=== PATIENT | female | born 1955 | race Caucasian/White ===

== ENCOUNTER 2018-03-24 13:58 | Emergency (ER) | payer MEDICARE, OTHER, SELFPAY ==
[2018-03-24 13:59] VITALS: BP 105/60; PULSE 66; RESP 18; TEMP 36.4; O2SAT 91; BMI 53.8
--- NOTE | 2018-03-24 14:50 | CT_ITS ---
STUDY: CT ABDOMEN AND PELVIS WITHOUT CONTRAST REASON FOR EXAM: Female, 63 years old. RADIATION DOSAGE (If Supplied By Facility): CTDIvol = ( 24.18 ) mGy, DLP = ( 1147.63 ) mGycm TECHNIQUE: Transaxial images were obtained from the dome of the diaphragm to the symphysis pubis without oral contrast, and without intravenous contrast. Sagittal and coronal images were reconstructed. Individualized dose optimization techniques were used for this CT. COMPARISON: None. FINDINGS: The visualized lung bases are unremarkable. The visualized portions of the heart are within normal limits. The liver and spleen are normal in size and attenuation. There are multiple tiny calcified granulomas in both. No focal lesion seen. The pancreas is within normal limits. The adrenal glands and both kidneys are unremarkable. No hydronephrosis or stone formation. No periaortic lymphadenopathy. No free fluid or free air in the peritoneal cavity. The small and large bowel are unremarkable. The appendix is not seen There are calcifications tortuosity of the abdomen and aorta no aneurysmal dilatation. CT/Abdomen/Pelvis without Cont IMPRESSION: Multiple calcified granulomas in the liver and spleen. Electronically Signed: Alondra Bennett, at 15:53 EST Tel , Service support ,
[2018-03-24] MEDS: 0.9% Normal Saline 1,000 ML 1000 ML IV (15:07)
[2018-03-24] MEDS: Morphine 4 MG/ML Syringe IV (15:07)
[2018-03-24] MEDS: Ondansetron 4 MG/2 ML Vial IV (15:08)
[2018-03-24 15:20] LABS: Absolute Lymphocyte Count 4.25 X10^3/ul (0.83-4.51); Absolute Neutrophil Count 7.7 X10^3/uL (2.0-7.7); Basophil# 0.04 X10^3/uL; Basophil% 0.3 % (0-1); Eosinophil# 0.26 X10^3/uL; Hematocrit 52.2 % (37-47); Hemoglobin 17.6 g/dl (12.0-15.0); Lymphocyte # 4.25 X10^3/ul (4.0); Lymphocyte % 32.3 % (19-41); Mean Corp Hgb Conc 33.7 g/gl (32-36); Mean Corpuscular Hgb 33.7 pg (27.0-32.0); Mean Corpuscular Volume 99.8 fL (81-99); Mean Platelet Vol. 10.9 fl (6.2-12.0); Monocyte# 0.81 X10^3/uL; Monocyte% 6.2 % (0-10); Neutrophil # 7.74 X10^3/uL (2.7-7.7); Neutrophil % 58.7 % (47-70); Platelet Count 155 K/mm3 (150-450); RBC Distribution Width CV 12.9 % (11.6-14.6); RBC Distribution Width SD 47.1 fl (35.1-43.9); Red Blood Count 5.23 M/mm3 (4.2-5.4); White Blood Count 13.2 K/mm3 (4.4-11.0)
[2018-03-24 15:25] LABS: POSITIVE COUNT NO; POSITIVE DIFFERENTIAL NO; POSITIVE MORPHOLOGY NO
[2018-03-24 15:28] LABS: ALB/GLOB Ratio 1.2 RATIO (0.9-2.4); AST(SGOT) 11 U/L (15-37); Alanine Aminotransfer ALT/SGPT 22 U/L (13-56); Albumin, Serum 3.6 g/dL (3.2-5.0); Alkaline Phosphatase 61 U/L (45-117); Anion Gap 7 (5-15); BUN 29 mg/dL (7-18); BUN/Creat Ratio 27.9 RATIO (10-20); Calcium,Total 9.8 mg/dL (8.5-10.1); Chloride 98 mmol/L (98-107); Creatinine, Serum 1.04 mg/dL (0.55-1.02); EST Glomerular Filtration Rate 57 mL/min (>60); Est Glom Filt Rate - Afr Amer 68 mL/min (>60); Globulin 3.1 g/dL (2.2-4.2); Glucose 145 mg/dL (74-106); Lipase 75 U/L (73-393); Protein, Total 6.7 g/dL (6.4-8.2); Sodium Level 141 mmol/L (136-145)
--- NOTE | 2018-03-24 16:08 | ED.VISSUMM ---
- ER Visit Summary Date of Service: 03/24/18 Chief Complaint: Right side pain History of Present Illness: The patient is a 63 F with right side pain in her groin for the past 3 days. It radiates to her right flank and right leg. Worse with movement. She has been taking [employer] twice a day and it is not helping. Patient denies any injury or inciting event. She never had this before. She has a history of ovarian cyst and she was worried this is an ovarian cyst. History of diabetes, hypertension, hyperlipidemia, CHF, COPD, and a partial hysterectomy. She does take aspirin. Physical Examination: Afebrile and vital signs unremarkable. No acute distress. Alert and oriented. Skin appears normal without pallor or jaundice. Heart regular. Lungs clear. Abdomen is tender in the right lower quadrant. No guarding or rebound. No CVA tender this. Test Results: White count 13.2 and hemoglobin 17.6, CO2 36, glucose 145, BUN 29, and creatinine 1.04. Hepatic panel and lipase unremarkable. Urinalysis pending. CT showed liver and spleen granulomas, but nothing else acute. Emergency Department Course and Treatment: Patient treated with fluids, morphine, and Zofran while awaiting results. Her urinalysis is pending but otherwise her workup is unremarkable. Nothing to explain her right flank pain. Oncoming physician will check a urinalysis which has not even collected at this time. If there is an infection, she will need treatment. She is not currently on antibiotics. If this is negative, I suspect this is myofascial pain. Patient will increase her [employer] to 2 tablets 4 times a day. She will also be prescribed Motrin. Follow-up with primary care. Return right away for any new or worsening issues. Treatment Plan: As above Disposition: Discharge Impression: 1. Right flank pain This note was generated with [employer] software. It may contain incorrect words, spelling, and punctuation that were not noted in review of the chart prior to signing ED Disposition - Plan for ED Patient: Chief Complaint: Complaint Referrals: Bhavesh Victoria MD [Primary Care Provider] -
--- NOTE | 2018-03-24 16:11 | ED.DCSUM_ITS ---
- ER Visit Summary Date of Service: 03/24/18 Chief Complaint: Right side pain History of Present Illness: The patient is a 63 F with right side pain in her groin for the past 3 days. It radiates to her right flank and right leg. Worse with movement. She has been taking [place] twice a day and it is not helping. Patient denies any injury or inciting event. She never had this before. She has a history of ovarian cyst and she was worried this is an ovarian cyst. History of diabetes, hypertension, hyperlipidemia, CHF, COPD, and a partial hysterectomy. She does take aspirin. Physical Examination: Afebrile and vital signs unremarkable. No acute distress. Alert and oriented. Skin appears normal without pallor or jaundice. Heart regular. Lungs clear. Abdomen is tender in the right lower quadrant. No guarding or rebound. No CVA tender this. Test Results: White count 13.2 and hemoglobin 17.6, CO2 36, glucose 145, BUN 29, and creatinine 1.04. Hepatic panel and lipase unremarkable. Urinalysis pending. CT showed liver and spleen granulomas, but nothing else acute. Emergency Department Course and Treatment: Patient treated with fluids, morphine, and Zofran while awaiting results. Her urinalysis is pending but otherwise her workup is unremarkable. Nothing to explain her right flank pain. Oncoming physician will check a urinalysis which has not even collected at this time. If there is an infection, she will need treatment. She is not currently on antibiotics. If this is negative, I suspect this is myofascial pain. Patient will increase her [place] to 2 tablets 4 times a day. She will also be prescribed Motrin. Follow-up with primary care. Return right away for any new or worsening issues. Treatment Plan: As above Disposition: Discharge Impression: 1. Right flank pain This note was generated with [employer] software. It may contain incorrect words, spelling, and punctuation that were not noted in review of the chart prior to signing ED Disposition - Plan for ED Patient: Chief Complaint: Complaint Referrals: Bhavesh Victoria MD [Primary Care Provider] -
--- NOTE | 2018-03-24 16:11 | ED.DEP ---
ED Disposition - Plan for ED Patient: Chief Complaint: Complaint Instructions: ED Flank Pain Uncertain Cause Prescriptions: Ibuprofen [Motrin] 800 mg PO TID PRN PRN #20 tab PRN Reason: Pain Referrals: Bhavesh Victoria MD [Primary Care Provider] -
[2018-03-24 16:25] VITALS: BP 104/67; PULSE 71; RESP 20; O2SAT 90
[2018-03-24 16:26] LABS: Bacteria 0 SEEN /hpf (None Seen); Mucous, Urine 0 SEEN /hpf (<or=2+); White Blood Cells 0 SEEN /hpf (0-5)
[2018-03-24 16:27] LABS: Color, Urine Straw (Yellow); Glucose, Dipstick Normal (Normal); Ketone-Dipstick Negative (Negative); Leukocyte Esterase-Dipstick Negative /ul (Negative); Nitrite-Dipstick Negative (Negative); Occult Blood-Urine Negative /ul (Negative); Protein-Dipstick Negative (Negative); Urine Bilirubin Dipstick Negative (Negative); Urine Clarity Clear (Clear); Urine Urobilinogen Normal (Normal)
[2018-03-24 16:42] LABS: Hyaline Cast 0-5 SEEN /lpf (0-5); Squamous Epithelial Cells - UA 0-5 SEEN /hpf (5-10)
[2018-03-24 16:44] LABS: Red Blood Cells-Urine 0-5 SEEN /hpf (0-5)
[2018-03-24 16:50] VITALS: BP 110/71; PULSE 79; RESP 16; O2SAT 97
== END 2018-03-24 16:52 | disposition home or self-care (01) ==
LOC: ED 15:13
PROVIDERS: Emergency Provider Emergency Medicine; Family Provider Family Medicine; PCP Family Medicine
DX: R10.9 Unspecified abdominal pain (principal); M54.9 Dorsalgia, unspecified; I11.0 Hypertensive heart disease with heart failure; I50.9 Heart failure, unspecified; J44.9 Chronic obstructive pulmonary disease, unspecified; E11.9 Type 2 diabetes mellitus without complications; E78.5 Hyperlipidemia, unspecified; N83.209 Unspecified ovarian cyst, unspecified side; Z90.711 Acquired absence of uterus with remaining cervical stump; Z79.82 Long term (current) use of aspirin; Z72.0 Tobacco use
CPT/HCPCS: 74176; 80053; 81001; 83690; 85025; 96361; 96374; 96375; 99284; J7030; J2405

== ENCOUNTER → 2018-12-02 07:46 | Outpatient (CLI) | payer MEDICARE, OTHER, SELFPAY ==
--- NOTE | 2018-09-01 18:08 | HP.PCM_ITS ---
History and Physical Date of Admission: 09/05/18 HISTORY AND PHYSICAL ? Thao Valdez 1955 ? REFERRING PHYSICIAN: ??Self ? CHIEF COMPLAINT: ??Consult (Consult Colonoscopy) ? HPI: The patient is a 63 year old female referred for endoscopy. ?Thao notes no colon complaints. Patient denies any change in bowel habits, weight changes, blood in stools, black tarry stools or abdominal pain.??Denies?family history of colon issues. ?The patient is a smoker, approximately 1/2 pack per day, rolls own cigarettes. ?She notes frequent cough and throat irritation in the mornings. ?She has not had an EGD in the past. ? Thao?has?undergone prior colonoscopy, most recently in June 2007 with removal of benign hyperplastic polyps. ? ? Patient's history is significant for COPD, type 2 diabetes mellitus, hypertension, hyperlipidemia, coronary artery disease, migraines, sleep apnea, tobacco use as noted above, obesity. ?Patient follows with Dr. Victoria for her chronic medical conditions. ?Notes her diabetes is not currently well controlled and she is working on this. ?Patient also notes she is on oxygen as needed at home and that she should probably be using this more often than she does. ?She is SpO2 86% on room air during exam today and states this is typical for her. ?She denies any chest pain or recent hospitalizations. ?Denies problems with sedation in the past. ? ? PAST?MEDICAL?HISTORY PAST MEDICAL HISTORY Diagnosis Date ? Benign neoplasm of colon ? ? Carpal tunnel syndrome ? ? Chronic obstructive pulmonary disease (COPD) (HCC) ? ? Coronary artery disease ? ? Depression ? ? Diverticulosis of colon (without mention of hemorrhage) ? ? Internal hemorrhoids without mention of complication ? ? Obesity, unspecified ? ? Obstructive sleep apnea ? ? Other and unspecified hyperlipidemia ? ? PMH - PAST MEDICAL HISTORY OF 05/12/2007 ? Heart Cath ? Tobacco abuse 05/03/2010 ? Type II or unspecified type diabetes mellitus without mention of complication, not stated as uncontrolled Onset 1198 ? Unspecified essential hypertension ? ? ? PAST?SURGICAL?HISTORY PAST SURGICAL HISTORY Procedure Laterality Date ? CATARACT EXTRACTION HX ? 2014 ? COLONOS W/REM POLYP SNARE ? 07/11/07 ? FNA WITH IMAGING ? 05/29/14 ? U/S FNA right retroareolar breast abscess ? SLEEP STUDY - ADULT ? 12/15/11 ? [facility], Scanned to [facility] ? VAGINAL HYSTERECTOMY ? 1986 ? Hysterectomy, vaginal ? ? CURRENT?MEDICATIONS ? Current Outpatient Medications: spironolactone (ALDACTONE) 25 mg tablet Take 1 tablet by mouth twice daily. metFORMIN (GLUCOPHAGE) 1,000 mg tablet Take 1 tablet by mouth twice daily before meals. pramipexole (MIRAPEX) 1 mg tablet Take 2 tablets by mouth twice daily. montelukast (SINGULAIR) 10 mg tablet Take 1 tablet by mouth daily at bedtime. insulin NPH human (NOVOLIN N NPH U-100 INSULIN) injection Take 47 units sq in AM, 27 units sq in PM HYDROcodone-Acetaminophen (NORCO) 10-325 mg per tablet Take 1 tablet by mouth twice daily as needed for up to 30 days.Earliest Fill Date: 05/11/18 sertraline (ZOLOFT) 50 mg tablet Take 1 tablet by mouth once daily. DULoxetine (CYMBALTA) 30 mg capsule Take 1 capsule by mouth once daily. In addition to 60 mg of Cymbalta glimepiride (AMARYL) 4 mg tablet Take 1 tablet by mouth once daily. meloxicam (MOBIC) 15 mg tablet TAKE ONE TABLET BY MOUTH ONCE DAILY NEEDED cloNIDine HCl (CATAPRES) 0.1 mg tablet TAKE 1 TABLET BY MOUTH TWICE A DAY Lovastatin 40 mg tablet TAKE 1 TABLET BY MOUTH AT BEDTIME blood sugar diagnostic (ACCU-CHEK JOJO) test strip Test blood sugar(s) 5 times daily. ?Dx: Type 2 DM - Controlled E11.9 ?Insulin: Yes blood sugar diagnostic (ACCU-CHEK JOJO) test strip Test blood sugar(s) 5 times daily. ?Dx: Type 2 DM - Controlled E11.9 ?Insulin: Yes COMPOUNDED PRESCRIPTION 1 Accu-chek Jojo Blood Glucose Monitor and kit ?ICD-10: E11.9. Check blood sugar five times daily as needed. Insulin: Yes. metoprolol tartrate, short acting, (LOPRESSOR) 100 mg tablet Take 1 tablet by mouth twice daily. DULoxetine (CYMBALTA) 60 mg capsule Take 1 capsule by mouth once daily. insulin needles, DISPOSABLE, (PEN NEEDLE) 31 gauge x 5/16 ndle Use as directed with insulin pen once daily. DM: yes Insulin: yes DX: E11.42 ipratropium-albuterol (DUONEB) 0.5 mg-3 mg(2.5 mg base)/3 mL nebu Inhale 3 mL as instructed three times daily. OVER 5-15 MINUTES Nebulizer NEBULIZER FOR HOME USE. ?DX: J43.8 Use as directed every 4-6 hours. mupirocin (BACTROBAN) 2 % ointment APPLY 1 APPLICATION TO AFFECTED AREA TWICE DAILY. ramipril (ALTACE) 10 mg capsule Take 1 capsule by mouth once daily. nystatin (MYCOSTATIN) powder Apply 1 application to affected area four times daily. Larger container please umeclidinium (INCRUSE ELLIPTA) 62.5 mcg/actuation inhaler Inhale 1 Puff as instructed once daily. beclomethasone (QVAR) 80 mcg/actuation inhaler Inhale 1 Puff as instructed twice daily. nitroglycerin sublingual (NITROQUICK) 0.4 mg SL tablet DISSOLVE ONE TABLET UNDER THE TONGUE EVERY 5 MINUTES NEEDED FOR CHEST PAIN. ?DO NOT EXCEED A TOTAL OF 3 DOSES IN 15 MINUTES furosemide (LASIX) 40 mg tablet Take 2 tablets by mouth twice daily. Cholecalciferol, Vitamin D3, 5,000 unit cap Take 1 capsule by mouth once daily. albuterol HFA (VENTOLIN HFA) 90 mcg/actuation inhaler Inhale 2 Puffs as instructed four times daily. COMPOUNDED PRESCRIPTION Nebulizer supplies only, for home use Dx: COPD J44.9 Insulin Syringe-Needle U-100 (BD ULTRAFINE INSULIN) 1 mL 31 gauge x 5/16 syrg Use as directed twice daily with insulin triamcinolone acetonide (KENALOG) 0.1 % cream Apply 1 application to affected area twice daily. Apply sparingly to area for rash/itching. For Psoriasis Blood Glucose Control, Normal soln Test controls as needed. ?Dx: E11.42 Insulin: yes ASPIRIN 81 MG TAB Take one (1) tablet daily . glycerin-min oil-polycarbophil (REPLENS) gel Use 1 Applicator vaginally 3 times a WEEK. HYDROcodone-Acetaminophen (NORCO) 10-325 mg per tablet Take 1 tablet by mouth twice daily as needed for up to 30 days. Lancets (ACCU-CHEK SOFTCLIX LANCETS) lancets Test blood sugar(s) 5 times daily. ?Dx: Type 2 DM - Controlled E11.9 ?Insulin: Yes nystatin (MYCOSTATIN) 100,000 unit/mL suspension Take 5 mL by mouth four times daily. 1tsp swish in mouth for several minutes, then swallow (or expectorate) 4 times daily until gone. COMPOUNDED PRESCRIPTION Oxygen 3Lpm prn during day and continuous hs, backup and portable tank ?Dx: J44.9 ?R09.02 BIPAP BIPAP 8/4 cmH2O with 5 L/min O2, ?suitable mask, tubing, humidifier, filters. Lifetime sup. Dx: 327.23. ? No current facility-administered medications for this visit.? ? ALLERGIES:?Adhesive Tape (Rosins); Celebrex [Celecoxib]; Lisinopril; Lyrica [Pregabalin]; Mirapex [Pramipexole]; Mysoline [Primidone]; Percocet [Oxycodone- Acetaminophen]; Seroquel [Quetiapine] ? PERSONAL HISTORY:? SOCIAL?HISTORY Social History ??Socioeconomic History ?Marital status: Single ?Spouse name: Not on file ?Number of children: Not on file ?Years of education: Not on file ?Highest education level: Not on file ??Social Needs ?Financial resource strain: Not on file ?Food insecurity - worry: Not on file ?Food insecurity - inability: Not on file ?Transportation needs - medical: Not on file ?Transportation needs - non-medical: Not on file ??Occupational History ?Not on file ??Tobacco Use ?Smoking status: Current Every Day Smoker ?Packs/day: 1.00 ?Types: Cigarettes ?Start date: 04/13/1964 ?Smokeless tobacco: Never Used ??Substance and Sexual Activity ?Alcohol use: No ?Drug use: No ?Sexual activity: Not on file ??Other Topics ?Concerns: ?Not on file ??Social History Narrative ?Not on file ? FAMILY HISTORY:? FAMILY?HISTORY FAMILY HISTORY Problem Relation Age of Onset ? Cancer Father ? ? Diabetes Mother ? ? Heart Mother ? ? Alcohol/Drug Mother ? ? Diabetes Brother ?age 47 ? Coronary Artery Disease Brother ?[place] , [place] ? REVIEW OF SYMPTOMS: ??The review of systems data was entered by the nurse and reviewed by me ? Nursing Notes: Waqar Star EISENBERG ?06/01/2018 ?1:18 PM ?Signed REVIEW OF SYSTEMS: ?General:???The patient notes fatigue, denies weight loss, denies weight gain, denies feeling hot, and denies feelings of cold. ?Eyes: ?The patient denies glaucoma, NOTES eye injury/surgery, wears glasses or contacts. ?Ear/Nose/Throat: ?The patient denies allergies, denies hayfever, denies ear infections, and denies bloody noses. ?Cardiovascular: ?The patient denies chest pain, NOTES heart disease, NOTES high blood pressure,denies cardiac stent, denies prior heart attack, denies irregular heart beat, NOTES high cholesterol, ?denies poor circulation, denies heart failure, other cardiac issues, denies claudication, denies cold feet, denies peripheral arterial stent. ?Respiratory: ?The patient denies tuberculosis, denies pneumonia, denies frequent cough, denies pulmonary embolism, NOTES shortness of breath, and denies coughing up blood. ?Gastrointestinal: ?The patient denies difficulty swallowing, denies acid reflux, denies ulcers, denies vomiting, denies jaundice/hepatitis, denies gallbladder problems, denies black or tarry stools, NOTES hemorrhoids, denies bleeding from rectum, denies diverticulitis, denies constipation, denies diarrhea, denies loss of stool control, and NOTES hernias. ?Kidney/Bladder: ?The patient denies kidney stones, denies urine infections, and denies bloody urine. ?Skin: ?The patient denies a history of skin cancer, denies bleed ing/changing moles, and denies a history of skin rash. ?Neurologic: ?The patient denies a history of epilepsy/convulsions, denies headaches, denies head/spinal injuries, and denies stroke/TIA. ?Psychiatric: ?The patient denies psychiatric medications, NOTES depression, and denies voices, denies substance abuse. ?Endocrine: ?The patient denies thyroid disorders, NOTES diabetes, and arcadio es hormonal problems. ?Hematologic: ?The patient denies a history of bruising, denies bleeding, and denies anemia, denies blood clots. ?Infections: ?The patient NOTES a history of measles and mumps, denies rheumatic fever, and denies sexually transmitted diseases. ?Musculoskeletal: ?The patient denies back pain/injury, denies back problems, denies sciatica, denies knee/foot trouble, denies arthritis, or denies gout. ? ? When was patient's last Mammogram screening? 05/17 ? ?Last Colonoscopy: ?06/2007 ? ? Waqar Graves LPN? I have confirmed and edited as necessary, the PFSH and ROS obtained by others. ? ? PHYSICAL EXAMINATION: ? General: ?The patient is 63 year old female, well nourished, well hydrated in no acute distress. ?The patient is oriented to time, place, and person. ? VITALS:?Blood pressure 94/56, pulse 70, temperature 36.2 ?C (97.2 ?F), height 157.5 cm (5' 2), weight 121.7 kg (268 lb 6.4 oz), SpO2 (!) 86 %.?Body mass index is 49.09 kg/m?.? ? HEENT: ?Normal cephalic, ataumatic, pupils are equally round, sclera are anicteric, mucous membranes are moist, oropharynx is clear. ?Neck has no masses, asymmetry or lymphadenopathy. ? ? Respiratory: ?Clear to auscultation and percussion. ?Normal respiratory excursion and pattern. ? Cardiac: ?Examination is regular rate and rhythm. ?Normal S1/S2 ? Abdominal exam: ?Soft, nontender, ?with no palpable masses. ?No hepatosplenomegaly. ?No palpable hernias. ? Extremities: ?no clubbing, cyanosis or edema. ?No adenopathy. ? LABORATORY VALUES: As Noted ? RADIOLOGIC STUDIES: ?As Noted ? ? Assessment ? IMPRESSION:?encounter for screening colonoscopy, multiple medical comorbidities ? PLAN: ?I have reviewed my findings with the surgeon. ?Will plan for upper and?lower?endoscopy with Monitored Anesthetic Care. ??We discussed the risks and benefits of the planned endoscopy. ?I have informed the patient that complications can occur including failure to complete the endoscopy and perforation. ?The patient had the opportunity to ask questions concerning the planned endoscopy. ?My staff has also explained the procedure to the patient in understandable terms and has given the patient printed material concerning the procedure. ?The patient freely consents to surgery. ? I plan to use?Golytely?bowel preparation ? Patient instructed to contact PCP for instructions regarding diabetic medication, which may require adjustment during bowel preparation and/or day of procedure. ?She is to take all other routine medications as usual ? ? The patient has medical comorbidities for which we will plan for the procedure to be performed under Monitored Anesthetic Care. ? ? Diagnoses:?(Z12.11) Encounter for screening for malignant neoplasm of colon ?(primary encounter diagnosis) (J44.9) COPD with chronic bronchitis (HCC) (E11.42) DM type 2 with diabetic peripheral neuropathy (HCC) (I25.10) ASHD (arteriosclerotic heart disease) (E66.01) Obesity, Class III, BMI 40-49.9 (morbid obesity) (HCC) ? ? Mayi Valentine PA-C
--- NOTE | 2018-11-19 06:25 | PCM.HP.BLA ---
History and Physical Date of Admission: 11/21/18 HISTORY AND PHYSICAL ? Thao Valdez 1955 ? REFERRING PHYSICIAN: ??Self ? CHIEF COMPLAINT: ??Consult (Consult Colonoscopy) ? HPI: The patient is a 63 year old female referred for endoscopy. ?Thao notes no colon complaints. Patient denies any change in bowel habits, weight changes, blood in stools, black tarry stools or abdominal pain.??Denies?family history of colon issues. ?The patient is a smoker, approximately 1/2 pack per day, rolls own cigarettes. ?She notes frequent cough and throat irritation in the mornings. ?She has not had an EGD in the past. ? Thao?has?undergone prior colonoscopy, most recently in June 2007 with removal of benign hyperplastic polyps. ? ? Patient's history is significant for COPD, type 2 diabetes mellitus, hypertension, hyperlipidemia, coronary artery disease, migraines, sleep apnea, tobacco use as noted above, obesity. ?Patient follows with Dr. Victoria for her chronic medical conditions. ?Notes her diabetes is not currently well controlled and she is working on this. ?Patient also notes she is on oxygen as needed at home and that she should probably be using this more often than she does. ?She is SpO2 86% on room air during exam today and states this is typical for her. ?She denies any chest pain or recent hospitalizations. ?Denies problems with sedation in the past. ? ? PAST?MEDICAL?HISTORY PAST MEDICAL HISTORY Diagnosis Date ? Benign neoplasm of colon ? ? Carpal tunnel syndrome ? ? Chronic obstructive pulmonary disease (COPD) (HCC) ? ? Coronary artery disease ? ? Depression ? ? Diverticulosis of colon (without mention of hemorrhage) ? ? Internal hemorrhoids without mention of complication ? ? Obesity, unspecified ? ? Obstructive sleep apnea ? ? Other and unspecified hyperlipidemia ? ? PMH - PAST MEDICAL HISTORY OF 05/12/2007 ? Heart Cath ? Tobacco abuse 05/03/2010 ? Type II or unspecified type diabetes mellitus without mention of complication, not stated as uncontrolled Onset 1198 ? Unspecified essential hypertension ? PAST?SURGICAL?HISTORY PAST SURGICAL HISTORY Procedure Laterality Date ? CATARACT EXTRACTION HX ? 2014 ? COLONOS W/REM POLYP SNARE ? 07/11/07 ? FNA WITH IMAGING ? 05/29/14 ? U/S FNA right retroareolar breast abscess ? SLEEP STUDY - ADULT ? 12/15/11 ? [facility], [facility] ? VAGINAL HYSTERECTOMY ? 1986 ? Hysterectomy, vaginal ? ? ? CURRENT?MEDICATIONS ? Current Outpatient Medications: spironolactone (ALDACTONE) 25 mg tablet Take 1 tablet by mouth twice daily. metFORMIN (GLUCOPHAGE) 1,000 mg tablet Take 1 tablet by mouth twice daily before meals. pramipexole (MIRAPEX) 1 mg tablet Take 2 tablets by mouth twice daily. montelukast (SINGULAIR) 10 mg tablet Take 1 tablet by mouth daily at bedtime. insulin NPH human (NOVOLIN N NPH U-100 INSULIN) injection Take 47 units sq in AM, 27 units sq in PM HYDROcodone-Acetaminophen (NORCO) 10-325 mg per tablet Take 1 tablet by mouth twice daily as needed for up to 30 days.Earliest Fill Date: 05/11/18 sertraline (ZOLOFT) 50 mg tablet Take 1 tablet by mouth once daily. DULoxetine (CYMBALTA) 30 mg capsule Take 1 capsule by mouth once daily. In addition to 60 mg of Cymbalta glimepiride (AMARYL) 4 mg tablet Take 1 tablet by mouth once daily. meloxicam (MOBIC) 15 mg tablet TAKE ONE TABLET BY MOUTH ONCE DAILY NEEDED cloNIDine HCl (CATAPRES) 0.1 mg tablet TAKE 1 TABLET BY MOUTH TWICE A DAY Lovastatin 40 mg tablet TAKE 1 TABLET BY MOUTH AT BEDTIME blood sugar diagnostic (ACCU-CHEK JOJO) test strip Test blood sugar(s) 5 times daily. ?Dx: Type 2 DM - Controlled E11.9 ?Insulin: Yes blood sugar diagnostic (ACCU-CHEK JOJO) test strip Test blood sugar(s) 5 times daily. ?Dx: Type 2 DM - Controlled E11.9 ?Insulin: Yes COMPOUNDED PRESCRIPTION 1 Accu-chek Jojo Blood Glucose Monitor and kit ?ICD-10: E11.9. Check blood sugar five times daily as needed. Insulin: Yes. metoprolol tartrate, short acting, (LOPRESSOR) 100 mg tablet Take 1 tablet by mouth twice daily. DULoxetine (CYMBALTA) 60 mg capsule Take 1 capsule by mouth once daily. insulin needles, DISPOSABLE, (PEN NEEDLE) 31 gauge x 5/16 ndle Use as directed with insulin pen once daily. DM: yes Insulin: yes DX: E11.42 ipratropium-albuterol (DUONEB) 0.5 mg-3 mg(2.5 mg base)/3 mL nebu Inhale 3 mL as instructed three times daily. OVER 5-15 MINUTES Nebulizer NEBULIZER FOR HOME USE. ?DX: J43.8 Use as directed every 4-6 hours. mupirocin (BACTROBAN) 2 % ointment APPLY 1 APPLICATION TO AFFECTED AREA TWICE DAILY. ramipril (ALTACE) 10 mg capsule Take 1 capsule by mouth once daily. nystatin (MYCOSTATIN) powder Apply 1 application to affected area four times daily. Larger container please umeclidinium (INCRUSE ELLIPTA) 62.5 mcg/actuation inhaler Inhale 1 Puff as instructed once daily. beclomethasone (QVAR) 80 mcg/actuation inhaler Inhale 1 Puff as instructed twice daily. nitroglycerin sublingual (NITROQUICK) 0.4 mg SL tablet DISSOLVE ONE TABLET UNDER THE TONGUE EVERY 5 MINUTES NEEDED FOR CHEST PAIN. ?DO NOT EXCEED A TOTAL OF 3 DOSES IN 15 MINUTES furosemide (LASIX) 40 mg tablet Take 2 tablets by mouth twice daily. Cholecalciferol, Vitamin D3, 5,000 unit cap Take 1 capsule by mouth once daily. albuterol HFA (VENTOLIN HFA) 90 mcg/actuation inhaler Inhale 2 Puffs as instructed four times daily. COMPOUNDED PRESCRIPTION Nebulizer supplies only, for home use Dx: COPD J44.9 Insulin Syringe-Needle U-100 (BD ULTRAFINE INSULIN) 1 mL 31 gauge x 5/16 syrg Use as directed twice daily with insulin triamcinolone acetonide (KENALOG) 0.1 % cream Apply 1 application to affected area twice daily. Apply sparingly to area for rash/itching. For Psoriasis Blood Glucose Control, Normal soln Test controls as needed. ?Dx: E11.42 Insulin: yes ASPIRIN 81 MG TAB Take one (1) tablet daily . glycerin-min oil-polycarbophil (REPLENS) gel Use 1 Applicator vaginally 3 times a WEEK. HYDROcodone-Acetaminophen (NORCO) 10-325 mg per tablet Take 1 tablet by mouth twice daily as needed for up to 30 days. Lancets (ACCU-CHEK SOFTCLIX LANCETS) lancets Test blood sugar(s) 5 times daily. ?Dx: Type 2 DM - Controlled E11.9 ?Insulin: Yes nystatin (MYCOSTATIN) 100,000 unit/mL suspension Take 5 mL by mouth four times daily. 1tsp swish in mouth for several minutes, then swallow (or expectorate) 4 times daily until gone. COMPOUNDED PRESCRIPTION Oxygen 3Lpm prn during day and continuous hs, backup and portable tank ?Dx: J44.9 ?R09.02 BIPAP BIPAP 8/4 cmH2O with 5 L/min O2, ?suitable mask, tubing, humidifier, filters. Lifetime sup. Dx: 327.23. ? No current facility-administered medications for this visit.? ? ALLERGIES:?Adhesive Tape (Rosins); Celebrex [Celecoxib]; Lisinopril; Lyrica [Pregabalin]; Mirapex [Pramipexole]; Mysoline [Primidone]; Percocet [Oxycodone-Acetaminophen]; Seroquel [Quetiapine] ? PERSONAL HISTORY:? SOCIAL?HISTORY Social History ??Socioeconomic History ?Marital status: Single ?Spouse name: Not on file ?Number of children: Not on file ?Years of education: Not on file ?Highest education level: Not on file ??Social Needs ?Financial resource strain: Not on file ?Food insecurity - worry: Not on file ?Food insecurity - inability: Not on file ?Transportation needs - medical: Not on file ?Transportation needs - non-medical: Not on file ??Occupational History ?Not on file ??Tobacco Use ?Smoking status: Current Every Day Smoker ?Packs/day: 1.00 ?Types: Cigarettes ?Start date: 04/13/1964 ?Smokeless tobacco: Never Used ??Substance and Sexual Activity ?Alcohol use: No ?Drug use: No ?Sexual activity: Not on file ??Other Topics ?Concerns: ?Not on file ??Social History Narrative ?Not on file ?? ? FAMILY HISTORY:? FAMILY?HISTORY FAMILY HISTORY Problem Relation Age of Onset ? Cancer Father ? ? Diabetes Mother ? ? Heart Mother ? ? Alcohol/Drug Mother ? ? Diabetes Brother ?age 47 ? Coronary Artery Disease Brother ?ID , CABG ? ? REVIEW OF SYMPTOMS: ??The review of systems data was entered by the nurse and reviewed by me ? Nursing Notes: Waqar Graves FAINA ?06/01/2018 ?1:18 PM ?Signed REVIEW OF SYSTEMS: ?General:???The patient notes fatigue, denies weight loss, denies weight gain, denies feeling hot, and denies feelings of cold. ?Eyes: ?The patient denies glaucoma, NOTES eye injury/surgery, wears glasses or contacts. ?Ear/Nose/Throat: ?The patient denies allergies, denies hayfever, denies ear infections, and denies bloody noses. ?Cardiovascular: ?The patient denies chest pain, NOTES heart disease, NOTES high blood pressure,denies cardiac stent, denies prior heart attack, denies irregular heart beat, NOTES high cholesterol, ?denies poor circulation, denies heart failure, other cardiac issues, denies claudication, denies cold feet, denies peripheral arterial stent. ?Respiratory: ?The patient denies tuberculosis, denies pneumonia, denies frequent cough, denies pulmonary embolism, NOTES shortness of breath, and denies coughing up blood. ?Gastrointestinal: ?The patient denies difficulty swallowing, denies acid reflux, denies ulcers, denies vomiting, denies jaundice/hepatitis, denies gallbladder problems, denies black or tarry stools, NOTES hemorrhoids, denies bleeding from rectum, denies diverticulitis, denies constipation, denies diarrhea, denies loss of stool control, and NOTES hernias. ?Kidney/Bladder: ?The patient denies kidney stones, denies urine infections, and denies bloody urine. ?Skin: ?The patient denies a history of skin cancer, denies bleeding/changing moles, and denies a history of skin rash. ?Neurologic: ?The patient denies a history of epilepsy/convulsions, denies headaches, denies head/spinal injuries, and denies stroke/TIA. ?Psychiatric: ?The patient denies psychiatric medications, NOTES depression, and denies voices, denies substance abuse. ?Endocrine: ?The patient denies thyroid disorders, NOTES diabetes, and denies hormonal problems. ?Hematologic: ?The patient denies a history of bruising, denies bleeding, and denies anemia, denies blood clots. ?Infections: ?The patient NOTES a history of measles and mumps, denies rheumatic fever, and denies sexually transmitted diseases. ?Musculoskeletal: ?The patient denies back pain/injury, denies back problems, denies sciatica, denies knee/foot trouble, denies arthritis, or denies gout. ? ? When was patient's last Mammogram screening? 05/17 ? ?Last Colonoscopy: ?06/2007 ? ? Waqar Graves LPN? I have confirmed and edited as necessary, the PFSH and ROS obtained by others. ? ? PHYSICAL EXAMINATION: ? General: ?The patient is 63 year old female, well nourished, well hydrated in no acute distress. ?The patient is oriented to time, place, and person. ? VITALS:?Blood pressure 94/56, pulse 70, temperature 36.2 ?C (97.2 ?F), height 157.5 cm (5' 2), weight 121.7 kg (268 lb 6.4 oz), SpO2 (!) 86 %.?Body mass index is 49.09 kg/m?.? ? HEENT: ?Normal cephalic, ataumatic, pupils are equally round, sclera are anicteric, mucous membranes are moist, oropharynx is clear. ?Neck has no masses, asymmetry or lymphadenopathy. ? ? Respiratory: ?Clear to auscultation and percussion. ?Normal respiratory excursion and pattern. ? Cardiac: ?Examination is regular rate and rhythm. ?Normal S1/S2 ? Abdominal exam: ?Soft, nontender, ?with no palpable masses. ?No hepatosplenomegaly. ?No palpable hernias. ? Extremities: ?no clubbing, cyanosis or edema. ?No adenopathy. ? LABORATORY VALUES: As Noted ? RADIOLOGIC STUDIES: ?As Noted ? ? Assessment ? IMPRESSION:?encounter for screening colonoscopy, multiple medical comorbidities ? PLAN: ?I have reviewed my findings with the surgeon. ?Will plan for upper and?lower?endoscopy with Monitored Anesthetic Care. ??We discussed the risks and benefits of the planned endoscopy. ?I have informed the patient that complications can occur including failure to complete the endoscopy and perforation. ?The patient had the opportunity to ask questions concerning the planned endoscopy. ?My staff has also explained the procedure to the patient in understandable terms and has given the patient printed material concerning the procedure. ?The patient freely consents to surgery. ? I plan to use?Golytely?bowel preparation ? Patient instructed to contact PCP for instructions regarding diabetic medication, which may require adjustment during bowel preparation and/or day of procedure. ?She is to take all other routine medications as usual ? ? The patient has medical comorbidities for which we will plan for the procedure to be performed under Monitored Anesthetic Care. ? ? Diagnoses:?(Z12.11) Encounter for screening for malignant neoplasm of colon ?(primary encounter diagnosis) (J44.9) COPD with chronic bronchitis (HCC) (E11.42) DM type 2 with diabetic peripheral neuropathy (HCC) (I25.10) ASHD (arteriosclerotic heart disease) (E66.01) Obesity, Class III, BMI 40-49.9 (morbid obesity) (HCC) ? ? Mayi Valentine PA-C
== END ==
PROVIDERS: Family Provider Family Medicine; PCP Family Medicine; Referring Provider Family Medicine; Visit Provider Surgery
DX: Z00.00 Encounter for general adult medical examination without abnormal findings (principal)

== ENCOUNTER → 2018-12-19 11:05 | Outpatient (CLI) | payer MEDICARE, OTHER, SELFPAY ==
[2018-12-19 12:02] LABS: Amphetamine Urine VISTA NEGATIVE (<1000 ng/mL); Barbiturate Urine VISTA NEGATIVE (< 200 ng/mL); Benzodiazepine Urine VISTA NEGATIVE (< 200 ng/mL); Cocaine Urine VISTA NEGATIVE (< 300 ng/mL); Ecstacy Urine VISTA NEGATIVE (< 500 ng/mL); Methadone Urine VISTA NEGATIVE (< 300 ng/mL); PCP Urine VISTA NEGATIVE (< 25 ng/mL); THC Urine VISTA NEGATIVE (< 50 ng/mL)
[2018-12-19 14:24] LABS: Vista UDS pH Range 6
== END ==
PROVIDERS: Family Provider Family Medicine; PCP Family Medicine; Referring Provider Anesthesiology Pain Medicine; Visit Provider Anesthesiology Pain Medicine
DX: F11.20 Opioid dependence, uncomplicated (principal)
CPT/HCPCS: 80307

== ENCOUNTER → 2019-01-18 09:59 | Outpatient (CLI) | payer MEDICARE, OTHER, SELFPAY ==
--- NOTE | 2019-01-18 10:07 | RAD_ITS ---
STUDY: X-RAY - CERVICAL SPINE REASON FOR EXAM: Female, 64 years old. Pain. TECHNIQUE: 3 view(s) of the cervical spine were obtained. COMPARISON: None FINDINGS: There are degenerative changes of the anterior atlantoaxial articulation. Normal odontoid process. Normal cervical lordosis. There is multi-level endplate spondylosis. There is diffuse osteopenia. There is multilevel bilateral apophyseal hypertrophy. There is multi-level degenerative disc disease with multilevel disc space narrowing. The soft tissue structures are unremarkable. There is no demonstrated fracture of the cervical spine. RAD/Cerv Spine 2 or 3 Views IMPRESSION: Diffuse osteopenia along with multilevel spondylosis/degenerative disease with no acute fracture or subluxation. Electronically Signed: Layla Michelle MD at 0:49 EDT , Service support ,
== END ==
PROVIDERS: Family Provider Family Medicine; PCP Family Medicine; Referring Provider Anesthesiology Pain Medicine; Visit Provider Anesthesiology Pain Medicine
DX: M54.2 Cervicalgia (principal)
CPT/HCPCS: 72040

== ENCOUNTER 2019-02-02 11:30 | Outpatient (RCR) | payer MEDICARE, OTHER, SELFPAY ==
--- NOTE | 2018-12-28 10:52 | HP.PTEVAL_ITS ---
Patient's Visit Information THERESA VIVEROS is a 63 year old F referred to Physical Therapy by Keith Harrison MD with a diagnosis of Back pain, leg pain. Date of Evaluation: 12/28/18 Physical Therapist: Don Webb DPT, OCS, CSCS - Visit Plan Frequency: 2x /Week Duration: 4-6 Weeks Plan: 2x/week for 4 weeks for AT for. LB ROM and NS core strength. LE and postural strength. general ex. Teach for I as exit strategy or progress HEP. - Subjective Findings: Back and leg pain form OA and been there for years. 9 months ago got suddenly worse for no reason and to hospital. Injections yesterday epidural which helped. Took most of pain away and can walk better. Pain was 9/10 pain in LB and into both legs R >L down to ankles. . was on hydrocodone for long time. Pain seems to be up and down over the years for no apparent reason. Been seeing Christy for a couple months. No orthopedic doctor. Was keeping her up at night but slept well last night. Not employed, retired from [employer]. 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 Enjoys collecting dolls and can do this. Uses cane to get around out and about but not at home. No regular exercise. no back ex. Lives with son in split level. Steps are rough but can do them, they wear her out. Injection helped 90%. Has WC that she uses at home. - Pain LBP Pain Intensity (Out of 10): 4 Pain Intensity Range: 3, 9 Legs Pain Intensity (Out of 10): 0 Pain Intensity Range: 0, 1, 8 - Objective Requires push back to eval room in WC. Walks with cane R UE hunched over slightly adn limited to 50 feet by back pain and fear more than COPD. Trasnfers to adn fro supine adn sit I with UE. Flexibility in LE is good. L/S aROM is limited to neutral extension causing pain in R LB, flexion is limited moderately and painful centrally, R SB mod limted and painful, L SB min limited.. reflexes 2/3 patella and achilles. Sensation LE mindeficits in feet to gross light touch. pt is slightly swollen in both LE. Strength LE 4/5 without myotomal abnormalities. L/S compression is slightly painful but she is really doing rather well today afte yesterday's injections by her own admission. Tender slightly in lower thoracic paraspinals. has very minimal pelvic movement. Pt is very fearful of overdoing any activity or ex to go back into more pain. Pt appears fearful to move too much for fear of reverting back to pain. - Goals Goal 1:: patient feel 50% better with pain and activitiy overall. Goal Time Frame: 4-6 Weeks Goal 2:: Pt score less than 20% disability on oswestry Goal Time Frame: 4-6 Weeks Goal 3:: Pt I in appropriate HEP to minimize future problems in pool or on land Goal Time Frame: 4-6 Weeks Goal 4:: Walk into and out of PT with cane without need for WC Goal Time Frame: 4-6 Weeks - Rehabilitation Potential Physical Therapy Diagnosis: LBP form degenerative changes. Rehabilitation Potential: Fair - Anticipated Interventions Patient/Client Instruction: Educate patient on: Condition, Plan of Care For the Purpose of:: To decrease pain, To improve muscle performance and motor function, To improve ability of physical actions for home/community/work/leisure Therapeutic Exercise to Include: Strength training, Flexibilty training, Gait and locomotor training, In an aquatic setting, Passive ROM, Active ROM, Dynamic Lumbar Stabilization For the Purpose of:: To decrease pain, To improve nutrient delivery to tissue, To improve muscle performance and motor function, To increase tolerance to activity/condition/position, To improve ability of physical actions for home/community/work/leisure Other: to decrease fear of movement Thank you for the opportunity to evaluate your patient. For Medicare and Medicare HMO plans, please review the plan of care and approve it. It will need to be FAXED BACK to us at [phone] for Medicare purposes. For Medicare only, by signing this I certify the plan of care. Please let me know if there are questions or concerns regarding this plan of care. Physician Signature: Date:
--- NOTE | 2019-02-28 09:28 | HP.PT.NRP ---
HP - Discharge Summary (1) - Patient Information THERESA VIVEROS was seen in my office for initial evaluation on 12/28/18. The following Plan of Care was established for this patient: Initial Frequency: 2x /Week Initial Duration: 4-6 Weeks - Anticipated Interventions Patient/Client Instruction: Educate patient on: Condition, Plan of Care For the Purpose of:: To decrease pain, To improve muscle performance and motor function, To improve ability of physical actions for home/community/work/leisure Therapeutic Exercise to Include: Strength training, Flexibilty training, Gait and locomotor training, In an aquatic setting, Passive ROM, Active ROM, Dynamic Lumbar Stabilization For the Purpose of:: To decrease pain, To improve nutrient delivery to tissue, To improve muscle performance and motor function, To increase tolerance to activity/condition/position, To improve ability of physical actions for home/community/work/leisure Other: to decrease fear of movement This patient was last seen in our office 02/02/19. Pertinent comments regarding their Physical therapy will appear below: Pt seen 3 visits aquatic therapy. she cancelled or no showed for the remaining 6 visits without rescheduling. I will discontinue her from my care at this point due to nonattendance. At this point I will be discontinuing this patient from physical therapy. I would be happy to see this patient again in the future if found appropriate by the physician. Thank you! Don Webb, DPT, OCS, CSCS
== END 2019-02-02 19:00 | disposition home or self-care (01) ==
LOC: PT 11:30
PROVIDERS: Family Provider Family Medicine; PCP Family Medicine; Referring Provider Anesthesiology Pain Medicine; Visit Provider Anesthesiology Pain Medicine
DX: M54.9 Dorsalgia, unspecified (principal); M79.606 Pain in leg, unspecified
CPT/HCPCS: 97113; 97162

== ENCOUNTER → 2019-02-20 12:16 | Outpatient (CLI) | payer MEDICARE, OTHER, SELFPAY ==
--- NOTE | 2019-02-20 12:20 | MRI_ITS ---
STUDY: MRI CERVICAL SPINE WITHOUT CONTRAST REASON FOR EXAM: Female, 64 years old. The patient presents with a 1 year history of neck pain extending into the left arm. TECHNIQUE: Standardized fat and water weighted pulse sequences were obtained in the sagittal and axial planes. COMPARISON: X-RAY CERVICAL SPINE-January 18, 2019 FINDINGS: There is significant patient motion artifact which has produced spatial mis-registration and anatomic blurring, however there is significant information provided by this examination. Craniovertebral Junction Foramen Magnum: Normal. Brainstem Cervical Cord Junction: Normal. Atlanto-Occipital Articulation: Normal. Atlantoaxial Articulation (Anterior): Normal. Odontoid Process: Normal. Vertebrae, Alignment and Perivertebral Spaces: Vertebrae: Normal. Curvature: Straightening of the normal cervical lordosis. Alignment: There is minimal anterolisthesis of the C3 and C5 vertebra, further discussed below. Prevertebral Space: Normal. Prevertebral Muscles: Normal. Disc Space Levels N.B., Normal level statement indicates: Normal endplates; disc height, signal and morphology; facet joints; central canal, lateral recesses, and intervertebral neuroformina. C2-3: There is disc desiccation with preservation of the disc height. There is no disc displacement. Normal central canal and intervertebral neural foramina. C3-4: There is disc desiccation, preservation of the disc height with a 2 mm C3 anterolisthesis relationship to the C4 vertebra. The AP diameter of the central canal measures 10 mm which is at the lower limits of normal. CSF remains present surrounding the cervical cord. Motion artifact has produced anatomic blurring of the intervertebral neural foramina however there is probable severe foraminal stenosis. C4-5: There is disc desiccation, preservation of the disc height with a normal central canal. There is severe bilateral apophyseal joint arthrosis with severe bilateral foraminal stenosis with probable neural impingement upon the exiting C5 nerve roots. C5-6: There is disc desiccation, preservation of the disc height, with a 2 mm C5 retrolisthesis relationship to the C6 vertebra. There is a posterior left central disc herniation of protrusion type (sagittal T2 series 2, image 7; sagittal STIR series 4, image 7; axial T2 series 8, image 5). The disc protrusion measures approximately 3 x 12 mm and is producing leftward ventral thecal sac flattening with mild impingement upon the cervical cord but without cervical cord compression. CSF remains present surrounding the posterior aspect the cervical. There is bilateral apophyseal joint arthroses with mild right and severe left osseous foraminal stenosis with potential for neural impingement. C6-7: There is disc desiccation, moderate loss of the disc height with anterior endplate spondylotic spur formation. There is minimal posterior spondylotic ridge formation. There remains a normal central canal. The intervertebral neural foramina remain patent (sagittal T2 series 2, images 4 and 12). C7-T1: Normal. T1-2: (Imaged only in the sagittal plane). There is disc desiccation with preservation of the disc height. There is no disc displacement. Normal central canal and intervertebral neural foramina. T2-3: (Imaged only in the sagittal plane). There is a posterior right central disc herniation of protrusion type (sagittal T2 series 2, image 9). Disc protrusion measures approximately 4 mm in its AP dimension producing thecal sac flattening. There is a left preforaminal T2-3 disc protrusion (sagittal T2 series 2, image 6), measuring approximately 4 mm in size. CSF remains present surrounding the thoracic cord. Cervical / Thoracic (Visualized) Cord Cervical Cord: Normal. MRI/Spine Cervical (Routine) IMPRESSION: 1. Multilevel degenerative disc disease, cervical spondylosis with apophyseal joint arthroses producing foraminal stenoses at the C3-4, C4-5 and C5-6 levels, which would be better visualized with oblique x-rays of the cervical spine. 2. C5-6 posterior left central disc protrusion producing thecal sac flattening with mild impingement upon the cervical cord but without cervical cord flattening. 3. T2-3 posterior right central and left preforaminal disc protrusions. Electronically Signed: Jai Cox DO at 14:28 EST Tel , Service support ,
--- NOTE | 2019-02-20 12:20 | MRI_ITS ---
STUDY: MRI LUMBAR SPINE WITHOUT CONTRAST REASON FOR EXAM: Female, 64 years old. The patient presents with a history of low back and right hip/leg pain. TECHNIQUE: Standardized fat and water weighted pulse sequences were obtained in the sagittal and axial planes. COMPARISON: No relevant priors. FINDINGS: Vertebrae, Alignment and Curvature Vertebrae: There is late subacute compression deformity of the L3 vertebra involving the superior endplate. There is a 40% loss of vertical height of the anterior column and 20 % loss of vertical height of the central vertebral body height with preservation of the middle column. Minimal residual marrow edema of the superior endplate of the L3 vertebra with a macrotrabecular cleft (sagittal STIR series 5, image 6). There is a 4 mm retropulsion of the posterior superior endplate of the L3 vertebra. Alignment: There is an anterolisthesis of the L4 vertebra, further discussed below. Curvature: Normal lordosis. Mild levoscoliosis of the lumbar spine on this non-weight bearing examination. Thoracic Cord (visualized distal) / Conus Medullaris Normal. Terminates at the inferior endplate of the L1 vertebra. Disc Space Levels N.B.: Normal level statement indicates: Normal endplates; disc height, signal and morphology; facet joints; central canal, lateral recesses, and intervertebral neuroformina. T12-L1: (Imaged only in the sagittal plane). There is disc desiccation with juxta-endplate Schmorl's node deformities of T12 and L1 vertebra. There is a vertebral body hemangioma involving the posterior superior portion of the L1 vertebra. There is no disc displacement. Normal central canal and intervertebral neural foramina. L1-L2: Normal. There is epidural lipomatosis involving the posterior epidural space extending from the mid L2 vertebral body to the superior endplate of the L5 vertebra. L2-L3: There is late subacute compression deformity of the L3 vertebra, as detailed above. The AP diameter of the thecal sac measures 8 mm consistent with a mild central canal stenosis. There is a far right lateral extraforaminal disc protrusion (axial T2 series 6, image 18). There is mild posterior left foraminal annular bulging. There is mild bilateral facet arthroses with osseous and ligamentous hypertrophy. The intervertebral neural foramina remain patent. L3-L4: There is disc desiccation with a broad-based posterior left central to left foraminal disc herniation of protrusion type (axial T2 series 6, image 12; sagittal T2 series 3, images 5-8), superimposed upon moderate hypertrophic facet arthrosis. The central canal has been narrowed to 7 mm consistent with moderate central canal stenosis. The intervertebral neural foramina remain patent without morphologic neural impingement. L4-L5: Normal disc hydration and height, with a 3 mm L4 anterolisthesis relationship to the L5 vertebra. There is severe bilateral hypertrophic facet arthrosis with osseous and ligamentous hypertrophy (axial T2 series 6, image 7). The AP diameter of the central canal is narrowed to 5 mm consistent with a severe central canal stenosis. The intervertebral neural foramina remain patent. L5-S1: Normal disc height and hydration without disc displacement. There is severe bilateral hypertrophic facet arthrosis (axial T2 series 6, image 3). Normal central canal with patent intervertebral neural foramina. Sacral Alae: Normal. Retroperitoneum and Paraspinal Structures Kidneys: Non-visualized. Aorta: Normal. Inferior Vena Cava: Normal. Lymph Nodes: None visualized. Muscles (Paraspinal): Normal. MRI/Spine Lumbar (Routine) IMPRESSION: 1. Late subacute superior endplate compression deformity of the L3 vertebra. 2. Epidural lipomatosis involving the posterior epidural space extending from the mid L2 vertebral body to superior endplate of the L5 vertebra. 3. L2-3 mild central canal stenosis with a far right lateral extraforaminal disc protrusion but without foraminal neural impingement. 4. L3-4 broad-based posterior left central to left foraminal disc protrusion with a moderate central canal stenosis, but without foraminal neural impingement. 5. L4 minimal anterolisthesis with severe bilateral L4-5 hypertrophic facet arthrosis producing severe L4-5 central canal stenosis but without foraminal neural impingement. 6. L5-S1 severe bilateral facet arthrosis but without foraminal neural impingement. Electronically Signed: Jai Cox DO at 15:05 EST Tel , Service support ,
== END ==
PROVIDERS: Family Provider Family Medicine; PCP Family Medicine; Referring Provider Anesthesiology Pain Medicine; Visit Provider Anesthesiology Pain Medicine
DX: M54.2 Cervicalgia (principal); M54.9 Dorsalgia, unspecified
CPT/HCPCS: 72141; 72148

== ENCOUNTER 2019-04-13 10:08 | Emergency (ER) | payer MEDICARE, OTHER, SELFPAY ==
[2019-04-13] VITALS (12 sets, daily range): BP systolic 143–190; BP diastolic 69–91; PULSE 85–106; RESP 12–27; TEMP 37.4; O2SAT 84–98; BMI 49.1
--- NOTE | 2019-04-13 10:13 | ED.RN ---
ems concerned with safety of pt in house. states home is very dirty and has a hoarder like appearance. pt has no bed to sleep in and home is covered in rotten food and dog feces.
--- NOTE | 2019-04-13 10:15 | ED.RN ---
PT STATES WEAR O2 AT NIGHT, 3L NC. PT STATES O2 SAT USUALLY BETWEEN 85-90.
--- NOTE | 2019-04-13 10:32 | MRI_ITS ---
ACR Level 3 findings have been noted. An addendum which confirms receipt of the report will follow. STUDY: MRI LUMBAR SPINE WITHOUT CONTRAST REASON FOR EXAM: Female, 64 years old. Back pain, weakness s/p kyphoplasty. TECHNIQUE: Standardized fat and water weighted pulse sequences were obtained in the sagittal and axial planes. COMPARISON: February 20, 2019 FINDINGS: Lumbar lordosis preserved. No significant scoliosis. Conus medullaris terminates normally at the L1 level. Status post kyphoplasty at the L3 vertebral body with minimal persistent edema (sagittal image 8 series 4). No acute fracture line. No acute dislocation. No acute bone destruction. Paraspinal muscle atrophy. Normal aorta. Normal retroperitoneum. Sacrum intact. Epidural fat contributes to regions of central canal narrowing (sagittal images 8 and 9 series 2). T12-L1: Schmorl''s nodes. Mild disc desiccation. Stable suspected cement at the T12-L1 disc space. Normal bilateral facet joints. Normal central canal and bilateral lateral recesses. Normal bilateral intervertebral neural foramina. L1-2: Minimal endplate spondylosis. Minimal disc desiccation. Facet joint arthrosis. Normal central canal and bilateral lateral recesses. Normal bilateral intervertebral neural foramina. L2-3: Mild/moderate endplate spondylosis without superior endplate compression. Disc bulge, new left paracentral caudal protrusion/osteophyte/cement (axial images 12 through 17 series 5 measuring approximately 11 mm x 11 mm in greatest axial dimension) and stable right extra foraminal protrusion component (axial image 17 series 5), with moderate central canal narrowing. Facet joint arthrosis. Left lateral recess narrowing with impingement of the left descending L3 nerve root. Neural foraminal narrowing without impingement. L3-4: Mild endplate spondylosis. Disc bulge with moderate central canal narrowing. Facet joint arthrosis. Bilateral lateral recess narrowing with contact of the descending nerve roots. Left neural foraminal narrowing with contact of the left exiting nerve root. L4-5: Normal endplates. Disc bulge, annular fissure, with severe central canal narrowing. Facet joint arthrosis. Bilateral lateral recess narrowing with impingement. Neural foraminal narrowing without impingement. L5-S1: Minimal endplate spondylosis. Shallow disc bulge, annular fissure, with minimal central canal narrowing. Facet joint arthrosis. Normal bilateral lateral recesses. Normal bilateral intervertebral neural foramina. MRI/Spine Lumbar (Routine) IMPRESSION: New L2-3 left paracentral disc protrusion/osteophyte/cement with moderate central canal narrowing New L2-3 left lateral recess narrowing with impingement of the left descending L3 nerve root New L3-4 left neural foraminal narrowing with early contact of the exiting left L3 nerve root Stable multilevel additional central canal, osteoarthritic features, lateral recess and neural foraminal narrowing Stable epidural lipomatosis contributing to regions of central canal narrowing Interval L3 kyphoplasty with persistent faint L3 bone marrow edema Electronically Signed: Don Michaud DO at 13:14 EST Tel , Service support ,
[2019-04-13] MEDS: morphine 8 MG/ML Syringe 6 MG IV ×2 (10:41→11:11)
[2019-04-13] MEDS: Ondansetron 4 MG/2 ML Vial IV (10:41)
[2019-04-13 10:59] LABS: Erythrocyte Sedimentation Rate 10 mm/hr (0-30)
[2019-04-13 11:05] LABS: Absolute Lymphocyte Count 2.96 X10^3/uL (0.83-4.51); Absolute Neutrophil Count 7.5 X10^3/uL (2.0-7.7); Basophil# 0.09 X10^3/uL; Basophil% 0.8 % (0-1); Eosinophil# 0.22 X10^3/uL; Eosinophils% 1.9 % (0-5); Hematocrit 51.5 % (37-47); Hemoglobin 16.5 g/dL (12.0-15.0); Lymphocyte # 2.96 X10^3/ul (4.0); Lymphocyte % 25.3 % (19-41); Mean Corpuscular Hgb 32.2 pg (27.0-32.0); Mean Corpuscular Volume 100.4 fL (81-99); Monocyte% 6.8 % (0-10); NRBC Flagged by Analyzer 0 % (0-5); Neutrophil # 7.54 X10^3/uL (2.7-7.7); Neutrophil % 64.4 % (47-70); Platelet Count 148 K/mm3 (150-450); RBC Distribution Width CV 13.3 % (11.6-14.6); RBC Distribution Width SD 49.5 fl (35.1-43.9); Red Blood Count 5.13 M/mm3 (4.2-5.4); White Blood Count 11.7 K/mm3 (4.4-11.0)
[2019-04-13 11:14] LABS: Anion Gap 3 (5-15); BUN 25 mg/dL (7-18); BUN/Creat Ratio 26.9 RATIO (10-20); CRP 6.23 mg/L (0.0-3.0); Calcium,Total 9.4 mg/dL (8.5-10.1); Chloride 105 mmol/L (98-107); Creatinine, Serum 0.93 mg/dL (0.55-1.02); EST Glomerular Filtration Rate 64 mL/min (>60); Est Glom Filt Rate - Afr Amer 77 mL/min (>60); Estimated Creatinine Clearance 49.22 ml/min; Glucose 298 mg/dL (74-106); Potassium 4.9 mmol/L (3.5-5.1); Sodium Level 136 mmol/L (136-145)
--- NOTE | 2019-04-13 11:16 | ED.RN ---
MOVED PT TO A POSITION OF COMFORT, HOB 30 DEGREES. O2 SAT DROPPED TO 80, PT INCREASED NC TO 6L. PT STATES COMFORT AND O2 86 AT THIS TIME.
[2019-04-13 11:35] LABS: Allen Test POS; Base Excess 4 mmol/L (-2 to +2); Bicarbonate 31.4 mmol/L (22-26); Blood Gas Specimen Type ART; O2 Delivery Device Nasal Can; PO2 60 mmHG (75-100); SITE L Radial; SO2 84 % (95-99); Time Given 1115; Total Carbon Dioxide 34 mmol/L; pCO2 75.9 mmHg (35-45); pH 7.23 (7.35-7.45)
--- NOTE | 2019-04-13 12:34 | CPS ---
Critical ABG value run times two. Results reported to
--- NOTE | 2019-04-13 12:50 | RAD_ITS ---
STUDY: X-RAY CHEST REASON FOR EXAM: Female, 64 years old. HYPOXIA, RESPIRATORY FAILURE -- BACK PAIN, RECENT FUSION TECHNIQUE: Single AP portable view of the chest. COMPARISON: None. FINDINGS: Cardiomegaly. Vascular congestion. Aorta calcified. Diffuse hazy airspace disease. No pleural effusions. No focal patchy airspace opacities. Upper abdomen unremarkable. Osseous structures intact. No pneumothorax. RAD/Chest 1 View (Portable) IMPRESSION: Pulmonary vascular congestion Cardiomegaly Electronically Signed: Don Michaud DO at 13:23 EST Tel , Service support ,
--- NOTE | 2019-04-13 13:22 | ED.VIS.GEN ---
History of Present Illness Chief Complaint: Back Informant: Patient Onset: Yesterday Context: Sudden Onset Timing: Continuous Quality: Severe pain with spasm Location: Lumbar central Current Severity: Severe Maximum Severity: Severe Worsened by: Movement Relieved by: Nothing Associated Symptoms: Pain down left leg and difficulty ambulating Narrative: Patient is a 64-year-old woman who underwent kyphoplasty on April 11. She presents because of severe pain. She was seen by Dr. Harrison yesterday and medicated for her pain. She presents today because of severe pain and inability to ambulate. She denies loss of bowel control. She does complain of pain radiating anteriorly left lower extremity. She also complains of pain right buttocks. She denies fever, chills night sweats. She does report frequency. She is diabetic. Prior similar symptoms: Yes Recent Illness/Hospitalization: Yes - Past Medical History (1) Type 2 diabetes mellitus Status: Acute (2) Hypertension Status: Chronic (3) COPD (chronic obstructive pulmonary disease) Status: Chronic (4) Obstructive sleep apnea Status: Acute (5) Pulmonary hypertension Status: Acute (6) Right heart failure Status: Acute Past Medical History - Allergies and Home Meds Allergies/Adverse Reactions: Allergies PAPER TAPE Allergy (Uncoded 09/01/18 11:19) Rash Primary Care Physician: Bhavesh Victoria MD [Primary Care Provider] - Prior records reviewed: Yes Lives: With Family Smoking Status: Current every day smoker Alcohol: None Drugs: None Review of Systems General: Reports: Chills, Fever, Subjective. Denies: Malaise, Sweats, Weight loss Eyes: Denies: Visual changes - bilaterally, Blurred Vision - bilaterally ENT: Denies: Rhinorrhea, Sore throat Cardiovascular: Denies: Chest pain, Palpitations Respiratory: Denies: Dyspnea, Cough, Dyspnea on exertion Gastrointestinal: Denies: Abdominal pain, Nausea, Vomiting, Diarrhea, Melena, Hematochezia Genitourinary: Reports: Frequency. Denies: Dysuria, Hematuria Musculoskeletal: Reports: Back pain, Extremity Pain. Denies: Myalgias, Arthralgias, Neck pain, Swelling Skin: Denies: Rash, Wounds Neurological: Reports: Weakness, Parasthesia. Denies: Headache Psych: Reports: Depression Hematologic: Denies: Easy bruising, Easy bleeding Allergy: Denies: Uticaria, Swelling of the mouth Physical Exam Vital Signs/Narrative: Vital Signs Temp Pulse Resp BP Pulse Ox 04/13/19 11:15 20 H 84 04/13/19 10:12 99.4 F H 94 22 H 175/79 H 86 Inital Vital Signs reviewed: Yes General: Well nourished, Well developed, Obese, Unkempt, No Acute Distress Head: Normocephalic, Atraumatic Eyes: Perrl, EOMI. Negative for: Pale conjunctiva, Scleral icterus ENT: Moist mucous membranes, No rhinorrhea Neck: Supple, Nontender, No lymphadenopathy, No JVD Cardiovascular: Regular rate, Regular rhythm, No murmurs. Negative for: Normal S1, Normal S2 Respiratory: No distress, CTA bilaterally, Chest nontender Abdomen: Soft, Nontender, Nondistended, Normal bowel sounds Back: Nontender. Negative for: Normal Inspection - Needle lópez from kyphoplasty noted. There is no erythema, warmth or induration. There is no fluctuance. Extremities: Nontender, Edema Skin: Normal color, No rash, No Trauma. Negative for: Cyanosis, Diaphoresis, Jaundice Neurological: Alert, Oriented x3, Cranial nerves II-XII grossly intact, Normal Sensation, - - Has weakness on left side. Unable to determine if this is secondary to pain or true deficit. Patellar reflex is diminished on left compared to right. Ankle reflexes symmetric.. Negative for: Normal Strength, Normal DTR, Normal Gait Psychological: Normal Mood Diagnostic/Tx/Re-eval Chest X-Ray - ED: 1 View, Read by ED Physician, Normal, Heart, Mediastinum, Bony Structures, No Acute Disease Impressions Lumbar Spine MRI 04/13/19 10:32 IMPRESSION: New L2-3 left paracentral disc protrusion/osteophyte/cement with moderate central canal narrowing New L2-3 left lateral recess narrowing with impingement of the left descending L3 nerve root New L3-4 left neural foraminal narrowing with early contact of the exiting left L3 nerve root Stable multilevel additional central canal, osteoarthritic features, lateral recess and neural foraminal narrowing Stable epidural lipomatosis contributing to regions of central canal narrowing Interval L3 kyphoplasty with persistent faint L3 bone marrow edema Electronically Signed: Don Michaud DO at 13:14 EST Tel , Service support , ADDENDUM: 04/13/19 1323 IMPRESSION: New L2-3 left paracentral disc protrusion/osteophyte/cement with moderate central canal narrowing New L2-3 left lateral recess narrowing with impingement of the left descending L3 nerve root New L3-4 left neural foraminal narrowing with early contact of the exiting left L3 nerve root Stable multilevel additional central canal, osteoarthritic features, lateral recess and neural foraminal narrowing Stable epidural lipomatosis contributing to regions of central canal narrowing Interval L3 kyphoplasty with persistent faint L3 bone marrow edema N.B. : The above information has been verbally conveyed by Don Michaud DO to Quentin Guzman MD, on 04/13/2019 13:16:27 (ET). Electronically Signed: Don Michaud DO at 13:14 EST Tel , Service support , Chest X-Ray 04/13/19 12:50 IMPRESSION: Pulmonary vascular congestion Cardiomegaly Electronically Signed: Don Michaud DO at 13:23 EST Tel , Service support , 04/13/19 10:32 MRI Lumbar [Spine Lumbar (Routine)] [MRI] Stat 04/13/19 12:50 Chest 1 View (Portable) [RAD] Stat Laboratory Results 04/13/19 04/13/19 04/13/19 10:40 10:40 11:32 WBC 11.7 H RBC 5.13 Hgb 16.5 H Hct 51.5 H MCV 100.4 H MCH 32.2 H MCHC 32.0 RDW Std Deviation 49.5 H RDW Coeff of Bautista 13.3 Plt Count 148 L MPV 11.0 Immature Gran % (Auto) 0.800 Neut % (Auto) 64.4 Lymph % (Auto) 25.3 [place] % (Auto) 6.8 Eos % (Auto) 1.9 Baso % (Auto) 0.8 Absolute Neuts (auto) 7.5 Absolute Lymphs (auto) 2.96 Nucleated RBC % 0 ESR 10 Specimen Type ART Sample Site L Radial pH 7.23 L Bicarbonate Actual 31.4 H POC Total CO2 34 Base Excess 4 H O2 Saturation 84 L ABG pCO2 75.9 H* ABG pO2 60 L Michele Test POS O2 Delivery Device Nasal Can Liter Flow 6.0 Blood Gas Notified Whom ED Blood Gas Notified Time 1115 Sodium 136 Potassium 4.9 Chloride 105 Carbon Dioxide 28.0 Anion Gap 3 L BUN 25 H Creatinine 0.93 Estim Creat Clear Calc 49.22 Est GFR (MDRD) Af Amer 77 Est GFR (MDRD) Non-Af 64 BUN/Creatinine Ratio 26.9 H Glucose 298 H Calcium 9.4 C-React Prot Ext Range 6.23 H - EKG Initial EKG Interpretation: Sinus Rhythm - Sinus rhythm with ventricular rate of 87. - Medical Decision Making Frontal diagnosis includes herniated disc, osteomyelitis, epidural abscess, extrusion of cement. CBC, electrolyte panel, ESR and CRP were obtained. MRI of the back was obtained as well. Patient became more somnolent. With history of obstructive sleep apnea and the fact that she is desaturating to the low 80s an ABG was obtained. ABG reveals acute on chronic CO2 retention with hypoxia. Patient was placed on BiPAP. I was contacted by radiologist. Patient has a new L2-3 left paracentral disc protrusion/osteophyte/cement with moderate central canal narrowing. There is also new L2-L3 left lateral recess narrowing with impingement of the left descending L3 nerve root. There is new L3-L4 left neural foramen narrowing with early con tact of the exiting left L3 nerve root. Stable epidural dural lipomatous contributing to regions of central canal narrowing. There is interval L3 kyphoplasty with persistent faint L3 bone marrow edema. Dr. Harrison was made aware of MRI findings. He recommended transfer to tertiary care facility. Patient [facility]. She did receive 10 mg of Decadron for the acute findings with neurologic deficit. She was placed on BiPAP for respiratory failure. - Critical Care Time Critical care time (excluding procedures): 30-74 minutes - Critical care time 39 minutes, Discussing w/Patient &/or Family/Soil Conservation Aide - Patient was informed of need for emergent MRI, she was informed of results. She was informed that she will require transfer and probable surgery. She states she was told she is high risk. I informed her that I did speak with her doctor and he agrees she needs surgery., Discussing w/Consultants - Discussion with her pain management physician, radiologist and accepting physician, Arranging Admission or Transfer, Performing Direct Patient Care at Bedside - Care for respiratory failure with hypoxia and somnolence. ED Disposition - Plan for ED Patient: Disposition: [facility] - Main Diagnosis: Respiratory failure with hypoxia and hypercapnia, Protrusion of intervertebral disc of lumbosacral region, Impingement L3 nerve root Referrals: Bhavesh Victoria MD [Primary Care Provider] -
[2019-04-13] MEDS: dexAMETHasone 10 MG/ML Vial IV (13:29)
--- NOTE | 2019-04-13 14:31 | EKG12_ITS ---
Test Reason : REPEAT Blood Pressure : / mmHG Vent. Rate : 083 BPM Atrial Rate : 083 BPM P-R Int : 168 ms QRS Dur : 098 ms QT Int : 358 ms P-R-T Axes : 057 079 037 degrees QTc Int : 420 ms Normal sinus rhythm Low Voltage QRS (Limb Leads) Poor R- wave progression Confirmed by WAI CRAWFORD, ANASTASIYA ([id number]), news assignment editor MONCHO ZAMBRANO ([id number]) on 04/17/2019 12:16:39 PM Referred By: AGUILAR Confirmed By:ANASTASIYA CARRENO MD
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
[2019-04-13] MEDS: LORazepam 0.5 MG Tablet PO (16:43)
[2019-04-13] MEDS: LORazepam 2 MG/ML Syringe 0.5 MG IV (17:05)
[2019-04-13 17:46] LABS: Bedside Glucose 319 mg/dL (70-110)
[2019-04-13] MEDS: Morphine 4 MG/ML Syringe 6 MG IV (18:55)
[2019-04-13] MEDS: HYDROmorphone 1 MG/ML Syringe IV (20:09)
--- NOTE | 2019-04-13 21:18 | ED.RN ---
REPORT CALLED AND UPDATED TO [facility] FOR UPDATES ON PT TO [facility]. DASHA GIVEN REPORT PRIOR TO LEAVING [facility]. ALL QUESTIONS ANSWERED. ATTEMPTED TO CALL SON BUT PHONE NUMBER NOT WORKING.
== END 2019-04-13 21:19 | disposition short-term general hospital (02) ==
PROVIDERS: Emergency Provider Emergency Medicine; PCP Family Medicine
DX: J96.91 Respiratory failure, unspecified with hypoxia (principal); J96.92 Respiratory failure, unspecified with hypercapnia; M51.27 Other intervertebral disc displacement, lumbosacral region; M54.16 Radiculopathy, lumbar region; E66.9 Obesity, unspecified; E11.9 Type 2 diabetes mellitus without complications; I11.0 Hypertensive heart disease with heart failure; I50.810 Right heart failure, unspecified; J44.9 Chronic obstructive pulmonary disease, unspecified; G47.33 Obstructive sleep apnea (adult) (pediatric); I27.20 Pulmonary hypertension, unspecified; Z79.4 Long term (current) use of insulin; Z79.84 Long term (current) use of oral hypoglycemic drugs; Z79.82 Long term (current) use of aspirin; Z79.899 Other long term (current) drug therapy; F17.200 Nicotine dependence, unspecified, uncomplicated
CPT/HCPCS: 36600; 51702; 71045; 72148; 80048; 82803; 82962; 85025; 85652; 86140; 93005; 94002; 96374; 96375; 96376; 99285; A4216; J2405

== ENCOUNTER 2019-09-28 13:02 | Inpatient (IN) | payer MEDICARE, OTHER, SELFPAY ==
[2019-04-13 10:12] VITALS: BMI 49.1
[2019-09-28] VITALS (22 sets, daily range): BP systolic 83–145; BP diastolic 40–92; PULSE 51–77; RESP 12–26; TEMP 36–37.2; O2SAT 84–99; BMI 41.9; BMI 45.4; BMI 45.5
--- NOTE | 2019-09-28 13:25 | ED.DCSUM_ITS ---
History of Present Illness Chief Complaint: Wound Check Informant: Patient Narrative: 4-year-old female with past medical history of diabetes, hypertension, CHF, COPD, oxygen dependent presents with bilateral leg wounds. Patient was seen by her medical language specialist and sent to the emergency department for IV antibiotics. Patient denies any fever or chills. States that they cultured the wounds which were found to be positive for strep and Enterobacter. States that she has had swelling in both of these legs for many weeks. Is diagnosed with CHF. Has been taking her Lasix. Denies any increased shortness of breath. Past Medical History - Allergies and Home Meds Allergies/Adverse Reactions: Allergies PAPER TAPE Allergy (Uncoded 09/28/19 13:07) Rash Prior records reviewed: Yes Past Medical History: - - DM, HTN, COPD, CHF Lives: With Family Smoking Status: Current every day smoker Alcohol: None Drugs: None Review of Systems General: Denies: Chills, Fever, Sweats Eyes: Denies: Visual changes - bilaterally, Diplopia ENT: Denies: Rhinorrhea, Sore throat Cardiovascular: Denies: Chest pain, Palpitations Respiratory: Denies: Dyspnea, Cough, Dyspnea on exertion Gastrointestinal: Denies: Abdominal pain, Nausea, Vomiting, Diarrhea, Melena, Hematochezia Genitourinary: Denies: Dysuria, Hematuria, Frequency Musculoskeletal: Denies: Back pain, Extremity Pain Skin: Reports: Wounds. Denies: Rash Neurological: Denies: Headache, Weakness, Numbness Physical Exam Vital Signs/Narrative: Vital Signs Temp Pulse Resp BP Pulse Ox 09/28/19 13:04 98.9 F 65 18 139/68 H 91 General: Well nourished, Well developed, No Acute Distress Head: Normocephalic, Atraumatic Eyes: Perrl, EOMI ENT: Moist mucous membranes, No rhinorrhea Neck: Supple, Nontender Cardiovascular: Regular rate, Regular rhythm, No murmurs Respiratory: No distress, CTA bilaterally, Chest nontender Abdomen: Soft, Nontender, Nondistended, Normal bowel sounds Back: Nontender, Normal Inspection Extremities: Nontender, No edema Skin: Normal color, No rash, - - bilateral anterior leg wounds with surrounding erythema. 3+ pitting edema. Neurological: Alert, Oriented x3, Cranial nerves II-XII grossly intact, Normal Strength, Normal Sensation Psychological: Normal affect, Normal Mood Diagnostic/Tx/Re-eval Clinical Impression(s) from Imaging Studies Chest X-Ray 09/28/19 14:10 IMPRESSION: 1. No acute cardiopulmonary pathology. 2. Subsegmental atelectases in right lung base and calcified granuloma in the right upper lobe of the mid lung are unchanged. 3. Cardiomegaly is unchanged. Electronically Signed: Emmett Doss MD at 15:03 EDT , Service support , Laboratory Data 09/28/19 09/28/19 09/28/19 13:45 13:45 13:45 WBC 11.2 H RBC 5.72 H Hgb 17.0 H Hct 56.4 H MCV 98.6 MCH 29.7 MCHC 30.1 L RDW Std Deviation 53.1 H RDW Coeff of Bautista 14.6 Plt Count 205 MPV 11.2 Immature Gran % (Auto) 0.500 Neut % (Auto) 64.3 Lymph % (Auto) 24.4 Ingham % (Auto) 8.9 Eos % (Auto) 1.5 Baso % (Auto) 0.4 Absolute Neuts (auto) 7.2 Absolute Lymphs (auto) 2.73 Nucleated RBC % 0 Specimen Type Sample Site pH Bicarbonate Actual POC Total CO2 Base Excess O2 Saturation ABG pCO2 ABG pO2 Michele Test O2 Delivery Device Liter Flow Sodium 138 Potassium 4.5 Chloride 101 Carbon Dioxide 37.0 H Anion Gap 0 L BUN 20 H Creatinine 0.92 Estim Creat Clear Calc 54.13 Est GFR (MDRD) Af Amer 79 Est GFR (MDRD) Non-Af 65 BUN/Creatinine Ratio 21.8 H Glucose 289 H Calcium 9.1 Total Bilirubin 0.40 AST 21 ALT 24 Alkaline Phosphatase 82 Troponin I < 0.015 Total Protein 6.2 L Albumin 2.9 L Globulin 3.3 Albumin/Globulin Ratio 0.9 09/28/19 15:42 WBC RBC Hgb Hct MCV MCH MCHC RDW Std Deviation RDW Coeff of Bautista Plt Count MPV Immature Gran % (Auto) Neut % (Auto) Lymph % (Auto) Ingham % (Auto) Eos % (Auto) Baso % (Auto) Absolute Neuts (auto) Absolute Lymphs (auto) Nucleated RBC % Specimen Type ART Sample Site RB pH 7.26 L Bicarbonate Actual 38.5 H POC Total CO2 41 Base Excess 11 H O2 Saturation 93 L ABG pCO2 86.0 H* ABG pO2 81 Michele Test POS O2 Delivery Device NASAL Liter Flow 5.0 Sodium Potassium Chloride Carbon Dioxide Anion Gap BUN Creatinine Estim Creat Clear Calc Est GFR (MDRD) Af Amer Est GFR (MDRD) Non-Af BUN/Creatinine Ratio Glucose Calcium Total Bilirubin AST ALT Alkaline Phosphatase Troponin I Total Protein Albumin Globulin Albumin/Globulin Ratio - Rhythm Strip Rhythm Strip: Sinus Bradycardia Rate: 54 Ectopy: None - EKG Initial EKG Interpretation: Sinus Bradycardia, - - Bradycardia at 54 bpm. Sinus arrhythmia. AZ interval 170 ms. QTC of [address] changes. - Medical Decision Making She initially appeared well and was mentating without issue. Bilateral wounds which did not appear to be acutely infected. White blood cell count of 11,000. Patient was treated with Rocephin per she was done by wound nurse. Asked x-ray given the patient had a slight cough over the past 3 to 4 weeks shows a stable cardiomegaly without vascular congestion or acute infiltrate. Reevaluation of the patient patient is very somnolent difficult to arouse. EEG was done at the bedside which shows an acute on chronic hypercapnic respiratory acidosis with CO2 of 86 and a pH of 7.259. Patient was placed on BiPAP. His mentation improved greatly. EKG was done which shows bradycardia. Spoke with professor of geography Dr. Palomares who is agreeable with the patient requiring intensive care. Spoke with hospitalist Dr. Ramirez who will admit the patient. ED Disposition - Plan for ED Patient: Disposition: Acute Care Hospital [facility]
--- NOTE | 2019-09-28 13:50 | ED.RN ---
pt requesting hgb A1C check and also stated her wound doctor wanted a chest xray ordered. notified
[2019-09-28 13:59] LABS: Absolute Lymphocyte Count 2.73 X10^3/uL (0.83-4.51); Absolute Neutrophil Count 7.2 X10^3/uL (2.0-7.7); Basophil# 0.05 X10^3/uL; Basophil% 0.4 % (0-1); Eosinophil# 0.17 X10^3/uL; Eosinophils% 1.5 % (0-5); Lymphocyte # 2.73 X10^3/ul (4.0); Lymphocyte % 24.4 % (19-41); Mean Corp Hgb Conc 30.1 g/dL (32-36); Mean Corpuscular Hgb 29.7 pg (27.0-32.0); Mean Corpuscular Volume 98.6 fL (81-99); Mean Platelet Vol. 11.2 fl (6.2-12.0); Monocyte% 8.9 % (0-10); NRBC Flagged by Analyzer 0 % (0-5); Neutrophil # 7.17 X10^3/uL (2.7-7.7); Neutrophil % 64.3 % (47-70); Platelet Count 205 K/mm3 (150-450); RBC Distribution Width CV 14.6 % (11.6-14.6); RBC Distribution Width SD 53.1 fl (35.1-43.9); Red Blood Count 5.72 M/mm3 (4.2-5.4); White Blood Count 11.2 K/mm3 (4.4-11.0)
[2019-09-28 14:04] LABS: Hematocrit 56.4 % (37-47)
--- NOTE | 2019-09-28 14:10 | RAD_ITS ---
STUDY: X-RAY CHEST REASON FOR EXAM: Female, 64 years old. Cough and SOB TECHNIQUE: AP upright portable view. COMPARISON: 04/13/2019. FINDINGS: Calcified granuloma in the right midlung. Subsegmental atelectasis in the right lung base. Mild pulmonary hypoinflation. No confluent infiltrates. There is no demonstrated pleural abnormality. Cardiomegaly is unchanged. Normal mediastinum. There may be calcified nodes in the right hilum. Normal left hilum. Normal visualized pulmonary arteries. Normal visualized aortic arch and descending thoracic aorta. Normal visualized thoracic spine. Normal visualized ribs, clavicles, and shoulders. There is no demonstrated abnormality of the visualized soft tissue structures of the upper abdomen. RAD/Chest 1 View (Portable) IMPRESSION: 1. No acute cardiopulmonary pathology. 2. Subsegmental atelectases in right lung base and calcified granuloma in the right upper lobe of the mid lung are unchanged. 3. Cardiomegaly is unchanged. Electronically Signed: Emmett Doss MD at 15:03 EDT , Service support ,
[2019-09-28 14:12] LABS: ALB/GLOB Ratio 0.9 RATIO (0.9-2.4); AST(SGOT) 21 U/L (15-37); Alanine Aminotransfer ALT/SGPT 24 U/L (13-56); Albumin, Serum 2.9 g/dL (3.2-5.0); Alkaline Phosphatase 82 U/L (45-117); Anion Gap 0 (5-15); BUN 20 mg/dL (7-18); BUN/Creat Ratio 21.8 RATIO (10-20); Calcium,Total 9.1 mg/dL (8.5-10.1); Chloride 101 mmol/L (98-107); Creatinine, Serum 0.92 mg/dL (0.55-1.02); EST Glomerular Filtration Rate 65 mL/min (>60); Est Glom Filt Rate - Afr Amer 79 mL/min (>60); Estimated Creatinine Clearance 54.13 ml/min; Globulin 3.3 g/dL (2.2-4.2); Glucose 289 mg/dL (74-106); Potassium 4.5 mmol/L (3.5-5.1); Protein, Total 6.2 g/dL (6.4-8.2); Sodium Level 138 mmol/L (136-145)
[2019-09-28] MEDS: Ceftriaxone 1 GM/50 ML BAG IV (14:22)
--- NOTE | 2019-09-28 15:49 | CPS ---
Critical Co2 value verified times two. Results hand delivered to ED Physician.
--- NOTE | 2019-09-28 15:50 | EKG12_ITS ---
Test Reason : SOB Blood Pressure : / mmHG Vent. Rate : 054 BPM Atrial Rate : 054 BPM P-R Int : 170 ms QRS Dur : 084 ms QT Int : 428 ms P-R-T Axes : 047 154 052 degrees QTc Int : 405 ms Sinus bradycardia with sinus arrhythmia Nonspecific ST abnormality Abnormal ECG Confirmed by MONTSERRAT LIRIANO ([id number]), offline editor ASIF DILLON ([id number]) on 10/03/2019 2:19:38 PM Referred By: KEHINDE Confirmed By:MONTSERRAT LIRIANO
--- NOTE | 2019-09-28 16:14 | NURSING ---
ICU ESTER ACUTE ON CHRONIC HYPERCAPNIC RESP FAILURE
--- NOTE | 2019-09-28 16:15 | NURSING ---
ICU 2
[2019-09-28 17:34] LABS: Allen Test POS; Blood Gas Specimen Type ART; SITE RB
[2019-09-28 17:35] LABS: O2 Delivery Device NASAL; PO2 81 mmHG (75-100); pH 7.26 (7.35-7.45)
[2019-09-28 17:36] LABS: Base Excess 11 mmol/L (-2 to +2); Bicarbonate 38.5 mmol/L (22-26); Total Carbon Dioxide 41 mmol/L
[2019-09-28 17:37] LABS: SO2 93 % (95-99)
[2019-09-28 18:06] LABS: Base Excess 13 mmol/L (-2 to +2); Bicarbonate 40.1 mmol/L (22-26); PO2 51 mmHG (75-100); SO2 79 % (95-99); Total Carbon Dioxide 43 mmol/L; pCO2 84.1 mmHg (35-45); pH 7.29 (7.35-7.45)
--- NOTE | 2019-09-28 18:12 | PCM.HP.STD ---
History of Present Illness Date of Admission: 09/28/19 Chief Complaint: Leg Wound-Infected The patient is a 64 year old F who was sent in to the ED today by the wound center for IV abx 2/2 B LE wounds. These are as a result of chronic edema. She denies fever and chills and per the wound center the cx that were done on these were + for enterobacter and strep, although they were not done here and I don't have results. Upon presentation she was found to be somewhat somnolent and an ABG was drawn and her pH was 7.26/pCO2 86.0/pO2 was 81 on 5 L nasal cannula and pt was placed on BIPAP. Per pt, who was A&O x3 for me but sleepy, she states that she smokes about 1 PPD and is supposed to be on CPAP at but is non-compliant. She states that she has seen a utility sales representative but only once. She denies any other sx other than her leg wounds and pain and asks to eat as she is starving COVID-19 swab was done and is pending. she has a mildly elevated white count at 11.2 and a hgb of 17.0. VS other than her oxygenation and RR was WNL. Past Medical History Past Medical History (Chronic Problems): Chronic Problems Hypertension (Chronic) COPD (chronic obstructive pulmonary disease) (Chronic) Allergies PAPER TAPE Allergy (Uncoded 09/28/19 13:07) Rash Home Medications: Ambulatory Orders Medication Instructions Recorded Albuterol Inhaler [Ventolin Hfa 1 - 2 puff INHALATION Q4H PRN PRN 09/01/18 (SP)] Aspirin [Aspir 81] 81 mg PO DAILY 09/01/18 Duloxetine HCl 60 mg PO DAILY 09/01/18 Furosemide [Lasix] 80 mg PO BID 09/01/18 Glimepiride [Amaryl] 4 mg PO DAILY 09/01/18 Hydrocodone/Acetaminophen 1 each PO TID PRN 09/01/18 [Hydrocodon-Acetaminophn 10-325] Insulin Glargine,Hum.rec.anlog 60 unit SQ QHS 09/01/18 [Basaglar Kwikpen U-100] Lovastatin [Mevacor] 40 mg PO QHS 09/01/18 Meloxicam [Mobic] 15 mg PO DAILY 09/01/18 Metformin HCl 1,000 mg PO BID 09/01/18 Metoprolol Tartrate [Lopressor 100 mg PO BID 09/01/18 (Beta Pricila)] Multivitamin with Minerals 1 each PO DAILY 09/01/18 [Multiple Vitamin] Pramipexole Di-HCl [Mirapex] 2 mg PO BID 09/01/18 Ramipril [Altace] 10 mg PO DAILY 09/01/18 Umeclidinium Moccasin Inhaler 1 puff IH DAILY 09/01/18 [Incruse Ellipta Inhaler] Lives: With Family Smoking Status: Current every day smoker Alcohol: None Drugs: None Review of Systems Constitutional: Denies: Anorexia, Chills, Fever, Night Sweats, Malaise, Weakness, Weight Change, Fatigue Eyes: Denies: Blurred vision, Cataracts, Conjunctivae Inflammation, Double vision, Drainage, Eyelid Inflammation, Pain, Redness, Vision Change HEENT: Denies: Difficulty Hearing, Difficulty Swallowing, Ear Pain, Hard of Hearing, Head Aches, Nasal bleeding, Nasal Congestion, Post Nasal Drip, Sinus Congestion, Sinus Drainage, Sore Throat, Visual Changes Cardiovascular: Reports: Edema. Denies: Chest Pain, Claudication, Chest Pressure, Chest Tightness, Heaviness, Light Headedness, Orthopnea, Palpitations, Paroxysmal Noc. Dyspnea, Syncope Respiratory: Reports: Shortness of Breath, Shortness of breath upon exertion, Wheezing. Denies: Cough, Hemoptysis, Pleuritic Pain, Shortness of breath at rest, Sputum production Gastrointestinal: Denies: Abdominal Pain, Constipation, Diarrhea, Dyspepsia, Hematemesis, Hematochezia, Nausea, Melena, Vomiting Genitourinary: Denies: Dysuria, Frequency, Hematuria, Hesitancy, Incontinence, Nocturia, Retention, Urgency Musculoskeletal: Reports: Joint Pain, Joint stiffness, Leg Pain - B LE. Denies: Arm Pain, Back Pain, Joint swelling, Joint Tenderness, Muscle pain, Neck Pain, Shoulder Pain Skin: Reports: Wounds. Denies: Dryness, Jaundice, Lesions, Pruritis, Rash, Skin Changes Neurological: Denies: Balance problems, Double vision, Change in Speech, Slurred speech, Confusion, Difficulty swallowing, Focal weakness, Headaches, Incoordination, Numbness, Tingling, Tremor, Seizures Psychiatric: Denies: Anxiety, Depression, Homicidal Ideations, Suicidal Ideations Endocrine: Denies: Change in Body Habitus, Heat/ Cold Intolerance, Polydipsia, Polyuria Hematologic/ Lymphatic: Denies: Adenopathy, Anemia, Easy Bruising, Easy Bleeding, Petechiae, Purpura VTE Information - Inpt Only VTE Present on Admission: No VTE Mechan Device Prophylaxis: SCD's VTE Pharm Prophylaxis ordered?: Yes - Physical Exam Vitals/I&O's: Vital Signs Temp Pulse Resp BP Pulse Ox 96.8 F L 62 25 H 125/72 H 84 09/28/19 17:25 09/28/19 17:44 09/28/19 17:44 09/28/19 17:25 09/28/19 17:44 Oxygen Flow Rate (L/min) 5 Oxygen Delivery Method Nasal Cannula Weight: 120.2 kg Body Mass Index (BMI) 45.4 Finger Stick Blood Glucose 319 Intake and Output for Last 24 Hours 09/26/19 09/27/19 09/28/19 23:59 23:59 23:59 Intake Total 50 / 50 Balance 50 / 50 General: Alert - but sleepy, Oriented x3, Cooperative, No apparent distress, Well developed, Well nourished, - - WF MO, lying in bed with NIV in place and RT at bedside HEENT: Atraumatic, PERRLA, EOMI, Normocephalic, EAC Clear, - - poor dentition, mallampati 3-4 Oral: Moist Mucosa, No Gingival or Mucosal Lesions/ Ulcerations Neck: Supple, No JVD, Negative Carotid Bruits, Negative Hepatojugular Reflux, No Nodes, No Nuchal Rigidity, Trachea Midline, Thyroid Normal Size and Texture Lungs: No rhonchi, No rales, Wheezes - diffusely scattered Cardiovascular: Regular rate, Regular Rhythm, Normal S1, Normal S2, No murmurs, No Ectopic Activity, No rub noted, No Gallop, - - very distant with body habitus and wheeze Abdomen: Bowel Sounds Present, Soft, Non Tender, Non-Distended, Obese Extremities: No clubbing, No cyanosis, Capillary Refill Less than 3 Seconds, Edema - 2-3 + B LE, Peripheral Pulses Normal Skin: No rashes, Ulcer/ Wound - scattered B LE R>>L Musculoskeletal: No Tenderness to Palpation of Joints or Extremities, No Muscle Wasting Lymphatic: No Cervical, Supraclavicular, or Inguinal Adenopathy Neurological: Cranial nerves II-XII grossly intact, Deep Tendon Reflexes 2+/4 and Symmetrical, Neuro grossly intact, Motor Exam 5/5 strength throughout, Muscle tone normal, Coordination normal, - - decreased sensation B LE Psych/Mental Status: Normal Affect, Appropriate, Alert and oriented to time, place, person, mood and affect Laboratory Results 09/28/19 13:45: WBC 11.2 H, RBC 5.72 H, Hgb 17.0 H, Hct 56.4 H, MCV 98.6, MCH 29.7, MCHC 30.1 L, RDW Std Deviation 53.1 H, RDW Coeff of Bautista 14.6, Plt Count 205, MPV 11.2, Immature Gran % (Auto) 0.500, Neut % (Auto) 64.3, Lymph % (Auto) 24.4, Starke % (Auto) 8.9, Eos % (Auto) 1.5, Baso % (Auto) 0.4, Absolute Neuts (auto) 7.2, Absolute Lymphs (auto) 2.73, Nucleated RBC % 0 09/28/19 13:45: Sodium 138, Potassium 4.5, Chloride 101, Carbon Dioxide 37.0 H, Anion Gap 0 L, BUN 20 H, Creatinine 0.92, Estim Creat Clear Calc 54.13, Est GFR (MDRD) Af Amer 79, Est GFR (MDRD) Non-Af 65, BUN/Creatinine Ratio 21.8 H, Glucose 289 H, Calcium 9.1, Total Bilirubin 0.40, AST 21, ALT 24, Alkaline Phosphatase 82, Total Protein 6.2 L, Albumin 2.9 L, Globulin 3.3, Albumin/Globulin Ratio 0.9 09/28/19 13:45: Troponin I < 0.015 09/28/19 15:42: Specimen Type ART, Sample Site RB, pH 7.26 L, Bicarbonate Actual 38.5 H, POC Total CO2 41, Base Excess 11 H, O2 Saturation 93 L, ABG pCO2 86.0 H*, ABG pO2 81, Michele Test POS, O2 Delivery Device NASAL, Liter Flow 5.0 09/28/19 16:00: COVID-19 (FELIPE) Pending 09/28/19 17:27: pH 7.29 L, Bicarbonate Actual 40.1 H, POC Total CO2 43, Base Excess 13 H, O2 Saturation 79 L, ABG pCO2 84.1 H*, ABG pO2 51 L Current Medications Hydrocodone Bitart/Acetaminophen (Mutual 5mg-325mg) 2 tablet PO TID PRN PRN PRN Reason: Pain Score 6-10/10 Albuterol Sulfate (Ventolin Aerosols) 2.5 mg INHALATION Q2H PRN PRN PRN Reason: SHORTNESS OF BREATH Albuterol/Ipratropium (Duoneb) 3 ml INHALATION Q4H.RT EPIFANIO Aspirin (Ecotrin) 81 mg PO DAILYCM [facility] Atorvastatin Calcium (Lipitor) 10 mg PO QHS [facility] Duloxetine HCl (Cymbalta) 60 mg PO DAILY [facility] Azithromycin 500 mg/ Dextrose 255 mls @ 250 mls/hr IV Q24 EPIFANIO Stop: 09/30/19 11:02 Levofloxacin (Levaquin Iv) 500 mg in 100 mls @ 100 mls/hr IV Q24 EPIFANIO Stop: 10/02/19 10:59 Insulin Glargine (Lantus ([facility])) 30 units SC QHS [facility] Insulin Human Lispro (Humalog Kwikpen ([facility])) 0 unit SC Q6 EPIFANIO; Protocol Methylprednisolone (Solu-Medrol) 40 mg IV Q8 [facility] Metoprolol Tartrate (Lopressor (Beta Pricila)) 100 mg PO BID [facility] Multivitamins/Minerals (Multivitamin With Minerals ([facility])) 1 tablet PO DAILY@0800 [facility] Nicotine (Nicoderm Cq (Pbkc)) 21 mg TRANSDERM. DAILY [facility] Non-Formulary Medication (Hydrocodone/Acetaminophen [Hydrocodone-Acetamin 10-325 Mg]) 1 each PO TID PRN PRN Reason: pain Ondansetron HCl (Zofran) 4 mg IV Q8H PRN PRN PRN Reason: Nausea Pramipexole Dihydrochloride (Mirapex) 2 mg PO BID [facility] Ramipril (Altace) 10 mg PO DAILY [facility] Sodium Chloride () 10 - 40 ml IV UD PRN PRN Reason: SALINE FLUSH Assessment/Plan All Active Problems Type 2 diabetes mellitus (Acute) Obstructive sleep apnea (Acute) Pulmonary hypertension (Acute) Right heart failure (Acute) Acute on Chronic Hypoxemic/Hypercapnic Respiratory Failure 2/2 AECOPD/JACK/OHS/HFpEF -doubt PNA but will cover initially with Azithromycin and Levoquin (for legs too) -NIV continuous for now with repeat am ABG -NPO except for meds and sips/chips -lasix -steroids -check urine antigens -pulm toilet HFA if COVID +, aerosols if not -check ECHO -Pulm consult B LE wounds -Levaquin for now -will have wound care evaluate -per report enterobacter and Strep in cx but not done here -diuresis COPD with current tobacco abuse -recommend cessation -nicotine patch -see above -pt O2 dependent at baseline 3L JACK/OHS -pt non-compliant with CPAP at home DM-2 -suspect uncontrolled -continue home meds -check A1c -hold amaryl and metformin -continue lantus at 35 u since NPO -SSI HTN/HPL/HFpEF -continue home meds RLS -continue mirapex Chronic pain -conttinue home narcotics -hold meloxicam Depression -cont cymbalta DVT prophylaxis -lovenox Code status -Full CCT > 31' Procedures: [id number] Critial Care 1st Hr
[2019-09-28 18:21] LABS: Allen Test POS; Blood Gas Specimen Type ART; O2 Delivery Device Nasal Can; SITE L RADIAL
[2019-09-28] MEDS: HYDROcodone Bitartrate/Apap 5/325 Tablet PO (18:29)
[2019-09-28] MEDS: Insulin Lispro 100 UNIT/ML INSULN.PEN SC ×2 (18:29→22:31)
[2019-09-28] MEDS: levoFLOXacin IV 500 MG/100 ML BAG 100 MG IV (18:30)
--- NOTE | 2019-09-28 18:39 | ECHOD_ITS ---
Reason For Study: CHF Procedure This was a 2D Doppler, Color Flow transthoracic echocardiogram. Exam performed portable in ICU/CCU. Left Ventricle Moderate concentric left ventricular hypertrophy. The estimated ejection fraction is 65 %. Stage 2 diastolic dysfunction. Septal motion consistent with IVCD. No regional wall motion abnormalities noted. Right Ventricle Mildly dilated right ventricle. Normal systolic function. Atria The left atrium is severely enlarged. The right atrium is mildly enlarged. Normal atrial septum. Mitral Valve The mitral valve is structurally normal. No prolapse or stenosis seen. Tricuspid Valve Normal tricuspid valve. Mild (1+) tricuspid valve insufficiency. Right ventricular systolic pressure estimated to be 53 mmHg. Moderate pulmonary hypertension. Aortic Valve Trisinus/trileaflet aortic valve. Normal aortic valve. Pulmonic Valve Normal pulmonic valve. Great Vessels Normal aortic root. Normal arch. The inferior vena cava is dilated. Inferior vena cava collapse with sniff. Pericardium/Pleural No pericardial effusion. MMode/2D Measurements & Calculations LVIDd: 4.4 cm IVSd: 1.6 cm Ao root diam: 3.5 cm LVIDs: 2.6 cm LVPWd: 1.6 cm RVDd: 3.7 cm FS: 41.9 % LAV(MOD-bp): 91.3 ml LA A4 area: 29.8 cm2 LA dimension(2D): 4.9 cm LAV(MOD-bp) Indexed: 41.3 ml/m2 LAV(MOD-sp2): 75.8 ml LAV(MOD-sp4): 113.1 ml RA A4 area: 21.4 cm2 Doppler Measurements & Calculations MV E max tashi: 102.5 cm/sec Lat Peak E' Tashi: 7.6 cm/sec Med Peak E' Tashi: 4.5 cm/sec MV A max tashi: 110.0 cm/sec E/E' lat: 13.5 E/E' med: 23.0 MV E/A: 0.93 Ao V2 max: 170.7 cm/sec LV V1 max: 108.0 cm/sec PA V2 max: 102.5 cm/sec Ao max P.7 mmHg LV V1 max P.7 mmHg TR max tashi: 316.1 cm/sec TR max P.6 mmHg Interpretation Summary Moderate concentric left ventricular hypertrophy. The estimated ejection fraction is 65 %. Stage 2 diastolic dysfunction. Mildly dilated right ventricle. The left atrium is severely enlarged. The right atrium is mildly enlarged. Mild (1+) tricuspid valve insufficiency. Right ventricular systolic pressure estimated to be 53 mmHg. Moderate pulmonary hypertension. There is no comparison study available. Ordering Physician: Micaela Ramirez Referring Physician: MD Esme Bhavesh Performed By: Jaqueline Lorenzo RDCS
[2019-09-28 18:50] LABS: Bedside Glucose 231 mg/dL (70-110)
[2019-09-28] MEDS: Ipratropium/Albuterol Sulfate 3 ML AMPUL.NEB INHALATION ×2 (18:51→22:41)
[2019-09-28 19:20] LABS: Hemoglobin A1c 10.4 % (3.8-5.6)
[2019-09-28] MEDS: Pramipexole Di-HCl 1 MG Tablet 2 MG PO (22:37)
[2019-09-28] MEDS: Atorvastatin Calcium 10 MG Tablet PO (22:37)
[2019-09-28] MEDS: Metoprolol Tartrate 100 MG Tablet PO (22:37)
[2019-09-28 23:10] LABS: Bedside Glucose 206 mg/dL (70-110)
[2019-09-29] VITALS (28 sets, daily range): BP systolic 009–150; BP diastolic 46–95; PULSE 48–85; RESP 16–27; TEMP 36.6–37.1; O2SAT 91–100
--- NOTE | 2019-09-29 01:00 | NURSING ---
Pt woke from sleep, questioned about toileting and home bladder routine; pt denies feeling the need to pee but does agree to try sitting on BSC for a while. Pt needed to be woke from sleep multiple times during the process of getting out of the bed. Pt fell asleep on BSC and when woke, stated I'm done and had a little BM too. Pt stood w/minimal assistance, stance unbalanced; pt had not voided, nor had a BM in BSC. Pt denies again feeling the need to go. Pt assisted back into bed, legs needing lifting in to bed. Pt made aware that BLE needed cleaned and dressed, pt responded I don't need bandages on my legs. Pt informed that BLE were draining mod to lg amt of clear fluid, and should be covered;pt agreed. BLE cleaned, Xeroform cut and placed over draining ulcers, covered w/ABD pads and secured by kerlix wrap. Pt diandra all well.
[2019-09-29] MEDS: Ipratropium/Albuterol Sulfate 3 ML AMPUL.NEB INHALATION ×5 (02:37→23:16)
[2019-09-29 05:04] LABS: Absolute Neutrophil Count 8.1 X10^3/uL (2.0-7.7); Basophil# 0.05 X10^3/uL; Basophil% 0.5 % (0-1); Eosinophil# 0.01 X10^3/uL; Eosinophils% 0.1 % (0-5); Hemoglobin 16.7 g/dL (12.0-15.0); Lymphocyte % 14.3 % (19-41); Mean Corp Hgb Conc 29.6 g/dL (32-36); Mean Corpuscular Volume 101.3 fL (81-99); Mean Platelet Vol. 10.6 fl (6.2-12.0); Monocyte# 0.19 X10^3/uL; Monocyte% 1.9 % (0-10); NRBC Flagged by Analyzer 0 % (0-5); Neutrophil # 8.14 X10^3/uL (2.7-7.7); Neutrophil % 82.9 % (47-70); Platelet Count 171 K/mm3 (150-450); RBC Distribution Width CV 15.9 % (11.6-14.6); Red Blood Count 5.57 M/mm3 (4.2-5.4); White Blood Count 9.8 K/mm3 (4.4-11.0)
[2019-09-29 05:29] LABS: ALB/GLOB Ratio 0.8 RATIO (0.9-2.4); AST(SGOT) 13 U/L (15-37); Alanine Aminotransfer ALT/SGPT 23 U/L (13-56); Albumin, Serum 2.8 g/dL (3.2-5.0); Alkaline Phosphatase 79 U/L (45-117); Anion Gap 2 (5-15); BUN 25 mg/dL (7-18); BUN/Creat Ratio 26.5 RATIO (10-20); Calcium,Total 8.8 mg/dL (8.5-10.1); Chloride 97 mmol/L (98-107); Creatinine, Serum 0.94 mg/dL (0.55-1.02); EST Glomerular Filtration Rate 63 mL/min (>60); Est Glom Filt Rate - Afr Amer 76 mL/min (>60); Estimated Creatinine Clearance 50.84 ml/min; Globulin 3.5 g/dL (2.2-4.2); Glucose 304 mg/dL (74-106); Potassium 5.5 mmol/L (3.5-5.1); Protein, Total 6.3 g/dL (6.4-8.2); Sodium Level 135 mmol/L (136-145)
[2019-09-29] MEDS: HYDROcodone Bitartrate/Apap 5/325 Tablet PO (05:37)
[2019-09-29 05:39] LABS: Hematocrit 56.4 % (37-47)
[2019-09-29] MEDS: 0.9% Saline Lock 10 ML Syringe IV ×2 (05:39→18:08)
[2019-09-29] MEDS: Insulin Lispro 100 UNIT/ML INSULN.PEN SC ×4 (05:39→21:40)
--- NOTE | 2019-09-29 05:55 | RAD_ITS ---
STUDY: X-RAY CHEST REASON FOR EXAM: Female, 64 years old. COPD exacerbation TECHNIQUE: Single frontal view of the chest. COMPARISON: September 28, 2019. FINDINGS: EKG leads artifacts. Granulomas again noted. Cardiomegaly. Aortic calcifications. Degenerative changes of the spine and shoulders. No pneumothorax identified. Increasing left pleural effusion adjacent atelectasis/infiltrate. Right basilar atelectasis. RAD/Chest 1 View (Portable) IMPRESSION: From prior exam there is decreased conspicuity of the left hemidiaphragm and costophrenic angle which may represent developing left pleural effusion and/or atelectasis/infiltrate. There is again noted some right basilar atelectasis which appears slightly improved compared to prior study. Electronically Signed: Joaquin Trevizo, at 5:50 EDT Tel , Service support ,
[2019-09-29 06:00] LABS: Base Excess 11 mmol/L (-2 to +2); Bicarbonate 37.2 mmol/L (22-26); PO2 56 mmHG (75-100); SO2 84 % (95-99); Total Carbon Dioxide 39 mmol/L; pCO2 74.5 mmHg (35-45); pH 7.31 (7.35-7.45)
--- NOTE | 2019-09-29 06:01 | CON.PCM_ITS ---
Reason for Consult Date of Consultation: 09/29/19 Reason for Consultation: Possible COPD exacerbation History of Present Illness: The patient is a 64-year-old female, with a history as outlined below, who presented to the emergency department at the [facility] wound center to be treated with IV antibiotics for lower extremity wounds. The patient's wounds were apparently positive for Enterobacter and Streptococcus. The patient is a very poor historian. She apparently has a history of COPD, chronic respiratory failure, chronic CO2 retention, tobacco dependency, obstructive sleep apnea, and heart failure. She is noncompliant with the use of nocturnal Pap therapy and has been so for several years. She is apparently being managed from a pulmonary perspective by Dr. Pruitt at [facility]. She has a longstanding, extensive smoking history and continues to smoke approximately 1 pack of cigarettes per day. It appears that she is currently prescribed Incruse and albuterol in her home environment. However, her inhaler use is quite inconsistent. In addition, although she does have home oxygen, she reports that she only utilizes it occasionally. On presentation to the emergency department, the patient was noted to be afebrile and hemodynamically stable. Laboratory evaluation revealed a white blood cell count of 11,000 with a hemoglobin of 17 and hematocrit of 56.4. Chemistry profile revealed a serum bicarbonate of 37. Troponin was negative. Coronavirus PCR was negative. Arterial blood gas obtained on 5 L/min revealed a pH of 7.26 with a corresponding PCO2 of 86 and PO2 of 81. Plain film chest x- ray revealed no acute cardiopulmonary process. The patient was initially noted to be mentating well in the emergency department. However, upon reevaluation by the ED provider, the patient was noted to be somnolent. Given that she was retaining CO2, the patient was placed on BiPAP and admitted to the medical intensive care unit for further management. Past Medical History Past Medical History (Chronic Problems): Chronic Problems Hypertension (Chronic) COPD (chronic obstructive pulmonary disease) (Chronic) Allergies PAPER TAPE Allergy (Uncoded 09/28/19 13:07) Rash Home Medications: Ambulatory Orders Medication Instructions Recorded Albuterol Inhaler [Ventolin Hfa 1 - 2 puff INHALATION Q4H PRN PRN 09/01/18 (SP)] Aspirin [Aspir 81] 81 mg PO DAILY 09/01/18 Duloxetine HCl 60 mg PO DAILY 09/01/18 Furosemide [Lasix] 80 mg PO BID 09/01/18 Glimepiride [Amaryl] 4 mg PO DAILY 09/01/18 Hydrocodone/Acetaminophen 1 each PO TID PRN 09/01/18 [Hydrocodon-Acetaminophn 10-325] Insulin Glargine,Hum.rec.anlog 60 unit SQ QHS 09/01/18 [Basaglar Kwikpen U-100] Lovastatin [Mevacor] 40 mg PO QHS 09/01/18 Meloxicam [Mobic] 15 mg PO DAILY 09/01/18 Metformin HCl 1,000 mg PO BID 09/01/18 Metoprolol Tartrate [Lopressor 100 mg PO BID 09/01/18 (Beta Pricila)] Multivitamin with Minerals 1 each PO DAILY 09/01/18 [Multiple Vitamin] Pramipexole Di-HCl [Mirapex] 2 mg PO BID 09/01/18 Ramipril [Altace] 10 mg PO DAILY 09/01/18 Umeclidinium Alva Inhaler 1 puff IH DAILY 09/01/18 [Incruse Ellipta Inhaler] Lives: With Family Smoking Status: Current every day smoker Alcohol: None Drugs: None Review of Systems Constitutional: Denies: Chills, Fever Eyes: Denies: Blurred vision, Double vision HEENT: Denies: Head Aches, Sinus Congestion, Sinus Drainage Cardiovascular: Denies: Chest Pain, Palpitations Respiratory: Reports: Cough, Shortness of breath upon exertion Gastrointestinal: Denies: Abdominal Pain, Nausea, Vomiting Genitourinary: Denies: Dysuria Musculoskeletal: Reports: Leg Pain Skin: Reports: Wounds Neurological: Denies: Numbness, Tingling, Focal weakness Psychiatric: Denies: Anxiety, Depression, Homicidal Ideations, Suicidal Ideations Hematologic/ Lymphatic: Denies: Easy Bruising, Easy Bleeding Objective: The patient's most recent lab work, culture data and imaging studies have all been personally reviewed. Blood cultures are pending. - Physical Exam Vitals/I&O's: Vital Signs Temp Pulse Resp BP Pulse Ox 98.1 F 64 17 136/66 H 91 09/29/19 04:00 09/29/19 05:00 09/29/19 05:00 09/29/19 05:00 09/29/19 05:00 Oxygen Flow Rate (L/min) 6 Oxygen Delivery Method Nasal Cannula Weight: 267 lb 13.786 oz Body Mass Index (BMI) 45.4 Finger Stick Blood Glucose 319 Intake and Output for Last 24 Hours 09/27/19 09/28/19 09/29/19 23:59 23:59 23:59 Intake Total 505 / 505 Output Total 0 / 0 Balance 505 / 505 0 / 0 General: Alert, Oriented x3, No apparent distress, - - Sitting in bedside recliner with BiPAP in place HEENT: Atraumatic, PERRLA, Normocephalic Oral: Dry Mucosa Neck: Supple, No Nodes, Trachea Midline Lungs: No rhonchi, No wheeze, No rales, Diminished Cardiovascular: Regular rate, Regular Rhythm Abdomen: Bowel Sounds Present, Soft, Non Tender, Obese Extremities: No clubbing, No cyanosis, Edema Skin: Ulcer/ Wound - Lower extremity, present on admission Musculoskeletal: No Muscle Wasting Lymphatic: No Cervical, Supraclavicular, or Inguinal Adenopathy Neurological: Cranial nerves II-XII grossly intact, Neuro grossly intact Psych/Mental Status: Normal Affect, Appropriate Labs (Last 48 Hours) 09/28/19 09/28/19 09/28/19 13:45 13:45 13:45 WBC 11.2 H RBC 5.72 H Hgb 17.0 H Hct 56.4 H MCV 98.6 MCH 29.7 MCHC 30.1 L RDW Std Deviation 53.1 H RDW Coeff of Bautista 14.6 Plt Count 205 MPV 11.2 Immature Gran % (Auto) 0.500 Neut % (Auto) 64.3 Lymph % (Auto) 24.4 [place] % (Auto) 8.9 Eos % (Auto) 1.5 Baso % (Auto) 0.4 Absolute Neuts (auto) 7.2 Absolute Lymphs (auto) 2.73 Nucleated RBC % 0 Specimen Type Sample Site pH Bicarbonate Actual POC Total CO2 Base Excess O2 Saturation ABG pCO2 ABG pO2 Michele Test O2 Delivery Device Liter Flow Sodium 138 Potassium 4.5 Chloride 101 Carbon Dioxide 37.0 H Anion Gap 0 L BUN 20 H Creatinine 0.92 Estim Creat Clear Calc 54.13 Est GFR (MDRD) Af Amer 79 Est GFR (MDRD) Non-Af 65 BUN/Creatinine Ratio 21.8 H Glucose 289 H Hemoglobin A1c Calcium 9.1 Total Bilirubin 0.40 AST 21 ALT 24 Alkaline Phosphatase 82 Troponin I < 0.015 Total Protein 6.2 L Albumin 2.9 L Globulin 3.3 Albumin/Globulin Ratio 0.9 COVID-19 (FELIPE) POC Glucose 09/28/19 09/28/19 09/28/19 13:45 15:42 16:00 WBC RBC Hgb Hct MCV MCH MCHC RDW Std Deviation RDW Coeff of Bautista Plt Count MPV Immature Gran % (Auto) Neut % (Auto) Lymph % (Auto) [place] % (Auto) Eos % (Auto) Baso % (Auto) Absolute Neuts (auto) Absolute Lymphs (auto) Nucleated RBC % Specimen Type ART Sample Site RB pH 7.26 L Bicarbonate Actual 38.5 H POC Total CO2 41 Base Excess 11 H O2 Saturation 93 L ABG pCO2 86.0 H* ABG pO2 81 Michele Test POS O2 Delivery Device NASAL Liter Flow 5.0 Sodium Potassium Chloride Carbon Dioxide Anion Gap BUN Creatinine Estim Creat Clear Calc Est GFR (MDRD) Af Amer Est GFR (MDRD) Non-Af BUN/Creatinine Ratio Glucose Hemoglobin A1c 10.4 H Calcium Total Bilirubin AST ALT Alkaline Phosphatase Troponin I Total Protein Albumin Globulin Albumin/Globulin Ratio COVID-19 (FELIPE) Not Detected POC Glucose 09/28/19 09/28/19 09/28/19 17:27 18:27 22:30 WBC RBC Hgb Hct MCV MCH MCHC RDW Std Deviation RDW Coeff of Bautista Plt Count MPV Immature Gran % (Auto) Neut % (Auto) Lymph % (Auto) [place] % (Auto) Eos % (Auto) Baso % (Auto) Absolute Neuts (auto) Absolute Lymphs (auto) Nucleated RBC % Specimen Type ART Sample Site L RADIAL pH 7.29 L Bicarbonate Actual 40.1 H POC Total CO2 43 Base Excess 13 H O2 Saturation 79 L ABG pCO2 84.1 H* ABG pO2 51 L Michele Test POS O2 Delivery Device Nasal Can Liter Flow 5.0 Sodium Potassium Chloride Carbon Dioxide Anion Gap BUN Creatinine Estim Creat Clear Calc Est GFR (MDRD) Af Amer Est GFR (MDRD) Non-Af BUN/Creatinine Ratio Glucose Hemoglobin A1c Calcium Total Bilirubin AST ALT Alkaline Phosphatase Troponin I Total Protein Albumin Globulin Albumin/Globulin Ratio COVID-19 (FELIPE) POC Glucose 231 H 206 H 07/03/20 07/03/20 07/03/20 04:50 04:50 04:50 WBC 9.8 RBC 5.57 H Hgb 16.7 H Hct 56.4 H MCV 101.3 H MCH 30.0 MCHC 29.6 L RDW Std Deviation 56.0 H RDW Coeff of Bautista 15.9 H Plt Count 171 MPV 10.6 Immature Gran % (Auto) 0.300 Neut % (Auto) 82.9 H Lymph % (Auto) 14.3 L [place] % (Auto) 1.9 Eos % (Auto) 0.1 Baso % (Auto) 0.5 Absolute Neuts (auto) 8.1 H Absolute Lymphs (auto) 1.40 Nucleated RBC % 0 Specimen Type Sample Site pH Bicarbonate Actual POC Total CO2 Base Excess O2 Saturation ABG pCO2 ABG pO2 Michele Test O2 Delivery Device Liter Flow Sodium 135 L Potassium 5.5 H Chloride 97 L Carbon Dioxide 36.0 H Anion Gap 2 L BUN 25 H Creatinine 0.94 Estim Creat Clear Calc 50.84 Est GFR (MDRD) Af Amer 76 Est GFR (MDRD) Non-Af 63 BUN/Creatinine Ratio 26.5 H Glucose 304 H Hemoglobin A1c Pending Calcium 8.8 Total Bilirubin 0.50 AST 13 L ALT 23 Alkaline Phosphatase 79 Troponin I Total Protein 6.3 L Albumin 2.8 L Globulin 3.5 Albumin/Globulin Ratio 0.8 L COVID-19 (FELIPE) POC Glucose 09/29/19 05:15 WBC RBC Hgb Hct MCV MCH MCHC RDW Std Deviation RDW Coeff of Bautista Plt Count MPV Immature Gran % (Auto) Neut % (Auto) Lymph % (Auto) [place] % (Auto) Eos % (Auto) Baso % (Auto) Absolute Neuts (auto) Absolute Lymphs (auto) Nucleated RBC % Specimen Type Sample Site pH 7.31 L Bicarbonate Actual 37.2 H POC Total CO2 39 Base Excess 11 H O2 Saturation 84 L ABG pCO2 74.5 H* ABG pO2 56 L Michele Test O2 Delivery Device Liter Flow Sodium Potassium Chloride Carbon Dioxide Anion Gap BUN Creatinine Estim Creat Clear Calc Est GFR (MDRD) Af Amer Est GFR (MDRD) Non-Af BUN/Creatinine Ratio Glucose Hemoglobin A1c Calcium Total Bilirubin AST ALT Alkaline Phosphatase Troponin I Total Protein Albumin Globulin Albumin/Globulin Ratio COVID-19 (FELIPE) POC Glucose Microbiology 09/28/19 17:20 Mucosa - Nasopharyngeal Influenza Types A,B Direct FA (BETTY) - Final Clinical Impression(s) from Imaging Studies Chest X-Ray 09/28/19 14:10 IMPRESSION: 1. No acute cardiopulmonary pathology. 2. Subsegmental atelectases in right lung base and calcified granuloma in the right upper lobe of the mid lung are unchanged. 3. Cardiomegaly is unchanged. Electronically Signed: Emmett Doss MD at 15:03 EDT , Service support , Chest X-Ray 09/29/19 05:55 IMPRESSION: From prior exam there is decreased conspicuity of the left hemidiaphragm and costophrenic angle which may represent developing left pleural effusion and/or atelectasis/infiltrate. There is again noted some right basilar atelectasis which appears slightly improved compared to prior study. Electronically Signed: Joaquin Trevizo, at 5:50 EDT Tel , Service support , Current Medications Hydrocodone Bitart/Acetaminophen ([place] 5mg-325mg) 2 tablet PO TID PRN PRN PRN Reason: Pain Score 6-10/10 Last Admin: 09/29/19 05:37 Dose: 2 tablet Documented by: Albuterol Sulfate (Ventolin Aerosols) 2.5 mg INHALATION Q2H PRN PRN PRN Reason: SHORTNESS OF BREATH Albuterol/Ipratropium (Duoneb) 3 ml INHALATION Q4H.RT EPIFANIO Last Admin: 09/29/19 02:37 Dose: 3 ml Documented by: Aspirin (Ecotrin) 81 mg PO DAILYCM EPIFANIO Atorvastatin Calcium (Lipitor) 10 mg PO QHS EPIFANIO Last Admin: 09/28/19 22:37 Dose: 10 mg Documented by: Duloxetine HCl (Cymbalta) 60 mg PO DAILY EPIFANIO Enoxaparin Sodium (Lovenox) 40 mg SC DAILY EPIFANIO Furosemide (Lasix) 40 mg IV BID@1000,1800 EPIFANIO Azithromycin 500 mg/ Dextrose 255 mls @ 250 mls/hr IV Q24 EPIFANIO Stop: 09/30/19 11:02 Last Infusion: 09/28/19 23:47 Dose: Infused Documented by: Levofloxacin (Levaquin Iv) 500 mg in 100 mls @ 100 mls/hr IV Q24 [facility] Stop: 10/02/19 10:59 Last Infusion: 09/28/19 19:32 Dose: Infused Documented by: Insulin Glargine (Lantus ([facility])) 30 units SC QHS [facility] Last Admin: 09/28/19 22:31 Dose: 30 u Documented by: Insulin Human Lispro (Humalog Kwikpen ([facility])) 0 unit SC Q6 [facility]; Protocol Last Admin: 09/29/19 05:39 Dose: 4 units Documented by: Methylprednisolone (Solu-Medrol) 40 mg IV Q8 [facility] Last Admin: 09/29/19 05:39 Dose: 40 mg Documented by: Metoprolol Tartrate (Lopressor (Beta Pricila)) 100 mg PO BID [facility] Last Admin: 09/28/19 22:37 Dose: 100 mg Documented by: Multivitamins/Minerals (Multivitamin With Minerals ([facility])) 1 tablet PO DAILY@0800 [facility] Nicotine (Nicoderm Cq ([facility])) 21 mg TRANSDERM. DAILY [facility] Ondansetron HCl (Zofran) 4 mg IV Q8H PRN PRN PRN Reason: Nausea Pramipexole Dihydrochloride (Mirapex) 2 mg PO BID [facility] Last Admin: 09/28/19 22:37 Dose: 2 mg Documented by: Ramipril (Altace) 10 mg PO DAILY [facility] Sodium Chloride () 10 - 40 ml IV UD PRN PRN Reason: SALINE FLUSH Last Admin: 09/29/19 05:39 Dose: 10 ml Documented by: Assessment/Plan RECOMMENDATIONS: 1. Continue antimicrobials. 2. Continue scheduled bronchodilators and steroids for now. 3. Continue nicotine replacement therapy. 4. Continue BiPAP and transition to AVAPS, if tidal volumes become suboptimal. 5. Avoid sedating medications. 6. Maintain oxygen saturations 88 to 92%. 7. Encourage incentive spirometer use and mobilize patient as tolerated. IMPRESSIONS: 1. Acute on chronic combined respiratory failure I am not entirely convinced that the patient is truly an acute exacerbated state. She has a number of comorbidities including self-reported heart failure, COPD of unknown severity, chronic hypoxemic respiratory failure, chronic CO2 retention and tobacco dependency along with a history of medical noncompliance. The patient has a baseline, underlying need for noninvasive positive pressure ventilatory support, but does not utilize any form of therapy. She is apparently followed by pulmonary medicine through [facility]. Patient does not appear to have an acute pulmonary infectious process. For now, it is reasonable to continue scheduled bronchodilators and steroids. The patient undoubtedly needs to be on some form of Pap therapy with naps and nightly. For now, she will be continued on BiPAP with plans to transition her to AVAPS if tidal volumes become suboptimal. 2. Chronic lower extremity wounds Continue antimicrobials as ordered. Attempt to obtain cultures and sensitivities from outside hospital to direct therapy. 3. History of obstructive sleep apnea/suspected alveolar hypoventilation/noncompliance with nocturnal Pap therapy The patient does have a sleep study in our system dating back to 2012, which revealed a need for nocturnal BiPAP therapy. However, the patient reports noncompliance for several years now. I do recommend that sedating medications be avoided, including opiate pain medications, given her propensity to retain CO2 and the fact that she has noncompliant with therapy as an outpatient. 4. Continuous tobacco dependency The patient does have an extensive smoking history and continues to smoke 1 pack of cigarettes per day. Smoking cessation counseling was provided. She will require close interval follow-up with her pulmonary provider at [facility] following discharge. 5. Chronic pain syndrome/diabetes mellitus/hypertension/hyperlipidemia/congestive heart failure/depression Complicates care, management, recovery and prognosis. Recommend avoiding sedating medications. The remainder of the patient's home medications can be resumed from my perspective. TIME: 38 minutes of critical care time, independent of procedures, was spent address ing the patient's acute on chronic combined respiratory failure, chronic lower extremity wounds, CO2 narcosis, history of JACK/OHS with Pap noncompliance, continuous tobacco dependency, review of all data and collaboration with the care team. [id number]) [phone] [id number] Critical care first hour
[2019-09-29 06:05] LABS: Allen Test POS; Blood Gas Specimen Type ART; SITE L RADIAL
[2019-09-29 06:06] LABS: O2 Delivery Device NC
--- NOTE | 2019-09-29 06:12 | CPS ---
Critical ABG results read back to [employer].
[2019-09-29 08:03] LABS: Hemoglobin A1c 10.3 % (3.8-5.6)
--- NOTE | 2019-09-29 08:26 | PCM.PN.HOSP ---
Reason for Visit: acute on chronic combined respiratory failure with CO2 retention Objective: The patient was sent to ED from wound center for IV antibiotics secondary to bilateral lower extremity wounds. Wound culture from [facility] shows enterococcus claocae and Streptococcus agalactiae group B. Both are sensitive to ceftriaxone penicillin G. Strep agalactiae sensitive to vancomycin and penicillin G. Enterobacter susceptible to Cipro and Zosyn and Bactrim In ED she was found to be somnolent and ABG done shows CO2 86, pH 7.26 oxygen 81 on 5 L of oxygen and subsequently was placed on BiPAP. Patient has history of COPD smokes a pack for 1 day, saw Dr Pruitt about 2 weeks ago. She also has cough ongoing for 3 months and has had 5 rounds of antibiotics, Z-Clifton x2 and amoxicillin as an outpatient. Vitals/I&O's: Vital Signs Temp Pulse Resp BP Pulse Ox 98.1 F 77 27 H 141/95 H 94 09/29/19 04:00 09/29/19 08:00 09/29/19 08:00 09/29/19 08:00 09/29/19 08:00 Oxygen Flow Rate (L/min) 6 Oxygen Delivery Method Room Air Weight: 267 lb 13.786 oz Body Mass Index (BMI) 45.4 Finger Stick Blood Glucose 319 Intake and Output for Last 24 Hours 09/27/19 09/28/19 09/29/19 23:59 23:59 23:59 Intake Total 505 / 505 200 / 200 Output Total 400 / 400 Balance 505 / 505 -200 / -200 General: Alert, Oriented x3, Cooperative HEENT: Atraumatic, PERRLA, EOMI, Normocephalic Neck: Supple, No JVD, Negative Carotid Bruits Lungs: Diminished - Air entry diminished bilaterally., Rhonchi - Fine expiratory rhonchi present. Cardiovascular: Regular rate, Regular Rhythm, Normal S1, Normal S2, No murmurs Abdomen: Bowel Sounds Present, Soft, Non Tender, Non-Distended Extremities: Capillary Refill Less than 3 Seconds, Edema - Bilateral lower extremity edema Skin: Ulcer/ Wound - Bilateral lower leg wound, right leg worse than left leg. Superficial wound covered with slough with minimal purulent discharge Musculoskeletal: No Tenderness to Palpation of Joints or Extremities Neurological: Cranial nerves II-XII grossly intact Psych/Mental Status: Normal Affect, Appropriate Microbiology Past 72 Hours 09/29/19 06:05 Urine, Clean Catch Streptococcus pneumoniae Antigen (M - Final 09/29/19 06:05 Urine, Clean Catch Legionella Antigen - Final 09/28/19 17:20 Mucosa - Nasopharyngeal Influenza Types A,B Direct FA (BETTY) - Final Laboratory Results 09/28/19 13:45: WBC 11.2 H, RBC 5.72 H, Hgb 17.0 H, Hct 56.4 H, MCV 98.6, MCH 29.7, MCHC 30.1 L, RDW Std Deviation 53.1 H, RDW Coeff of Bautista 14.6, Plt Count 205, MPV 11.2, Immature Gran % (Auto) 0.500, Neut % (Auto) 64.3, Lymph % (Auto) 24.4, Hendricks % (Auto) 8.9, Eos % (Auto) 1.5, Baso % (Auto) 0.4, Absolute Neuts (auto) 7.2, Absolute Lymphs (auto) 2.73, Nucleated RBC % 0 09/28/19 13:45: Sodium 138, Potassium 4.5, Chloride 101, Carbon Dioxide 37.0 H, Anion Gap 0 L, BUN 20 H, Creatinine 0.92, Estim Creat Clear Calc 54.13, Est GFR (MDRD) Af Amer 79, Est GFR (MDRD) Non-Af 65, BUN/Creatinine Ratio 21.8 H, Glucose 289 H, Calcium 9.1, Total Bilirubin 0.40, AST 21, ALT 24, Alkaline Phosphatase 82, Total Protein 6.2 L, Albumin 2.9 L, Globulin 3.3, Albumin/Globulin Ratio 0.9 09/28/19 13:45: Troponin I < 0.015 09/28/19 13:45: Hemoglobin A1c 10.4 H 09/28/19 15:42: Specimen Type ART, Sample Site RB, pH 7.26 L, Bicarbonate Actual 38.5 H, POC Total CO2 41, Base Excess 11 H, O2 Saturation 93 L, ABG pCO2 86.0 H*, ABG pO2 81, Michele Test POS, O2 Delivery Device NASAL, Liter Flow 5.0 09/28/19 16:00: COVID-19 (FELIPE) Not Detected 09/28/19 17:27: Specimen Type ART, Sample Site L RADIAL, pH 7.29 L, Bicarbonate Actual 40.1 H, POC Total CO2 43, Base Excess 13 H, O2 Saturation 79 L, ABG pCO2 84.1 H*, ABG pO2 51 L, Michele Test POS, O2 Delivery Device Nasal Can, Liter Flow 5.0 09/28/19 18:27: POC Glucose 231 H 09/28/19 22:30: POC Glucose 206 H 09/29/19 04:50: WBC 9.8, RBC 5.57 H, Hgb 16.7 H, Hct 56.4 H, MCV 101.3 H, MCH 30.0, MCHC 29.6 L, RDW Std Deviation 56.0 H, RDW Coeff of Bautista 15.9 H, Plt Count 171, MPV 10.6, Immature Gran % (Auto) 0.300, Neut % (Auto) 82.9 H, Lymph % (Auto) 14.3 L, Hendricks % (Auto) 1.9, Eos % (Auto) 0.1, Baso % (Auto) 0.5, Absolute Neuts (auto) 8.1 H, Absolute Lymphs (auto) 1.40, Nucleated RBC % 0 09/29/19 04:50: Sodium 135 L, Potassium 5.5 H, Chloride 97 L, Carbon Dioxide 36.0 H, Anion Gap 2 L, BUN 25 H, Creatinine 0.94, Estim Creat Clear Calc 50.84, Est GFR (MDRD) Af Amer 76, Est GFR (MDRD) Non-Af 63, BUN/Creatinine Ratio 26.5 H, Glucose 304 H, Calcium 8.8, Total Bilirubin 0.50, AST 13 L, ALT 23, Alkaline Phosphatase 79, Total Protein 6.3 L, Albumin 2.8 L, Globulin 3.5, Albumin/Globulin Ratio 0.8 L 09/29/19 04:50: Hemoglobin A1c 10.3 H 09/29/19 05:15: Specimen Type ART, Sample Site L RADIAL, pH 7.31 L, Bicarbonate Actual 37.2 H, POC Total CO2 39, Base Excess 11 H, O2 Saturation 84 L, ABG pCO2 74.5 H*, ABG pO2 56 L, Michele Test POS, O2 Delivery Device NC, Liter Flow 5.0 Current Medications Albuterol Sulfate (Ventolin Aerosols) 2.5 mg INHALATION Q2H PRN PRN PRN Reason: SHORTNESS OF BREATH Albuterol/Ipratropium (Duoneb) 3 ml INHALATION Q4H.RT [facility] Last Admin: 09/29/19 06:49 Dose: 3 ml Documented by: [facility]) [facility] Atorvastatin Calcium (Lipitor) 10 mg PO QHS [facility] Last Admin: 09/28/19 22:37 Dose: 10 mg Documented by: Duloxetine HCl (Cymbalta) 60 mg PO DAILY [facility] Enoxaparin Sodium (Lovenox) 40 mg SC DAILY [facility] Furosemide (Lasix) 40 mg IV BID@1000,1800 [facility] Azithromycin 500 mg/ Dextrose 255 mls @ 250 mls/hr IV Q24 [facility] Stop: 09/30/19 11:02 Last Infusion: 09/28/19 23:47 Dose: Infused Documented by: Levofloxacin (Levaquin Iv) 500 mg in 100 mls @ 100 mls/hr IV Q24 [facility] Stop: 10/02/19 10:59 Last Infusion: 09/28/19 19:32 Dose: Infused Documented by: Insulin Glargine (Lantus ([facility])) 30 units SC QHS [facility] Last Admin: 09/28/19 22:31 Dose: 30 u Documented by: Insulin Human Lispro (Humalog Kwikpen ([facility])) 0 unit SC Q6 [facility]; Protocol Last Admin: 09/29/19 05:39 Dose: 4 units Documented by: Methylprednisolone (Solu-Medrol) 40 mg IV Q8 [facility] Last Admin: 09/29/19 05:39 Dose: 40 mg Documented by: Metoprolol Tartrate (Lopressor (Beta Pricila)) 100 mg PO BID [facility] Last Admin: 09/28/19 22:37 Dose: 100 mg Documented by: Multivitamins/Minerals (Multivitamin With Minerals (Bk)) 1 tablet PO DAILY@0800 [facility] Nicotine (Nicoderm Cq (Pbkc)) 21 mg TRANSDERM. DAILY [facility] Nutritional Formula (Charles - Glades Flavor) [facility] Ondansetron HCl (Zofran) 4 mg IV Q8H PRN PRN PRN Reason: Nausea Pramipexole Dihydrochloride (Mirapex) 2 mg PO BID [facility] Last Admin: 09/28/19 22:37 Dose: 2 mg Documented by: Ramipril (Altace) 10 mg PO DAILY [facility] Sodium Chloride () 10 - 40 ml IV UD PRN PRN Reason: SALINE FLUSH Last Admin: 09/29/19 05:39 Dose: 10 ml Documented by: STROKE Vital Signs/Narrative: Vital Signs Pulse Resp BP Pulse Ox 09/29/19 08:00 77 27 H 141/95 H 94 09/29/19 07:51 69 09/29/19 07:08 71 18 93 09/29/19 07:00 69 24 H 126/76 H 100 09/29/19 06:00 69 22 H 150/64 H 92 09/29/19 05:00 64 17 136/66 H 91 Medical Necessity - Tobacco Use Smoking Status: Current every day smoker Assessment/Plan All Active Problems Type 2 diabetes mellitus (Acute) Obstructive sleep apnea (Acute) Pulmonary hypertension (Acute) Right heart failure (Acute) This is a 64-year-old female with history of COPD, chronic hypoxic and hypercarbic respiratory failure with CO2 retention came to ER with bilateral lower leg wounds with positive wound culture for IV antibiotics but was found somnolent, short of breath with high CO2 and was put on BiPAP and then admitted in ICU. 1. Acute on chronic combined hypoxic and hypercarbic respiratory failure: Patient is being admitted in ICU. Seen by liaison planner. It seems patient does not have a true exacerbation but has severe underlying COPD with chronic CO2 retention with medical noncompliance and need for BiPAP. Continue bronchodilator schedule and steroid. BiPAP with naps and night. Bronchopulmonary hygiene with incentive spirometry, Pap and avoid sedating medications. 2. Chronic bilateral leg infected wounds with Enterobacter claocae and Streptococcus agalactiae group B: Wound culture from [facility] shows enterococcus claocae and Streptococcus agalactiae group B. Both are sensitive to ceftriaxone and penicillin G. Strep agalactiae sensitive to vancomycin and penicillin G. Enterobacter susceptible to Cipro and Zosyn and Bactrim: Change antibiotic to IV ceftriaxone to cover leg infection. Wound care nurse consult and dressing. 3. Chronic heart failure: Exact type, etiology and class unclear but at least seems class III as patient is on high dose of Lasix 80 mg twice daily at home: Patient does not have echo in our system. Will get echo from [facility]. 2D echo ordered. Continue Lasix, metoprolol and statin. Fasting profile tomorrow a.m. 4. Diabetes mellitus type 2: Uncontrolled: A1c 10.4: Hold Amaryl and metformin. On baseline Lantus 35 units. Accu-Chek [facility] cover with Hem-o-oscar sliding scale. 5. Obstructive sleep apnea/or suspected obesity hypoventilation syndrome with continued smoking/nicotine dependence: Patient noncompliant with CPAP at home. Needs further follow-up with instructor warper in office and sleep study. 6. Hypertension, dyslipidemia, restless leg syndrome, chronic pain anxiety and depression: Home medication reconciliation done. Full code Inpatient E&M: 54408 Subs Hosp L3
[2019-09-29 09:41] LABS: Cholesterol 115 mg/dL (200); High Density Lipoprotein 42 mg/dL; Triglycerides 137 mg/dL; Very Low Density Lipoprotein 27 mg/dL (5-40)
[2019-09-29] MEDS: Metoprolol Tartrate 100 MG Tablet PO ×2 (09:46→21:41)
[2019-09-29] MEDS: Pramipexole Di-HCl 1 MG Tablet 2 MG PO ×2 (09:46→21:41)
[2019-09-29] MEDS: DULoxetine Hcl 60 MG Capsule PO (09:46)
[2019-09-29] MEDS: Ramipril 10 MG Capsule PO (09:46)
[2019-09-29] MEDS: Multivitamins,Ther W-Minerals Tablet 1 TABLET PO (09:46)
[2019-09-29] MEDS: Ceftriaxone 1 GM/50 ML BAG IV (09:47)
[2019-09-29] MEDS: Enoxaparin 40 MG/0.4 ML Syringe SC (09:47)
[2019-09-29] MEDS: Furosemide 40 MG/4 ML Vial IV ×2 (09:47→18:01)
[2019-09-29] MEDS: Aspirin E.C. 81 MG Tablet PO (09:47)
[2019-09-29 11:20] LABS: Bedside Glucose 409 mg/dL (70-110)
--- NOTE | 2019-09-29 15:30 | CASEMGMT ---
RN CM TEXTILE DYER CM to room to meet with patient for initial transition planning/care coordination assessment. RN DANGELO introduced self and role at [facility]. Pt voices understanding and consents to assessment at this time. Pt sitting up in chair in room, in no distress at this time. Pt is A/O at this time and answers all questions appropriately. Care providers, pharmacy, and demographics verified at this time. PCP: Dr Victoria Specialists: Dr Pruitt--pulmonology, Wound center Preferred Pharmacy: [facility] Insurance: MCR, [employer] Prescription Benefit: Yes Living Will/HPOA: States does not have LW or HCPOA . Interested in more information but states does not want to talk with SW at this time to complete paperwork. Provided information on advanced directives and given Social Service rac card with number to call if chooses in the future to utilize [facility] social work for advanced directive completion. LNOK: SonNéstor. Daughter Living Arrangements: Lives w/her son in 4-story home. Pt states she is able to navigate the stairs okay. States she mainly only uses 2 floor- her bedroom and bath are on the 2nd floor. Pt is independent w/ADL's, manages her own medications/appts, and prepares meals. Son buys groceries/does shopping and they share laundry/cleaning duties. Transportation: Pt states drives self and states no transportation concerns at this time. Son will take her home @ discharge DME: States has the following DME: shower chair, raised toilet seat, rails/grab bars, hand held shower, walker, rollator, W/C, rollator, medical alert button, O2 @ 3 L/M continuous through [employer]. Pt states has a BIPAP but has not been using it and states she needs to f/u w/Dr Moralez for further sleep studies for new machine. Pt states no need for further DME at this time. HHC/SNF: No history of either. Pt wishes to return home and states has no concerns with going home at time of discharge. Discussed HHC and OP therapy. Pt denies both, stating she does not feel that she needs it. Pt made aware, if she decides in the future that she would like either, to discuss this with her PCP. CM to follow for any discharge planning/needs. Pt voices no further concerns/needs at this time. Advised pt to ask for CM if any further questions/concerns/needs arise. Voices understanding. PLAN: Home w/support of son. CM to follow for possible need of HHC for wound care and possible need of IV atb's @ d/c. Diana CONTRERASN RN CM
[2019-09-29 17:05] LABS: Bedside Glucose 405 mg/dL (70-110)
[2019-09-29] MEDS: levoFLOXacin IV 500 MG/100 ML BAG 100 MG IV (18:16)
[2019-09-29] MEDS: Atorvastatin Calcium 40 MG Tablet PO (21:41)
[2019-09-29 22:25] LABS: Bedside Glucose 441 mg/dL (70-110)
[2019-09-29] MEDS: Acetaminophen 325 MG Tablet 650 MG PO (22:43)
--- NOTE | 2019-09-29 23:35 | CPS ---
Pt requesting to take a break off the mask. Pt states difficulty breathing and relaxing with it on due to no pain medicine. RN notified.
[2019-09-30] VITALS (17 sets, daily range): BP systolic 123–156; BP diastolic 47–75; PULSE 53–85; RESP 16–24; TEMP 36.6–37; O2SAT 90–97
[2019-09-30] MEDS: Ipratropium/Albuterol Sulfate 3 ML AMPUL.NEB INHALATION ×6 (02:29→22:45)
--- NOTE | 2019-09-30 02:45 | CPS ---
Pt could not tolerate Bilevel 20/12. Too much air per pt and making it difficult to breathe. Pressures decreased to Bilevel 12/6 for pt comfort and pt tolerated this the best.
[2019-09-30] MEDS: Acetaminophen 325 MG Tablet 650 MG PO ×2 (05:21→17:49)
[2019-09-30 06:10] LABS: Absolute Lymphocyte Count 3.35 X10^3/uL (0.83-4.51); Absolute Neutrophil Count 6.4 X10^3/uL (2.0-7.7); Basophil# 0.04 X10^3/uL; Basophil% 0.4 % (0-1); Eosinophil# 0.12 X10^3/uL; Eosinophils% 1.1 % (0-5); Hematocrit 53.2 % (37-47); Lymphocyte # 3.35 X10^3/ul (4.0); Lymphocyte % 30.2 % (19-41); Mean Corp Hgb Conc 30.1 g/dL (32-36); Mean Corpuscular Hgb 29.6 pg (27.0-32.0); Mean Corpuscular Volume 98.5 fL (81-99); Mean Platelet Vol. 10.6 fl (6.2-12.0); Monocyte# 1.09 X10^3/uL; Monocyte% 9.8 % (0-10); NRBC Flagged by Analyzer 0 % (0-5); Neutrophil # 6.42 X10^3/uL (2.7-7.7); Platelet Count 189 K/mm3 (150-450); RBC Distribution Width CV 14.9 % (11.6-14.6); RBC Distribution Width SD 53.1 fl (35.1-43.9); White Blood Count 11.1 K/mm3 (4.4-11.0)
[2019-09-30 06:56] LABS: Anion Gap 5 (5-15); BUN 27 mg/dL (7-18); BUN/Creat Ratio 32.4 RATIO (10-20); Calcium,Total 8.9 mg/dL (8.5-10.1); Chloride 93 mmol/L (98-107); Creatinine, Serum 0.83 mg/dL (0.55-1.02); EST Glomerular Filtration Rate 73 mL/min (>60); Est Glom Filt Rate - Afr Amer 88 mL/min (>60); Estimated Creatinine Clearance 57.57 ml/min; Glucose 220 mg/dL (74-106); Potassium 4.2 mmol/L (3.5-5.1); Sodium Level 134 mmol/L (136-145)
[2019-09-30] MEDS: Insulin Lispro 100 UNIT/ML INSULN.PEN SC ×4 (06:59→23:00)
[2019-09-30 07:11] LABS: Bedside Glucose 229 mg/dL (70-110)
[2019-09-30] MEDS: Aspirin E.C. 81 MG Tablet PO (08:10)
[2019-09-30] MEDS: Multivitamins,Ther W-Minerals Tablet 1 TABLET PO (08:11)
[2019-09-30] MEDS: DULoxetine Hcl 60 MG Capsule PO (08:11)
[2019-09-30] MEDS: Pramipexole Di-HCl 1 MG Tablet 2 MG PO ×2 (08:12→22:59)
[2019-09-30] MEDS: Ramipril 10 MG Capsule PO (08:12)
--- NOTE | 2019-09-30 08:12 | PN_ITS ---
Subjective: The patient was seen and examined at the bedside this morning. Events from the last 24 hours have been reviewed. The patient is currently afebrile, hemodynamically stable and maintaining appropriate oxygen saturations on 5 L/min via nasal cannula. The patient tolerated BiPAP overnight. The patient remains on twice daily scheduled IV Lasix. Objective: The patient's most recent lab work, culture data and imaging studies have all been personally reviewed. Surface echocardiogram revealed moderate concentric LVH with an ejection fraction of 65% and stage II diastolic dysfunction. Right ventricular systolic pressure was estimated to be 53 mmHg. Respiratory viral panel was negative. Strep and urine Legionella antigens were negative. Blood and urine cultures are pending. - Physical Exam Vitals/I&O's: Vital Signs Temp Pulse Resp BP Pulse Ox 98.3 F 57 L 18 123/75 H 95 09/30/19 03:02 09/30/19 07:07 09/30/19 03:02 09/30/19 03:02 09/30/19 03:02 Oxygen Flow Rate (L/min) 5 Oxygen Delivery Method Nasal Cannula Weight: 264 lb 8.875 oz Body Mass Index (BMI) 45.4 Finger Stick Blood Glucose 319 Intake and Output for Last 24 Hours 09/28/19 09/29/19 09/30/19 23:59 23:59 23:59 Intake Total 505 / 505 2165 / 2265 400 / 400 Output Total 1150 / 1850 900 / 900 Balance 505 / 505 1015 / 415 -500 / -500 General: Alert, Cooperative, No apparent distress HEENT: Atraumatic, PERRLA, Normocephalic Oral: Moist Mucosa, No Gingival or Mucosal Lesions/ Ulcerations Neck: Supple, No Nodes, Trachea Midline Lungs: No rhonchi, No wheeze, No rales, Diminished Cardiovascular: Regular rate, Regular Rhythm Abdomen: Bowel Sounds Present, Soft, Non Tender, Obese Extremities: No clubbing, No cyanosis, Edema Skin: - - No significant change from previous Musculoskeletal: No Muscle Wasting Lymphatic: No Cervical, Supraclavicular, or Inguinal Adenopathy Neurological: Cranial nerves II-XII grossly intact, Neuro grossly intact Psych/Mental Status: Normal Affect, Appropriate Labs (Last 48 Hours) 09/28/19 09/28/19 09/28/19 13:45 13:45 13:45 WBC 11.2 H RBC 5.72 H Hgb 17.0 H Hct 56.4 H MCV 98.6 MCH 29.7 MCHC 30.1 L RDW Std Deviation 53.1 H RDW Coeff of Bautista 14.6 Plt Count 205 MPV 11.2 Immature Gran % (Auto) 0.500 Neut % (Auto) 64.3 Lymph % (Auto) 24.4 Lee % (Auto) 8.9 Eos % (Auto) 1.5 Baso % (Auto) 0.4 Absolute Neuts (auto) 7.2 Absolute Lymphs (auto) 2.73 Nucleated RBC % 0 Specimen Type Sample Site pH Bicarbonate Actual POC Total CO2 Base Excess O2 Saturation ABG pCO2 ABG pO2 Michele Test O2 Delivery Device Liter Flow Sodium 138 Potassium 4.5 Chloride 101 Carbon Dioxide 37.0 H Anion Gap 0 L BUN 20 H Creatinine 0.92 Estim Creat Clear Calc 54.13 Est GFR (MDRD) Af Amer 79 Est GFR (MDRD) Non-Af 65 BUN/Creatinine Ratio 21.8 H Glucose 289 H Hemoglobin A1c Calcium 9.1 Total Bilirubin 0.40 AST 21 ALT 24 Alkaline Phosphatase 82 Troponin I < 0.015 Total Protein 6.2 L Albumin 2.9 L Globulin 3.3 Albumin/Globulin Ratio 0.9 Triglycerides Cholesterol LDL Cholesterol VLDL Cholesterol HDL Cholesterol COVID-19 (FELIPE) POC Glucose 09/28/19 09/28/19 09/28/19 13:45 15:42 16:00 WBC RBC Hgb Hct MCV MCH MCHC RDW Std Deviation RDW Coeff of Bautista Plt Count MPV Immature Gran % (Auto) Neut % (Auto) Lymph % (Auto) Lee % (Auto) Eos % (Auto) Baso % (Auto) Absolute Neuts (auto) Absolute Lymphs (auto) Nucleated RBC % Specimen Type ART Sample Site RB pH 7.26 L Bicarbonate Actual 38.5 H POC Total CO2 41 Base Excess 11 H O2 Saturation 93 L ABG pCO2 86.0 H* ABG pO2 81 Michele Test POS O2 Delivery Device NASAL Liter Flow 5.0 Sodium Potassium Chloride Carbon Dioxide Anion Gap BUN Creatinine Estim Creat Clear Calc Est GFR (MDRD) Af Amer Est GFR (MDRD) Non-Af BUN/Creatinine Ratio Glucose Hemoglobin A1c 10.4 H Calcium Total Bilirubin AST ALT Alkaline Phosphatase Troponin I Total Protein Albumin Globulin Albumin/Globulin Ratio Triglycerides Cholesterol LDL Cholesterol VLDL Cholesterol HDL Cholesterol COVID-19 (FELIPE) Not Detected POC Glucose 09/28/19 09/28/19 09/28/19 17:27 18:27 22:30 WBC RBC Hgb Hct MCV MCH MCHC RDW Std Deviation RDW Coeff of Bautista Plt Count MPV Immature Gran % (Auto) Neut % (Auto) Lymph % (Auto) Lee % (Auto) Eos % (Auto) Baso % (Auto) Absolute Neuts (auto) Absolute Lymphs (auto) Nucleated RBC % Specimen Type ART Sample Site L RADIAL pH 7.29 L Bicarbonate Actual 40.1 H POC Total CO2 43 Base Excess 13 H O2 Saturation 79 L ABG pCO2 84.1 H* ABG pO2 51 L Michele Test POS O2 Delivery Device Nasal Can Liter Flow 5.0 Sodium Potassium Chloride Carbon Dioxide Anion Gap BUN Creatinine Estim Creat Clear Calc Est GFR (MDRD) Af Amer Est GFR (MDRD) Non-Af BUN/Creatinine Ratio Glucose Hemoglobin A1c Calcium Total Bilirubin AST ALT Alkaline Phosphatase Troponin I Total Protein Albumin Globulin Albumin/Globulin Ratio Triglycerides Cholesterol LDL Cholesterol VLDL Cholesterol HDL Cholesterol COVID-19 (FELIPE) POC Glucose 231 H 206 H 09/29/19 09/29/19 09/29/19 04:50 04:50 04:50 WBC 9.8 RBC 5.57 H Hgb 16.7 H Hct 56.4 H MCV 101.3 H MCH 30.0 MCHC 29.6 L RDW Std Deviation 56.0 H RDW Coeff of Bautista 15.9 H Plt Count 171 MPV 10.6 Immature Gran % (Auto) 0.300 Neut % (Auto) 82.9 H Lymph % (Auto) 14.3 L Lee % (Auto) 1.9 Eos % (Auto) 0.1 Baso % (Auto) 0.5 Absolute Neuts (auto) 8.1 H Absolute Lymphs (auto) 1.40 Nucleated RBC % 0 Specimen Type Sample Site pH Bicarbonate Actual POC Total CO2 Base Excess O2 Saturation ABG pCO2 ABG pO2 Michele Test O2 Delivery Device Liter Flow Sodium 135 L Potassium 5.5 H Chloride 97 L Carbon Dioxide 36.0 H Anion Gap 2 L BUN 25 H Creatinine 0.94 Estim Creat Clear Calc 50.84 Est GFR (MDRD) Af Amer 76 Est GFR (MDRD) Non-Af 63 BUN/Creatinine Ratio 26.5 H Glucose 304 H Hemoglobin A1c 10.3 H Calcium 8.8 Total Bilirubin 0.50 AST 13 L ALT 23 Alkaline Phosphatase 79 Troponin I Total Protein 6.3 L Albumin 2.8 L Globulin 3.5 Albumin/Globulin Ratio 0.8 L Triglycerides Cholesterol LDL Cholesterol VLDL Cholesterol HDL Cholesterol COVID-19 (FELIPE) POC Glucose 09/29/19 09/29/19 09/29/19 04:50 05:15 11:14 WBC RBC Hgb Hct MCV MCH MCHC RDW Std Deviation RDW Coeff of Bautista Plt Count MPV Immature Gran % (Auto) Neut % (Auto) Lymph % (Auto) Lee % (Auto) Eos % (Auto) Baso % (Auto) Absolute Neuts (auto) Absolute Lymphs (auto) Nucleated RBC % Specimen Type ART Sample Site L RADIAL pH 7.31 L Bicarbonate Actual 37.2 H POC Total CO2 39 Base Excess 11 H O2 Saturation 84 L ABG pCO2 74.5 H* ABG pO2 56 L Michele Test POS O2 Delivery Device NC Liter Flow 5.0 Sodium Potassium Chloride Carbon Dioxide Anion Gap BUN Creatinine Estim Creat Clear Calc Est GFR (MDRD) Af Amer Est GFR (MDRD) Non-Af BUN/Creatinine Ratio Glucose Hemoglobin A1c Calcium Total Bilirubin AST ALT Alkaline Phosphatase Troponin I Total Protein Albumin Globulin Albumin/Globulin Ratio Triglycerides 137 Cholesterol 115 LDL Cholesterol 46 VLDL Cholesterol 27 HDL Cholesterol 42 COVID-19 (FELIPE) POC Glucose 409 H 09/29/19 09/29/19 09/30/19 16:59 21:39 05:12 WBC 11.1 H RBC 5.40 Hgb 16.0 H Hct 53.2 H MCV 98.5 MCH 29.6 MCHC 30.1 L RDW Std Deviation 53.1 H RDW Coeff of Bautista 14.9 H Plt Count 189 MPV 10.6 Immature Gran % (Auto) 0.500 Neut % (Auto) 58.0 Lymph % (Auto) 30.2 Lee % (Auto) 9.8 Eos % (Auto) 1.1 Baso % (Auto) 0.4 Absolute Neuts (auto) 6.4 Absolute Lymphs (auto) 3.35 Nucleated RBC % 0 Specimen Type Sample Site pH Bicarbonate Actual POC Total CO2 Base Excess O2 Saturation ABG pCO2 ABG pO2 Michele Test O2 Delivery Device Liter Flow Sodium Potassium Chloride Carbon Dioxide Anion Gap BUN Creatinine Estim Creat Clear Calc Est GFR (MDRD) Af Amer Est GFR (MDRD) Non-Af BUN/Creatinine Ratio Glucose Hemoglobin A1c Calcium Total Bilirubin AST ALT Alkaline Phosphatase Troponin I Total Protein Albumin Globulin Albumin/Globulin Ratio Triglycerides Cholesterol LDL Cholesterol VLDL Cholesterol HDL Cholesterol COVID-19 (FELIPE) POC Glucose 405 H 441 H 09/30/19 09/30/19 05:12 06:58 WBC RBC Hgb Hct MCV MCH MCHC RDW Std Deviation RDW Coeff of Bautista Plt Count MPV Immature Gran % (Auto) Neut % (Auto) Lymph % (Auto) Lee % (Auto) Eos % (Auto) Baso % (Auto) Absolute Neuts (auto) Absolute Lymphs (auto) Nucleated RBC % Specimen Type Sample Site pH Bicarbonate Actual POC Total CO2 Base Excess O2 Saturation ABG pCO2 ABG pO2 Michele Test O2 Delivery Device Liter Flow Sodium 134 L Potassium 4.2 Chloride 93 L Carbon Dioxide 36.0 H Anion Gap 5 BUN 27 H Creatinine 0.83 Estim Creat Clear Calc 57.57 Est GFR (MDRD) Af Amer 88 Est GFR (MDRD) Non-Af 73 BUN/Creatinine Ratio 32.4 H Glucose 220 H Hemoglobin A1c Calcium 8.9 Total Bilirubin AST ALT Alkaline Phosphatase Troponin I Total Protein Albumin Globulin Albumin/Globulin Ratio Triglycerides Cholesterol LDL Cholesterol VLDL Cholesterol HDL Cholesterol COVID-19 (FELIPE) POC Glucose 229 H Microbiology 09/29/19 06:40 Mucosa - Nasopharyngeal Respiratory Panel (PCR) - Final 09/29/19 06:05 Urine, Clean Catch Streptococcus pneumoniae Antigen (M - Final 09/29/19 06:05 Urine, Clean Catch Legionella Antigen - Final 09/28/19 17:20 Mucosa - Nasopharyngeal Influenza Types A,B Direct FA (BETTY) - Final Clinical Impression(s) from Imaging Studies Chest X-Ray 09/28/19 14:10 IMPRESSION: 1. No acute cardiopulmonary pathology. 2. Subsegmental atelectases in right lung base and calcified granuloma in the right upper lobe of the mid lung are unchanged. 3. Cardiomegaly is unchanged. Electronically Signed: Emmett Doss MD at 15:03 EDT , Service support , Chest X-Ray 09/29/19 05:55 IMPRESSION: From prior exam there is decreased conspicuity of the left hemidiaphragm and costophrenic angle which may represent developing left pleural effusion and/or atelectasis/infiltrate. There is again noted some right basilar atelectasis which appears slightly improved compared to prior study. Electronically Signed: Joaquin Trevizo, at 5:50 EDT Tel , Service support , Current Medications Acetaminophen (Tylenol) 650 mg PO Q6H PRN PRN PRN Reason: pain -01/05 Last Admin: 09/30/19 05:21 Dose: 650 mg Documented by: Albuterol Sulfate (Ventolin Aerosols) 2.5 mg INHALATION Q2H PRN PRN PRN Reason: SHORTNESS OF BREATH Albuterol/Ipratropium (Duoneb) 3 ml INHALATION Q4H.RT [facility] Last Admin: 09/30/19 07:14 Dose: 3 ml Documented by: Aspirin (Ecotrin) 81 mg PO DAILYCM [facility] Last Admin: 09/29/19 09:47 Dose: 81 mg Documented by: Atorvastatin Calcium (Lipitor) 40 mg PO QHS [facility] Last Admin: 09/29/19 21:41 Dose: 40 mg Documented by: Duloxetine HCl (Cymbalta) 60 mg PO DAILY [facility] Last Admin: 09/29/19 09:46 Dose: 60 mg Documented by: Enoxaparin Sodium (Lovenox) 40 mg SC DAILY [facility] Last Admin: 09/29/19 09:47 Dose: 40 mg Documented by: Furosemide (Lasix) 40 mg IV BID@1000,1800 [facility] Last Admin: 09/29/19 18:01 Dose: 40 mg Documented by: Levofloxacin (Levaquin Iv) 500 mg in 100 mls @ 100 mls/hr IV Q24 [facility] Last Infusion: 09/29/19 19:20 Dose: Infused Documented by: Insulin Glargine (Lantus ([place])) 30 units SC DAILY [facility] Insulin Human Lispro (Humalog Kwikpen ([place])) 0 unit SC ACHS [facility]; Protocol Last Admin: 09/30/19 06:59 Dose: 2 units Documented by: Metoprolol Tartrate (Lopressor (Beta Pricila)) 100 mg PO BID [facility] Last Admin: 09/29/19 21:41 Dose: 100 mg Documented by: Multivitamins/Minerals (Multivitamin With Minerals ([place])) 1 tablet PO DAILY@0800 [facility] Last Admin: 09/29/19 09:46 Dose: 1 tablet Documented by: Nicotine (Nicoderm Cq (Pbkc)) 21 mg TRANSDERM. DAILY [facility] Last Admin: 09/29/19 09:46 Dose: 21 mg Documented by: Nutritional Formula (Charles - [place] Flavor) 1 packet PO BIDCM [facility] Last Admin: 09/29/19 18:09 Dose: 1 packet Documented by: Pramipexole Dihydrochloride (Mirapex) 2 mg PO BID [facility] Last Admin: 09/29/19 21:41 Dose: 2 mg Documented by: Prednisone () 40 mg PO DAILY@0800 [facility] Ramipril (Altace) 10 mg PO DAILY [facility] Last Admin: 09/29/19 09:46 Dose: 10 mg Documented by: Sodium Chloride () 10 - 40 ml IV UD PRN PRN Reason: SALINE FLUSH Last Admin: 09/29/19 18:08 Dose: 10 ml Documented by: Medical Necessity - Tobacco Use Smoking Status: Current every day smoker Assessment/Plan All Active Problems Type 2 diabetes mellitus (Acute) Obstructive sleep apnea (Acute) Pulmonary hypertension (Acute) Right heart failure (Acute) RECOMMENDATIONS: 1. Continue antimicrobials. 2. Continue scheduled bronchodilators and steroids. 3. Continue nicotine replacement therapy. 4. Continue BiPAP with naps and nightly. 5. Avoid sedating medications. 6. Maintain oxygen saturations 88 to 92%. 7. Encourage incentive spirometer use and mobilize patient as tolerated. IMPRESSIONS: 1. Acute on chronic combined respiratory failure I am not entirely convinced that the patient is truly in an acute exacerbated state. She has a number of comorbidities including self-reported heart failure, COPD of unknown severity, chronic hypoxemic respiratory failure, chronic CO2 retention and tobacco dependency along with a history of medical noncompliance. The patient has a baseline, underlying need for noninvasive positive pressure ventilatory support, but does not utilize any form of therapy. She is apparently followed by pulmonary medicine through [facility]. Patient does not appear to have an acute pulmonary infectious process. For now, it is reasonable to continue scheduled bronchodilators and steroids. The patient undoubtedly needs to be on some form of Pap therapy with naps and nightly. For now, she will be continued on BiPAP with plans to transition her to AVAPS if tidal volumes become suboptimal. 2. Chronic lower extremity wounds Continue antimicrobials as ordered. Attempt to obtain cultures and sensitivit ies from outside hospital to direct therapy. 3. History of obstructive sleep apnea/suspected alveolar hypoventilation/noncompliance with nocturnal Pap therapy The patient does have a sleep study in our system dating back to 2012, which revealed a need for nocturnal BiPAP therapy. However, the patient reports noncompliance for several years now. I do recommend that sedating medications be avoided, including opiate pain medications, given her propensity to retain CO2 and the fact that she has noncompliant with therapy as an outpatient. 4. Continuous tobacco dependency The patient does have an extensive smoking history and continues to smoke 1 pack of cigarettes per day. Smoking cessation counseling was provided. She will require close interval follow-up with her pulmonary provider at [facility] following discharge. 5. Chronic pain syndrome/diabetes mellitus/hypertension/hyperlipidemia/congestive heart failure/depression Complicates care, management, recovery and prognosis. Recommend avoiding sedating medications. The remainder of the patient's home medications can be resumed from my perspective. This note was generated with [employer] dictation software. It may contain incorrect words, spelling, and punctuation that were not noted in checking the note before signing. Inpatient E&M: 06429 Subs Hosp L2
[2019-09-30] MEDS: predniSONE 20 MG Tablet 40 MG PO (08:19)
[2019-09-30] MEDS: 0.9% Saline Lock 10 ML Syringe IV ×2 (11:15→17:46)
[2019-09-30] MEDS: Furosemide 40 MG/4 ML Vial IV ×2 (11:18→17:46)
[2019-09-30] MEDS: Enoxaparin 40 MG/0.4 ML Syringe SC (11:19)
[2019-09-30] MEDS: Metoprolol Tartrate 100 MG Tablet PO ×2 (11:19→23:00)
[2019-09-30] MEDS: levoFLOXacin IV 500 MG/100 ML BAG 100 MG IV (11:21)
--- NOTE | 2019-09-30 11:53 | PN_ITS ---
Reason for Visit: Follow-up for acute on chronic combined respiratory failure with CO2 retention. Bilateral lower leg infected wound. Objective: No fever or chills. Patient is still on 5 L of oxygen. Patient tolerated BiPAP at night. Blood pressure in acceptable limit. On physical exam General: Alert, Oriented x3, Cooperative HEENT: Atraumatic, PERRLA, EOMI, Normocephalic Neck: Supple, No JVD, Negative Carotid Bruits Lungs: Air entry diminished bilaterally. Fine expiratory rhonchi present. No tachypnea. Cardiovascular: Regular rate, Regular Rhythm, Normal S1, Normal S2, No murmurs Abdomen: Bowel Sounds Present, Soft, Non Tender, Non-Distended Extremities: Capillary Refill Less than 3 Seconds, Edema - Bilateral lower extremity edema Skin: Ulcer/ Wound - Bilateral lower leg wound, right leg worse than left leg. Superficial wound covered with slough with minimal purulent discharge Musculoskeletal: No Tenderness to Palpation of Joints or Extremities Neurological: Cranial nerves II-XII grossly intact Psych/Mental Status: Normal Affect, Appropriate Vitals/I&O's: Vital Signs Temp Pulse Resp BP Pulse Ox 97.8 F 76 16 148/64 H 93 09/30/19 11:11 09/30/19 11:19 09/30/19 11:11 09/30/19 11:19 09/30/19 11:11 Oxygen Flow Rate (L/min) 5 Oxygen Delivery Method Nasal Cannula Weight: 264 lb 8.875 oz Body Mass Index (BMI) 45.4 Finger Stick Blood Glucose 319 Intake and Output for Last 24 Hours 09/28/19 09/29/19 09/30/19 23:59 23:59 23:59 Intake Total 505 / 505 2165 / 2265 400 / 400 Output Total 1150 / 1850 900 / 900 Balance 505 / 505 1015 / 415 -500 / -500 Microbiology Past 72 Hours 09/29/19 06:40 Mucosa - Nasopharyngeal Respiratory Panel (PCR) - Final 09/29/19 06:05 Urine, Clean Catch Streptococcus pneumoniae Antigen (M - Final 09/29/19 06:05 Urine, Clean Catch Legionella Antigen - Final 09/28/19 17:20 Mucosa - Nasopharyngeal Influenza Types A,B Direct FA (BETTY) - Final Laboratory Results 09/29/19 16:59: POC Glucose 405 H 09/29/19 21:39: POC Glucose 441 H 09/30/19 05:12: WBC 11.1 H, RBC 5.40, Hgb 16.0 H, Hct 53.2 H, MCV 98.5, MCH 29.6, MCHC 30.1 L, RDW Std Deviation 53.1 H, RDW Coeff of Bautista 14.9 H, Plt Count 189, MPV 10.6, Immature Gran % (Auto) 0.500, Neut % (Auto) 58.0, Lymph % (Auto) 30.2, [place] % (Auto) 9.8, Eos % (Auto) 1.1, Baso % (Auto) 0.4, Absolute Neuts (auto) 6.4, Absolute Lymphs (auto) 3.35, Nucleated RBC % 0 09/30/19 05:12: Sodium 134 L, Potassium 4.2, Chloride 93 L, Carbon Dioxide 36.0 H, Anion Gap 5, BUN 27 H, Creatinine 0.83, Estim Creat Clear Calc 57.57, Est GFR (MDRD) Af Amer 88, Est GFR (MDRD) Non-Af 73, BUN/Creatinine Ratio 32.4 H, Glucose 220 H, Calcium 8.9 09/30/19 06:58: POC Glucose 229 H Current Medications Acetaminophen (Tylenol) 650 mg PO Q6H PRN PRN PRN Reason: pain -01/05 Last Admin: 09/30/19 05:21 Dose: 650 mg Documented by: Albuterol Sulfate (Ventolin Aerosols) 2.5 mg INHALATION Q2H PRN PRN PRN Reason: SHORTNESS OF BREATH Albuterol/Ipratropium (Duoneb) 3 ml INHALATION Q4H.RT [facility] Last Admin: 09/30/19 10:47 Dose: 3 ml Documented by: [facility] Last Admin: 09/30/19 08:10 Dose: 81 mg Documented by: Atorvastatin Calcium (Lipitor) 40 mg PO QHS [facility] Last Admin: 09/29/19 21:41 Dose: 40 mg Documented by: Duloxetine HCl (Cymbalta) 60 mg PO DAILY [facility] Last Admin: 09/30/19 08:11 Dose: 60 mg Documented by: Enoxaparin Sodium (Lovenox) 40 mg SC DAILY [facility] Last Admin: 09/30/19 11:19 Dose: 40 mg Documented by: Furosemide (Lasix) 40 mg IV BID@1000,1800 [facility] Last Admin: 09/30/19 11:18 Dose: 40 mg Documented by: Levofloxacin (Levaquin Iv) 500 mg in 100 mls @ 100 mls/hr IV Q24 [facility] Last Admin: 09/30/19 11:21 Dose: 100 mls/hr Documented by: Insulin Glargine (Lantus ([facility])) 30 units SC DAILY [facility] Last Admin: 09/30/19 11:39 Dose: 30 unit Documented by: Insulin Human Lispro (Humalog Kwikpen ([facility])) 0 unit SC ACHS [facility]; Protocol Last Admin: 09/30/19 11:39 Dose: 5 units Documented by: Metoprolol Tartrate (Lopressor (Beta Pricila)) 100 mg PO BID [facility] Last Admin: 09/30/19 11:19 Dose: 100 mg Documented by: Multivitamins/Minerals (Multivitamin With Minerals ([facility])) 1 tablet PO DAILY@0800 [facility] Last Admin: 09/30/19 08:11 Dose: 1 tablet Documented by: Nicotine (Nicoderm Cq ([facility])) 21 mg TRANSDERM. DAILY [facility] Last Admin: 09/30/19 11:18 Dose: 21 mg Documented by: Nutritional Formula ([place] - [place] Flavor) 1 packet PO BIDCM [facility] Last Admin: 09/30/19 11:46 Dose: 1 packet Documented by: Pramipexole Dihydrochloride (Mirapex) 2 mg PO BID [facility] Last Admin: 09/30/19 08:12 Dose: 2 mg Documented by: Prednisone () 40 mg PO DAILY@0800 [facility] Last Admin: 09/30/19 08:19 Dose: 40 mg Documented by: Ramipril (Altace) 10 mg PO DAILY [facility] Last Admin: 09/30/19 08:12 Dose: 10 mg Documented by: Sodium Chloride () 10 - 40 ml IV UD PRN PRN Reason: SALINE FLUSH Last Admin: 09/30/19 11:15 Dose: 20 ml Documented by: STROKE Vital Signs/Narrative: Vital Signs Temp Pulse Resp BP Pulse Ox 09/30/19 11:19 76 148/64 H 09/30/19 11:11 97.8 F 76 16 148/64 H 93 09/30/19 10:47 82 24 H 90 Medical Necessity - Tobacco Use Smoking Status: Current every day smoker Assessment/Plan All Active Problems Type 2 diabetes mellitus (Acute) Obstructive sleep apnea (Acute) Pulmonary hypertension (Acute) Right heart failure (Acute) This is a 64-year-old female with history of COPD, chronic hypoxic and hypercarbic respiratory failure with CO2 retention came to ER with bilateral lower leg wounds with positive wound culture for IV antibiotics but was found somnolent, short of breath with high CO2 and was put on BiPAP and then admitted in ICU. 1. Acute on chronic combined hypoxic and hypercarbic respiratory failure: Patient is being admitted in ICU. Seen by medical supervisor. It seems patient does not have a true exacerbation but has severe underlying COPD with chronic CO2 retention with medical noncompliance and need for BiPAP. Continue bronchodilator schedule and steroid. BiPAP with naps and night. Bron chopulmonary hygiene with incentive spirometry, Pap and avoid sedating medications. 09/29: Continue bronchodilator, prednisone and BiPAP for naps and night. Respiratory panel, Legionella and strep plus antigen are negative. Culture and urine culture are pending. 2. Chronic bilateral leg infected wounds with Enterobacter claocae and Streptococcus agalactiae group B: Wound culture from [facility] shows enterococcus claocae and Streptococcus agalactiae group B. Both are sensitive to ceftriaxone and penicillin G. Strep agalactiae sensitive to vancomycin and penicillin G. Enterobacter susceptible to Cipro and Zosyn and Bactrim: Antibiotic changed to Levaquin. Wound care nurse consult and dressing. 09/29: Discussed with ID. Antibiotic changed to Levaquin. 3. Chronic heart failure: Exact type, etiology and class unclear but at least seems class III as patient is on high dose of Lasix 80 mg twice daily at home: Patient does not have echo in our system. Will get echo from [facility]. 2D echo ordered. Continue Lasix, metoprolol and statin. 09/29: Fasting lipid file LDL 46, triglyceride 115, HDL 42 in normal limit. 4. Diabetes mellitus type 2: Uncontrolled: A1c 10.4: Hold Amaryl and metformin. On baseline Lantus 35 units. Accu-Chek [facility] cover with Humalog sliding scale. 5. Obstructive sleep apnea/or suspected obesity hypoventilation syndrome with continued smoking/nicotine dependence: Patient noncompliant with CPAP at home. Needs further follow-up with herpetology teacher in office and sleep study. 6. Hypertension, dyslipidemia, restless leg syndrome, chronic pain anxiety and depression: Home medication reconciliation done. Full code Inpatient E&M: 11233 Subs Hosp L2
[2019-09-30 15:01] LABS: Bedside Glucose 314 mg/dL (70-110)
[2019-09-30] MEDS: Magnesium Hydroxide 30 ML UDC PO (16:59)
[2019-09-30 17:11] LABS: Bedside Glucose 347 mg/dL (70-110)
[2019-09-30] MEDS: Atorvastatin Calcium 40 MG Tablet PO (23:03)
[2019-10-01] VITALS (12 sets, daily range): BP systolic 130–147; BP diastolic 62–67; PULSE 55–77; RESP 12–27; TEMP 36.6–37; O2SAT 73–98
[2019-10-01 00:06] LABS: Bedside Glucose 320 mg/dL (70-110)
[2019-10-01] MEDS: Ipratropium/Albuterol Sulfate 3 ML AMPUL.NEB INHALATION ×3 (03:08→11:09)
[2019-10-01 05:55] LABS: Absolute Lymphocyte Count 3.75 X10^3/uL (0.83-4.51); Absolute Neutrophil Count 5.9 X10^3/uL (2.0-7.7); Basophil# 0.04 X10^3/uL; Basophil% 0.4 % (0-1); Eosinophil# 0.11 X10^3/uL; Hemoglobin 16.9 g/dL (12.0-15.0); Lymphocyte # 3.75 X10^3/ul (4.0); Lymphocyte % 34.2 % (19-41); Mean Corp Hgb Conc 30.1 g/dL (32-36); Mean Corpuscular Hgb 29.3 pg (27.0-32.0); Mean Corpuscular Volume 97.4 fL (81-99); Mean Platelet Vol. 11.7 fl (6.2-12.0); Monocyte# 1.13 X10^3/uL; Monocyte% 10.3 % (0-10); NRBC Flagged by Analyzer 0 % (0-5); Neutrophil # 5.91 X10^3/uL (2.7-7.7); Neutrophil % 53.7 % (47-70); Platelet Count 192 K/mm3 (150-450); RBC Distribution Width CV 15.1 % (11.6-14.6); RBC Distribution Width SD 52.7 fl (35.1-43.9); Red Blood Count 5.76 M/mm3 (4.2-5.4)
[2019-10-01 05:59] LABS: Hematocrit 56.1 % (37-47)
[2019-10-01] MEDS: Ketorolac 15 MG/ML Vial IV (06:16)
[2019-10-01] MEDS: Insulin Lispro 100 UNIT/ML INSULN.PEN SC ×2 (06:17→11:40)
[2019-10-01 06:19] LABS: Anion Gap 5 (5-15); BUN 33 mg/dL (7-18); BUN/Creat Ratio 39.4 RATIO (10-20); Calcium,Total 9.3 mg/dL (8.5-10.1); Chloride 93 mmol/L (98-107); Creatinine, Serum 0.84 mg/dL (0.55-1.02); EST Glomerular Filtration Rate 72 mL/min (>60); Est Glom Filt Rate - Afr Amer 87 mL/min (>60); Estimated Creatinine Clearance 56.89 ml/min; Glucose 194 mg/dL (74-106); Potassium 3.7 mmol/L (3.5-5.1); Sodium Level 138 mmol/L (136-145)
[2019-10-01 06:25] LABS: Bedside Glucose 198 mg/dL (70-110)
--- NOTE | 2019-10-01 07:34 | PN_ITS ---
Subjective: The patient was seen and examined at the bedside this morning. Events from the last 24 hours have been reviewed. The patient is currently afebrile, hemodynamically stable and maintaining appropriate oxygen saturations on 4 L/min via nasal cannula. The patient reports overall improvement in her breathing quality. She has been tolerant of nocturnal BiPAP therapy, but readily admits that she does not like to use it. She is anxious to be discharged home. Objective: The patient's most recent lab work, culture data and imaging studies have all been personally reviewed. Surface echocardiogram revealed moderate concentric LVH with an ejection fraction of 65% and stage II diastolic dysfunction. Right ventricular systolic pressure was estimated to be 53 mmHg. Respiratory viral panel was negative. Strep and urine Legionella antigens were negative. Blood and urine cultures are pending. - Physical Exam Vitals/I&O's: Vital Signs Temp Pulse Resp BP Pulse Ox 98.6 F 64 20 H 130/62 H 98 10/01/19 03:45 10/01/19 07:00 10/01/19 03:45 10/01/19 03:45 10/01/19 03:45 Oxygen Flow Rate (L/min) 4 Oxygen Delivery Method Bi-pap Weight: 258 lb 2.581 oz Body Mass Index (BMI) 45.4 Finger Stick Blood Glucose 319 Intake and Output for Last 24 Hours 09/29/19 09/30/19 10/01/19 23:59 23:59 23:59 Intake Total 2165 / 2265 2019 / 2019 240 / 240 Output Total 1150 / 1850 4100 / 4100 Balance 1015 / 415 -2080 / -2080 240 / 240 General: Alert, Oriented x3, Cooperative, No apparent distress HEENT: Atraumatic, Normocephalic Oral: Moist Mucosa, No Gingival or Mucosal Lesions/ Ulcerations Neck: Supple, No Nodes, Trachea Midline Lungs: No rhonchi, No wheeze, No rales, Diminished Cardiovascular: Regular rate, Regular Rhythm, Normal S1, Normal S2, No murmurs Abdomen: Bowel Sounds Present, Soft, Non Tender, Obese Extremities: No clubbing, No cyanosis, Edema Skin: - - No significant change from previous Musculoskeletal: No Tenderness to Palpation of Joints or Extremities, No Muscle Wasting Lymphatic: No Cervical, Supraclavicular, or Inguinal Adenopathy Neurological: Cranial nerves II-XII grossly intact, Neuro grossly intact Psych/Mental Status: Alert and oriented to time, place, person, mood and affect Labs (Last 48 Hours) 09/29/19 09/29/19 09/29/19 04:50 04:50 11:14 WBC RBC Hgb Hct MCV MCH MCHC RDW Std Deviation RDW Coeff of Bautista Plt Count MPV Immature Gran % (Auto) Neut % (Auto) Lymph % (Auto) Bucks % (Auto) Eos % (Auto) Baso % (Auto) Absolute Neuts (auto) Absolute Lymphs (auto) Nucleated RBC % Sodium Potassium Chloride Carbon Dioxide Anion Gap BUN Creatinine Estim Creat Clear Calc Est GFR (MDRD) Af Amer Est GFR (MDRD) Non-Af BUN/Creatinine Ratio Glucose Hemoglobin A1c 10.3 H Calcium Triglycerides 137 Cholesterol 115 LDL Cholesterol 46 VLDL Cholesterol 27 HDL Cholesterol 42 POC Glucose 409 H 09/29/19 09/29/19 09/30/19 16:59 21:39 05:12 WBC 11.1 H RBC 5.40 Hgb 16.0 H Hct 53.2 H MCV 98.5 MCH 29.6 MCHC 30.1 L RDW Std Deviation 53.1 H RDW Coeff of Bautista 14.9 H Plt Count 189 MPV 10.6 Immature Gran % (Auto) 0.500 Neut % (Auto) 58.0 Lymph % (Auto) 30.2 Bucks % (Auto) 9.8 Eos % (Auto) 1.1 Baso % (Auto) 0.4 Absolute Neuts (auto) 6.4 Absolute Lymphs (auto) 3.35 Nucleated RBC % 0 Sodium Potassium Chloride Carbon Dioxide Anion Gap BUN Creatinine Estim Creat Clear Calc Est GFR (MDRD) Af Amer Est GFR (MDRD) Non-Af BUN/Creatinine Ratio Glucose Hemoglobin A1c Calcium Triglycerides Cholesterol LDL Cholesterol VLDL Cholesterol HDL Cholesterol POC Glucose 405 H 441 H 09/30/19 09/30/19 09/30/19 05:12 06:58 11:18 WBC RBC Hgb Hct MCV MCH MCHC RDW Std Deviation RDW Coeff of Bautista Plt Count MPV Immature Gran % (Auto) Neut % (Auto) Lymph % (Auto) Bucks % (Auto) Eos % (Auto) Baso % (Auto) Absolute Neuts (auto) Absolute Lymphs (auto) Nucleated RBC % Sodium 134 L Potassium 4.2 Chloride 93 L Carbon Dioxide 36.0 H Anion Gap 5 BUN 27 H Creatinine 0.83 Estim Creat Clear Calc 57.57 Est GFR (MDRD) Af Amer 88 Est GFR (MDRD) Non-Af 73 BUN/Creatinine Ratio 32.4 H Glucose 220 H Hemoglobin A1c Calcium 8.9 Triglycerides Cholesterol LDL Cholesterol VLDL Cholesterol HDL Cholesterol POC Glucose 229 H 314 H 09/30/19 09/30/19 10/01/19 16:57 22:54 05:05 WBC 11.0 RBC 5.76 H Hgb 16.9 H Hct 56.1 H MCV 97.4 MCH 29.3 MCHC 30.1 L RDW Std Deviation 52.7 H RDW Coeff of Bautista 15.1 H Plt Count 192 MPV 11.7 Immature Gran % (Auto) 0.400 Neut % (Auto) 53.7 Lymph % (Auto) 34.2 Bucks % (Auto) 10.3 H Eos % (Auto) 1.0 Baso % (Auto) 0.4 Absolute Neuts (auto) 5.9 Absolute Lymphs (auto) 3.75 Nucleated RBC % 0 Sodium Potassium Chloride Carbon Dioxide Anion Gap BUN Creatinine Estim Creat Clear Calc Est GFR (MDRD) Af Amer Est GFR (MDRD) Non-Af BUN/Creatinine Ratio Glucose Hemoglobin A1c Calcium Triglycerides Cholesterol LDL Cholesterol VLDL Cholesterol HDL Cholesterol POC Glucose 347 H 320 H 10/01/19 10/01/19 05:05 06:12 WBC RBC Hgb Hct MCV MCH MCHC RDW Std Deviation RDW Coeff of Bautista Plt Count MPV Immature Gran % (Auto) Neut % (Auto) Lymph % (Auto) Bucks % (Auto) Eos % (Auto) Baso % (Auto) Absolute Neuts (auto) Absolute Lymphs (auto) Nucleated RBC % Sodium 138 Potassium 3.7 Chloride 93 L Carbon Dioxide 40.0 H Anion Gap 5 BUN 33 H Creatinine 0.84 Estim Creat Clear Calc 56.89 Est GFR (MDRD) Af Amer 87 Est GFR (MDRD) Non-Af 72 BUN/Creatinine Ratio 39.4 H Glucose 194 H Hemoglobin A1c Calcium 9.3 Triglycerides Cholesterol LDL Cholesterol VLDL Cholesterol HDL Cholesterol POC Glucose 198 H Microbiology 09/29/19 06:40 Mucosa - Nasopharyngeal Respiratory Panel (PCR) - Final 09/29/19 06:05 Urine, Clean Catch Streptococcus pneumoniae Antigen (M - Final 09/29/19 06:05 Urine, Clean Catch Legionella Antigen - Final Clinical Impression(s) from Imaging Studies Chest X-Ray 09/28/19 14:10 IMPRESSION: 1. No acute cardiopulmonary pathology. 2. Subsegmental atelectases in right lung base and calcified granuloma in the right upper lobe of the mid lung are unchanged. 3. Cardiomegaly is unchanged. Electronically Signed: Emmett Doss MD at 15:03 EDT , Service support , Chest X-Ray 09/29/19 05:55 IMPRESSION: From prior exam there is decreased conspicuity of the left hemidiaphragm and costophrenic angle which may represent developing left pleural effusion and/or atelectasis/infiltrate. There is again noted some right basilar atelectasis which appears slightly improved compared to prior study. Electronically Signed: Joaquin Trevizo at 5:50 EDT Tel , Service support , Current Medications Acetaminophen (Tylenol) 650 mg PO Q6H PRN PRN PRN Reason: pain 1-01/05 Last Admin: 09/30/19 17:49 Dose: 650 mg Documented by: Albuterol Sulfate (Ventolin Aerosols) 2.5 mg INHALATION Q2H PRN PRN PRN Reason: SHORTNESS OF BREATH Albuterol/Ipratropium (Duoneb) 3 ml INHALATION Q4H.RT [facility] Last Admin: 10/01/19 06:51 Dose: 3 ml Documented by: [facility] Last Admin: 09/30/19 08:10 Dose: 81 mg Documented by: Atorvastatin Calcium (Lipitor) 40 mg PO QHS [facility] Last Admin: 09/30/19 23:03 Dose: 40 mg Documented by: Duloxetine HCl (Cymbalta) 60 mg PO DAILY [facility] Last Admin: 09/30/19 08:11 Dose: 60 mg Documented by: Enoxaparin Sodium (Lovenox) 40 mg SC DAILY [facility] Last Admin: 09/30/19 11:19 Dose: 40 mg Documented by: Furosemide (Lasix) 40 mg IV BID@1000,1800 [facility] Last Admin: 09/30/19 17:46 Dose: 40 mg Documented by: Levofloxacin (Levaquin Iv) 500 mg in 100 mls @ 100 mls/hr IV Q24 [facility] Last Infusion: 09/30/19 12:30 Dose: Infused Documented by: Insulin Glargine (Lantus ([facility])) 30 units SC DAILY [facility] Last Admin: 09/30/19 11:39 Dose: 30 unit Documented by: Insulin Human Lispro (Humalog Kwikpen ([facility])) 0 unit SC ACHS [facility]; Protocol Last Admin: 10/01/19 06:17 Dose: 2 units Documented by: Ketorolac Tromethamine (Toradol ([facility])) 15 mg IV Q8H PRN PRN PRN Reason: pain -01/05 Stop: 10/06/19 05:45 Last Admin: 10/01/19 06:16 Dose: 15 mg Documented by: Magnesium Hydroxide (Milk Of Magnesia) 30 ml PO DAILY PRN PRN Reason: Constipation Last Admin: 09/30/19 16:59 Dose: 30 ml Documented by: Metoprolol Tartrate (Lopressor (Beta Pricila)) 100 mg PO BID [facility] Last Admin: 09/30/19 23:00 Dose: 100 mg Documented by: Multivitamins/Minerals (Multivitamin With Minerals ([facility])) 1 tablet PO DAILY@0800 [facility] Last Admin: 09/30/19 08:11 Dose: 1 tablet Documented by: Nicotine (Nicoderm Cq (Pbkc)) 21 mg TRANSDERM. DAILY [facility] Last Admin: 09/30/19 11:18 Dose: 21 mg Documented by: Nutritional Formula ([place] Flavor) [facility] Last Admin: 09/30/19 17:01 Dose: 1 packet Documented by: Pramipexole Dihydrochloride (Mirapex) 2 mg PO BID [facility] Last Admin: 09/30/19 22:59 Dose: 2 mg Documented by: Prednisone () 40 mg PO DAILY@0800 [facility] Last Admin: 09/30/19 08:19 Dose: 40 mg Documented by: Ramipril (Altace) 10 mg PO DAILY [facility] Last Admin: 09/30/19 08:12 Dose: 10 mg Documented by: Sodium Chloride () 10 - 40 ml IV UD PRN PRN Reason: SALINE FLUSH Last Admin: 09/30/19 17:46 Dose: 20 ml Documented by: Medical Necessity - Tobacco Use Smoking Status: Current every day smoker Assessment/Plan All Active Problems Type 2 diabetes mellitus (Acute) Obstructive sleep apnea (Acute) Pulmonary hypertension (Acute) Right heart failure (Acute) RECOMMENDATIONS: 1. Continue antimicrobials. 2. Continue scheduled bronchodilators and steroids. 3. Continue nicotine replacement therapy. 4. Continue BiPAP with naps and nightly. 5. Maintain oxygen saturations 88 to 92%. 6. Encourage incentive spirometer use and mobilize patient as tolerated. 7. Perform ambulatory oximetry study. The patient be discharged home if she is able to maintain saturations with exertion on 6 L/min or less of oxygen. 8. Ideally, the patient should follow-up with her primary fire prevention officer within 2 weeks of discharge from the hospital. IMPRESSIONS: 1. Acute on chronic combined respiratory failure I am not entirely convinced that the patient is truly in an acute exacerbated state. She has a number of comorbidities including self-reported heart failure, COPD of unknown severity, chronic hypoxemic respiratory failure, chronic CO2 retention and tobacco dependency along with a history of medical noncompliance. The patient has a baseline, underlying need for noninvasive positive pressure ventilatory support, but does not utilize any form of therapy. She is apparently followed by pulmonary medicine through [facility]. Patient does not appear to have an acute pulmonary infectious process. For now, it is reasonable to continue scheduled bronchodilators and steroids. The patient undoubtedly needs to be on some form of Pap therapy with naps and nightly. For now, she will be continued on BiPAP with plans to transition her to AVAPS if tidal volumes become suboptimal. The patient was encouraged to utilize her home supplemental oxygen as prescribed. She will require close interval follow-up with her primary fire prevention officer to get set up once again on nocturnal BiPAP therapy. 2. Chronic lower extremity wounds Continue antimicrobials as ordered. Attempt to obtain cultures and sensitivities from outside hospital to direct therapy. 3. History of obstructive sleep apnea/suspected alveolar hypoventilation/noncompliance with nocturnal Pap therapy The patient does have a sleep study in our system dating back to 2012, which revealed a need for nocturnal BiPAP therapy. However, the patient reports noncompliance for several years now. I do recommend that sedating medications be avoided, including opiate pain medications, given her propensity to retain CO2 and the fact that she has noncompliant with therapy as an outpatient. 4. Continuous tobacco dependency The patient does have an extensive smoking history and continues to smoke 1 pack of cigarettes per day. Smoking cessation counseling was provided. She will require close interval follow-up with her pulmonary provider at [facility] following discharge. 5. Chronic pain syndrome/diabetes mellitus/hypertension/hyperlipidemia/congestive heart failure/depression Complicates care, management, recovery and prognosis. Recommend avoiding sedating medications. The remainder of the patient's home medications can be continued from my perspective. This note was generated with [employer] dictation software. It may contain incorrect words, spelling, and punctuation that were not noted in checking the note before signing. Inpatient E&M: 28346 Subs Hosp L2
[2019-10-01] MEDS: Ramipril 10 MG Capsule PO (08:12)
[2019-10-01] MEDS: Pramipexole Di-HCl 1 MG Tablet 2 MG PO (08:12)
[2019-10-01] MEDS: Multivitamins,Ther W-Minerals Tablet 1 TABLET PO (08:12)
[2019-10-01] MEDS: Aspirin E.C. 81 MG Tablet PO (08:12)
[2019-10-01] MEDS: DULoxetine Hcl 60 MG Capsule PO (08:12)
[2019-10-01] MEDS: predniSONE 20 MG Tablet 40 MG PO (08:19)
--- NOTE | 2019-10-01 10:56 | PCM.DC ---
You will use the following diet at home:: Calorie/Carbohydrate Controlled (specify 1200, 1400, etc), Cardiac Your food should be the consistency of: Regular Discharge Activity: May Not Drive Call your doctor if you observe: Fever of 101 or Higher, Numbness or Tingling, Change in Color, Inability to urinate, Using more than one pad per hour, Shortness of breath, Dizziness, Fainting spells, Swelling in the ankles, Chest pain, Prolonged hiccoughing, Increased palpitations (irregular heartbeat), Calf discomfort, Uncontrolled pain Additional Instructions: Follow-up with primary city controller, Dr. Beverly in 2 weeks. Follow-up in wound center in 2 days. Allergies/Adverse Reactions: Allergies PAPER TAPE Allergy (Uncoded 09/28/19 13:07) Rash Medications to take at Discharge Albuterol Inhaler [Ventolin Hfa] 1 - 2 puff INHALATION Q4H PRN PRN 09/01/18 Aspirin [Aspir 81] 81 mg PO DAILY 09/01/18 Duloxetine HCl 60 mg PO DAILY 09/01/18 Furosemide [Lasix] 80 mg PO BID 09/01/18 Glimepiride [Amaryl] 4 mg PO DAILY 09/01/18 Hydrocodone/Acetaminophen [Hydrocodone-Acetamin 10-325 mg] 1 each PO TID PRN 09/01/18 Lovastatin [Mevacor] 40 mg PO QHS 09/01/18 Metformin HCl 1,000 mg PO BID 09/01/18 Metoprolol Tartrate [Lopressor (beta elisa)] 100 mg PO BID 09/01/18 Multivitamin with Minerals [Multiple Vitamin] 1 each PO DAILY 09/01/18 Pramipexole Di-HCl [Mirapex] 2 mg PO BID 09/01/18 Ramipril [Altace] 10 mg PO DAILY 09/01/18 Umeclidinium [place] Inhaler [Incruse Ellipta Inhaler] 1 puff IH DAILY 09/01/18 Insulin Glargine,Hum.rec.anlog [Basaglar Kwikpen U-100] 40 unit SQ QHS #0 10/01/19 Levofloxacin [Levaquin] 500 mg PO DAILY #3 tab 10/01/19 Meloxicam [Mobic] 15 mg PO DAILY PRN PRN #0 07/05/20 Nicotine [Nicoderm Cq] 21 mg TRANSDERM. DAILY #30 patch 10/01/19 The following prescriptions were given: Levofloxacin [Levaquin] 500 mg PO DAILY #3 tab Transmission Status: Pending to [id number] Nicotine [Nicoderm Cq] 21 mg TRANSDERM. DAILY #30 patch Transmission Status: Pending to [facility]/pharmacy #[id number] Primary Care Physician: Bhavesh Victoria MD [Primary Care Provider] - Please follow up with your Primary Care Physician in: in 2 weeks Test Results: Test results from this visit will be discussed in further detail at your follow-up appointment, if applicable.
--- NOTE | 2019-10-01 10:59 | PCM.DC.SUM ---
Discharge Date and Diagnosis Date of Admission: 09/28/19 Date of Discharge: 10/01/19 - Secondary Discharge Diagnosis Chronic Problems: Chronic Problems Hypertension (Chronic) COPD (chronic obstructive pulmonary disease) (Chronic) Hospital Course and Treatment Consultations 09/28/19 17:16 Consult: Onc/Wound/feather washer Routine Comment: Summary of Care Provided: [] This is a 64-year-old female with history of COPD, chronic hypoxic and hypercarbic respiratory failure with CO2 retention came to ER with bilateral lower leg wounds with positive wound culture for IV antibiotics but was found somnolent, short of breath with high CO2 and was put on BiPAP and then admitted in ICU. 1. Acute on chronic combined hypoxic and hypercarbic respiratory failure: Patient is being admitted in ICU. Seen by coal miner. It seems patient does not have a true exacerbation but has severe underlying COPD with chronic CO2 retention with medical noncompliance and need for BiPAP. Continue bronchodilator schedule and steroid. BiPAP with naps and night. Bronchopulmonary hygiene with incentive spirometry, Pap and avoid sedating medications. Patient improved. Respiratory panel, Legionella and strep plus antigen are negative. Urine culture shows yeast, not Cornelia albicans, 1000-10,000 colonies probably colonization. Denies burning micturition. Blood culture negative for more than 48 hours. Advised to follow-up with Dr Pruitt for PFT, sleep study and BiPAP. 2. Chronic bilateral leg infected wounds with Enterobacter claocae and Streptococcus agalactiae group B: Wound culture from [facility] shows enterococcus claocae and Streptococcus agalactiae group B. Both are sensitive to ceftriaxone and penicillin G. Strep agalactiae sensitive to vancomycin and penicillin G. Enterobacter susceptible to Cipro and Zosyn and Bactrim: Antibiotic changed to Levaquin. Patient wound improved with dressing. Advised to follow-up in wound clinic in next 2 days. Patient was given a prescription for Levaquin to complete a total of 7 days. 3. Chronic heart failure, biventricular heart failure, right sided heart and left chronic diastolic heart failure and moderate pulmonary hypertension: Heart failure class III as patient is on high dose of Lasix 80 mg twice daily at home: Patient does not have echo in our system. Continue Lasix, metoprolol and statin. 2D echo shows EF 65% with stage II diastolic dysfunction. Mildly dilated RV suggestive of right-sided heart failure. Left atrium severely enlarged. RVSP 53 mmHg history of moderate pulmonary hypertension Fasting lipid file LDL 46, triglyceride 115, HDL 42 in normal limit. On lovastatin. 4. Diabetes mellitus type 2: Uncontrolled: A1c 10.4: Hold Amaryl and metformin. On baseline Lantus 35 units. Blood sugar was controlled. Home medications resumed. 5. Obstructive sleep apnea/or suspected obesity hypoventilation syndrome with continued smoking/nicotine dependence: Patient noncompliant with CPAP at home. Needs further follow-up with rubber mill tender in office and sleep study. 6. Hypertension, dyslipidemia, restless leg syndrome, chronic pain anxiety and depression: Home medication reconciliation done. Full code Discharge medication reconciliation done. Discharge follow-up instructions completed. Discharge process discussed with the patient and all questions were answered to patient's satisfaction. Total time spent, exact 35 minutes on discharge meds reconciliation, examination, coordination of care with nurses and ancillary staff, review of imaging and blood test and discussion with the patient on follow-up instructions Objective: Blood pressure is controlled. On 4 L of oxygen. Patient home requirement is 3 L of oxygen. Pulse ox shows 73% on room air. Patient had BiPAP for few hours yesterday. On physical exam General: Alert, Oriented x3, Cooperative HEENT: Atraumatic, PERRLA, EOMI, Normocephalic Neck: Supple, No JVD, Negative Carotid Bruits Lungs: Air entry diminished bilaterally. Fine expiratory rhonchi present. No tachypnea. Cardiovascular: Regular rate, Regular Rhythm, Normal S1, Normal S2, No murmurs Abdomen: Bowel Sounds Present, Soft, Non Tender, Non-Distended Extremities: Capillary Refill Less than 3 Seconds, Edema - Bilateral lower extremity edema Skin: Ulcer/ Wound - Bilateral lower leg wound, right leg worse than left leg; superficial slough was removed. Healing with no purulent discharge. Musculoskeletal: No Tenderness to Palpation of Joints or Extremities Neurological: Cranial nerves II-XII grossly intact Psych/Mental Status: Normal Affect, Appropriate - Physical Exam Vitals/I&O's: Vital Signs Temp Pulse Resp BP Pulse Ox 98.6 F 64 18 130/62 H 96 10/01/19 03:45 10/01/19 07:00 10/01/19 06:51 10/01/19 03:45 10/01/19 06:51 Oxygen Flow Rate (L/min) 5 Oxygen Delivery Method Nasal Cannula Weight: 258 lb 2.581 oz Body Mass Index (BMI) 45.4 Finger Stick Blood Glucose 319 Intake and Output for Last 24 Hours 09/29/19 09/30/19 10/01/19 23:59 23:59 23:59 Intake Total 2165 / 2265 2019 240 / 240 Output Total 1150 / 1850 4100 / 4100 Balance 1015 / 415 -2080 / -2080 240 / 240 Microbiology Past 72 Hours 09/29/19 06:05 Urine, Clean Catch Urine Culture - Final Yeast, not Cornelia albicans 09/28/19 22:10 Blood Culture (Wb) - Right Hand Blood Culture - Preliminary No growth in 48 hours. 09/28/19 22:00 Blood Culture (Wb) - Line Draw Blood Culture - Preliminary No growth in 48 hours. 09/29/19 06:40 Mucosa - Nasopharyngeal Respiratory Panel (PCR) - Final 09/29/19 06:05 Urine, Clean Catch Streptococcus pneumoniae Antigen (M - Final 09/29/19 06:05 Urine, Clean Catch Legionella Antigen - Final 09/28/19 17:20 Mucosa - Nasopharyngeal Influenza Types A,B Direct FA (BETTY) - Final Laboratory Results 09/30/19 11:18: POC Glucose 314 H 09/30/19 16:57: POC Glucose 347 H 09/30/19 22:54: POC Glucose 320 H 10/01/19 05:05: WBC 11.0, RBC 5.76 H, Hgb 16.9 H, Hct 56.1 H, MCV 97.4, MCH 29.3, MCHC 30.1 L, RDW Std Deviation 52.7 H, RDW Coeff of Bautista 15.1 H, Plt Count 192, MPV 11.7, Immature Gran % (Auto) 0.400, Neut % (Auto) 53.7, Lymph % (Auto) 34.2, [place] % (Auto) 10.3 H, Eos % (Auto) 1.0, Baso % (Auto) 0.4, Absolute Neuts (auto) 5.9, Absolute Lymphs (auto) 3.75, Nucleated RBC % 0 10/01/19 05:05: Sodium 138, Potassium 3.7, Chloride 93 L, Carbon Dioxide 40.0 H, Anion Gap 5, BUN 33 H, Creatinine 0.84, Estim Creat Clear Calc 56.89, Est GFR (MDRD) Af Amer 87, Est GFR (MDRD) Non-Af 72, BUN/Creatinine Ratio 39.4 H, Glucose 194 H, Calcium 9.3 10/01/19 06:12: POC Glucose 198 H Current Medications Acetaminophen (Tylenol) 650 mg PO Q6H PRN PRN PRN Reason: pain -01/05 Last Admin: 09/30/19 17:49 Dose: 650 mg Documented by: Albuterol Sulfate (Ventolin Aerosols) 2.5 mg INHALATION Q2H PRN PRN PRN Reason: SHORTNESS OF BREATH Albuterol/Ipratropium (Duoneb) 3 ml INHALATION Q4H.RT [facility] Last Admin: 10/01/19 06:51 Dose: 3 ml Documented by: [facility]cot[facility]) [facility] Last Admin: 10/01/19 08:12 Dose: 81 mg Documented by: Atorvastatin Calcium (Lipitor) 40 mg PO QHS [facility] Last Admin: 09/30/19 23:03 Dose: 40 mg Documented by: Duloxetine HCl (Cymbalta) 60 mg PO DAILY [facility] Last Admin: 10/01/19 08:12 Dose: 60 mg Documented by: Enoxaparin Sodium (Lovenox) 40 mg SC DAILY [facility] Last Admin: 09/30/19 11:19 Dose: 40 mg Documented by: Furosemide (Lasix) 40 mg IV BID@1000,1800 [facility] Last Admin: 09/30/19 17:46 Dose: 40 mg Documented by: Levofloxacin (Levaquin Iv) 500 mg in 100 mls @ 100 mls/hr IV Q24 [facility] Last Infusion: 09/30/19 12:30 Dose: Infused Documented by: Insulin Glargine (Lantus (Bk)) 30 units SC DAILY [facility] Last Admin: 09/30/19 11:39 Dose: 30 unit Documented by: Insulin Human Lispro (Humalog Kwikpen ([facility])) 0 unit SC ACHS [facility]; Protocol Last Admin: 10/01/19 06:17 Dose: 2 units Documented by: Ketorolac Tromethamine (Toradol ([facility])) 15 mg IV Q8H PRN PRN PRN Reason: pain -01/05 Stop: 10/06/19 05:45 Last Admin: 10/01/19 06:16 Dose: 15 mg Documented by: Magnesium Hydroxide (Milk Of Magnesia) 30 ml PO DAILY PRN PRN Reason: Constipation Last Admin: 09/30/19 16:59 Dose: 30 ml Documented by: Metoprolol Tartrate (Lopressor (Beta Pricila)) 100 mg PO BID [facility] Last Admin: 09/30/19 23:00 Dose: 100 mg Documented by: Multivitamins/Minerals (Multivitamin With Minerals (Bkc)) 1 tablet PO DAILY@0800 [facility] Last Admin: 10/01/19 08:12 Dose: 1 tablet Documented by: Nicotine (Nicoderm Cq (Pbkc)) 21 mg TRANSDERM. DAILY [facility] Last Admin: 09/30/19 11:18 Dose: 21 mg Documented by: Nutritional Formula ([place] Flavor) 1 packet PO BIDCM [facility] Last Admin: 10/01/19 08:13 Dose: 1 packet Documented by: Pramipexole Dihydrochloride (Mirapex) 2 mg PO BID [facility] Last Admin: 10/01/19 08:12 Dose: 2 mg Documented by: Prednisone () 40 mg PO DAILY@0800 [facility] Last Admin: 10/01/19 08:19 Dose: 40 mg Documented by: Ramipril (Altace) 10 mg PO DAILY [facility] Last Admin: 10/01/19 08:12 Dose: 10 mg Documented by: Sodium Chloride () 10 - 40 ml IV UD PRN PRN Reason: SALINE FLUSH Last Admin: 09/30/19 17:46 Dose: 20 ml Documented by: Discharge Activity: May Not Drive Call your doctor if you observe: Fever of 101 or Higher, Numbness or Tingling, Change in Color, Inability to urinate, Using more than one pad per hour, Shortness of breath, Dizziness, Fainting spells, Swelling in the ankles, Chest pain, Prolonged hiccoughing, Increased palpitations (irregular heartbeat), Calf discomfort, Uncontrolled pain Home Medications: Medications to take at Discharge Albuterol Inhaler [Ventolin Hfa] 1 - 2 puff INHALATION Q4H PRN PRN 09/01/18 Aspirin [Aspir 81] 81 mg PO DAILY 09/01/18 Duloxetine HCl 60 mg PO DAILY 09/01/18 Furosemide [Lasix] 80 mg PO BID 09/01/18 Glimepiride [Amaryl] 4 mg PO DAILY 09/01/18 Hydrocodone/Acetaminophen [Hydrocodone-Acetamin 10-325 mg] 1 each PO TID PRN 09/01/18 Lovastatin [Mevacor] 40 mg PO QHS 09/01/18 Metformin HCl 1,000 mg PO BID 09/01/18 Metoprolol Tartrate [Lopressor (beta pricila)] 100 mg PO BID 09/01/18 Multivitamin with Minerals [Multiple Vitamin] 1 each PO DAILY 09/01/18 Pramipexole Di-HCl [Mirapex] 2 mg PO BID 09/01/18 Ramipril [Altace] 10 mg PO DAILY 09/01/18 Umeclidinium [place] Inhaler [Incruse Ellipta Inhaler] 1 puff IH DAILY 09/01/18 Insulin Glargine,Hum.rec.anlog [Basaglar Kwikpen U-100] 40 unit SQ QHS #0 10/01/19 Levofloxacin [Levaquin] 500 mg PO DAILY #3 tab 10/01/19 Meloxicam [Mobic] 15 mg PO DAILY PRN PRN #0 10/01/19 Nicotine [Nicoderm Cq] 21 mg TRANSDERM. DAILY #30 patch 10/01/19 Following Prescrptions Were Given to Patient: Levofloxacin [Levaquin] 500 mg PO DAILY #3 tab Transmission Status: Received by [id number] Nicotine [Nicoderm Cq] 21 mg TRANSDERM. DAILY #30 patch Transmission Status: Received by [id number] Primary Care Physician: Bhavesh Victoria MD [Primary Care Provider] - Please follow up with your Primary Care Physician in: in 2 weeks Medical Necessity - Tobacco Use Smoking Status: Current every day smoker Meaningful Use Info Meaningful Use Diagnoses (Choose all that apply): None applicable Inpatient E&M: 13377 [facility]
[2019-10-01] MEDS: Metoprolol Tartrate 100 MG Tablet PO (11:30)
[2019-10-01] MEDS: Furosemide 40 MG/4 ML Vial IV (11:30)
[2019-10-01] MEDS: levoFLOXacin IV 500 MG/100 ML BAG 100 MG IV (11:30)
[2019-10-01 11:40] LABS: Bedside Glucose 318 mg/dL (70-110)
--- NOTE | 2019-10-02 13:52 | CASEMGMT ---
JOHNNY PIERSON DC PHONE CALL DC DATE: 10.01.2019 DC DISPOSITION: Home DC DIAGNOSIS: HTN, COPD LACE/STRATA: 02/28 F/U APPTS MADE PRIOR TO DC: no PRESCRIPTIONS ACQUIRED BY PT: yes Intro role of CM to patient via phone. Pt states she has phone appointment with patient tomorrow and appt with Dr. Harrison on Wednesday. No questions re: prescriptions or instructions. Pt states he had excellent care @ [facility] and no care improvements given. Marta PAL RN ACM
== END 2019-10-01 13:39 | disposition home or self-care (01) | DRG 189 ==
LOC: ED 13:40 → ICU 16:29 → PCU 09-29 14:31
PROVIDERS: Admitting Provider Internal Medicine; Emergency Provider Emergency Medicine; PCP Family Medicine; Visit Provider Internal Medicine
DX: J96.22 Acute and chronic respiratory failure with hypercapnia (principal); I50.32 Chronic diastolic (congestive) heart failure; L97.929 Non-pressure chronic ulcer of unspecified part of left lower leg with unspecified severity; L97.919 Non-pressure chronic ulcer of unspecified part of right lower leg with unspecified severity; L08.9 Local infection of the skin and subcutaneous tissue, unspecified; B96.89 Other specified bacterial agents as the cause of diseases classified elsewhere; B95.1 Streptococcus, group B, as the cause of diseases classified elsewhere; J96.21 Acute and chronic respiratory failure with hypoxia; J44.9 Chronic obstructive pulmonary disease, unspecified; G47.33 Obstructive sleep apnea (adult) (pediatric); I11.0 Hypertensive heart disease with heart failure; F17.210 Nicotine dependence, cigarettes, uncomplicated; I27.20 Pulmonary hypertension, unspecified; Z91.19 Patient's noncompliance with other medical treatment and regimen; G89.4 Chronic pain syndrome; E11.65 Type 2 diabetes mellitus with hyperglycemia; F32.9 Major depressive disorder, single episode, unspecified; Z99.81 Dependence on supplemental oxygen; G25.81 Restless legs syndrome; F41.9 Anxiety disorder, unspecified; Z79.899 Other long term (current) drug therapy; E78.5 Hyperlipidemia, unspecified; Z79.82 Long term (current) use of aspirin; Z79.4 Long term (current) use of insulin; Z79.84 Long term (current) use of oral hypoglycemic drugs; I50.82 Biventricular heart failure
CPT/HCPCS: 36415; 36600; 71045; 80048; 80053; 80061; 82803; 82962; 83036; 84484; 85025; 87040; 87086; 87088; 87449; 87633; 87635; 87804; 93005; 93306; 94002; 94003; 94640; 99285; 99406; G2023; J7050; Q9957; A4216; J1940; U0003

== ENCOUNTER 2019-10-18 10:09 | Outpatient (RCR) | payer MEDICARE, OTHER, SELFPAY ==
[2019-09-28 17:19] VITALS: BMI 45.4
[2019-10-18 14:47] VITALS: BP 168/78; PULSE 90; RESP 20; TEMP 35.8; BMI 44.2
--- NOTE | 2019-10-18 16:29 | PN.PCM_ITS ---
(1) Ulcer of right lower extremity with fat layer exposed Status: Acute Current Visit: Yes Code(s): L97.912 - Non-pressure chronic ulcer of unspecified part of right lower leg with fat layer exposed (2) Ulcer of left lower extremity with fat layer exposed Status: Acute Current Visit: Yes Code(s): L97.922 - Non-pressure chronic ulcer of unspecified part of left lower leg with fat layer exposed (3) Venous insufficiency Status: Suspected Current Visit: Yes Code(s): I87.2 - Venous insufficiency (chronic) (peripheral) (4) Peripheral vascular disease Status: Suspected Current Visit: Yes Code(s): I73.9 - Peripheral vascular disease, unspecified (5) Cellulitis of right leg Status: Resolved Current Visit: Yes Code(s): L03.115 - Cellulitis of right lower limb (6) Cellulitis of left leg Status: Resolved Current Visit: Yes Code(s): L03.116 - Cellulitis of left lower limb (7) Type 2 diabetes mellitus Status: Chronic Current Visit: Yes Qualifiers: Diabetes mellitus complication status: with hyperglycemia Code(s): E11.9 - Type 2 diabetes mellitus without complications (8) Right heart failure Status: Acute Current Visit: Yes Qualifiers: Heart failure chronicity: chronic Qualified Code(s): I50.812 - Chronic right heart failure Code(s): I50.810 - Right heart failure, unspecified (9) Blister of left leg Status: Acute Current Visit: Yes Qualifiers: Encounter type: initial encounter Qualified Code(s): S80.822A - Blister (nonthermal), left lower leg, initial encounter Code(s): S80.822A - Blister (nonthermal), left lower leg, initial encounter Type of Wound Date of Service: 10/18/19 - Physical Exam Vital Signs Temp Pulse Resp BP 96.5 F L 90 20 H 168/78 H 10/18/19 14:47 10/18/19 14:47 10/18/19 14:47 10/18/19 14:47 Wound Measurements and Assessment WC - Nurse 1 - General Ulcer Measurement Start: 10/18/19 14:47 Freq: Status: Active Protocol: Activity Type Activity Date Activity User E-Sign Co-Sign Detail Recorded Client Recorded Date Recorded By Document 10/18/19 14:47 [email or web address] [id number] 10/18/19 15:21 [facility] 10/18/19 14:47 Wound Center Nurse 1 [Ulcer Assessment] #4- R [facility] [employer] -Combined with other wound No -Current Size (cm) - Length 8.7 -Current Size (cm) - Width 8.9 -Current Size (cm) - Depth 0.2 -Total Square Cm 77.43 -Date of Last Picture (Recall this 10/18/19 field) -Photo Taken Yes -Epithelialization None Present -Tunneling No -Undermining/Tunneling No -Circular Undermining No -Exudate Amt Medium -Exudate Type Serous -Wound Margin Distinct, Outline Attached -Granulation Amt Small (1-33%) -Granulation Quality Red -Slough/Fibrin Yes -Necrosis Amt Large (67-100%) -Necrotic Tissue Type Adherent Slough -Texture (Meg-wound Skin Appearance) Assessed, Scarring -Moisture (Meg-wound Skin Appearance Assessed, ) Maceration -Color (Meg-wound Skin Appearance) Assessed, Erythema -Temperature (Meg-wound Skin No Abnormality Appearance) (Pt Warm) -Tenderness on Palpation (Meg-wound Yes Skin Appearance) -Ulcer Cleansing SOAPY WATER -Foul Odor after Cleansing No -Anesthetic Used 4% Lidocaine Solution #3- R [employer]ER -Combined with other wound No -Current Size (cm) - Length 9 -Current Size (cm) - Width 9.4 -Current Size (cm) - Depth 0.3 -Total Square Cm 84.6 -Date of Last Picture (Recall this 10/18/19 field) -Photo Taken Yes -Epithelialization None Present -Tunneling No -Undermining/Tunneling No -Circular Undermining No -Exudate Amt Medium -Exudate Type Serous -Wound Margin Distinct, Outline Attached -Granulation Amt Small (1-33%) -Granulation Quality Red -Slough/Fibrin Yes -Necrosis Amt Large (67-100%) -Necrotic Tissue Type Adherent Slough -Texture (Meg-wound Skin Appearance) Assessed, Scarring -Moisture (Meg-wound Skin Appearance Assessed, ) Maceration -Color (Meg-wound Skin Appearance) Assessed, Erythema,Palor -Temperature (Meg-wound Skin No Abnormality Appearance) (Pt Warm) -Tenderness on Palpation (Meg-wound Yes Skin Appearance) -Ulcer Cleansing SOAPY WATER -Foul Odor after Cleansing No -Anesthetic Used 4% Lidocaine Solution #2- L [employer]PERIOR [employer] -Combined with other wound No -Current Size (cm) - Length 0.6 -Current Size (cm) - Width 0.6 -Current Size (cm) - Depth 0.3 -Total Square Cm 0.36 -Date of Last Picture (Recall this 10/18/19 field) -Photo Taken Yes -Epithelialization None Present -Tunneling No -Undermining/Tunneling No -Circular Undermining No -Exudate Amt Small -Exudate Type Serous -Wound Margin Distinct, Outline Attached -Granulation Amt Small (1-33%) -Granulation Quality Red -Slough/Fibrin Yes -Necrosis Amt Large (67-100%) -Necrotic Tissue Type Adherent Slough -Texture (Meg-wound Skin Appearance) Assessed, Scarring -Moisture (Meg-wound Skin Appearance Assessed ) -Color (Meg-wound Skin Appearance) Assessed, Erythema -Temperature (Meg-wound Skin No Abnormality Appearance) (Pt Warm) -Tenderness on Palpation (Meg-wound No Skin Appearance) -Ulcer Cleansing SOAPY WATER -Foul Odor after Cleansing No -Anesthetic Used 4% Lidocaine Solution 1- L [employer] -Combined with other wound No -Current Size (cm) - Length 6.7 -Current Size (cm) - Width 6 -Current Size (cm) - Depth 0.3 -Total Square Cm 40.2 -Date of Last Picture (Recall this 10/18/19 field) -Photo Taken Yes -Epithelialization None Present -Tunneling No -Undermining/Tunneling No -Circular Undermining No -Exudate Amt Large -Exudate Type Serous -Wound Margin Distinct, Outline Attached -Granulation Amt Small (1-33%) -Granulation Quality Red -Slough/Fibrin Yes -Necrosis Amt Large (67-100%) -Necrotic Tissue Type Adherent Slough -Texture (Meg-wound Skin Appearance) Assessed, Scarring -Moisture (Meg-wound Skin Appearance Assessed, ) Maceration -Color (Meg-wound Skin Appearance) Assessed, Erythema -Temperature (Meg-wound Skin No Abnormality Appearance) (Pt Warm) -Tenderness on Palpation (Meg-wound Yes Skin Appearance) -Ulcer Cleansing SOAPY WATER -Foul Odor after Cleansing No -Anesthetic Used 4% Lidocaine Solution [Edema Assessment] -Lower Limb Edema Present Yes -Right Calf (cm) 48.7 -Right Ankle (cm) 30.5 -Left Calf (cm) 51.2 -Left Ankle (cm) 31.5 WC - Nurse 2 - General Ulcer CM Notes Start: 10/18/19 14:47 Freq: Status: Active Protocol: Activity Type Activity Date Activity User E-Sign Co-Sign Detail Recorded Client Recorded Date Recorded By Document 10/18/19 16:02 ANGELES [id number] 10/18/19 16:11 ANGELES 10/18/19 16:02 Wound Center Nurse 2 [Procedure/Treatment] #4- R [employer] [employer] -Time 16:07 -Correct Patient Yes -Correct Side, Site, Position Yes -Correct Procedure Yes -Procedure Performed Yes -Type of Procedure Debridement -Clinical Debridement Subcutaneous -Post Debridement Size (cm) - Length 8.8 -Post Debridement Size (cm) - Width 8.9 -Post Debridement Size (cm) - Depth 0.2 -Total Square (cm) 78.32 -Wound/Ulcer Outcome Not Healed -Ulcer Cleansing Rinsed/ Irrigated with Saline -Foul Odor after Cleansing No -Bioengineered Tissue No -Bleeding Controlled with Pressure -Offloading No -Treatment Response Procedure Tolerated Well #3- R POST LE CLUSTER -Time 16:07 -Correct Patient Yes -Correct Side, Site, Position Yes -Correct Procedure Yes -Procedure Performed Yes -Type of Procedure Debridement -Clinical Debridement Subcutaneous -Post Debridement Size (cm) - Length 9 -Post Debridement Size (cm) - Width 9.5 -Post Debridement Size (cm) - Depth 0.3 -Total Square (cm) 85.5 -Wound/Ulcer Outcome Not Healed -Ulcer Cleansing Rinsed/ Irrigated with Saline -Foul Odor after Cleansing No -Bioengineered Tissue No -Bleeding Controlled with Pressure -Offloading No -Treatment Response Procedure Tolerated Well #2- L SUPERIOR [facility] -Time 16:08 -Correct Patient Yes -Correct Side, Site, Position Yes -Correct Procedure Yes -Procedure Performed Yes -Type of Procedure Debridement -Clinical Debridement Subcutaneous -Post Debridement Size (cm) - Length 0.6 -Post Debridement Size (cm) - Width 0.8 -Post Debridement Size (cm) - Depth 0.3 -Total Square (cm) 0.48 -Wound/Ulcer Outcome Not Healed -Ulcer Cleansing Rinsed/ Irrigated with Saline -Foul Odor after Cleansing No -Bioengineered Tissue No -Bleeding Controlled with Pressure -Offloading No -Treatment Response Procedure Tolerated Well 1- L [employer] [employer]ER -Time 16:08 -Correct Patient Yes -Correct Side, Site, Position Yes -Correct Procedure Yes -Procedure Performed Yes -Type of Procedure Debridement -Clinical Debridement Subcutaneous -Post Debridement Size (cm) - Length 6.8 -Post Debridement Size (cm) - Width 6 -Post Debridement Size (cm) - Depth 0.3 -Total Square (cm) 40.8 -Wound/Ulcer Outcome Not Healed -Ulcer Cleansing Rinsed/ Irrigated with Saline -Foul Odor after Cleansing No -Bioengineered Tissue No -Bleeding Controlled with Pressure -Offloading No -Treatment Response Procedure Tolerated Well [See Physician Procedure note for Specifics] Pain Scale: 0-10 Numeric [Pain] -Is Patient Pain Free? Yes Debridement Note Post-Debridement Measurements/Treatment WC - Nurse 2 - General Ulcer CM Notes Start: 10/18/19 14:47 Freq: Status: Active Protocol: Activity Type Activity Date Activity User E-Sign Co-Sign Detail Recorded Client Recorded Date Recorded By Document 10/18/19 16:02 ANGELES [id number] 10/18/19 16:11 ANGELES 10/18/19 16:02 Wound Center Nurse 2 #4- R [employer] -Time 16:07 -Correct Patient Yes -Correct Side, Site, Position Yes -Correct Procedure Yes -Procedure Performed Yes -Type of Procedure Debridement -Clinical Debridement Subcutaneous -Post Debridement Size (cm) - Length 8.8 -Post Debridement Size (cm) - Width 8.9 -Post Debridement Size (cm) - Depth 0.2 -Total Square (cm) 78.32 -Wound/Ulcer Outcome Not Healed -Ulcer Cleansing Rinsed/ Irrigated with Saline -Foul Odor after Cleansing No -Bioengineered Tissue No -Bleeding Controlled with Pressure -Offloading No -Treatment Response Procedure Tolerated Well #3- R [employer] LE [employer]ER -Time 16:07 -Correct Patient Yes -Correct Side, Site, Position Yes -Correct Procedure Yes -Procedure Performed Yes -Type of Procedure Debridement -Clinical Debridement Subcutaneous -Post Debridement Size (cm) - Length 9 -Post Debridement Size (cm) - Width 9.5 -Post Debridement Size (cm) - Depth 0.3 -Total Square (cm) 85.5 -Wound/Ulcer Outcome Not Healed -Ulcer Cleansing Rinsed/ Irrigated with Saline -Foul Odor after Cleansing No -Bioengineered Tissue No -Bleeding Controlled with Pressure -Offloading No -Treatment Response Procedure Tolerated Well #2- L SUPERIOR [employer] -Time 16:08 -Correct Patient Yes -Correct Side, Site, Position Yes -Correct Procedure Yes -Procedure Performed Yes -Type of Procedure Debridement -Clinical Debridement Subcutaneous -Post Debridement Size (cm) - Length 0.6 -Post Debridement Size (cm) - Width 0.8 -Post Debridement Size (cm) - Depth 0.3 -Total Square (cm) 0.48 -Wound/Ulcer Outcome Not Healed -Ulcer Cleansing Rinsed/ Irrigated with Saline -Foul Odor after Cleansing No -Bioengineered Tissue No -Bleeding Controlled with Pressure -Offloading No -Treatment Response Procedure Tolerated Well 1- L [employer] -Time 16:08 -Correct Patient Yes -Correct Side, Site, Position Yes -Correct Procedure Yes -Procedure Performed Yes -Type of Procedure Debridement -Clinical Debridement Subcutaneous -Post Debridement Size (cm) - Length 6.8 -Post Debridement Size (cm) - Width 6 -Post Debridement Size (cm) - Depth 0.3 -Total Square (cm) 40.8 -Wound/Ulcer Outcome Not Healed -Ulcer Cleansing Rinsed/ Irrigated with Saline -Foul Odor after Cleansing No -Bioengineered Tissue No -Bleeding Controlled with Pressure -Offloading No -Treatment Response Procedure Tolerated Well Pain Scale: 0-10 Numeric Is Patient Pain Free? Yes Wound debrided: leg cluster Laterality: Left Wound Grade/Stage: grade 1 Anesthesia Used: 4% Lidocaine Solution, 5% Lidocaine Gel Depth: in the subcutaneous layer Percentage of wound debrided: - - 15% Tissue Removed: fibrous, devitalized subcutaneous , biofilm, slough Severity: Fat Layer Exposed Amount of bleeding with debridement: Mild Bleeding Controlled with: Pressure Patient tolerated procedure well Assessment/Plan Active Problems Type 2 diabetes mellitus (Chronic) Right heart failure (Acute) Ulcer of right lower extremity with fat layer exposed (Acute) Ulcer of left lower extremity with fat layer exposed (Acute) Blister of left leg (Acute)
--- NOTE | 2019-10-18 16:39 | PCM.WC.HP ---
(1) Ulcer of right lower extremity with fat layer exposed Status: Acute Code(s): L97.912 - Non-pressure chronic ulcer of unspecified part of right lower leg with fat layer exposed (2) Ulcer of left lower extremity with fat layer exposed Status: Acute Code(s): L97.922 - Non-pressure chronic ulcer of unspecified part of left lower leg with fat layer exposed (3) Venous insufficiency Status: Suspected Code(s): I87.2 - Venous insufficiency (chronic) (peripheral) (4) Peripheral vascular disease Status: Suspected Code(s): I73.9 - Peripheral vascular disease, unspecified (5) Cellulitis of right leg Status: Resolved Code(s): L03.115 - Cellulitis of right lower limb (6) Cellulitis of left leg Status: Resolved Code(s): L03.116 - Cellulitis of left lower limb (7) Type 2 diabetes mellitus Status: Chronic Qualifiers: Diabetes mellitus complication status: with hyperglycemia Code(s): E11.9 - Type 2 diabetes mellitus without complications (8) Right heart failure Status: Acute Qualifiers: Heart failure chronicity: chronic Qualified Code(s): I50.812 - Chronic right heart failure Code(s): I50.810 - Right heart failure, unspecified (9) Blister of left leg Status: Acute Qualifiers: Encounter type: initial encounter Qualified Code(s): S80.822A - Blister (nonthermal), left lower leg, initial encounter Code(s): S80.822A - Blister (nonthermal), left lower leg, initial encounter (10) Lymphedema Status: Suspected Code(s): I89.0 - Lymphedema, not elsewhere classified History of Present Illness Date of Service: 10/21/19 Chief Complaint: bilateral leg ulcer. leg blister, left. leg swelling with cellulitis History of Wound: This 64 year old female with mulitple comorbidities including hypertension, COPD, diabetes, right heart failure, obstructive sleep apnea presents with bilateral leg ulcers with blistering and leg swelling exacerbation. She was seen as an urgent add-on today. She was previously treated for cellulitis on September 30 and was started on antibiotics. After she completed and in-house round of IV antibiotics she was discharged home on levofloxacin. She was recently concerned with a blister formation on the left leg. She has some rest paresthesias. She denies claudication however does not walk significant distance. She relates she is needing to leave clinic seen because she has a meeting at 5:00 to eat dinner at her sister's house. Past Medical History Past Medical History: Chronic Problems Type 2 diabetes mellitus (Chronic) Hypertension (Chronic) COPD (chronic obstructive pulmonary disease) (Chronic) Past Medical History: Hypertension, COPD, diabetes, right heart failure, obstructive sleep apnea, obesity Allergies/Adverse Reactions: Allergies PAPER TAPE Allergy (Uncoded 10/18/19 15:22) Rash Home Medications: Ambulatory Orders Medication Instructions Recorded Albuterol Inhaler [Ventolin Hfa] 1 - 2 puff INHALATION Q4H PRN PRN 09/01/18 Aspirin [Aspir 81] 81 mg PO DAILY 09/01/18 Duloxetine HCl 60 mg PO DAILY 09/01/18 Furosemide [Lasix] 80 mg PO BID 09/01/18 Glimepiride [Amaryl] 4 mg PO DAILY 09/01/18 Hydrocodone/Acetaminophen 1 each PO TID PRN 09/01/18 [Hydrocodone-Acetamin 10-325 mg] Lovastatin [Mevacor] 40 mg PO QHS 09/01/18 Metformin HCl 1,000 mg PO BID 09/01/18 Metoprolol Tartrate [Lopressor 100 mg PO BID 09/01/18 (beta elisa)] Multivitamin with Minerals 1 each PO DAILY 09/01/18 [Multiple Vitamin] Pramipexole Di-HCl [Mirapex] 2 mg PO BID 09/01/18 Ramipril [Altace] 10 mg PO DAILY 09/01/18 Umeclidinium [facility]a Inhaler 1 puff IH DAILY 09/01/18 [Incruse Ellipta Inhaler] Insulin Glargine,Hum.rec.anlog 40 unit SQ QHS #0 10/01/19 [Basaglar Kwikpen U-100] Meloxicam [Mobic] 15 mg PO DAILY PRN PRN #0 10/01/19 Lives: Spouse/ Significant Other Smoking Status: Current every day smoker Review of Systems Constitutional: Denies: Chills, Fever Cardiovascular: Reports: Orthopnea. Denies: Chest Pain, Claudication Gastrointestinal: Denies: Nausea, Vomiting Musculoskeletal: Reports: Leg Pain. Denies: Foot Pain Skin: Reports: Skin Changes, Wounds - Physical Exam Vital Signs Temp Pulse Resp BP 96.5 F L 90 20 H 168/78 H 10/18/19 14:47 10/18/19 14:47 10/18/19 14:47 10/18/19 14:47 General: Alert, Oriented x3, Cooperative, No apparent distress HEENT: Atraumatic Extremities: No cyanosis, Capillary Refill Less than 3 Seconds, No Calf Tenderness - Negative Lu and Rowan signs bilateral, Diminished Peripheral Pulses, Edema - Moderate bilateral lower extremity edema with induration, chronic skin changes, hyperpigmentation and skin peeling. There is also blister with serosanguineous and hematogenous drainage on the left leg. No other areas of skin discontinuity with granular fibrous base. No deep probing, eschar, odor. There is also not any distinct erythema streaking or acute infection noted today., - - Compartments are soft to palpate bilateral lower extremities. Skin: Ulcer/ Wound - Skin discontinuity to left anterior morgan and left anterior proximal morgan, right posterior leg cluster and right anterior morgan. The adjacent skin is hairless and atrophic Wound Measurements and Assessment WC - Nurse 1 - General Ulcer Measurement Start: 10/18/19 14:47 Freq: Status: Active Protocol: Activity Type Activity Date Activity User E-Sign Co-Sign Detail Recorded Client Recorded Date Recorded By Document 10/18/19 14:47 [facility] [id number] 10/18/19 15:21 [facility] 10/18/19 14:47 Wound Center Nurse 1 [Ulcer Assessment] #4- R MORGAN CLUSTER -Combined with other wound No -Current Size (cm) - Length 8.7 -Current Size (cm) - Width 8.9 -Current Size (cm) - Depth 0.2 -Total Square Cm 77.43 -Date of Last Picture (Recall this 10/18/19 field) -Photo Taken Yes -Epithelialization None Present -Tunneling No -Undermining/Tunneling No -Circular Undermining No -Exudate Amt Medium -Exudate Type Serous -Wound Margin Distinct, Outline Attached -Granulation Amt Small (1-33%) -Granulation Quality Red -Slough/Fibrin Yes -Necrosis Amt Large (67-100%) -Necrotic Tissue Type Adherent Slough -Texture (Meg-wound Skin Appearance) Assessed, Scarring -Moisture (Meg-wound Skin Appearance Assessed, ) Maceration -Color (Meg-wound Skin Appearance) Assessed, Erythema -Temperature (Meg-wound Skin No Abnormality Appearance) (Pt Warm) -Tenderness on Palpation (Meg-wound Yes Skin Appearance) -Ulcer Cleansing SOAPY WATER -Foul Odor after Cleansing No -Anesthetic Used 4% Lidocaine Solution #3- R POST LE CLUSTER -Combined with other wound No -Current Size (cm) - Length 9 -Current Size (cm) - Width 9.4 -Current Size (cm) - Depth 0.3 -Total Square Cm 84.6 -Date of Last Picture (Recall this 10/18/19 field) -Photo Taken Yes -Epithelialization None Present -Tunneling No -Undermining/Tunneling No -Circular Undermining No -Exudate Amt Medium -Exudate Type Serous -Wound Margin Distinct, Outline Attached -Granulation Amt Small (1-33%) -Granulation Quality Red -Slough/Fibrin Yes -Necrosis Amt Large (67-100%) -Necrotic Tissue Type Adherent Slough -Texture (Meg-wound Skin Appearance) Assessed, Scarring -Moisture (Meg-wound Skin Appearance Assessed, ) Maceration -Color (Meg-wound Skin Appearance) Assessed, Erythema,Palor -Temperature (Meg-wound Skin No Abnormality Appearance) (Pt Warm) -Tenderness on Palpation (Meg-wound Yes Skin Appearance) -Ulcer Cleansing SOAPY WATER -Foul Odor after Cleansing No -Anesthetic Used 4% Lidocaine Solution #2- L SUPERIOR MORGAN -Combined with other wound No -Current Size (cm) - Length 0.6 -Current Size (cm) - Width 0.6 -Current Size (cm) - Depth 0.3 -Total Square Cm 0.36 -Date of Last Picture (Recall this 10/18/19 field) -Photo Taken Yes -Epithelialization None Present -Tunneling No -Undermining/Tunneling No -Circular Undermining No -Exudate Amt Small -Exudate Type Serous -Wound Margin Distinct, Outline Attached -Granulation Amt Small (1-33%) -Granulation Quality Red -Slough/Fibrin Yes -Necrosis Amt Large (67-100%) -Necrotic Tissue Type Adherent Slough -Texture (Meg-wound Skin Appearance) Assessed, Scarring -Moisture (Meg-wound Skin Appearance Assessed ) -Color (Meg-wound Skin Appearance) Assessed, Erythema -Temperature (Meg-wound Skin No Abnormality Appearance) (Pt Warm) -Tenderness on Palpation (Meg-wound No Skin Appearance) -Ulcer Cleansing SOAPY WATER -Foul Odor after Cleansing No -Anesthetic Used 4% Lidocaine Solution 1- L MORGAN CLUSTER -Combined with other wound No -Current Size (cm) - Length 6.7 -Current Size (cm) - Width 6 -Current Size (cm) - Depth 0.3 -Total Square Cm 40.2 -Date of Last Picture (Recall this 10/18/19 field) -Photo Taken Yes -Epithelialization None Present -Tunneling No -Undermining/Tunneling No -Circular Undermining No -Exudate Amt Large -Exudate Type Serous -Wound Margin Distinct, Outline Attached -Granulation Amt Small (1-33%) -Granulation Quality Red -Slough/Fibrin Yes -Necrosis Amt Large (67-100%) -Necrotic Tissue Type Adherent Slough -Texture (Meg-wound Skin Appearance) Assessed, Scarring -Moisture (Meg-wound Skin Appearance Assessed, ) Maceration -Color (Meg-wound Skin Appearance) Assessed, Erythema -Temperature (Meg-wound Skin No Abnormality Appearance) (Pt Warm) -Tenderness on Palpation (Meg-wound Yes Skin Appearance) -Ulcer Cleansing SOAPY WATER -Foul Odor after Cleansing No -Anesthetic Used 4% Lidocaine Solution [Edema Assessment] -Lower Limb Edema Present Yes -Right Calf (cm) 48.7 -Right Ankle (cm) 30.5 -Left Calf (cm) 51.2 -Left Ankle (cm) 31.5 WC - Nurse 2 - General Ulcer CM Notes Start: 10/18/19 14:47 Freq: Status: Active Protocol: Activity Type Activity Date Activity User E-Sign Co-Sign Detail Recorded Client Recorded Date Recorded By Document 10/18/19 16:02 ANGELES [id number] 10/18/19 16:11 ANGELES 10/18/19 16:02 Wound Center Nurse 2 [Procedure/Treatment] #4- R MORGAN CLUSTER -Time 16:07 -Correct Patient Yes -Correct Side, Site, Position Yes -Correct Procedure Yes -Procedure Performed Yes -Type of Procedure Debridement -Clinical Debridement Subcutaneous -Post Debridement Size (cm) - Length 8.8 -Post Debridement Size (cm) - Width 8.9 -Post Debridement Size (cm) - Depth 0.2 -Total Square (cm) 78.32 -Wound/Ulcer Outcome Not Healed -Ulcer Cleansing Rinsed/ Irrigated with Saline -Foul Odor after Cleansing No -Bioengineered Tissue No -Bleeding Controlled with Pressure -Offloading No -Treatment Response Procedure Tolerated Well #3- R POST LE CLUSTER -Time 16:07 -Correct Patient Yes -Correct Side, Site, Position Yes -Correct Procedure Yes -Procedure Performed Yes -Type of Procedure Debridement -Clinical Debridement Subcutaneous -Post Debridement Size (cm) - Length 9 -Post Debridement Size (cm) - Width 9.5 -Post Debridement Size (cm) - Depth 0.3 -Total Square (cm) 85.5 -Wound/Ulcer Outcome Not Healed -Ulcer Cleansing Rinsed/ Irrigated with Saline -Foul Odor after Cleansing No -Bioengineered Tissue No -Bleeding Controlled with Pressure -Offloading No -Treatment Response Procedure Tolerated Well #2- L SUPERIOR MORGAN -Time 16:08 -Correct Patient Yes -Correct Side, Site, Position Yes -Correct Procedure Yes -Procedure Performed Yes -Type of Procedure Debridement -Clinical Debridement Subcutaneous -Post Debridement Size (cm) - Length 0.6 -Post Debridement Size (cm) - Width 0.8 -Post Debridement Size (cm) - Depth 0.3 -Total Square (cm) 0.48 -Wound/Ulcer Outcome Not Healed -Ulcer Cleansing Rinsed/ Irrigated with Saline -Foul Odor after Cleansing No -Bioengineered Tissue No -Bleeding Controlled with Pressure -Offloading No -Treatment Response Procedure Tolerated Well 1- L MORGAN CLUSTER -Time 16:08 -Correct Patient Yes -Correct Side, Site, Position Yes -Correct Procedure Yes -Procedure Performed Yes -Type of Procedure Debridement -Clinical Debridement Subcutaneous -Post Debridement Size (cm) - Length 6.8 -Post Debridement Size (cm) - Width 6 -Post Debridement Size (cm) - Depth 0.3 -Total Square (cm) 40.8 -Wound/Ulcer Outcome Not Healed -Ulcer Cleansing Rinsed/ Irrigated with Saline -Foul Odor after Cleansing No -Bioengineered Tissue No -Bleeding Controlled with Pressure -Offloading No -Treatment Response Procedure Tolerated Well [See Physician Procedure note for Specifics] Pain Scale: 0-10 Numeric [Pain] -Is Patient Pain Free? Yes Musculoskeletal: Muscle Wasting, Tenderness Neurological: - - Altered sensation Psych/Mental Status: Normal Affect, Appropriate Debridement Note Post-Debridement Measurements/Treatment WC - Nurse 2 - General Ulcer CM Notes Start: 10/18/19 14:47 Freq: Status: Active Protocol: Activity Type Activity Date Activity User E-Sign Co-Sign Detail Recorded Client Recorded Date Recorded By Document 10/18/19 16:02 ANGELES [id number] 10/18/19 16:11 ANGELES 10/18/19 16:02 Wound Center Nurse 2 #4- R MORGAN CLUSTER -Time 16:07 -Correct Patient Yes -Correct Side, Site, Position Yes -Correct Procedure Yes -Procedure Performed Yes -Type of Procedure Debridement -Clinical Debridement Subcutaneous -Post Debridement Size (cm) - Length 8.8 -Post Debridement Size (cm) - Width 8.9 -Post Debridement Size (cm) - Depth 0.2 -Total Square (cm) 78.32 -Wound/Ulcer Outcome Not Healed -Ulcer Cleansing Rinsed/ Irrigated with Saline -Foul Odor after Cleansing No -Bioengineered Tissue No -Bleeding Controlled with Pressure -Offloading No -Treatment Response Procedure Tolerated Well #3- R POST LE CLUSTER -Time 16:07 -Correct Patient Yes -Correct Side, Site, Position Yes -Correct Procedure Yes -Procedure Performed Yes -Type of Procedure Debridement -Clinical Debridement Subcutaneous -Post Debridement Size (cm) - Length 9 -Post Debridement Size (cm) - Width 9.5 -Post Debridement Size (cm) - Depth 0.3 -Total Square (cm) 85.5 -Wound/Ulcer Outcome Not Healed -Ulcer Cleansing Rinsed/ Irrigated with Saline -Foul Odor after Cleansing No -Bioengineered Tissue No -Bleeding Controlled with Pressure -Offloading No -Treatment Response Procedure Tolerated Well #2- L SUPERIOR MORGAN -Time 16:08 -Correct Patient Yes -Correct Side, Site, Position Yes -Correct Procedure Yes -Procedure Performed Yes -Type of Procedure Debridement -Clinical Debridement Subcutaneous -Post Debridement Size (cm) - Length 0.6 -Post Debridement Size (cm) - Width 0.8 -Post Debridement Size (cm) - Depth 0.3 -Total Square (cm) 0.48 -Wound/Ulcer Outcome Not Healed -Ulcer Cleansing Rinsed/ Irrigated with Saline -Foul Odor after Cleansing No -Bioengineered Tissue No -Bleeding Controlled with Pressure -Offloading No -Treatment Response Procedure Tolerated Well 1- L MORGAN CLUSTER -Time 16:08 -Correct Patient Yes -Correct Side, Site, Position Yes -Correct Procedure Yes -Procedure Performed Yes -Type of Procedure Debridement -Clinical Debridement Subcutaneous -Post Debridement Size (cm) - Length 6.8 -Post Debridement Size (cm) - Width 6 -Post Debridement Size (cm) - Depth 0.3 -Total Square (cm) 40.8 -Wound/Ulcer Outcome Not Healed -Ulcer Cleansing Rinsed/ Irrigated with Saline -Foul Odor after Cleansing No -Bioengineered Tissue No -Bleeding Controlled with Pressure -Offloading No -Treatment Response Procedure Tolerated Well Pain Scale: 0-10 Numeric Is Patient Pain Free? Yes Wound debrided: anterior morgan and posterior cluster Laterality: Right Wound Grade/Stage: grade 1 Type of Debridement: Excisional debridement Anesthesia Used: 5% Lidocaine Gel Depth: in the subcutaneous layer Percentage of wound debrided: 100 Instrument Used: #15 blade Tissue Removed: fibrous, devitalized subcutaneoius, biofilm, slough Severity: Fat Layer Exposed Amount of bleeding with debridement: Mild Bleeding Controlled with: Pressure Patient tolerated procedure well - Additional Wound Wound debrided: anterior morgan and anterior proximal morgan Laterality: Left Wound Grade/Stage: grade 1 Type of Debridement: Excisional debridement Anesthesia Used: 5% Lidocaine Gel Depth: in the subcutaneous layer Percentage of wound debrided: 100 Instrument Used: #15 blade Tissue Removed: fibrous, devitalized subcutaneoius, biofilm, slough Severity: Fat Layer Exposed Amount of bleeding with debridement: Mild Bleeding Controlled with: Pressure Patient tolerated procedure: Patient tolerated procedure well Assessment/Plan Assessment: Bilateral lower extremity edema etiology secondary to venous insufficiency versus cardiac overload versus lymphedema. Venous insufficiency work-up in process. Peripheral vascular disease work-up in process. Obesity. Tobacco user. Bilateral lower extremity cellulitis is resolving. Blister leg, left Plan: Reviewed and discussed her case. Her most recent lab work was reviewed from 10-01-2019 lower GI was also count of 11, ESR 6.23, and C-reactive protein of 10. Since that time she is completed a course of oral levofloxacin. It is also noted her last hemoglobin A1c was 10.3%. Her legs do appear to be inflamed and moist secondary to increase in recent leg edema. My clinical evaluation does not not include active infection at this time to lower extremities. She is advised to wash them daily with soap and water, and to change dressings with Aquasol AG. She also needs to better manage her edema to prevent recurrence. Subcutaneous excisional debridement was performed to the ulcer sites as noted in the clinical panel. The left anterior leg blister was also drained after alcohol preparation, verbal consent, and this was done with a 15 blade scalpel. Serosanguineous drainage was noted. I do not recommend additional antibiotics at this time. She is advised to wear Tubigrip's and to elevate the limbs for a portion of each hour. To avoid idle standing or sitting. Reduce salt intake in diet. I offered her nutrition referral and she will consider this. I also recommended that she update her vascular studies including a venous Doppler with reflux evaluation and noninvasive vascular study. It is noted that she does have right-sided heart failure and to be careful to much compression to avoid cardiac overload. I also advised her on smoking cessation and improvement in hemoglobin A1c levels will aid her ulcer healing. I recommend she follows up to clinic in 1 week with a wound care center provider. She is seen today as an urgent request. I answered her questions. [facility] 2019: Reviewed today: Medication and allergies were reconciled. Reviewed 10-21-2019: She is a current tobacco user and smoking cessation was recommended, her BMI is 44.3 and her blood pressure was elevated at 160/78. She is advised to follow-up with her primary care physician. Diet and activity recommendations were also reviewed.
== END 2019-10-27 23:59 ==
LOC: WC 10:09
PROVIDERS: PCP Family Medicine; Referring Provider Podiatrist; Visit Provider Podiatrist
DX: E11.621 Type 2 diabetes mellitus with foot ulcer (principal); L97.822 Non-pressure chronic ulcer of other part of left lower leg with fat layer exposed; L97.812 Non-pressure chronic ulcer of other part of right lower leg with fat layer exposed; I50.810 Right heart failure, unspecified; I11.0 Hypertensive heart disease with heart failure; I89.0 Lymphedema, not elsewhere classified; J44.9 Chronic obstructive pulmonary disease, unspecified; G47.33 Obstructive sleep apnea (adult) (pediatric); Z79.899 Other long term (current) drug therapy; Z79.82 Long term (current) use of aspirin; Z79.4 Long term (current) use of insulin; F17.200 Nicotine dependence, unspecified, uncomplicated
CPT/HCPCS: 11042; 11045; 99213; G0463

== ENCOUNTER 2019-11-13 09:00 | Outpatient (RCR) | payer MEDICARE, OTHER, SELFPAY ==
[2019-10-28 00:42] VITALS: BP 168/78; PULSE 90; RESP 20; TEMP 35.8
[2019-11-01 10:41] VITALS: BP 168/51; PULSE 104; RESP 20; TEMP 37.3; BMI 44.2
--- NOTE | 2019-11-01 11:37 | PCM.WC.HP ---
(1) Blister of left leg Status: Acute Current Visit: Yes Qualifiers: Code(s): S80.822A - Blister (nonthermal), left lower leg, initial encounter (2) Pulmonary hypertension Status: Acute Current Visit: Yes Code(s): I27.20 - Pulmonary hypertension, unspecified (3) Right heart failure Status: Acute Current Visit: Yes Qualifiers: Code(s): I50.810 - Right heart failure, unspecified (4) Ulcer of left lower extremity with fat layer exposed Status: Acute Current Visit: Yes Code(s): L97.922 - Non-pressure chronic ulcer of unspecified part of left lower leg with fat layer exposed (5) Ulcer of right lower extremity with fat layer exposed Status: Acute Current Visit: Yes Code(s): L97.912 - Non-pressure chronic ulcer of unspecified part of right lower leg with fat layer exposed (6) COPD (chronic obstructive pulmonary disease) Status: Chronic Current Visit: Yes Code(s): J44.9 - Chronic obstructive pulmonary disease, unspecified (7) Type 2 diabetes mellitus Status: Chronic Current Visit: Yes Code(s): E11.9 - Type 2 diabetes mellitus without complications (8) Peripheral vascular disease Status: Suspected Current Visit: Yes Code(s): I73.9 - Peripheral vascular disease, unspecified (9) Venous insufficiency Status: Suspected Current Visit: Yes Code(s): I87.2 - Venous insufficiency (chronic) (peripheral) History of Present Illness Date of Service: 11/01/19 Chief Complaint: bilateral leg ulcer. leg blister, left. leg swelling with cellulitis History of Wound: This 64 year old female with mulitple comorbidities including hypertension, COPD, diabetes, right heart failure, obstructive sleep apnea presents with bilateral leg ulcers with blistering and leg swelling exacerbation. She was previously treated for cellulitis on September 30 and was started on antibiotics. After she completed and in-house round of IV antibiotics she was discharged home on levofloxacin. She was recently concerned with a blister formation on the left leg. She has some rest paresthesias. She denies claudication however does not walk significant distance. To patient's history she appears to be very noncompliant she does smoke 1 pack a day of cigarettes. Bilateral lower legs are very edematous erythematous open sores and very painful patient is not well controlled on pain on her gabapentin she states 600 mg 3 times a day. She is currently on insulin glargine and oral diabetes type 2 medications but is not well controlled and her last hemoglobin A1c was 10.9. Past Medical History Past Medical History: Chronic Problems Type 2 diabetes mellitus (Chronic) Hypertension (Chronic) COPD (chronic obstructive pulmonary disease) (Chronic) Past Medical History: Open ulcers bilateral lower legs. Peripheral vascular disease with open ulcers. Bilateral lower leg edema. Diabetes type 2 uncontrolled treated as a type I. Infected ulcers Allergies/Adverse Reactions: Allergies PAPER TAPE Allergy (Uncoded 10/18/19 15:22) Rash Home Medications: Ambulatory Orders Medication Instructions Recorded Albuterol Inhaler [Ventolin Hfa] 1 - 2 puff INHALATION Q4H PRN PRN 09/01/18 Aspirin [Aspir 81] 81 mg PO DAILY 09/01/18 Duloxetine HCl 60 mg PO DAILY 09/01/18 Furosemide [Lasix] 80 mg PO BID 09/01/18 Glimepiride [Amaryl] 4 mg PO DAILY 09/01/18 Hydrocodone/Acetaminophen 1 each PO TID PRN 09/01/18 [Hydrocodone-Acetamin 10-325 mg] Lovastatin [Mevacor] 40 mg PO QHS 09/01/18 Metformin HCl 1,000 mg PO BID 09/01/18 Metoprolol Tartrate [Lopressor 100 mg PO BID 09/01/18 (beta elisa)] Multivitamin with Minerals 1 each PO DAILY 09/01/18 [Multiple Vitamin] Pramipexole Di-HCl [Mirapex] 2 mg PO BID 09/01/18 Ramipril [Altace] 10 mg PO DAILY 09/01/18 Umeclidinium [place] Inhaler 1 puff IH DAILY 09/01/18 [Incruse Ellipta Inhaler] Insulin Glargine,Hum.rec.anlog 40 unit SQ QHS #0 10/01/19 [Basaglar Kwikpen U-100] Meloxicam [Mobic] 15 mg PO DAILY PRN PRN #0 10/01/19 Smoking Status: Current every day smoker Review of Systems Constitutional: Denies: Chills, Fever Eyes: Denies: Blurred vision, Drainage, Pain HEENT: Denies: Difficulty Hearing, Difficulty Swallowing, Sore Throat, Visual Changes Cardiovascular: Reports: Light Headedness. Denies: Chest Pain, Palpitations, Syncope Respiratory: Reports: Cough. Denies: Shortness of Breath Gastrointestinal: Denies: Abdominal Pain, Nausea, Vomiting Genitourinary: Denies: Dysuria, Frequency Musculoskeletal: Denies: Joint Pain, Muscle pain Skin: Reports: - - Ulcers bilateral lower legs from her peripheral vascular disease. Denies: Jaundice, Rash Neurological: Reports: Balance problems. Denies: Change in Speech, Difficulty swallowing, Focal weakness Psychiatric: Denies: Anxiety, Depression Endocrine: Denies: Change in Body Habitus Hematologic/ Lymphatic: Denies: Adenopathy - Physical Exam Vital Signs Temp Pulse Resp BP 99.2 F H 104 H 20 H 168/51 H 11/01/19 10:41 11/01/19 10:41 11/01/19 10:41 11/01/19 10:41 General: Oriented x3, Cooperative, Well developed HEENT: Atraumatic, PERRLA Oral: Moist Mucosa Neck: Supple, No JVD Lungs: Clear to auscultation, Normal air movement Cardiovascular: Regular rate, Regular Rhythm Abdomen: Bowel Sounds Present, Soft, Non Tender, No Hepato-splenomegaly Extremities: No clubbing, Edema Skin: Ulcer/ Wound - Open ulcers bilateral lower legs from peripheral vascular disease Wound Measurements and Assessment WC - Nurse 1 - General Ulcer Measurement Start: 11/01/19 10:41 Freq: Status: Active Protocol: Activity Type Activity Date Activity User E-Sign Co-Sign Detail Recorded Client Recorded Date Recorded By Document 11/01/19 10:41 [facility] [id number] 11/01/19 10:53 [facility] 11/01/19 10:41 Wound Center Nurse 1 [Ulcer Assessment] #4- R MORGAN CLUSTER -Combined with other wound No -Current Size (cm) - Length 15.2 -Current Size (cm) - Width 13.8 -Current Size (cm) - Depth 0.2 -Total Square Cm 209.76 -Epithelialization None Present -Tunneling No -Undermining/Tunneling No -Circular Undermining No -Exudate Amt Medium -Exudate Type Serosanguineous -Wound Margin Thickened -Granulation Amt Small (1-33%) -Granulation Quality Red -Slough/Fibrin Yes -Necrosis Amt Large (67-100%) -Necrotic Tissue Type Adherent Slough -Texture (Meg-wound Skin Appearance) Assessed, Scarring -Moisture (Meg-wound Skin Appearance Assessed, ) Maceration -Color (Meg-wound Skin Appearance) Assessed, Erythema,Palor -Temperature (Meg-wound Skin No Abnormality Appearance) (Pt Warm) -Tenderness on Palpation (Meg-wound No Skin Appearance) -Ulcer Cleansing SOAPY WATER -Foul Odor after Cleansing No -Anesthetic Used 4% Lidocaine Solution #3- R POST LE CLUSTER -Combined with other wound No -Current Size (cm) - Length 10.5 -Current Size (cm) - Width 9.8 -Current Size (cm) - Depth 0.3 -Total Square Cm 102.90 -Photo Taken No -Epithelialization None Present -Tunneling No -Undermining/Tunneling No -Circular Undermining No -Exudate Amt Medium -Exudate Type Serosanguineous -Wound Margin Distinct, Outline Attached -Granulation Amt Small (1-33%) -Granulation Quality Red -Slough/Fibrin Yes -Necrosis Amt Large (67-100%) -Necrotic Tissue Type Adherent Slough -Texture (Meg-wound Skin Appearance) Assessed, Scarring -Moisture (Meg-wound Skin Appearance Assessed, ) Maceration -Color (Meg-wound Skin Appearance) Assessed, Erythema,Palor -Temperature (Meg-wound Skin No Abnormality Appearance) (Pt Warm) -Tenderness on Palpation (Meg-wound No Skin Appearance) -Ulcer Cleansing SOAPY WTAER -Foul Odor after Cleansing No -Anesthetic Used 4% Lidocaine Solution #2- L SUPERIOR MORGAN -Combined with other wound No -Current Size (cm) - Length 0.3 -Current Size (cm) - Width 0.4 -Current Size (cm) - Depth 0.3 -Total Square Cm 0.12 -Photo Taken No -Epithelialization None Present -Tunneling No -Undermining/Tunneling No -Circular Undermining No -Exudate Amt Small -Exudate Type Serosanguineous -Wound Margin Distinct, Outline Attached -Granulation Amt None Present (0 %) -Slough/Fibrin Yes -Necrosis Amt Large (67-100%) -Necrotic Tissue Type Adherent Slough -Texture (Meg-wound Skin Appearance) Assessed, Scarring -Moisture (Meg-wound Skin Appearance Assessed, ) Maceration -Color (Meg-wound Skin Appearance) Assessed, Erythema,Palor -Temperature (Meg-wound Skin No Abnormality Appearance) (Pt Warm) -Tenderness on Palpation (Meg-wound No Skin Appearance) -Ulcer Cleansing SOAPY WATER -Foul Odor after Cleansing No -Anesthetic Used 4% Lidocaine Solution 1- L MORGAN CLUSTER -Combined with other wound No -Current Size (cm) - Length 15.4 -Current Size (cm) - Width 14.3 -Current Size (cm) - Depth 0.3 -Total Square Cm 220.22 -Photo Taken No -Epithelialization None Present -Tunneling No -Undermining/Tunneling No -Circular Undermining No -Exudate Amt Medium -Exudate Type Serosanguineous -Wound Margin Distinct, Outline Attached -Granulation Amt Small (1-33%) -Granulation Quality Red -Slough/Fibrin Yes -Necrosis Amt Large (67-100%) -Necrotic Tissue Type Adherent Slough -Texture (Meg-wound Skin Appearance) Assessed, Scarring -Moisture (Meg-wound Skin Appearance Assessed, ) Maceration -Color (Meg-wound Skin Appearance) Assessed, Erythema,Palor -Temperature (Meg-wound Skin No Abnormality Appearance) (Pt Warm) -Tenderness on Palpation (Meg-wound No Skin Appearance) -Ulcer Cleansing SOAPY WATER -Foul Odor after Cleansing No -Anesthetic Used 4% Lidocaine Solution [Edema Assessment] -Lower Limb Edema Present Yes -Right Calf (cm) 48.6 -Right Ankle (cm) 30.9 -Left Calf (cm) 53 -Left Ankle (cm) 32.6 WC - Nurse 2 - General Ulcer CM Notes Start: 11/01/19 10:41 Freq: Status: Active Protocol: Activity Type Activity Date Activity User E-Sign Co-Sign Detail Recorded Client Recorded Date Recorded By Document 11/01/19 11:04 MW [id number] 11/01/19 11:20 MW 11/01/19 11:04 Wound Center Nurse 2 [Procedure/Treatment] #4- R MORGAN CLUSTER -Time 11:05 -Correct Patient Yes -Correct Side, Site, Position Yes -Correct Procedure Yes -Procedure Performed Yes -Type of Procedure Debridement -Clinical Debridement Subcutaneous -Post Debridement Size (cm) - Length 8.5 -Post Debridement Size (cm) - Width 7.5 -Post Debridement Size (cm) - Depth 0.2 -Total Square (cm) 63.75 -Wound/Ulcer Outcome Not Healed -Ulcer Cleansing Rinsed/ Irrigated with Saline -Foul Odor after Cleansing No -Bioengineered Tissue No -Bleeding Controlled with Pressure -Offloading No -Treatment Response Procedure Tolerated Well #3- R POST LE CLUSTER -Time 11:06 -Correct Patient Yes -Correct Side, Site, Position Yes -Correct Procedure Yes -Procedure Performed Yes -Type of Procedure Debridement -Clinical Debridement Subcutaneous -Post Debridement Size (cm) - Length 9.0 -Post Debridement Size (cm) - Width 10.0 -Post Debridement Size (cm) - Depth 10.0 -Total Square (cm) 90.00 -Wound/Ulcer Outcome Not Healed -Ulcer Cleansing Rinsed/ Irrigated with Saline -Foul Odor after Cleansing No -Bioengineered Tissue No -Bleeding Controlled with Pressure -Offloading No -Treatment Response Procedure Tolerated Well #2- L SUPERIOR MORGAN -Time 11:06 -Correct Patient Yes -Correct Side, Site, Position Yes -Correct Procedure Yes -Procedure Performed No -Wound/Ulcer Outcome Not Healed -Ulcer Cleansing Rinsed/ Irrigated with Saline -Foul Odor after Cleansing No -Bioengineered Tissue No -Bleeding Controlled with Pressure -Offloading No -Treatment Response Procedure Tolerated Well 1- L MORGAN CLUSTER -Time 11:06 -Correct Patient Yes -Correct Side, Site, Position Yes -Correct Procedure Yes -Procedure Performed No -Wound/Ulcer Outcome Not Healed -Ulcer Cleansing Rinsed/ Irrigated with Saline -Foul Odor after Cleansing No -Bioengineered Tissue No -Bleeding Controlled with Pressure -Offloading No -Treatment Response Procedure Tolerated Well [See Physician Procedure note for Specifics] Pain Scale: 0-10 Numeric [Pain] -Is Patient Pain Free? Yes Musculoskeletal: No Tenderness to Palpation of Joints or Extremities Lymphatic: No Cervical, Supraclavicular, or Inguinal Adenopathy Neurological: Cranial nerves II-XII grossly intact, Neuro grossly intact Psych/Mental Status: Normal Affect, Appropriate, Agitated, Anxious, Alert and oriented to time, place, person, mood and affect Debridement Note Post-Debridement Measurements/Treatment WC - Nurse 2 - General Ulcer CM Notes Start: 11/01/19 10:41 Freq: Status: Active Protocol: Activity Type Activity Date Activity User E-Sign Co-Sign Detail Recorded Client Recorded Date Recorded By Document 11/01/19 11:04 MW [id number] 11/01/19 11:20 MW 11/01/19 11:04 Wound Center Nurse 2 #4- R MORGAN CLUSTER -Time 11:05 -Correct Patient Yes -Correct Side, Site, Position Yes -Correct Procedure Yes -Procedure Performed Yes -Type of Procedure Debridement -Clinical Debridement Subcutaneous -Post Debridement Size (cm) - Length 8.5 -Post Debridement Size (cm) - Width 7.5 -Post Debridement Size (cm) - Depth 0.2 -Total Square (cm) 63.75 -Wound/Ulcer Outcome Not Healed -Ulcer Cleansing Rinsed/ Irrigated with Saline -Foul Odor after Cleansing No -Bioengineered Tissue No -Bleeding Controlled with Pressure -Offloading No -Treatment Response Procedure Tolerated Well #3- R POST LE CLUSTER -Time 11:06 -Correct Patient Yes -Correct Side, Site, Position Yes -Correct Procedure Yes -Procedure Performed Yes -Type of Procedure Debridement -Clinical Debridement Subcutaneous -Post Debridement Size (cm) - Length 9.0 -Post Debridement Size (cm) - Width 10.0 -Post Debridement Size (cm) - Depth 10.0 -Total Square (cm) 90.00 -Wound/Ulcer Outcome Not Healed -Ulcer Cleansing Rinsed/ Irrigated with Saline -Foul Odor after Cleansing No -Bioengineered Tissue No -Bleeding Controlled with Pressure -Offloading No -Treatment Response Procedure Tolerated Well #2- L SUPERIOR MORGAN -Time 11:06 -Correct Patient Yes -Correct Side, Site, Position Yes -Correct Procedure Yes -Procedure Performed No -Wound/Ulcer Outcome Not Healed -Ulcer Cleansing Rinsed/ Irrigated with Saline -Foul Odor after Cleansing No -Bioengineered Tissue No -Bleeding Controlled with Pressure -Offloading No -Treatment Response Procedure Tolerated Well 1- L MORGAN CLUSTER -Time 11:06 -Correct Patient Yes -Correct Side, Site, Position Yes -Correct Procedure Yes -Procedure Performed No -Wound/Ulcer Outcome Not Healed -Ulcer Cleansing Rinsed/ Irrigated with Saline -Foul Odor after Cleansing No -Bioengineered Tissue No -Bleeding Controlled with Pressure -Offloading No -Treatment Response Procedure Tolerated Well Pain Scale: 0-10 Numeric Is Patient Pain Free? Yes Wound debrided: Left superior morgan No debridement was completed today - Additional Wound Wound debrided: Left morgan cluster Patient tolerated procedure: - - No debridement - Additional Wound Wound debrided: Right morgan Type of Debridement: Excisional debridement Anesthesia Used: 5% Lidocaine Gel Depth: in the subcutaneous layer Percentage of wound debrided: 100 Instrument Used: 5mm curette Tissue Removed: Slough Severity: Fat Layer Exposed Amount of bleeding with debridement: None Patient tolerated procedure: Patient did not tolerate procedure well - Additional Wound Wound debrided: Right posterior lower extremity ulcer Type of Debridement: Excisional debridement Anesthesia Used: 5% Lidocaine Gel Depth: Down to and including healthy tissue, in the subcutaneous layer Percentage of wound debrided: 100 Instrument Used: 5mm curette Tissue Removed: Slough Severity: Fat Layer Exposed Amount of bleeding with debridement: None Bleeding Controlled with: Compression and gauze Patient tolerated procedure: Patient did not tolerate procedure well Assessment/Plan Aerobic anaerobic cultures obtained Active Problems Type 2 diabetes mellitus (Chronic) COPD (chronic obstructive pulmonary disease) (Chronic) Pulmonary hypertension (Acute) Right heart failure (Acute) Ulcer of right lower extremity with fat layer exposed (Acute) Ulcer of left lower extremity with fat layer exposed (Acute) Blister of left leg (Acute) Assessment: Bilateral lower extremity edema etiology secondary to venous insufficiency versus cardiac overload versus lymphedema. Venous insufficiency work-up in process still pending patient has not rescheduled. Obesity. Tobacco user. Bilateral lower extremity cellulitis is resolving. Blister leg, left Plan: Reviewed and discussed her case. Her most recent lab work was reviewed from 10-01-2019 lower GI was also count of 11, ESR 6.23, and C-reactive protein of 10. Since that time she is completed a course of oral levofloxacin. It is also noted her last hemoglobin A1c was 10.3%. Her legs do appear to be inflamed and moist secondary to increase in recent leg edema. My clinical evaluation does not not include active infection at this time to lower extremities. She is advised to wash them daily with soap and water, and to change dressings with hydrogel then Aquacell Xtra then Adaptic with ABD pads and compression. She also needs to better manage her edema to prevent recurrence. We will add Joseph wraps over top of her single layer Tubigrip's. Follow-up in 1 week
[2019-11-08 11:06] VITALS: BP 168/78; PULSE 68; RESP 20; TEMP 37.1; BMI 44.2
--- NOTE | 2019-11-08 11:43 | PCM.WC.PN ---
(1) Blister of left leg Status: Acute Current Visit: Yes Qualifiers: Code(s): S80.822A - Blister (nonthermal), left lower leg, initial encounter (2) Pulmonary hypertension Status: Acute Current Visit: Yes Code(s): I27.20 - Pulmonary hypertension, unspecified (3) Right heart failure Status: Acute Current Visit: Yes Qualifiers: Code(s): I50.810 - Right heart failure, unspecified (4) Ulcer of left lower extremity with fat layer exposed Status: Acute Current Visit: Yes Code(s): L97.922 - Non-pressure chronic ulcer of unspecified part of left lower leg with fat layer exposed (5) Ulcer of right lower extremity with fat layer exposed Status: Acute Current Visit: Yes Code(s): L97.912 - Non-pressure chronic ulcer of unspecified part of right lower leg with fat layer exposed (6) COPD (chronic obstructive pulmonary disease) Status: Chronic Current Visit: Yes Code(s): J44.9 - Chronic obstructive pulmonary disease, unspecified (7) Type 2 diabetes mellitus Status: Chronic Current Visit: Yes Code(s): E11.9 - Type 2 diabetes mellitus without complications (8) Peripheral vascular disease Status: Suspected Current Visit: Yes Code(s): I73.9 - Peripheral vascular disease, unspecified (9) Venous insufficiency Status: Suspected Current Visit: Yes Code(s): I87.2 - Venous insufficiency (chronic) (peripheral) Type of Wound Date of Service: 11/08/19 Chief Complaint: bilateral leg ulcer. leg blister, left. leg swelling with cellulitis History of Wound: This 64 year old female with mulitple comorbidities including hypertension, COPD, diabetes, right heart failure, obstructive sleep apnea presents with bilateral leg ulcers with blistering and leg swelling exacerbation. She was previously treated for cellulitis on September 30 and was started on antibiotics. After she completed and in-house round of IV antibiotics she was discharged home on levofloxacin. She was recently concerned with a blister formation on the left leg. She has some rest paresthesias. She denies claudication however does not walk significant distance. To patient's history she appears to be very noncompliant she does smoke 1 pack a day of cigarettes. Bilateral lower legs are very edematous erythematous open sores and very painful patient is not well controlled on pain on her gabapentin she states 600 mg 3 times a day. She is currently on insulin glargine and oral diabetes type 2 medications but is not well controlled and her last hemoglobin A1c was 10.9. Progress of Wound: Ulcer areas are smaller but patient is intolerant to any treatments we have tried she complains of burning. Patient is already on Baxter 4 times a day and gabapentin 604 times a day. We will try a surgical consult to knock her out and surgically debride the areas to get a head start. Patient is using compression and tolerating that okay. Cultures came back strep very rare will not treat . - Physical Exam Vital Signs Temp Pulse Resp BP 98.7 F 68 20 H 168/78 H 11/08/19 11:06 11/08/19 11:06 11/08/19 11:06 11/08/19 11:06 General: Oriented x3, Cooperative, Well developed HEENT: Atraumatic, PERRLA Oral: Moist Mucosa Neck: Supple, No JVD Lungs: Clear to auscultation, Normal air movement Cardiovascular: Regular rate, Regular Rhythm Abdomen: Bowel Sounds Present, Soft, Non Tender, No Hepato-splenomegaly Extremities: No clubbing, Edema Skin: Ulcer/ Wound Wound Measurements and Assessment WC - Nurse 1 - General Ulcer Measurement Start: 11/01/19 10:41 Freq: Status: Active Protocol: Activity Type Activity Date Activity User E-Sign Co-Sign Detail Recorded Client Recorded Date Recorded By Document 11/08/19 11:06 [facility] [id number] 11/08/19 11:16 [facility] 11/08/19 11:06 Wound Center Nurse 1 [Ulcer Assessment] #4- R MORGAN CLUSTER -Combined with other wound No -Current Size (cm) - Length 8.6 -Current Size (cm) - Width 6.6 -Current Size (cm) - Depth 0.2 -Total Square Cm 56.76 -Tunneling No -Undermining/Tunneling No -Circular Undermining No -Exudate Amt Medium -Exudate Type Serosanguineous -Wound Margin Flat & Intact -Granulation Amt Medium (34-66%) -Granulation Quality Biola -Slough/Fibrin Yes -Necrosis Amt Medium (34-66%) -Necrotic Tissue Type Adherent Slough -Structure Exposed N/A -Texture (Meg-wound Skin Appearance) Scarring -Moisture (Meg-wound Skin Appearance Assessed, ) Maceration -Color (Meg-wound Skin Appearance) Assessed -Temperature (Meg-wound Skin No Abnormality Appearance) (Pt Warm) -Ulcer Cleansing Wound Cleanser -Foul Odor after Cleansing No -Anesthetic Used 4% Lidocaine Solution #3- R POST LE CLUSTER -Combined with other wound No -Current Size (cm) - Length 7.9 -Current Size (cm) - Width 8 -Current Size (cm) - Depth 0.2 -Total Square Cm 63.2 -Tunneling No -Undermining/Tunneling No -Circular Undermining No -Exudate Amt Medium -Exudate Type Serosanguineous -Wound Margin Flat & Intact -Granulation Amt Medium (34-66%) -Granulation Quality Red -Slough/Fibrin Yes -Necrosis Amt Small (1-33%) -Necrotic Tissue Type Adherent Slough -Structure Exposed N/A -Texture (Meg-wound Skin Appearance) Assessed -Moisture (Meg-wound Skin Appearance Assessed, ) Maceration -Color (Meg-wound Skin Appearance) Assessed -Temperature (Meg-wound Skin No Abnormality Appearance) (Pt Warm) -Tenderness on Palpation (Meg-wound No Skin Appearance) -Ulcer Cleansing Wound Cleanser -Foul Odor after Cleansing No -Anesthetic Used 4% Lidocaine Solution #2- L SUPERIOR MORGAN -Combined with other wound No -Current Size (cm) - Length 0.6 -Current Size (cm) - Width 0.6 -Current Size (cm) - Depth 0.2 -Total Square Cm 0.36 -Tunneling No -Undermining/Tunneling No -Circular Undermining No -Exudate Amt Medium -Exudate Type Serosanguineous -Wound Margin Flat & Intact -Granulation Amt Medium (34-66%) -Granulation Quality Biola -Slough/Fibrin Yes -Necrosis Amt Medium (34-66%) -Necrotic Tissue Type Adherent Slough -Structure Exposed N/A -Texture (Meg-wound Skin Appearance) Excoriation -Moisture (Meg-wound Skin Appearance Maceration ) -Color (Meg-wound Skin Appearance) Erythema -Temperature (Meg-wound Skin No Abnormality Appearance) (Pt Warm) -Tenderness on Palpation (Meg-wound No Skin Appearance) -Ulcer Cleansing Wound Cleanser -Foul Odor after Cleansing No -Anesthetic Used 4% Lidocaine Solution 5- L MORGAN CLUSTER -Combined with other wound No -Current Size (cm) - Length 5.8 -Current Size (cm) - Width 5.4 -Current Size (cm) - Depth 0.2 -Total Square Cm 31.32 -Tunneling No -Undermining/Tunneling No -Circular Undermining No -Exudate Amt Medium -Exudate Type Serosanguineous -Wound Margin Flat & Intact -Granulation Amt Medium (34-66%) -Granulation Quality Biola -Slough/Fibrin Yes -Necrosis Amt Small (1-33%) -Necrotic Tissue Type Adherent Slough -Structure Exposed N/A -Texture (Meg-wound Skin Appearance) Assessed, Excoriation -Moisture (Meg-wound Skin Appearance Maceration ) -Color (Meg-wound Skin Appearance) Assessed, Erythema -Temperature (Meg-wound Skin No Abnormality Appearance) (Pt Warm) -Tenderness on Palpation (Meg-wound No Skin Appearance) -Ulcer Cleansing Wound Cleanser -Foul Odor after Cleansing No -Anesthetic Used 4% Lidocaine Solution [Edema Assessment] -Lower Limb Edema Present Yes -Right Calf (cm) 48 -Right Ankle (cm) 29 -Left Calf (cm) 51.3 -Left Ankle (cm) 31 WC - Nurse 2 - General Ulcer CM Notes Start: 11/01/19 10:41 Freq: Status: Active Protocol: Activity Type Activity Date Activity User E-Sign Co-Sign Detail Recorded Client Recorded Date Recorded By Document 11/08/19 11:25 MW [id number] 11/08/19 11:33 MW 11/08/19 11:25 Wound Center Nurse 2 [Procedure/Treatment] #4- R MORGAN CLUSTER -Time 11:27 -Correct Patient Yes -Correct Side, Site, Position Yes -Correct Procedure Yes -Procedure Performed Yes -Type of Procedure Debridement -Clinical Debridement Subcutaneous -Post Debridement Size (cm) - Length 8.6 -Post Debridement Size (cm) - Width 6.6 -Post Debridement Size (cm) - Depth 0.2 -Total Square (cm) 56.76 -Wound/Ulcer Outcome Not Healed -Ulcer Cleansing Rinsed/ Irrigated with Saline -Foul Odor after Cleansing No -Bioengineered Tissue No -Bleeding Controlled with Pressure -Offloading No -Treatment Response Procedure Tolerated Well #3- R POST LE CLUSTER -Time 11:28 -Correct Patient Yes -Correct Side, Site, Position Yes -Correct Procedure Yes -Procedure Performed Yes -Type of Procedure Debridement -Clinical Debridement Subcutaneous -Post Debridement Size (cm) - Length 7.9 -Post Debridement Size (cm) - Width 8.0 -Post Debridement Size (cm) - Depth 0.2 -Total Square (cm) 63.20 -Wound/Ulcer Outcome Not Healed -Ulcer Cleansing Rinsed/ Irrigated with Saline -Foul Odor after Cleansing No -Bioengineered Tissue No -Bleeding Controlled with Pressure -Offloading No -Treatment Response Procedure Tolerated Well #2- L SUPERIOR MORGAN -Time 11:28 -Correct Patient Yes -Correct Side, Site, Position Yes -Correct Procedure Yes -Procedure Performed Yes -Type of Procedure Debridement -Clinical Debridement Subcutaneous -Post Debridement Size (cm) - Length 0.6 -Post Debridement Size (cm) - Width 0.6 -Post Debridement Size (cm) - Depth 0.2 -Total Square (cm) 0.36 -Wound/Ulcer Outcome Not Healed -Ulcer Cleansing Rinsed/ Irrigated with Saline -Foul Odor after Cleansing No -Bioengineered Tissue No -Bleeding Controlled with Pressure -Offloading No -Treatment Response Procedure Tolerated Well 5- L MORGAN CLUSTER -Time 11:28 -Correct Patient Yes -Correct Side, Site, Position Yes -Correct Procedure Yes -Procedure Performed Yes -Type of Procedure Debridement -Clinical Debridement Subcutaneous -Post Debridement Size (cm) - Length 5.8 -Post Debridement Size (cm) - Width 5.4 -Post Debridement Size (cm) - Depth 0.2 -Total Square (cm) 31.32 -Wound/Ulcer Outcome Not Healed -Ulcer Cleansing Rinsed/ Irrigated with Saline -Foul Odor after Cleansing No -Bioengineered Tissue No -Bleeding Controlled with Pressure -Offloading No -Treatment Response Procedure Tolerated Well [See Physician Procedure note for Specifics] Pain Scale: 0-10 Numeric [Pain] -Is Patient Pain Free? Yes Musculoskeletal: No Tenderness to Palpation of Joints or Extremities Lymphatic: No Cervical, Supraclavicular, or Inguinal Adenopathy Neurological: Cranial nerves II-XII grossly intact, Neuro grossly intact Psych/Mental Status: Normal Affect, Appropriate Debridement Note Post-Debridement Measurements/Treatment WC - Nurse 2 - General Ulcer CM Notes Start: 11/01/19 10:41 Freq: Status: Active Protocol: Activity Type Activity Date Activity User E-Sign Co-Sign Detail Recorded Client Recorded Date Recorded By Document 11/01/19 11:04 MW [id number] 11/01/19 11:20 MW Document 11/08/19 11:25 MW [id number] 11/08/19 11:33 MW 11/01/19 11/08/19 11:04 11:25 Wound Center Nurse 2 #4- R MORGAN CLUSTER -Time 11: 11:27 -Correct Patient Yes Yes -Correct Side, Site, Position Yes Yes -Correct Procedure Yes Yes -Procedure Performed Yes Yes -Type of Procedure Debridement Debridement -Clinical Debridement Subcutaneous Subcutaneous -Post Debridement Size (cm) - Length 8.5 8.6 -Post Debridement Size (cm) - Width 7.5 6.6 -Post Debridement Size (cm) - Depth 0.2 0.2 -Total Square (cm) 63.75 56.76 -Wound/Ulcer Outcome Not Healed Not Healed -Ulcer Cleansing Rinsed/ Rinsed/ Irrigated with Irrigated with Saline Saline -Foul Odor after Cleansing No No -Bioengineered Tissue No No -Bleeding Controlled with Pressure Pressure -Offloading No No -Treatment Response Procedure Procedure Tolerated Well Tolerated Well #3- R POST LE CLUSTER -Time 11: 11:28 -Correct Patient Yes Yes -Correct Side, Site, Position Yes Yes -Correct Procedure Yes Yes -Procedure Performed Yes Yes -Type of Procedure Debridement Debridement -Clinical Debridement Subcutaneous Subcutaneous -Post Debridement Size (cm) - Length 9.0 7.9 -Post Debridement Size (cm) - Width 10.0 8.0 -Post Debridement Size (cm) - Depth 10.0 0.2 -Total Square (cm) 90.00 63.20 -Wound/Ulcer Outcome Not Healed Not Healed -Ulcer Cleansing Rinsed/ Rinsed/ Irrigated with Irrigated with Saline Saline -Foul Odor after Cleansing No No -Bioengineered Tissue No No -Bleeding Controlled with Pressure Pressure -Offloading No No -Treatment Response Procedure Procedure Tolerated Well Tolerated Well #2- L SUPERIOR MORGAN -Time 11: 11:28 -Correct Patient Yes Yes -Correct Side, Site, Position Yes Yes -Correct Procedure Yes Yes -Procedure Performed No Yes -Type of Procedure Debridement -Clinical Debridement Subcutaneous -Post Debridement Size (cm) - Length 0.6 -Post Debridement Size (cm) - Width 0.6 -Post Debridement Size (cm) - Depth 0.2 -Total Square (cm) 0.36 -Wound/Ulcer Outcome Not Healed Not Healed -Ulcer Cleansing Rinsed/ Rinsed/ Irrigated with Irrigated with Saline Saline -Foul Odor after Cleansing No No -Bioengineered Tissue No No -Bleeding Controlled with Pressure Pressure -Offloading No No -Treatment Response Procedure Procedure Tolerated Well Tolerated Well 5- L MORGAN CLUSTER -Time 11:06 11:28 -Correct Patient Yes Yes -Correct Side, Site, Position Yes Yes -Correct Procedure Yes Yes -Procedure Performed No Yes -Type of Procedure Debridement -Clinical Debridement Subcutaneous -Post Debridement Size (cm) - Length 5.8 -Post Debridement Size (cm) - Width 5.4 -Post Debridement Size (cm) - Depth 0.2 -Total Square (cm) 31.32 -Wound/Ulcer Outcome Not Healed Not Healed -Ulcer Cleansing Rinsed/ Rinsed/ Irrigated with Irrigated with Saline Saline -Foul Odor after Cleansing No No -Bioengineered Tissue No No -Bleeding Controlled with Pressure Pressure -Offloading No No -Treatment Response Procedure Procedure Tolerated Well Tolerated Well Pain Scale: 0-10 Numeric Is Patient Pain Free? Yes Yes Wound debrided: Left morgan cluster Type of Debridement: Excisional debridement Anesthesia Used: 5% Lidocaine Gel Depth: Down to and including healthy tissue Percentage of wound debrided: 80, 50 Instrument Used: 5mm curette Tissue Removed: Slough Severity: Limited To Skin Breakdown Patient tolerated procedure well, Patient did not tolerate procedure well - Additional Wound Wound debrided: Posterior cluster ulcers Type of Debridement: Excisional debridement Anesthesia Used: 5% Lidocaine Gel Depth: Down to and including healthy tissue Percentage of wound debrided: 50 Instrument Used: 5mm curette Tissue Removed: Slough Severity: Fat Layer Exposed Amount of bleeding with debridement: Mild Bleeding Controlled with: Compression and gauze Patient tolerated procedure: Patient tolerated procedure well Assessment/Plan Active Problems Type 2 diabetes mellitus (Chronic) COPD (chronic obstructive pulmonary disease) (Chronic) Pulmonary hypertension (Acute) Right heart failure (Acute) Ulcer of right lower extremity with fat layer exposed (Acute) Ulcer of left lower extremity with fat layer exposed (Acute) Blister of left leg (Acute) Assessment: Bilateral lower extremity edema etiology secondary to venous insufficiency versus cardiac overload versus lymphedema. Venous insufficiency work-up in process still pending patient has not rescheduled. Obesity. Tobacco user. Bilateral lower extremity cellulitis is resolving. Blister leg, left Plan: Reviewed and discussed her case. Her most recent lab work was reviewed from 10-01-2019 lower GI was also count of 11, ESR 6.23, and C-reactive protein of 10. Since that time she is completed a course of oral levofloxacin. It is also noted her last hemoglobin A1c was 10.3%. Her legs do appear to be inflamed and moist secondary to increase in recent leg edema. My clinical evaluation does not not include active infection at this time to lower extremities. She is advised to wash them daily with soap and water, and to change dressings with hydrogel then Fibrocol then Adaptic with ABD pads and compression. She also needs to better manage her edema to prevent recurrence. We will add Joseph wraps over top of her single layer Tubigrip's. Follow-up in 1 week
[2019-11-13 09:01] VITALS: BP 164/82; PULSE 78; RESP 18; TEMP 36.4; BMI 44.2
--- NOTE | 2019-11-13 16:41 | HP.PCM_ITS ---
History of Present Illness Date of Service: 11/13/19 - WOUND CARE CONSULT REFERRING: JUNIOR Andino. AUTOMOBILE MECH[employer]IC APPRENTICE: Dr. Yoon. Chief Complaint: Nonhealing painful ulcerations bilateral legs. History of Wound: 64 year old female with history of diabetes mellitus presented to the Wound Center with painful ulcerations bilateral lower extremities. She was recently hospitalized in September for cellulitis and was treated with IV antibiotics and discharged on Levaquin. Her present wound care involves Aquacel Extra and Adaptic followed by Tubigrip and compression GUADALUPE wrap. With the increased pain, debridement at the Wound Center has been limited. She has diabetes mellitus and her recent HgbA1c from 09/29/19 was 10.3. A recent wound culture on 11/01/19 showed Streptococcus agalactiae and Serratia marcescens. She also suffers from lymphedema and has rest pain and takes Neurontin. I was asked to evaluate this patient for surgical options for treatment. Past Medical History Past Medical History: Chronic Problems Smoker (Chronic) Type 2 diabetes mellitus (Chronic) Hypertension (Chronic) COPD (chronic obstructive pulmonary disease) (Chronic) Past Medical History: Diabetes mellitus. Hypertension. COPD. Lymphedema. Venous insufficiency with ulceration. Smoker. Depression. CAD. Obesity. Carpal tunnel syndrome. Diverticulosis. Hyperlipidemia. Sleep apnea. Surgical History: cataract, hysterectomy - vaginal, - - colonoscopy with polypectomy. Allergies/Adverse Reactions: Allergies PAPER TAPE Allergy (Uncoded 10/18/19 15:22) Rash Home Medications: Ambulatory Orders Medication Instructions Recorded Albuterol Inhaler [Ventolin Hfa] 1 - 2 puff INHALATION Q4H PRN PRN 09/01/18 Aspirin [Aspir 81] 81 mg PO DAILY 09/01/18 Duloxetine HCl 60 mg PO DAILY 09/01/18 Furosemide [Lasix] 80 mg PO BID 09/01/18 Glimepiride [Amaryl] 4 mg PO DAILY 09/01/18 Hydrocodone/Acetaminophen 1 each PO TID PRN 09/01/18 [Hydrocodone-Acetamin 10-325 mg] Lovastatin [Mevacor] 40 mg PO QHS 09/01/18 Metformin HCl 1,000 mg PO BID 09/01/18 Metoprolol Tartrate [Lopressor 100 mg PO BID 09/01/18 (beta elisa)] Multivitamin with Minerals 1 each PO DAILY 09/01/18 [Multiple Vitamin] Pramipexole Di-HCl [Mirapex] 2 mg PO BID 09/01/18 Ramipril [Altace] 10 mg PO DAILY 09/01/18 Umeclidinium [place] Inhaler 1 puff IH DAILY 09/01/18 [Incruse Ellipta Inhaler] Insulin Glargine,Hum.rec.anlog 40 unit SQ QHS #0 10/01/19 [Basaglar Kwikpen U-100] Meloxicam [Mobic] 15 mg PO DAILY PRN PRN #0 10/01/19 Smoking Status: Current every day smoker Review of Systems Constitutional: Denies: Anorexia, Chills, Fever, Night Sweats, Malaise, Weakness, Weight Change, Fatigue. Eyes: Denies: Blurred vision, Conjunctivae Inflammation, Double vision, Drainage, Eyelid Inflammation, Pain, Redness, Vision Change. HEENT: Denies: Difficulty Hearing, Difficulty Swallowing, Ear Pain, Hard of Hearing, Head Aches, Nasal bleeding, Nasal Congestion, Post Nasal Drip, Sinus Congestion, Sinus Drainage, Sore Throat, Visual Changes. Cardiovascular: Reports: Edema. Denies: Chest Pain, Claudication, Chest Pressure, Chest Tightness, Heaviness, Light Headedness, Orthopnea, Palpitations, Paroxysmal Noc. Dyspnea, Syncope. Respiratory: Reports: Shortness of Breath, Shortness of breath upon exertion, Wheezing. Denies: Cough, Hemoptysis, Pleuritic Pain, Shortness of breath at rest, Sputum production. Gastrointestinal: Denies: Abdominal Pain, Constipation, Diarrhea, Dyspepsia, Hematemesis, Hematochezia, Nausea, Melena, Vomiting. Genitourinary: Denies: Dysuria, Frequency, Hematuria, Hesitancy, Incontinence, Nocturia, Retention, Urgency. Musculoskeletal: Reports: Joint Pain, Joint stiffness, Leg Pain - B LE. Denies: Arm Pain, Back Pain, Joint swelling, Joint Tenderness, Muscle pain, Neck Pain, Shoulder Pain. Skin: Reports: Wounds. Denies: Dryness, Jaundice, Lesions, Pruritis, Rash, Skin Changes. Neurological: Denies: Balance problems, Double vision, Change in Speech, Slurred speech, Confusion, Difficulty swallowing, Focal weakness, Headaches, Incoordination, Numbness, Tingling, Tremor, Seizures. Psychiatric: Denies: Anxiety, Homicidal Ideations, Suicidal Ideations. Endocrine: Denies: Change in Body Habitus, Heat/ Cold Intolerance, Polydipsia, Polyuria. Hematologic/ Lymphatic: Denies: Adenopathy, Anemia, Easy Bruising, Easy Bleeding, Petechiae, Purpura - Physical Exam GENERAL: Alert, Oriented x3, Cooperative. HEENT: PERRL. EOMI. Throat is clear. NECK: Supple, nontender. No cervical adenopathy. LUNGS: Clear to auscultation. HEART: Regular rate and rhythm. ABDOMEN: Soft, nondistended. EXTREMITIES: No cyanosis, Capillary Refill Less than 3 Seconds, Diminished Peripheral Pulses. Has moderate lymphedema bilateral lower extremities with induration, chronic skin changes, hyperpigmentation and skin peeling. There is also blistering with serosanguineous and hematogenous drainage on the left leg. Multiple nonhealing ulcers cluster bilateral legs. They are on the left anterior leg and right anterior leg and right posterior leg. The adjacent skin is hairless and atrophic. The ulcers have a granular fibrotic base. There is no acute infection noted today. The ulcerations cluster are quite tender to palpation. NEURO: CN II-XII grossly intact. PSYCH: Mood and affect are normal. Vital Signs Temp Pulse Resp BP 97.6 F L 78 18 164/82 H 11/13/19 09:01 11/13/19 09:01 11/13/19 09:01 11/13/19 09:01 Wound Measurements and Assessment WC - Nurse 1 - General Ulcer Measurement Start: 11/01/19 10:41 Freq: Status: Active Protocol: Activity Type Activity Date Activity User E-Sign Co-Sign Detail Recorded Client Recorded Date Recorded By Document 11/13/19 09:01 [id number] 11/13/19 09:15 ASH 11/13/19 09:01 Wound Center Nurse 1 [Ulcer Assessment] #4- R LANCASTER CLUSTER -Combined with other wound No -Current Size (cm) - Length 8.6 -Current Size (cm) - Width 6.6 -Current Size (cm) - Depth 0.2 -Total Square Cm 56.76 -Photo Taken No -Epithelialization None Present -Tunneling No -Undermining/Tunneling No -Exudate Amt Medium -Exudate Type Serosanguineous -Granulation Amt None Present (0 %) -Slough/Fibrin Yes -Necrosis Amt Large (67-100%) -Necrotic Tissue Type Adherent Slough -Ulcer Cleansing Rinsed/ Irrigated with Saline -Foul Odor after Cleansing No -Anesthetic Used 4% Lidocaine Solution #3- R POST LE CLUSTER -Combined with other wound No -Current Size (cm) - Length 7.9 -Current Size (cm) - Width 8 -Current Size (cm) - Depth 0.2 -Total Square Cm 63.2 -Photo Taken No -Epithelialization None Present -Exudate Amt Medium -Exudate Type Serosanguineous -Granulation Amt None Present (0 %) -Slough/Fibrin Yes -Necrosis Amt Large (67-100%) -Necrotic Tissue Type Adherent Slough -Ulcer Cleansing Rinsed/ Irrigated with Saline -Foul Odor after Cleansing No -Anesthetic Used 4% Lidocaine Solution #2- L SUPERIOR [place]STER -Combined with other wound No -Current Size (cm) - Length 0.6 -Current Size (cm) - Width 0.6 -Current Size (cm) - Depth 0.2 -Total Square Cm 0.36 -Photo Taken No -Epithelialization None Present -Exudate Amt Medium -Exudate Type Serosanguineous -Granulation Amt None Present (0 %) -Necrosis Amt Large (67-100%) -Necrotic Tissue Type Adherent Slough 5- L LANCA[place] CLUSTER -Combined with other wound No -Current Size (cm) - Length 5.8 -Current Size (cm) - Width 5.4 -Current Size (cm) - Depth 0.2 -Total Square Cm 31.32 -Photo Taken No -Epithelialization None Present -Exudate Amt Medium -Exudate Type Serosanguineous -Granulation Amt None Present (0 %) -Slough/Fibrin Yes -Necrosis Amt Large (67-100%) -Necrotic Tissue Type Adherent Slough -Texture (Meg-wound Skin Appearance) Excoriation -Moisture (Meg-wound Skin Appearance No Abnormality ) -Color (Meg-wound Skin Appearance) Erythema -Temperature (Meg-wound Skin No Abnormality Appearance) (Pt Warm) -Ulcer Cleansing Rinsed/ Irrigated with Saline -Foul Odor after Cleansing No -Anesthetic Used 4% Lidocaine Solution WC - Nurse 2 - General Ulcer CM Notes Start: 11/13/19 09:49 Freq: Status: Active Protocol: Activity Type Activity Date Activity User E-Sign Co-Sign Detail Recorded Client Recorded Date Recorded By Document 11/13/19 10:25 [id number] 11/13/19 10:26 11/13/19 10:25 Wound Center Nurse 2 [Procedure/Treatment] #4- R [employer]CA[place] CLUSTER -Correct Patient No -Correct Side, Site, Position No -Correct Procedure No -Procedure Performed No -Tunneling No -Undermining/Tunneling No #3- R POST LE CLUSTER -Correct Patient No -Correct Side, Site, Position No -Correct Procedure No -Procedure Performed No #2- L SUPERIOR LANCASTER -Correct Patient No -Correct Side, Site, Position No -Correct Procedure No -Procedure Performed No 5- L [place]CASTER CLUSTER -Correct Patient No -Correct Side, Site, Position No -Correct Procedure No -Procedure Performed No [See Physician Procedure note for Specifics] Pain Scale: 0-10 Numeric [Pain] -Is Patient Pain Free? Yes WC - Nurse 3 - General Ulcer D/C NN Start: 11/13/19 23:20 Freq: Status: Active Protocol: Activity Type Activity Date Activity User E-Sign Co-Sign Detail Recorded Client Recorded Date Recorded By Document 11/14/19 14:49 PL [id number] 11/14/19 14:50 PL 11/14/19 14:49 Wound Care Nurse 3 [Wound Dressing] #4- R [employer]CASTER CLUSTER -Primary Dressing Applied Aquacel AG -Aquacel AG 2 [Compression Applied] Right -Tubular Bandage Single Layer -Size of Tubigrip Used Size F -Size F ($) 1 Left -Tubular Bandage Single Layer -Size of Tubigrip Used Size F -Size F ($) 1 Debridement Note Post-Debridement Measurements/Treatment WC - Nurse 2 - General Ulcer CM Notes Start: 11/13/19 09:49 Freq: Status: Active Protocol: Activity Type Activity Date Activity User E-Sign Co-Sign Detail Recorded Client Recorded Date Recorded By Document 11/13/19 10:25 [id number] 11/13/19 10:26 11/13/19 10:25 Wound Center Nurse 2 #4- R [employer] CLUSTER -Correct Patient No -Correct Side, Site, Position No -Correct Procedure No -Procedure Performed No -Tunneling No -Undermining/Tunneling No #3- R POST LE CLUSTER -Correct Patient No -Correct Side, Site, Position No -Correct Procedure No -Procedure Performed No #2- L SUPERIOR [place] -Correct Patient No -Correct Side, Site, Position No -Correct Procedure No -Procedure Performed No 5- L [employer]CASTER CLUSTER -Correct Patient No -Correct Side, Site, Position No -Correct Procedure No -Procedure Performed No Pain Scale: 0-10 Numeric Is Patient Pain Free? Yes WC - Nurse 3 - General Ulcer D/C NN Start: 11/13/19 23:20 Freq: Status: Active Protocol: Activity Type Activity Date Activity User E-Sign Co-Sign Detail Recorded Client Recorded Date Recorded By Document 11/14/19 14:49 PL [id number] 11/14/19 14:50 PL 11/14/19 14:49 Wound Care Nurse 3 #4- R [employer]CA[employer] CLUSTER -Primary Dressing Applied Aquacel AG -Aquacel AG 2 Right -Tubular Bandage Single Layer -Size of Tubigrip Used Size F -Size F ($) 1 Left -Tubular Bandage Single Layer -Size of Tubigrip Used Size F -Size F ($) 1 Wound debrided: #2 Left superoanterior leg. Laterality: Left Wound Grade/Stage: 2. No debridement was completed today - patient refused debridement today. - Additional Wound Wound debrided: #3 Right posterior leg. Laterality: Right Wound Grade/Stage: 2. Patient tolerated procedure: - - patient refused debridement today. - Additional Wound Wound debrided: #4 Right anterior leg. Laterality: Right Wound Grade/Stage: 2. Patient tolerated procedure: - - patient refused debridement today. - Additional Wound Wound debrided: #5 Left anterior leg. Laterality: Left Wound Grade/Stage: 2. Patient tolerated procedure: - - patient refused debridement today. Assessment/Plan Assessment: 1. Nonhealing painful ulcers bilateral legs. 2. Venous insufficiency with ulcerations bilateral legs. 3. Lymphedema bilateral legs. 4. Diabetes mellitus. 5. Smoker. 6. Obesity. Plan: Debridement was not done today as the patient has refused because it is so painful. Continue wound care with Aquacel Extra and Adaptic followed by Tubigrip and compression GUADALUPE wrap. Wound culture from 11/01/19 showed Streptococcus agalactiae and Serratia marcescens. She was started on Levaquin and Augmentin. Vascular studies had been ordered for the patient but they weren't done. Will reorder them both venous and arterial studies. Discussed with the patient that these painful ulcerations will not heal with operative debridement since wound center debridement is not being done secondary to pain. Will excise these ulcerations probably down to the muscular fascia. Would send tissue to Pathology for analysis to rule out carcinoma and to Microbiology for culture. A positive culture would necessitate antibiotic therapy. Postop wound care would be with the VAC. Also controlling the edema is paramount for any chance at healing. Once the vascular studies are done and do not show significant arterial occlusive disease, then may try a 3M 2 layer flap to try and control the edema. Once the edema is under control, can proceed with delayed closure with skin grafting. Since the skin graft is elective, her HgbA1c has to be less than 8. Her last one on 09/29/19 was 10.3. So she needs much better diabetic control before any skin grafting is done. When skin grafting is done, she is at risk for graft compromise because of the location of the ulcerations on her lower extremities and because of her history of smoking. If present, can proceed with HBO treatments to help salvage the compromised grafts. Patient is not interested in surgery at this time but will think about it. I told her I wanted to wait until the vascular studies are done before proceeding with surgery so there is time to think about it. Encourage nutritional supplementation with protein to help the healing process. Followup one week to see Glory Ladd. I will see her back in 4 weeks to further discuss surgery and to discuss her vascular studies. Encouraged patient to stop smoking as it may have deleterious effects on wound healing. Office Visits / Consults: [id number] New - ICD-10 - L97.912, L97.922, I87.2, I89.0, E11.9, F17.200
== END 2019-11-27 23:59 ==
LOC: WC 09:00
PROVIDERS: PCP Family Medicine; Referring Provider Podiatrist; Visit Provider Podiatrist
DX: E11.621 Type 2 diabetes mellitus with foot ulcer (principal); L97.822 Non-pressure chronic ulcer of other part of left lower leg with fat layer exposed; L97.812 Non-pressure chronic ulcer of other part of right lower leg with fat layer exposed; E11.51 Type 2 diabetes mellitus with diabetic peripheral angiopathy without gangrene; L03.115 Cellulitis of right lower limb; L03.116 Cellulitis of left lower limb; S80.822A Blister (nonthermal), left lower leg, initial encounter; X58.XXXA Exposure to other specified factors, initial encounter; Y93.9 Activity, unspecified; Y92.9 Unspecified place or not applicable; Y99.9 Unspecified external cause status; I87.2 Venous insufficiency (chronic) (peripheral); I89.0 Lymphedema, not elsewhere classified; M79.89 Other specified soft tissue disorders; I27.20 Pulmonary hypertension, unspecified; I11.0 Hypertensive heart disease with heart failure; I50.811 Acute right heart failure; I25.10 Atherosclerotic heart disease of native coronary artery without angina pectoris; J44.9 Chronic obstructive pulmonary disease, unspecified; E78.5 Hyperlipidemia, unspecified; G47.33 Obstructive sleep apnea (adult) (pediatric); F32.9 Major depressive disorder, single episode, unspecified; E66.9 Obesity, unspecified; F17.200 Nicotine dependence, unspecified, uncomplicated; Z79.82 Long term (current) use of aspirin; Z79.4 Long term (current) use of insulin; Z79.1 Long term (current) use of non-steroidal anti-inflammatories (NSAID); Z79.899 Other long term (current) drug therapy
CPT/HCPCS: 11042; 11045; 87070; 87075; 87077; 87186; 87205; 99214; G0463

== ENCOUNTER 2019-12-25 10:21 | Outpatient (RCR) | payer MEDICARE, OTHER, SELFPAY ==
[2019-11-28 00:42] VITALS: BP 164/82; PULSE 78; RESP 18; TEMP 36.4
--- NOTE | 2019-12-25 10:24 | ART_ITS ---
Reason For Study: Ulcer Procedure A bilateral lower extremity continuous wave Doppler with analog waveform analysis,segmental pressures,and ankle brachial indexes without exercise. Left Segmental Pressures Left brachial= 189mmHg. Left posterior tibial artery = 236mmHg. Left dorsalis pedis artery = 228mmHg. Left digit = 175 mmHg. The left dorsalis pedis waveforms are triphasic. The left posterior tibial artery waveforms are triphasic. Right Segmental Pressures Right brachial= 178mmHg. Right posterior tibial artery = 241mmHg. Right dorsalis pedis artery = 245mmHg. Right digit = >254 mmHg. The right dorsalis pedis waveforms are triphasic. The right posterior tibial artery waveforms are triphasic. Indices The right ankle brachial index by the dorsalis pedis is 1.30. The right ankle brachial index by the posterior tibial artery is 1.28. The right digital-brachial index is NC. The left ankle brachial index by the dorsalis pedis is 1.21. The left ankle brachial index by the posterior tibial artery is 1.25. The left digital-brachial index is 0.93. Interpretation Summary Triphasic Doppler waveforms are noted at ankle level bilaterally. Pulse-volume recordings appear satisfactory at calf, ankle, and digital levels bilaterally. Resting ankle-brachial indices are normal bilaterally. The right digital-brachial index could not be determined due to the non- compressibility of the vasculature. The left digital-brachial index is normal. There is evidence of arterial calcification at digital level on the right. There is no evidence of significant arterial occlusive disease in the lower extremities bilaterally. Ordering Physician: Sheyla Aleman Referring Physician: MD Esme Bhavesh Performed By: Carey Finley RVT and Student
--- NOTE | 2019-12-25 10:24 | VDLE_ITS ---
Reason For Study: Edema RIGHT LEFT CFV is compressible, spontaneous, phasic, CFV is compressible, spontaneous, phasic, competent and demonstrates normal competent, and demonstrates normal augmentation. augmentation. FV is compressible, spontaneous, phasic, FV is compressible, spontaneous, phasic, competent and demonstrates normal competent and demonstrates normal augmentation. augmentation. POP V is compressible, spontaneous, phasic, POP V is compressible, spontaneous, phasic, competent and demonstrates normal competent and demonstrates normal augmentation. augmentation. T/P Trunk is compressible. T/P Trunk is compressible. PTV is compressible. PTV is compressible. RT PerV is compressible. LT PerV is compressible. SFJ is competent and measures 1.05 x 1.05 cm. SFJ not visualized due to pt body habitus. GSV proximal thigh measures 0.61 x 0.64 cm. GSV proximal thigh measures 0.69 x 0.76 cm. GSV at knee measures 0.55 x 0.57 cm. GSV at knee measures 0.56 x 0.58 cm. GSV is competent throughout. GSV is competent throughout. SSV at junction is competent and measures SSV at junction is competent and measures 0.36 x 0.36 cm. 0.33 x 0.41 cm. Procedure Exam performed in department. A preliminary report was called and/or faxed to . Interpretation Summary Deep veins of the lower extremities are bilaterally patent and compressible segmentally. There is no evidence of deep vein thrombosis on either side. Valvular competence appears intact within the proximal deep venous systems bilaterally. The great saphenous veins appear bilaterally patent and compressible segmentally. The right sapheno-femoral junction is competent . The left sapheno-femoral junction was not visualized due to the patient's body habitus. Valvular competence appears to be intact segmentally within the great saphenous veins bilaterally. Small saphenous veins are patent and competent bilaterally. Ordering Physician: Sheyla Aleman Referring Physician: MD Esme Bhavesh Performed By: Carey Finley, RVT
== END 2019-12-27 23:59 ==
LOC: CVS 10:21
PROVIDERS: PCP Family Medicine; Referring Provider Podiatrist; Visit Provider Podiatrist
DX: R60.0 Localized edema (principal); L97.912 Non-pressure chronic ulcer of unspecified part of right lower leg with fat layer exposed
CPT/HCPCS: 93923; 93970

== ENCOUNTER 2020-01-03 10:15 | Outpatient (RCR) | payer MEDICARE, OTHER, SELFPAY ==
[2019-12-28 00:35] VITALS: BP 164/82; PULSE 78; RESP 18; TEMP 36.4
[2020-01-03 10:42] VITALS: BP 169/91; PULSE 94; RESP 18; TEMP 36.3; BMI 44.2
[2020-01-03 11:12] VITALS: BP 160/88; PULSE 88
--- NOTE | 2020-01-03 12:37 | PN.PCM_ITS ---
(1) Hypertension Status: Chronic Current Visit: Yes Code(s): I10 - Essential (primary) hypertension (2) Smoker Status: Chronic Current Visit: Yes Code(s): F17.200 - Nicotine dependence, unspecified, uncomplicated (3) Type 2 diabetes mellitus Status: Chronic Current Visit: Yes Code(s): E11.9 - Type 2 diabetes mellitus without complications (4) Lymphedema Status: Suspected Current Visit: Yes Code(s): I89.0 - Lymphedema, not elsewhere classified (5) Cellulitis of left leg Status: Resolved Current Visit: No Code(s): L03.116 - Cellulitis of left lower limb (6) Cellulitis of right leg Status: Resolved Current Visit: No Code(s): L03.115 - Cellulitis of right lower limb Type of Wound Date of Service: 01/03/20 Chief Complaint: Nonhealing painful ulcerations bilateral legs. History of Wound: 64 year old female with history of diabetes mellitus presented to the Wound Center with painful ulcerations bilateral lower extremities. She was recently hospitalized in September for cellulitis and was treated with IV antibiotics and discharged on Levaquin. Her present wound care involves Aquacel Extra and Adaptic followed by Tubigrip and compression JOSEPH wrap. With the increased pain, debridement at the Wound Center has been limited. She has diabetes mellitus and her recent HgbA1c from 09/29/19 was 10.3. A recent wound culture on 11/01/19 showed Streptococcus agalactiae and Serratia marcescens. She also suffers from lymphedema and has rest pain and takes Neurontin. I was asked to evaluate this patient for surgical options for treatment. Progress of Wound: Ulcer areas are smaller but patient is intolerant to any treatments we have tried she complains of burning. Patient is already on [place] 4 times a day and gabapentin 604 times a day. We will try a surgical consult to knock her out and surgically debride the areas to get a head start. Patient is using compression and tolerating that okay. Cultures came back strep very rare will not treat . - Physical Exam Vital Signs Temp Pulse Resp BP 97.3 F L 88 18 160/88 H 01/03/20 10:42 01/03/20 11:12 01/03/20 10:42 01/03/20 11:12 Wound Measurements and Assessment WC - Nurse 1 - General Ulcer Measurement Start: 01/03/20 10:42 Freq: Status: Active Protocol: Activity Type Activity Date Activity User E-Sign Co-Sign Detail Recorded Client Recorded Date Recorded By Document 01/03/20 10:42 DC [id number] 01/03/20 10:47 DC 01/03/20 10:42 Wound Center Nurse 1 [Ulcer Assessment] #4- R [employer]CASTER CLUSTER -Current Size (cm) - Length 4.2 -Current Size (cm) - Width 7.1 -Current Size (cm) - Depth 0.1 -Total Square Cm 29.82 -Exudate Amt Small -Exudate Type Serosanguineous -Wound Margin Flat & Intact -Granulation Amt Medium (34-66%) -Granulation Quality Pale,[place] -Necrosis Amt Medium (34-66%) -Necrotic Tissue Type Adherent Slough -Texture (Meg-wound Skin Appearance) Assessed, Localized Edema -Moisture (Meg-wound Skin Appearance Assessed, ) Maceration -Color (Meg-wound Skin Appearance) Assessed, Erythema -Temperature (Meg-wound Skin No Abnormality Appearance) (Pt Warm) -Tenderness on Palpation (Meg-wound No Skin Appearance) -Ulcer Cleansing Rinsed/ Irrigated with Saline -Foul Odor after Cleansing No -Anesthetic Used 4% Lidocaine Solution #3- R POST LE CLUSTER -Current Size (cm) - Length 10.6 -Current Size (cm) - Width 6.7 -Current Size (cm) - Depth 0.1 -Total Square Cm 71.02 -Exudate Amt Small -Exudate Type Serosanguineous -Wound Margin Flat & Intact -Granulation Amt Medium (34-66%) -Granulation Quality Pale,[place] -Necrosis Amt Medium (34-66%) -Necrotic Tissue Type Adherent Slough -Texture (Meg-wound Skin Appearance) Assessed, Localized Edema -Moisture (Meg-wound Skin Appearance Assessed ) -Color (Meg-wound Skin Appearance) Assessed, Erythema -Temperature (Meg-wound Skin No Abnormality Appearance) (Pt Warm) -Tenderness on Palpation (Meg-wound No Skin Appearance) -Ulcer Cleansing Rinsed/ Irrigated with Saline -Foul Odor after Cleansing No -Anesthetic Used 4% Lidocaine Solution #2- L SUPERIOR [place] -Current Size (cm) - Length 1.7 -Current Size (cm) - Width 0.8 -Current Size (cm) - Depth 0.1 -Total Square Cm 1.36 -Exudate Amt Small -Exudate Type Serosanguineous -Wound Margin Flat & Intact -Granulation Amt Large (67-100%) -Granulation Quality Pale,[place] -Necrosis Amt Small (1-33%) -Necrotic Tissue Type Adherent Slough -Texture (Meg-wound Skin Appearance) Assessed, Localized Edema -Moisture (Meg-wound Skin Appearance Assessed, ) Maceration -Color (Meg-wound Skin Appearance) Assessed, Erythema -Temperature (Meg-wound Skin No Abnormality Appearance) (Pt Warm) -Tenderness on Palpation (Meg-wound No Skin Appearance) -Ulcer Cleansing Rinsed/ Irrigated with Saline -Foul Odor after Cleansing No -Anesthetic Used 5% Lidocaine Gel 5- L [employer] CLUSTER -Current Size (cm) - Length 9.5 -Current Size (cm) - Width 8.5 -Current Size (cm) - Depth 0.1 -Total Square Cm 80.75 -Exudate Amt Small -Exudate Type Serosanguineous -Wound Margin Flat & Intact -Granulation Amt Medium (34-66%) -Granulation Quality Pale,[place] -Necrosis Amt Medium (34-66%) -Necrotic Tissue Type Adherent Slough -Texture (Meg-wound Skin Appearance) Assessed, Localized Edema -Moisture (Meg-wound Skin Appearance Assessed, ) Weeping -Color (Meg-wound Skin Appearance) Assessed, Erythema -Temperature (Meg-wound Skin No Abnormality Appearance) (Pt Warm) -Tenderness on Palpation (Meg-wound No Skin Appearance) -Ulcer Cleansing Rinsed/ Irrigated with Saline -Foul Odor after Cleansing No -Anesthetic Used 4% Lidocaine Solution [Edema Assessment] -Right Calf (cm) 50 -Right Ankle (cm) 30 -Left Calf (cm) 51 -Left Ankle (cm) 32 WC - Nurse 2 - General Ulcer CM Notes Start: 01/03/20 10:42 Freq: Status: Active Protocol: Activity Type Activity Date Activity User E-Sign Co-Sign Detail Recorded Client Recorded Date Recorded By Document 01/03/20 10:43 MW [id number] 01/03/20 10:53 MW 01/03/20 10:43 Wound Center Nurse 2 [Procedure/Treatment] #4- R [employer] CLUSTER -Time 10:50 -Correct Patient Yes -Correct Side, Site, Position Yes -Correct Procedure Yes -Procedure Performed No -Tunneling No -Undermining/Tunneling No -Circular Undermining No -Wound/Ulcer Outcome Not Healed -Ulcer Cleansing Not Cleansed -Foul Odor after Cleansing No -Bioengineered Tissue No -Bleeding Controlled with NA #3- R POST LE CLUSTER -Time 10:50 -Correct Patient Yes -Correct Side, Site, Position Yes -Correct Procedure Yes -Procedure Performed No -Tunneling No -Undermining/Tunneling No -Circular Undermining No -Wound/Ulcer Outcome Not Healed -Ulcer Cleansing Not Cleansed -Bleeding Controlled with NA -Offloading No #2- L SUPERIOR [place] -Time 10:51 -Correct Patient Yes -Correct Side, Site, Position Yes -Correct Procedure Yes -Procedure Performed No -Tunneling No -Undermining/Tunneling No -Circular Undermining No -Wound/Ulcer Outcome Not Healed -Ulcer Cleansing Not Cleansed -Foul Odor after Cleansing No -Bioengineered Tissue No -Bleeding Controlled with NA -Offloading No 5- L [employer] CLUSTER -Time 10:51 -Correct Patient Yes -Correct Side, Site, Position Yes -Correct Procedure Yes -Procedure Performed No -Tunneling No -Undermining/Tunneling No -Circular Undermining No -Wound/Ulcer Outcome Not Healed -Ulcer Cleansing Rinsed/ Irrigated with Saline -Foul Odor after Cleansing No -Bioengineered Tissue No -Bleeding Controlled with NA -Offloading No [See Physician Procedure note for Specifics] Pain Scale: 0-10 Numeric [Pain] -Is Patient Pain Free? Yes WC - Nurse 3 - General Ulcer D/C NN Start: 01/03/20 10:42 Freq: Status: Active Protocol: Activity Type Activity Date Activity User E-Sign Co-Sign Detail Recorded Client Recorded Date Recorded By Document 01/03/20 11:12 RB [id number] 01/03/20 11:16 RB 01/03/20 11:12 Wound Care Nurse 3 [Wound Dressing] #4- R [employer]CA[employer] CLUSTER -Ulcer Cleansing Wound Cleanser -Primary Dressing Applied Fibracol Plus 4x4,NonAdherent Contact Layer -Primary Dressing Covered/Secured Dry Gauze & with Roll Gauze, Secured with Tape -Fibracol Plus 4x4 1 #3- R POST LE CLUSTER -Ulcer Cleansing Wound Cleanser -Primary Dressing Applied NonAdherent Contact Layer -Other Dressing FIBRACOL PLUS -Primary Dressing Covered/Secured Dry Gauze & with Roll Gauze, Secured with Tape #2- L SUPERIOR [place] -Ulcer Cleansing Rinsed/ Irrigated with Saline -Primary Dressing Applied NonAdherent Contact Layer -Other Dressing FIBRACOL PLUS 5- L [employer] CLUSTER -Primary Dressing Applied NonAdherent Contact Layer -Other Dressing FIBRACOL PLUS -Primary Dressing Covered/Secured Dry Gauze & with Roll Gauze, Secured with Tape [Compression Applied] Right -Size of Tubigrip Used Size E -Size E ($) 1 -Other JOSEPH Left -Size of Tubigrip Used Size E -Other JOSEPH Vital Signs [Pulse] -Pulse Rate (60-100 beats/min) 88 -Pulse Location Monitor [Blood Pressure] -Blood Pressure (90/60-120/80 mm Hg) 160/88 H -Blood Pressure Mean (mm Hg) 112 -Source Monitor -Position Sitting -Blood Pressure Location Left Arm Pain Scale: 0-10 Numeric [Pain] -Is Patient Pain Free? Yes WC - Visit Discharge [Visit Discharge Information] -Discharge Condition Stable -Ambulatory Status Ambulatory -Transportation Private Auto -Medication Reconcilliation completed No & provided to patient/care provider -Clinical Summary of Care Provided Yes Debridement Note Post-Debridement Measurements/Treatment WC - Nurse 2 - General Ulcer CM Notes Start: 01/03/20 10:42 Freq: Status: Active Protocol: Activity Type Activity Date Activity User E-Sign Co-Sign Detail Recorded Client Recorded Date Recorded By Document 01/03/20 10:43 MW [id number] 01/03/20 10:53 MW 01/03/20 10:43 Wound Center Nurse 2 #4- R [employer]CASTER CLUSTER -Time 10:50 -Correct Patient Yes -Correct Side, Site, Position Yes -Correct Procedure Yes -Procedure Performed No -Tunneling No -Undermining/Tunneling No -Circular Undermining No -Wound/Ulcer Outcome Not Healed -Ulcer Cleansing Not Cleansed -Foul Odor after Cleansing No -Bioengineered Tissue No -Bleeding Controlled with NA #3- R POST LE CLUSTER -Time 10:50 -Correct Patient Yes -Correct Side, Site, Position Yes -Correct Procedure Yes -Procedure Performed No -Tunneling No -Undermining/Tunneling No -Circular Undermining No -Wound/Ulcer Outcome Not Healed -Ulcer Cleansing Not Cleansed -Bleeding Controlled with NA -Offloading No #2- L SUPERIOR [place]STER -Time 10:51 -Correct Patient Yes -Correct Side, Site, Position Yes -Correct Procedure Yes -Procedure Performed No -Tunneling No -Undermining/Tunneling No -Circular Undermining No -Wound/Ulcer Outcome Not Healed -Ulcer Cleansing Not Cleansed -Foul Odor after Cleansing No -Bioengineered Tissue No -Bleeding Controlled with NA -Offloading No 5- L [employer]CASTER CLUSTER -Time 10:51 -Correct Patient Yes -Correct Side, Site, Position Yes -Correct Procedure Yes -Procedure Performed No -Tunneling No -Undermining/Tunneling No -Circular Undermining No -Wound/Ulcer Outcome Not Healed -Ulcer Cleansing Rinsed/ Irrigated with Saline -Foul Odor after Cleansing No -Bioengineered Tissue No -Bleeding Controlled with NA -Offloading No Pain Scale: 0-10 Numeric Is Patient Pain Free? Yes WC - Nurse 3 - General Ulcer D/C NN Start: 01/03/20 10:42 Freq: Status: Active Protocol: Activity Type Activity Date Activity User E-Sign Co-Sign Detail Recorded Client Recorded Date Recorded By Document 01/03/20 11:12 [id number] 01/03/20 11:16 RB 01/03/20 11:12 Wound Care Nurse 3 #4- R [employer]CASTER CLUSTER -Ulcer Cleansing Wound Cleanser -Primary Dressing Applied Fibracol Plus 4x4,NonAdherent Contact Layer -Primary Dressing Covered/Secured with Dry Gauze & Roll Gauze, Secured with Tape -Fibracol Plus 4x4 1 #3- R POST LE CLUSTER -Ulcer Cleansing Wound Cleanser -Primary Dressing Applied NonAdherent Contact Layer -Other Dressing FIBRACOL PLUS -Primary Dressing Covered/Secured with Dry Gauze & Roll Gauze, Secured with Tape #2- L SUPERIOR LANCASTER -Ulcer Cleansing Rinsed/ Irrigated with Saline -Primary Dressing Applied NonAdherent Contact Layer -Other Dressing FIBRACOL PLUS 5- L [employer]CASTER CLUSTER -Primary Dressing Applied NonAdherent Contact Layer -Other Dressing FIBRACOL PLUS -Primary Dressing Covered/Secured with Dry Gauze & Roll Gauze, Secured with Tape Right -Size of Tubigrip Used Size E -Size E ($) 1 -Other JOSEPH Left -Size of Tubigrip Used Size E -Other JOSEPH Vital Signs Pulse Rate (60-100 beats/min) 88 Pulse Location Monitor Blood Pressure (90/60-120/80 mm Hg) 160/88 H Blood Pressure Mean (mm Hg) 112 Source Monitor Position Sitting Blood Pressure Location Left Arm Pain Scale: 0-10 Numeric Is Patient Pain Free? Yes WC - Visit Discharge Discharge Condition Stable Ambulatory Status Ambulatory Transportation Private Auto Medication Reconcilliation completed & No provided to patient/care provider Clinical Summary of Care Provided Yes No debridement was completed today Assessment/Plan Active Problems Smoker (Chronic) Type 2 diabetes mellitus (Chronic) Hypertension (Chronic) Assessment: 1. Nonhealing painful ulcers bilateral legs. 3. Lymphedema bilateral legs. 4. Diabetes mellitus. 5. Smoker. 6. Obesity. Plan: Debridement was not done today as the patient has refused because it is so painful. Continue wound care with Aquacel Extra and Adaptic followed by Tubigrip and compression JOSEPH wrap. Wound culture from 11/01/19 showed Streptococcus agalactiae and Serratia marcescens. She was started on Levaquin and Augmentin. Vascular studies had been ordered for the patient but they weren't done. Will reorder them both venous and arterial studies. Discussed with the patient that these painful ulcerations will not heal with operative debridement since wound center debridement is not being done secondary to pain. Will excise these ulcerations probably down to the muscular fascia. Would send tissue to Pathology for analysis to rule out carcinoma and to Microbiology for culture. A positive culture would necessitate antibiotic therapy. Postop wound care would be with the VAC. Also controlling the edema is paramount for any chance at healing. Once the edema is under control, can proceed with delayed closure with skin grafting. Since the skin graft is elective, her HgbA1c has to be less than 8. Her last one on 09/29/19 was 10.3. So she needs much better diabetic control before any skin grafting is done. When skin grafting is done, she is at risk for graft compromise because of the location of the ulcerations on her lower extremities and because of her history of smoking. If present, can proceed with HBO treatments to help salvage the compromised grafts. Patient is not interested in surgery at this time but will think about it. I told her I wanted to wait until the vascular studies are done before proceeding with surgery so there is time to think about it. Encourage nutritional supplementation with protein to help the healing process. Vascular studies returned and there is no problem with her arterial or venous in her legs patient was encouraged to continue compression with Joseph wraps to get them down in size before she can go into regular compression stockings she is to start losing weight and she needs to move her legs and exercise and get up and walk . If patient is ever can considering going back to wound care she may return. Patient was discharged from the wound center
== END 2020-01-27 23:59 ==
LOC: WC 10:15
PROVIDERS: PCP Family Medicine; Referring Provider Podiatrist; Visit Provider Podiatrist
DX: E11.622 Type 2 diabetes mellitus with other skin ulcer (principal); I89.0 Lymphedema, not elsewhere classified; I10 Essential (primary) hypertension; E66.9 Obesity, unspecified; F17.200 Nicotine dependence, unspecified, uncomplicated; L97.819 Non-pressure chronic ulcer of other part of right lower leg with unspecified severity; L97.829 Non-pressure chronic ulcer of other part of left lower leg with unspecified severity; M79.604 Pain in right leg; M79.605 Pain in left leg
CPT/HCPCS: 99213; G0463

== ENCOUNTER → 2020-01-24 14:03 | Outpatient (CLI) | payer MEDICARE, OTHER, SELFPAY ==
[2020-01-03 10:42] VITALS: BMI 44.2
[2020-01-24 16:15] LABS: Amphetamine Urine VISTA NEGATIVE (<1000 ng/mL); Barbiturate Urine VISTA NEGATIVE (< 200 ng/mL); Benzodiazepine Urine VISTA NEGATIVE (< 200 ng/mL); Cocaine Urine VISTA NEGATIVE (< 300 ng/mL); Ecstacy Urine VISTA NEGATIVE (< 500 ng/mL); Methadone Urine VISTA NEGATIVE (< 300 ng/mL); PCP Urine VISTA NEGATIVE (< 25 ng/mL); THC Urine VISTA NEGATIVE (< 50 ng/mL); Vista UDS pH Range 7
== END ==
PROVIDERS: PCP Family Medicine; Referring Provider Anesthesiology Pain Medicine; Visit Provider Anesthesiology Pain Medicine
DX: F11.20 Opioid dependence, uncomplicated (principal)
CPT/HCPCS: 80307

== ENCOUNTER 2020-02-20 11:45 | Outpatient (RCR) | payer MEDICARE, OTHER, SELFPAY ==
[2020-01-28 00:22] VITALS: BP 160/88; PULSE 88; RESP 18; TEMP 36.3
[2020-02-15 08:18] VITALS: BP 189/94; PULSE 88; RESP 18; TEMP 36.2; BMI 44.2
[2020-02-15 09:12] VITALS: BP 185/96
--- NOTE | 2020-02-15 16:38 | HP.PCM_ITS ---
(1) Ulcer of left lower extremity with fat layer exposed Status: Chronic Code(s): L97.922 - Non-pressure chronic ulcer of unspecified part of left lower leg with fat layer exposed (2) Ulcer of right lower extremity with fat layer exposed Status: Chronic Code(s): L97.912 - Non-pressure chronic ulcer of unspecified part of right lower leg with fat layer exposed (3) Type 2 diabetes mellitus Status: Chronic Code(s): E11.9 - Type 2 diabetes mellitus without complications (4) Lymphedema Status: Suspected Code(s): I89.0 - Lymphedema, not elsewhere classified (5) Peripheral vascular disease Status: Suspected Code(s): I73.9 - Peripheral vascular disease, unspecified History of Present Illness Date of Service: 02/15/20 Chief Complaint: Recurrent Lower Extremity Ulcers History of Wound: Ms. Valdez is 65-year-old well-known to the wound center who returns today due to recurrent bilateral lower extremity ulcerations. She states that her legs get really swollen, blister with subsequent ulceration. Unclear about exact timing of current ulcers. Has been utilizing Joseph wraps at home without any significant improvement. Denies chills, fever or otherwise feeling of unwell. Past Medical History Past Medical History: Chronic Problems Smoker (Chronic) Type 2 diabetes mellitus (Chronic) Hypertension (Chronic) COPD (chronic obstructive pulmonary disease) (Chronic) Ulcer of right lower extremity with fat layer exposed (Chronic) Ulcer of left lower extremity with fat layer exposed (Chronic) Surgical History: cataract, hysterectomy - vaginal, - - colonoscopy with polypectomy. Allergies/Adverse Reactions: Allergies PAPER TAPE Allergy (Uncoded 10/18/19 15:22) Rash Home Medications: Ambulatory Orders Medication Instructions Recorded Albuterol Inhaler [Ventolin Hfa] 1 - 2 puff INHALATION Q4H PRN PRN 09/01/18 Aspirin [Aspir 81] 81 mg PO DAILY 09/01/18 Duloxetine HCl 60 mg PO DAILY 09/01/18 Furosemide [Lasix] 80 mg PO BID 09/01/18 Glimepiride [Amaryl] 4 mg PO DAILY 09/01/18 Hydrocodone/Acetaminophen 1 each PO TID PRN 09/01/18 [Hydrocodone-Acetamin 10-325 mg] Lovastatin [Mevacor] 40 mg PO QHS 09/01/18 Metformin HCl 1,000 mg PO BID 09/01/18 Metoprolol Tartrate [Lopressor 100 mg PO BID 09/01/18 (beta elisa)] Multivitamin with Minerals 1 each PO DAILY 09/01/18 [Multiple Vitamin] Pramipexole Di-HCl [Mirapex] 2 mg PO BID 09/01/18 Ramipril [Altace] 10 mg PO DAILY 09/01/18 Umeclidinium [place] Inhaler 1 puff IH DAILY 09/01/18 [Incruse Ellipta Inhaler] Insulin Glargine,Hum.rec.anlog 40 unit SQ QHS #0 10/01/19 [Basaglar Kwikpen U-100] Meloxicam [Mobic] 15 mg PO DAILY PRN PRN #0 10/01/19 Smoking Status: Current every day smoker Review of Systems Constitutional: Denies: Anorexia, Chills, Fever, Night Sweats Eyes: Denies: Blurred vision, Pain, Redness HEENT: Denies: Difficulty Hearing, Difficulty Swallowing, Head Aches Cardiovascular: Denies: Chest Pain, Claudication, Chest Pressure, Chest Tightness Respiratory: Denies: Hemoptysis Gastrointestinal: Denies: Abdominal Pain, Hematemesis, Vomiting Genitourinary: Denies: Hematuria Skin: Denies: Jaundice - Physical Exam Vital Signs Temp Pulse Resp BP 97.1 F L 88 18 185/96 H 02/15/20 08:18 02/15/20 08:18 02/15/20 08:18 02/15/20 09:12 General: Alert, Oriented x3, Cooperative, No apparent distress HEENT: Atraumatic, Normocephalic Oral: Moist Mucosa Neck: Supple Abdomen: Non Tender, Obese Extremities: No cyanosis, Edema Skin: Ulcer/ Wound Wound Measurements and Assessment WC - Nurse 1 - General Ulcer Measurement Start: 02/15/20 08:15 Freq: Status: Active Protocol: Activity Type Activity Date Activity User E-Sign Co-Sign Detail Recorded Client Recorded Date Recorded By Document 02/15/20 08:18 RB [id number] 02/15/20 08:36 RB 02/15/20 08:18 Wound Center Nurse 1 [Ulcer Assessment] 8. LLE superior -Combined with other wound No -Current Size (cm) - Length 1.3 -Current Size (cm) - Width 0.6 -Current Size (cm) - Depth 0.2 -Total Square Cm 0.78 -Tunneling No -Undermining/Tunneling No -Circular Undermining No -Exudate Amt Medium -Exudate Type Serosanguineous -Wound Margin Flat & Intact -Granulation Amt Small (1-33%) -Granulation Quality Loda -Slough/Fibrin Yes -Necrosis Amt Large (67-100%) -Necrotic Tissue Type Adherent Slough -Structure Exposed N/A -Texture (Meg-wound Skin Appearance) Assessed -Moisture (Meg-wound Skin Appearance Assessed, ) Maceration -Color (Meg-wound Skin Appearance) Assessed -Temperature (Meg-wound Skin No Abnormality Appearance) (Pt Warm) -Tenderness on Palpation (Meg-wound No Skin Appearance) -Ulcer Cleansing Wound Cleanser -Foul Odor after Cleansing No -Anesthetic Used 4% Lidocaine Solution 7. RLE anterior morgan -Combined with other wound No -Current Size (cm) - Length 2.3 -Current Size (cm) - Width 1.5 -Current Size (cm) - Depth 0.1 -Total Square Cm 3.45 -Tunneling No -Undermining/Tunneling No -Circular Undermining No -Exudate Amt Medium -Exudate Type Serosanguineous -Wound Margin Flat & Intact -Granulation Amt Medium (34-66%) -Granulation Quality Loda -Necrosis Amt Medium (34-66%) -Necrotic Tissue Type Adherent Slough -Structure Exposed N/A -Texture (Meg-wound Skin Appearance) Assessed -Moisture (Meg-wound Skin Appearance Maceration ) -Color (Meg-wound Skin Appearance) Assessed -Temperature (Meg-wound Skin No Abnormality Appearance) (Pt Warm) -Tenderness on Palpation (Meg-wound No Skin Appearance) -Ulcer Cleansing Wound Cleanser -Foul Odor after Cleansing No -Anesthetic Used 4% Lidocaine Solution #6 LLE Inf Cluster -Combined with other wound No -Current Size (cm) - Length 6 -Current Size (cm) - Width 10.5 -Current Size (cm) - Depth 0.1 -Total Square Cm 63.0 -Photo Taken Yes -Tunneling No -Undermining/Tunneling No -Circular Undermining No -Exudate Amt Medium -Exudate Type Serosanguineous -Wound Margin Flat & Intact -Granulation Amt Medium (34-66%) -Granulation Quality Loda -Slough/Fibrin Yes -Necrosis Amt Medium (34-66%) -Necrotic Tissue Type Adherent Slough -Structure Exposed N/A -Texture (Meg-wound Skin Appearance) Assessed -Moisture (Meg-wound Skin Appearance Assessed, ) Maceration -Color (Meg-wound Skin Appearance) Assessed -Temperature (Meg-wound Skin No Abnormality Appearance) (Pt Warm) -Tenderness on Palpation (Meg-wound No Skin Appearance) -Ulcer Cleansing Wound Cleanser -Foul Odor after Cleansing No -Anesthetic Used 4% Lidocaine Solution [Edema Assessment] -Lower Limb Edema Present Yes -Right Calf (cm) 51.2 -Right Ankle (cm) 31.2 -Left Calf (cm) 51 -Left Ankle (cm) 31 WC - Nurse 2 - General Ulcer CM Notes Start: 02/15/20 08:15 Freq: Status: Active Protocol: Activity Type Activity Date Activity User E-Sign Co-Sign Detail Recorded Client Recorded Date Recorded By Document 02/15/20 08:53 MW [id number] 02/15/20 09:04 MW 02/15/20 08:53 Wound Center Nurse 2 [Procedure/Treatment] 8. LLE superior -Time 08:55 -Correct Patient Yes -Correct Side, Site, Position Yes -Correct Procedure Yes -Procedure Performed Yes -Type of Procedure Debridement -Clinical Debridement Subcutaneous -Tissue Removed Subcutaneous -Post Debridement (cm) - Length 1.5 -Post Debridement (cm) - Width 0.6 -Post Debridement (cm) - Depth 0.1 -Total Square (Post) (cm) 0.90 -Area of Debridement (cm) - Length 1.5 -Area of Debridement (cm) - Width 0.6 -Total Square (Area) (cm) 0.90 -Tunneling No -Undermining/Tunneling No -Circular Undermining No -Wound/Ulcer Outcome Not Healed -Ulcer Cleansing Rinsed/ Irrigated with Saline -Foul Odor after Cleansing No -Bioengineered Tissue No -Bleeding Controlled with Pressure -Offloading No -Treatment Response Procedure Tolerated Well -Debridement - Subq, 1st 20sq cm Yes -Debridement, SubQ, ea addt'l 20sq cm 4 or part thereof 7. RLE anterior morgan -Time 08:57 -Correct Patient Yes -Correct Side, Site, Position Yes -Correct Procedure Yes -Procedure Performed Yes -Type of Procedure Debridement -Clinical Debridement Subcutaneous -Tissue Removed Subcutaneous -Post Debridement (cm) - Length 2.5 -Post Debridement (cm) - Width 0.8 -Post Debridement (cm) - Depth 0.1 -Total Square (Post) (cm) 2.00 -Area of Debridement (cm) - Length 2.5 -Area of Debridement (cm) - Width 0.8 -Total Square (Area) (cm) 2.00 -Tunneling No -Undermining/Tunneling No -Circular Undermining No -Wound/Ulcer Outcome Not Healed -Ulcer Cleansing Rinsed/ Irrigated with Saline -Foul Odor after Cleansing No -Bioengineered Tissue No -Bleeding Controlled with Pressure -Offloading No -Treatment Response Procedure Tolerated Well -Debridement - Subq, 1st 20sq cm No #6 LLE Inf Cluster -Time 08:57 -Correct Patient Yes -Correct Side, Site, Position Yes -Correct Procedure Yes -Procedure Performed Yes -Type of Procedure Debridement -Clinical Debridement Subcutaneous -Tissue Removed Subcutaneous -Post Debridement (cm) - Length 8.0 -Post Debridement (cm) - Width 10.0 -Post Debridement (cm) - Depth 0.1 -Total Square (Post) (cm) 80.00 -Area of Debridement (cm) - Length 8.0 -Area of Debridement (cm) - Width 10.0 -Total Square (Area) (cm) 80.00 -Tunneling No -Undermining/Tunneling No -Circular Undermining No -Wound/Ulcer Outcome Not Healed -Ulcer Cleansing Rinsed/ Irrigated with Saline -Foul Odor after Cleansing No -Bioengineered Tissue No -Bleeding Controlled with Pressure -Offloading No -Treatment Response Procedure Tolerated Well -Debridement - Subq, 1st 20sq cm No [See Physician Procedure note for Specifics] Pain Scale: 0-10 Numeric [Pain] -Is Patient Pain Free? Yes WC - Nurse 3 - General Ulcer D/C NN Start: 02/15/20 08:15 Freq: Status: Active Protocol: Activity Type Activity Date Activity User E-Sign Co-Sign Detail Recorded Client Recorded Date Recorded By Document 02/15/20 09:12 RB [id number] 02/15/20 09:15 RB 02/15/20 09:12 Wound Care Nurse 3 [Wound Dressing] 8. LLE superior -Ulcer Cleansing Rinsed/ Irrigated with Saline -Primary Dressing Applied Aquacel Extra -Primary Dressing Covered/Secured Dry Gauze with -Aquacel Extra 1 7. RLE anterior morgan -Ulcer Cleansing Rinsed/ Irrigated with Saline -Other Dressing AQUACEL EXTRA -Primary Dressing Covered/Secured Dry Gauze with #6 LLE Inf Cluster -Ulcer Cleansing Rinsed/ Irrigated with Saline -Other Dressing AQUACEL EXTRA, ABD -Primary Dressing Covered/Secured Dry Gauze with [Compression Applied] Right -Other 3M BILAT Left -Multi-Layered Wrap Application Multi-Layer Comp - Bilat ($ ) [Post Procedure Tolerated] -Treatment Response Procedure Tolerated Well Vital Signs [Blood Pressure] -Blood Pressure (90/60-120/80 mm Hg) 185/96 H -Blood Pressure Mean (mm Hg) 125 -Source Monitor -Position Semi-Fowlers -Blood Pressure Location Left Arm Pain Scale: 0-10 Numeric [Pain] -Is Patient Pain Free? Yes Teaching: Wound Center [Wound Center Education] (Items with an * have Printed Materials Available- Please identify what is given to patient under the Teaching materials given to patient and caregiver Section. Compression Wraps & Stockings -Person Taught Patient -Teaching Method Discussion, Demonstration -Response to teaching Verbalize understanding Control Swelling with Leg Elevation -Person Taught Patient -Teaching Method Discussion -Response to teaching Reinforcement needed WC - Visit Discharge [Visit Discharge Information] -Discharge Condition Stable -Ambulatory Status Wheelchair -Transportation Private Auto -Medication Reconcilliation completed No & provided to patient/care provider -Clinical Summary of Care Provided Yes Musculoskeletal: No Muscle Wasting Neurological: Cranial nerves II-XII grossly intact Psych/Mental Status: Normal Affect Debridement Note Post-Debridement Measurements/Treatment WC - Nurse 2 - General Ulcer CM Notes Start: 02/15/20 08:15 Freq: Status: Active Protocol: Activity Type Activity Date Activity User E-Sign Co-Sign Detail Recorded Client Recorded Date Recorded By Document 02/15/20 08:53 MW [id number] 02/15/20 09:04 MW 02/15/20 08:53 Wound Center Nurse 2 8. LLE superior -Time 08:55 -Correct Patient Yes -Correct Side, Site, Position Yes -Correct Procedure Yes -Procedure Performed Yes -Type of Procedure Debridement -Clinical Debridement Subcutaneous -Tissue Removed Subcutaneous -Post Debridement (cm) - Length 1.5 -Post Debridement (cm) - Width 0.6 -Post Debridement (cm) - Depth 0.1 -Total Square (Post) (cm) 0.90 -Area of Debridement (cm) - Length 1.5 -Area of Debridement (cm) - Width 0.6 -Total Square (Area) (cm) 0.90 -Tunneling No -Undermining/Tunneling No -Circular Undermining No -Wound/Ulcer Outcome Not Healed -Ulcer Cleansing Rinsed/ Irrigated with Saline -Foul Odor after Cleansing No -Bioengineered Tissue No -Bleeding Controlled with Pressure -Offloading No -Treatment Response Procedure Tolerated Well -Debridement - Subq, 1st 20sq cm Yes -Debridement, SubQ, ea addt'l 20sq cm 4 or part thereof 7. RLE anterior morgan -Time 08:57 -Correct Patient Yes -Correct Side, Site, Position Yes -Correct Procedure Yes -Procedure Performed Yes -Type of Procedure Debridement -Clinical Debridement Subcutaneous -Tissue Removed Subcutaneous -Post Debridement (cm) - Length 2.5 -Post Debridement (cm) - Width 0.8 -Post Debridement (cm) - Depth 0.1 -Total Square (Post) (cm) 2.00 -Area of Debridement (cm) - Length 2.5 -Area of Debridement (cm) - Width 0.8 -Total Square (Area) (cm) 2.00 -Tunneling No -Undermining/Tunneling No -Circular Undermining No -Wound/Ulcer Outcome Not Healed -Ulcer Cleansing Rinsed/ Irrigated with Saline -Foul Odor after Cleansing No -Bioengineered Tissue No -Bleeding Controlled with Pressure -Offloading No -Treatment Response Procedure Tolerated Well -Debridement - Subq, 1st 20sq cm No #6 LLE Inf Cluster -Time 08:57 -Correct Patient Yes -Correct Side, Site, Position Yes -Correct Procedure Yes -Procedure Performed Yes -Type of Procedure Debridement -Clinical Debridement Subcutaneous -Tissue Removed Subcutaneous -Post Debridement (cm) - Length 8.0 -Post Debridement (cm) - Width 10.0 -Post Debridement (cm) - Depth 0.1 -Total Square (Post) (cm) 80.00 -Area of Debridement (cm) - Length 8.0 -Area of Debridement (cm) - Width 10.0 -Total Square (Area) (cm) 80.00 -Tunneling No -Undermining/Tunneling No -Circular Undermining No -Wound/Ulcer Outcome Not Healed -Ulcer Cleansing Rinsed/ Irrigated with Saline -Foul Odor after Cleansing No -Bioengineered Tissue No -Bleeding Controlled with Pressure -Offloading No -Treatment Response Procedure Tolerated Well -Debridement - Subq, 1st 20sq cm No Pain Scale: 0-10 Numeric Is Patient Pain Free? Yes - Nurse 3 - General Ulcer D/C NN Start: 02/15/20 08:15 Freq: Status: Active Protocol: Activity Type Activity Date Activity User E-Sign Co-Sign Detail Recorded Client Recorded Date Recorded By Document 02/15/20 09:12 RB [id number] 02/15/20 09:15 RB 02/15/20 09:12 Wound Care Nurse 3 8. LLE superior -Ulcer Cleansing Rinsed/ Irrigated with Saline -Primary Dressing Applied Aquacel Extra -Primary Dressing Covered/Secured with Dry Gauze -Aquacel Extra 1 7. RLE anterior morgan -Ulcer Cleansing Rinsed/ Irrigated with Saline -Other Dressing AQUACEL EXTRA -Primary Dressing Covered/Secured with Dry Gauze #6 LLE Inf Cluster -Ulcer Cleansing Rinsed/ Irrigated with Saline -Other Dressing AQUACEL EXTRA, ABD -Primary Dressing Covered/Secured with Dry Gauze Right -Other 3M BILAT Left -Multi-Layered Wrap Application Multi-Layer Comp - Bilat ($ ) Treatment Response Procedure Tolerated Well Vital Signs Blood Pressure (90/60-120/80 mm Hg) 185/96 H Blood Pressure Mean (mm Hg) 125 Source Monitor Position Semi-Fowlers Blood Pressure Location Left Arm Pain Scale: 0-10 Numeric Is Patient Pain Free? Yes Teaching: Wound Center Compression Wraps & Stockings -Person Taught Patient -Teaching Method Discussion, Demonstration -Response to teaching Verbalize understanding Control Swelling with Leg Elevation -Person Taught Patient -Teaching Method Discussion -Response to teaching Reinforcement needed WC - Visit Discharge Discharge Condition Stable Ambulatory Status Wheelchair Transportation Private Auto Medication Reconcilliation completed & No provided to patient/care provider Clinical Summary of Care Provided Yes Wound debrided: Left lower extremity cluster Type of Debridement: Excisional debridement Anesthesia Used: 4% Lidocaine Solution Depth: Down to and including healthy tissue, in the subcutaneous layer Percentage of wound debrided: 100 Instrument Used: 5mm curette Tissue Removed: Slough and devitalized tissue Severity: Fat Layer Exposed Amount of bleeding with debridement: Mild Bleeding Controlled with: Pressure Patient tolerated procedure well - Additional Wound Wound debrided: Left lower extremity ( Superior Morgan ) Type of Debridement: Excisional debridement Anesthesia Used: 4% Lidocaine Solution Depth: Down to and including healthy tissue, in the subcutaneous layer Percentage of wound debrided: 100 Instrument Used: 5mm curette Tissue Removed: Slough and devitalized tissue Severity: Fat Layer Exposed Amount of bleeding with debridement: Mild Bleeding Controlled with: Pressure Patient tolerated procedure: Patient tolerated procedure well - Additional Wound Wound debrided: Right lower extremity Type of Debridement: Excisional debridement Anesthesia Used: 4% Lidocaine Solution Depth: Down to and including healthy tissue, in the subcutaneous layer, to muscle Instrument Used: 5mm curette Tissue Removed: Slough and devitalized tissue Severity: Fat Layer Exposed Amount of bleeding with debridement: Mild Bleeding Controlled with: Pressure Patient tolerated procedure: Patient tolerated procedure well Assessment/Plan Active Problems Type 2 diabetes mellitus (Chronic) Ulcer of right lower extremity with fat layer exposed (Chronic) Ulcer of left lower extremity with fat layer exposed (Chronic) Assessment: Recurrent bilateral lower extremity ulcers. Chronic lymphedema. Type 2 diabetes mellitus. Plan: Debridement done as documented above, procedure was well-tolerated. Aquacel extra with Adaptic over top to all ulcers. 3M wrap for edema management. Follow-up next wednesday for nurse visit in 2 weeks with me due to the holiday. Leg elevation, optimal diabetes control and increased protein intake are recommended. Her questions were answered and she was advised to call with any further questions or concerns. Follow-up in 2 weeks with me. This note was generated with [employer] dictation software. It may contain incorrect words, spelling, and punctuation that were not noted in checking the note before signing. Multi Select Codes - Visit Charges Office Visit/Consults: 04340 OV L3 New - Integumentary Integumentary CPT Codes: 85291 [place] subq tissue 20 sq cm/< - Addendum Additional square centimeter debrided, please refer to clinical note.
[2020-02-20 12:15] VITALS: BP 181/75; PULSE 85; RESP 20; TEMP 36; BMI 44.2
== END 2020-02-26 23:59 ==
LOC: WC 11:45
PROVIDERS: PCP Family Medicine; Referring Provider Podiatrist; Visit Provider Podiatrist
DX: E11.622 Type 2 diabetes mellitus with other skin ulcer (principal); L97.812 Non-pressure chronic ulcer of other part of right lower leg with fat layer exposed; L97.822 Non-pressure chronic ulcer of other part of left lower leg with fat layer exposed; I89.0 Lymphedema, not elsewhere classified; E11.36 Type 2 diabetes mellitus with diabetic cataract; I10 Essential (primary) hypertension; J44.9 Chronic obstructive pulmonary disease, unspecified; F17.200 Nicotine dependence, unspecified, uncomplicated; Z79.82 Long term (current) use of aspirin; Z79.4 Long term (current) use of insulin; Z79.1 Long term (current) use of non-steroidal anti-inflammatories (NSAID)
CPT/HCPCS: 11042; 11045; 29581; 99213; G0463

== ENCOUNTER 2020-03-04 15:25 | Inpatient (IN) | payer MEDICARE, OTHER, SELFPAY ==
[2020-03-04] VITALS (11 sets, daily range): BP systolic 137–205; BP diastolic 86–112; PULSE 100–112; RESP 17–24; TEMP 36.6–37.1; O2SAT 85–96; BMI 42.9; BMI 49.0
--- NOTE | 2020-03-04 16:23 | EKG12_ITS ---
Test Reason : SOB Blood Pressure : / mmHG Vent. Rate : 104 BPM Atrial Rate : 104 BPM P-R Int : 152 ms QRS Dur : 086 ms QT Int : 320 ms P-R-T Axes : 059 154 049 degrees QTc Int : 420 ms Sinus tachycardia Right axis deviation Possible LPFB Poor R wave progression Anteroseptal DE, age undetermined, cannot be excluded Abnormal ECG Confirmed by WAI CRAWFORD, ANASTASIYA ([id number]), newspaper or periodical editor MOON DUMONT ([id number]) on 03/06/2020 12:59:48 PM Referred By: Confirmed By:ANASTASIYA CARRENO MD
--- NOTE | 2020-03-04 16:25 | ED.DCSUM_ITS ---
- ER Visit Summary Date of Service: 03/04/20 Chief Complaint: Shortness of breath History of Present Illness: The patient is a 65 F presenting with shortness of breath. Patient states this has been ongoing for the past week. She states it is worsened with exertion. She denies chest pain. Denies fever or chills. Denies known exposure to Covid. She has a dry cough. She is currently on her last day of a 5 day course of prednisone. She was tested for Covid in September was negative. Physical Examination: Vitals are stable. Patient is afebrile. Alert no acute distress. Pulse ox 90% on 6 L HEENT exam is unremarkable. Neck is supple. Lungs are wheezing, diminished bilaterally. Heart is regular rate and rhythm. Abdomen is soft obese nontender nondistended. Extremities are unremarkable. Skin is warm and dry. No focal neurologic deficit. Remainder of exam is unremarkable. Emergency Department Course and Treatment: Patient was given albuterol, Atrovent aerosols. EKG is sinus tachycardia rate of 104 with no acute ischemic changes. CBC shows white count 14.7. Chemistry shows glucose 314, BUN 20. Troponin is negative. Chest x-ray shows Worsening atelectasis or infiltrate in the right lung base. Probable atelectasis or infiltrate with effusion in the left lung base. D-dimer 0.62. CTA chest was obtained and shows Technically inadequate exam for confirming or excluding pulmonary emboli as indicated above. Improper bolus and timing. Cardiomegaly. Bilateral small pleural effusions. Probable subsegmental atelectasis in both lung bases. Covid negative Discussed with hospitalist and patient will be admitted. Disposition: Admission Impression: COPD exacerbation, hypoxia This note was generated with [employer] dictation software. It may contain incorrect words, spelling, and punctuation that were not noted in review of the chart prior to signing ED Disposition - Plan for ED Patient: Referrals: Bhavesh Victoria MD [Primary Care Provider] -
[2020-03-04] MEDS: Albuterol 2.5 MG/3 ML VIAL.NEB. INHALATION (16:37)
--- NOTE | 2020-03-04 16:38 | ED.RN ---
UPON PLACEMENT OF PATIENT IN ROOM. O2 SAT AT 78 ON 4 LITERS. PT MOVED INTO BED. O2 INCREASED TO 6. OS SAT UP TO 88. DR DELGADO AWARE
[2020-03-04] MEDS: Ipratropium/Albuterol Sulfate 3 ML AMPUL.NEB INHALATION ×2 (16:54→22:32)
--- NOTE | 2020-03-04 17:30 | RAD_ITS ---
STUDY: X-RAY CHEST REASON FOR EXAM: Female, 65 years old. increased shortness of breath x 3 days TECHNIQUE: Single AP portable view of the chest. COMPARISON: None. FINDINGS: Normal lung volumes. Atelectasis or infiltrate in the right lung base. Atelectasis or infiltrate in the left lung base is stable. Possible small left pleural effusion. There is moderate cardiac enlargement. Normal mediastinum and gerri. Normal visualized pulmonary arteries. Normal visualized aortic arch and descending thoracic aorta. Normal visualized thoracic spine. Normal visualized ribs, clavicles, and shoulders. There is no demonstrated abnormality of the visualized soft tissue structures of the upper abdomen. RAD/Chest 1 View (Portable) IMPRESSION: Worsening atelectasis or infiltrate in the right lung base. Probable atelectasis or infiltrate with effusion in the left lung base. Electronically Signed: Huan Mcdaniels MD at 17:50 EST , Service support ,
[2020-03-04 17:31] LABS: Absolute Lymphocyte Count 2.41 X10^3/uL (0.83-4.51); Absolute Neutrophil Count 10.4 X10^3/uL (2.0-7.7); Basophil# 0.09 X10^3/uL; Basophil% 0.6 % (0-1); Eosinophil# 0.18 X10^3/uL; Eosinophils% 1.2 % (0-5); Hematocrit 53.9 % (37-47); Hemoglobin 16.1 g/dL (12.0-15.0); Lymphocyte # 2.41 X10^3/ul (4.0); Lymphocyte % 16.4 % (19-41); Mean Corp Hgb Conc 29.9 g/dL (32-36); Mean Corpuscular Hgb 29.7 pg (27.0-32.0); Mean Corpuscular Volume 99.3 fL (81-99); Mean Platelet Vol. 10.5 fl (6.2-12.0); Monocyte% 10.2 % (0-10); NRBC Flagged by Analyzer 0 % (0-5); Neutrophil # 10.44 X10^3/uL (2.7-7.7); Neutrophil % 71.2 % (47-70); Platelet Count 193 K/mm3 (150-450); RBC Distribution Width CV 15.1 % (11.6-14.6); RBC Distribution Width SD 55.8 fl (35.1-43.9); Red Blood Count 5.43 M/mm3 (4.2-5.4); White Blood Count 14.7 K/mm3 (4.4-11.0)
--- NOTE | 2020-03-04 17:36 | CPS ---
x1 Duoneb and x1 albuterol was given and improved breath sounds getting rid of wheezing. 2 Albuterol not given due to improved breath sounds and patients overall state.
[2020-03-04 17:50] LABS: ALB/GLOB Ratio 0.9 RATIO (0.9-2.4); AST(SGOT) 13 U/L (15-37); Alanine Aminotransfer ALT/SGPT 17 U/L (13-56); Albumin, Serum 3.2 g/dL (3.2-5.0); Alkaline Phosphatase 91 U/L (45-117); Anion Gap 1 (5-15); BUN 20 mg/dL (7-18); BUN/Creat Ratio 24.4 RATIO (10-20); Calcium,Total 9.1 mg/dL (8.5-10.1); Chloride 97 mmol/L (98-107); Creatinine, Serum 0.82 mg/dL (0.55-1.02); EST Glomerular Filtration Rate 74 mL/min (>60); Est Glom Filt Rate - Afr Amer 89 mL/min (>60); Estimated Creatinine Clearance 57.49 ml/min; Globulin 3.5 g/dL (2.2-4.2); Glucose 314 mg/dL (74-106); Potassium 4.5 mmol/L (3.5-5.1); Protein, Total 6.7 g/dL (6.4-8.2); Sodium Level 139 mmol/L (136-145)
--- NOTE | 2020-03-04 18:18 | NURSING ---
DR CROUCH FOR DR DELGADO
[2020-03-04 18:43] LABS: D-Dimer Quantitative (DVT/PE) 0.62 FEU/ug/m (0.27-0.49)
--- NOTE | 2020-03-04 20:03 | HP.PCM_ITS ---
Problem List (1) Smoker Status: Chronic (2) Type 2 diabetes mellitus Status: Chronic Qualifiers: Diabetes mellitus long term acute care registered nurse insulin use: with long term acute care registered nurse use Diabetes mellitus complication status: with other specified complication Qualified Code(s): E11.69 - Type 2 diabetes mellitus with other specified complication; Z79.4 - extermination supervisor (current) use of insulin (3) Hypertension Status: Chronic Qualifiers: Hypertension type: essential hypertension Qualified Code(s): I10 - Essential (primary) hypertension (4) COPD (chronic obstructive pulmonary disease) Status: Chronic (5) Obstructive sleep apnea Status: Acute (6) Pulmonary hypertension Status: Chronic (7) Lymphedema Status: Suspected (8) COPD with acute exacerbation Status: Chronic (9) Acute on chronic diastolic CHF (congestive heart failure) Status: Acute History of Present Illness Date of Admission: 03/04/20 Chief Complaint: SOB- 1 week The patient is a 65 year old F with past medical history of COPD on 5 L of o xygen, chronic nicotine dependence, chronic diastolic CHF who comes in with progressive shortness of breath and weight gain. Patient denied any fever chills or known exposure to COVID-19. She continues to smoke, smokes more than 1 pack/day. She admits to cough, productive of whitish sputum. She admits to having gained weight with progressively worse lower extremity swelling. Vitals in the ED showed temperature 98.5 F, heart rate 108, blood pressure 205/91, respiratory 70, SPO2 96% on room air. BBC count was 14.7, hemoglobin 16.1, platelet count 193, D-dimer 0.62, sodium 139, potassium 4.5, chloride 97, bicarbonate 41, BUN 20, creatinine 0.82. Chest x-ray shows worsening atelectasis/infiltrate in both lung bases. CTA of the chest for PE was inconclusive for an acute PE, showed bilateral small pleural effusion with atelectasis in both lung bases. Past Medical History Past Medical History (Chronic Problems): Chronic Problems COPD with acute exacerbation (Chronic) Smoker (Chronic) Type 2 diabetes mellitus (Chronic) Hypertension (Chronic) COPD (chronic obstructive pulmonary disease) (Chronic) Pulmonary hypertension (Chronic) Ulcer of right lower extremity with fat layer exposed (Chronic) Ulcer of left lower extremity with fat layer exposed (Chronic) Allergies PAPER TAPE Allergy (Uncoded 03/04/20 15:26) Rash Home Medications: Ambulatory Orders Medication Instructions Recorded Lovastatin [Mevacor] 40 mg PO QHS 09/01/18 Metoprolol Tartrate [Lopressor 100 mg PO BID 09/01/18 (beta elisa)] Multivitamin with Minerals 1 each PO DAILY 09/01/18 [Multiple Vitamin] Pramipexole Di-HCl [Mirapex] 2 mg PO BID 09/01/18 Ramipril [Altace] 10 mg PO DAILY 09/01/18 Azithromycin [Zithromax Z-Clifton] 250 mg PO UD 03/04/20 Buprenorphine [Butrans 5 Mcg/Hr] 1 patch TP QWEEK 03/04/20 Dulaglutide [Trulicity] 0.75 mg SQ QWEEK 03/04/20 Gabapentin [Neurontin] 300 mg PO 4X/DAY 03/04/20 Metformin HCl 1,000 mg PO BID 03/04/20 Nicotine [Nicotine Patch] 1 patch TP DAILY 03/04/20 Oxycodone Myristate [Xtampza ER] 9 mg PO BID PRN PRN 03/04/20 Prednisone 40 mg PO DAILY 03/04/20 Surgical History: cataract, hysterectomy - vaginal, - - colonoscopy with polypectomy. Psychiatric History: No pertinent psych hx MANAGER COUNCIL History: No pertinent MANAGER COUNCIL history Lives: Alone Smoking Status: Current every day smoker Tobacco Use: Cigarettes Alcohol: None Drugs: None - *Family History Maternal History Items: Heart Disease Paternal History Items: Heart Disease Review of Systems Constitutional: Reports: Weakness, Fatigue. Denies: Anorexia, Chills, Fever, Weight Change Eyes: Denies: Blurred vision, Cataracts, Conjunctivae Inflammation, Pain, Redness HEENT: Denies: Head Aches, Hearing Changes, Sinus Congestion, Sinus Drainage Cardiovascular: Denies: Chest Pain, Claudication, Orthopnea, Palpitations, Paroxysmal Noc. Dyspnea Respiratory: Reports: Shortness of Breath, Shortness of breath upon exertion, Sputum production. Denies: Cough, Shortness of breath at rest Gastrointestinal: Denies: Abdominal Pain, Hematemesis, Hematochezia, Nausea, Vomiting Genitourinary: Denies: Dysuria, Incontinence Musculoskeletal: Denies: Joint Pain, Joint stiffness, Joint swelling, Joint Tenderness Skin: Denies: Rash, Wounds Neurological: Denies: Difficulty swallowing, Focal weakness, Numbness, Tingling Psychiatric: Denies: Anxiety, Depression, Homicidal Ideations, Suicidal Ideations Hematologic/ Lymphatic: Denies: Easy Bruising, Easy Bleeding VTE Information - Inpt Only VTE Present on Admission: No VTE Pharm Prophylaxis ordered?: Yes Patient Problems: Active and Suspected Problems Acute on chronic diastolic CHF (congestive heart failure) (Acute) Obstructive sleep apnea (Acute) Lymphedema (Suspected) - Physical Exam Vitals/I&O's: Vital Signs Temp Pulse Resp BP Pulse Ox 98 F 104 H 24 H 185/90 H 92 03/04/20 17:20 03/04/20 18:30 03/04/20 18:30 03/04/20 18:30 03/04/20 18:30 Oxygen Flow Rate (L/min) 4 Oxygen Delivery Method Nasal Cannula Weight: 113.398 kg Body Mass Index (BMI) 42.9 Finger Stick Blood Glucose 319 General: Alert, Oriented x3, Cooperative, No apparent distress - Diabetes, on 5 L of oxygen, - HEENT: Atraumatic, PERRLA, EOMI, Normocephalic Oral: Moist Mucosa Neck: Supple Lungs: Diminished, Wheezes Cardiovascular: Regular rate, Regular Rhythm, Normal S1, Normal S2 Abdomen: Bowel Sounds Present, Soft, Non Tender, Non-Distended, No Hepato- splenomegaly, Obese Extremities: Edema - bilateral pedal edema +3-4, on chronci lymphedema Skin: No rashes Musculoskeletal: No Tenderness to Palpation of Joints or Extremities Lymphatic: No Cervical, Supraclavicular, or Inguinal Adenopathy Neurological: Cranial nerves II-XII grossly intact, Neuro grossly intact Psych/Mental Status: Normal Affect, Appropriate Microbiology Past 72 Hours 03/04/20 17:00 Mucosa - Nose SARS-CoV-2 Antigen (Rapid) - Final Laboratory Results 03/04/20 17:10: WBC 14.7 H, RBC 5.43 H, Hgb 16.1 H, Hct 53.9 H, MCV 99.3 H, MCH 29.7, MCHC 29.9 L, RDW Std Deviation 55.8 H, RDW Coeff of Bautista 15.1 H, Plt Count 193, MPV 10.5, Immature Gran % (Auto) 0.400, Neut % (Auto) 71.2 H, Lymph % (Auto) 16.4 L, [place] % (Auto) 10.2 H, Eos % (Auto) 1.2, Baso % (Auto) 0.6, Absolute Neuts (auto) 10.4 H, Absolute Lymphs (auto) 2.41, Nucleated RBC % 0 03/04/20 17:10: Sodium 139, Potassium 4.5, Chloride 97 L, Carbon Dioxide 41.0 H, Anion Gap 1 L, BUN 20 H, Creatinine 0.82, Estim Creat Clear Calc 57.49, Est GFR (MDRD) Af Amer 89, Est GFR (MDRD) Non-Af 74, BUN/Creatinine Ratio 24.4 H, Glucose 314 H, Calcium 9.1, Total Bilirubin 0.50, AST 13 L, ALT 17, Alkaline Phosphatase 91, Troponin I < 0.015, Total Protein 6.7, Albumin 3.2, Globulin 3.5, Albumin/Globulin Ratio 0.9 03/04/20 17:10: D-Dimer Quant (PE/DVT) 0.62 H* Assessment/Plan All Active Problems Acute on chronic diastolic CHF (congestive heart failure) (Acute) Obstructive sleep apnea (Acute) Right heart failure (Acute) Cellulitis of right leg (Resolved) Cellulitis of left leg (Resolved) Blister of left leg (Acute) 1. Acute COPD exacerbation in a known COPD patient with chronic hypoxic respiratory failure, Patient is on 5 L of oxygen at home COVID-19 rapid antigen test negative, respiratory panel is pending Chest x-ray and CTA of the chest shows atelectasis We will continue with breathing treatment, IV steroids, encourage use of incentive spirometer IV azithromycin 100 mg daily Wean off oxygen for SPO2 more than 94% 2. Probable acute on chronic diastolic CHF, EF 55%, stage II diastolic dysfunction/pulmonary hypertension Patient appears fluid overloaded We will continue on Lasix 40 mg IV twice daily Trend labs, CHF protocol 3. Type II DM, on insulin, Metformin, Trulicity Would hold Metformin and Trulicity Continue home insulin with insulin sliding scale 4. Nicotine dependence, on replacement 5. Hypertension, uncontrolled, patient admits to not taking her medications today Continue on home ramipril, metoprolol Would add hydralazine as needed 6. Leukocytosis, likely reactive, admitting WBC count was 14.7 Chest x-ray showed possible atelectasis versus infiltrate CTA of the chest showed no infiltrates, atelectasis seen 7. Morbid obesity, BMI 42.9, lifestyle modification recommended 8. DVT prophylaxis with Lovenox subcu twice daily 9. CODE STATUS: DNR CCA, no intubation I discussed and explained in details the various types of CODE STATUS-full code, DNR CCA, DNR CC. She stated that she did not want to be intubated as she thinks she would not do well. She chose DNR-CCA, no intubation. Time spent discussing CODE STATUS 18 minutes Inpatient E&M: 10799 Subs Hosp L3 Procedures: 91272 Advncd Care Plan 30 Min
--- NOTE | 2020-03-04 20:09 | CT_ITS ---
STUDY: CTA CHEST REASON FOR EXAM: Female, 65 years old. INCREASE SOB X 2 DAYS. PT IS ON 5L OF O2 AT HOME. SMOKER, DB, HTN, COPD RADIATION DOSAGE (If Supplied By Facility): CTDIvol = ( 14.22 ) mGy, DLP = ( 557.39 ) mGycm TECHNIQUE: The examination was performed with the intravenous administration of IV 100mL Isovue-370. Post-processing of the angiographic images was performed, with multiplanar reformation and 3D reconstruction. Individualized dose optimization techniques were used for this CT. COMPARISON: None. FINDINGS: There is limited enhancement of the main pulmonary artery and right and left pulmonary arteries. There is limited enhancement of the bilateral peripheral pulmonary arteries. Specifically, most of the contrast is seen in the left brachiocephalic vein and SVC, and the aorta is enhanced as much as the pulmonary arteries. This indicates a much too broad contrast bolus with improper timing. Pulmonary emboli cannot be excluded beyond the main pulmonary arteries. Normal thoracic aorta and visualized great vessels. There is no demonstrated aortic dissection. Moderate to marked cardiomegaly. Coronary artery calcification. Small pericardial effusion. Mild to moderate mediastinal and hilar adenopathy. Normal visualized trachea and bronchi. The lungs are under expanded. Mild diffuse interstitial prominence suggestive of interstitial edema. Streaky pulmonary opacities seen in both lower lung blum especially left, most consistent with subsegmental atelectasis. Bilateral small pleural effusions. There are degenerative changes of thoracic spine. Normal visualized upper abdomen. CT/CTA Chest W/WO Contrast IMPRESSION: Technically inadequate exam for confirming or excluding pulmonary emboli as indicated above. Improper bolus and timing. Cardiomegaly. Bilateral small pleural effusions. Probable subsegmental atelectasis in both lung bases. Electronically Signed: Huan Mcdaniels MD at 20:33 EST , Service support ,
[2020-03-04 22:11] LABS: Bedside Glucose 314 mg/dL (70-110)
[2020-03-04] MEDS: oxyCODONE 5 MG Tablet PO (23:05)
[2020-03-04] MEDS: Enoxaparin 40 MG/0.4 ML Syringe SC (23:06)
[2020-03-04] MEDS: Insulin Lispro 100 UNIT/ML INSULN.PEN SC (23:06)
[2020-03-05] VITALS (22 sets, daily range): BP systolic 126–222; BP diastolic 66–100; PULSE 72–120; RESP 12–24; TEMP 36.7–38.1; O2SAT 87–95
[2020-03-05] MEDS: hydrALAZINE 20 MG/ML Vial IV (03:39)
[2020-03-05] MEDS: Acetaminophen 325 MG Tablet 650 MG PO (03:40)
[2020-03-05] MEDS: 0.9% Saline Lock 10 ML Syringe IV ×6 (03:41→21:54)
[2020-03-05] MEDS: Ipratropium/Albuterol Sulfate 3 ML AMPUL.NEB INHALATION ×4 (04:00→19:02)
[2020-03-05] MEDS: Insulin Lispro 100 UNIT/ML INSULN.PEN SC ×4 (06:32→21:55)
[2020-03-05] MEDS: oxyCODONE 5 MG Tablet PO (06:33)
[2020-03-05 06:46] LABS: Bedside Glucose 329 mg/dL (70-110)
[2020-03-05] MEDS: hydrALAZINE 20 MG/ML Vial 10 MG IV (07:00)
[2020-03-05 07:22] LABS: Absolute Neutrophil Count 15.8 X10^3/uL (2.0-7.7); Basophil# 0.07 X10^3/uL; Basophil% 0.4 % (0-1); Hematocrit 51.3 % (37-47); Hemoglobin 16.3 g/dL (12.0-15.0); Lymphocyte % 6.6 % (19-41); Mean Corp Hgb Conc 31.8 g/dL (32-36); Mean Corpuscular Hgb 31.1 pg (27.0-32.0); Mean Corpuscular Volume 97.9 fL (81-99); Mean Platelet Vol. 11.3 fl (6.2-12.0); Monocyte# 1.08 X10^3/uL; Monocyte% 5.9 % (0-10); NRBC Flagged by Analyzer 0 % (0-5); Neutrophil # 15.82 X10^3/uL (2.7-7.7); Neutrophil % 86.3 % (47-70); Platelet Count 185 K/mm3 (150-450); RBC Distribution Width CV 15.2 % (11.6-14.6); RBC Distribution Width SD 55.2 fl (35.1-43.9); Red Blood Count 5.24 M/mm3 (4.2-5.4); White Blood Count 18.3 K/mm3 (4.4-11.0)
[2020-03-05 07:56] LABS: ALB/GLOB Ratio 0.9 RATIO (0.9-2.4); AST(SGOT) 11 U/L (15-37); Alanine Aminotransfer ALT/SGPT 15 U/L (13-56); Albumin, Serum 3.1 g/dL (3.2-5.0); Alkaline Phosphatase 94 U/L (45-117); Anion Gap 2 (5-15); BUN 17 mg/dL (7-18); BUN/Creat Ratio 23.3 RATIO (10-20); Calcium,Total 9.2 mg/dL (8.5-10.1); Chloride 95 mmol/L (98-107); Creatinine, Serum 0.73 mg/dL (0.55-1.02); EST Glomerular Filtration Rate 84 mL/min (>60); Est Glom Filt Rate - Afr Amer 102 mL/min (>60); Estimated Creatinine Clearance 47.14 ml/min; Globulin 3.5 g/dL (2.2-4.2); Glucose 333 mg/dL (74-106); Potassium 4.3 mmol/L (3.5-5.1); Protein, Total 6.6 g/dL (6.4-8.2); Sodium Level 136 mmol/L (136-145)
[2020-03-05] MEDS: Enoxaparin 40 MG/0.4 ML Syringe SC ×2 (08:33→21:55)
[2020-03-05] MEDS: Gabapentin 300 MG Capsule PO (08:33)
[2020-03-05] MEDS: Furosemide 40 MG/4 ML Vial IV ×2 (08:33→16:57)
[2020-03-05] MEDS: Metoprolol Tartrate 100 MG Tablet PO ×2 (08:33→21:54)
[2020-03-05] MEDS: Ramipril 10 MG Capsule PO (08:51)
[2020-03-05] MEDS: Pramipexole Di-HCl 1 MG Tablet 2 MG PO ×2 (08:51→21:54)
[2020-03-05 11:20] LABS: Bedside Glucose 406 mg/dL (70-110)
--- NOTE | 2020-03-05 14:44 | PN_ITS ---
Patient Problems: Active and Suspected Problems Acute on chronic diastolic CHF (congestive heart failure) (Acute) Obstructive sleep apnea (Acute) Lymphedema (Suspected) Reason for Visit: CHF Subjective: Breathing well. Vitals/I&O's: Vital Signs Temp Pulse Resp BP Pulse Ox 36.8 C 72 18 128/66 H 90 03/05/20 12:30 03/05/20 12:30 03/05/20 12:30 03/05/20 12:30 03/05/20 12:30 Oxygen Flow Rate (L/min) 6 Oxygen Delivery Method Nasal Cannula Weight: 128 kg Body Mass Index (BMI) 49.0 Finger Stick Blood Glucose 319 Intake and Output for Last 24 Hours 03/03/20 03/04/20 03/05/20 23:59 23:59 23:59 Intake Total 625 / 625 Output Total 700 / 700 Balance -75 / -75 General: Alert, No apparent distress HEENT: Atraumatic, Normocephalic Oral: Moist Mucosa, No Gingival or Mucosal Lesions/ Ulcerations Neck: No Nodes, Thyroid Normal Size and Texture Lungs: Clear to auscultation, Normal air movement, No rhonchi, No wheeze Cardiovascular: Regular rate, Regular Rhythm, Normal S1, Normal S2, No murmurs Abdomen: Bowel Sounds Present, Soft, Non Tender, Non-Distended, No Hepato- splenomegaly Extremities: No Calf Tenderness, Edema Skin: No rashes, No breakdown Psych/Mental Status: Normal Affect, Appropriate Microbiology Past 72 Hours 03/04/20 19:00 Mucosa - Nose Respiratory Panel (PCR) - Final 03/04/20 17:00 Mucosa - Nose SARS-CoV-2 Antigen (Rapid) - Final Laboratory Results 03/04/20 17:10: WBC 14.7 H, RBC 5.43 H, Hgb 16.1 H, Hct 53.9 H, MCV 99.3 H, MCH 29.7, MCHC 29.9 L, RDW Std Deviation 55.8 H, RDW Coeff of Bautista 15.1 H, Plt Count 193, MPV 10.5, Immature Gran % (Auto) 0.400, Neut % (Auto) 71.2 H, Lymph % (Auto) 16.4 L, [place] % (Auto) 10.2 H, Eos % (Auto) 1.2, Baso % (Auto) 0.6, Absolute Neuts (auto) 10.4 H, Absolute Lymphs (auto) 2.41, Nucleated RBC % 0 03/04/20 17:10: Sodium 139, Potassium 4.5, Chloride 97 L, Carbon Dioxide 41.0 H, Anion Gap 1 L, BUN 20 H, Creatinine 0.82, Estim Creat Clear Calc 57.49, Est GFR (MDRD) Af Amer 89, Est GFR (MDRD) Non-Af 74, BUN/Creatinine Ratio 24.4 H, Glucose 314 H, Calcium 9.1, Total Bilirubin 0.50, AST 13 L, ALT 17, Alkaline Phosphatase 91, Troponin I < 0.015, Total Protein 6.7, Albumin 3.2, Globulin 3.5, Albumin/Globulin Ratio 0.9 03/04/20 17:10: D-Dimer Quant (PE/DVT) 0.62 H* 03/04/20 17:10: B-Natriuretic Peptide 164.0 H 03/04/20 21:45: POC Glucose 314 H 03/05/20 05:40: WBC 18.3 H, RBC 5.24, Hgb 16.3 H, Hct 51.3 H, MCV 97.9, MCH 31.1, MCHC 31.8 L D, RDW Std Deviation 55.2 H, RDW Coeff of Bautista 15.2 H, Plt Count 185, MPV 11.3, Immature Gran % (Auto) 0.800, Neut % (Auto) 86.3 H, Lymph % (Auto) 6.6 L, [place] % (Auto) 5.9, Eos % (Auto) 0.0, Baso % (Auto) 0.4, Absolute Neuts (auto) 15.8 H, Absolute Lymphs (auto) 1.20, Nucleated RBC % 0 03/05/20 05:40: Sodium 136, Potassium 4.3, Chloride 95 L, Carbon Dioxide 39.0 H, Anion Gap 2 L, BUN 17, Creatinine 0.73, Estim Creat Clear Calc 47.14, Est GFR (MDRD) Af Amer 102, Est GFR (MDRD) Non-Af 84, BUN/Creatinine Ratio 23.3 H, Glucose 333 H, Calcium 9.2, Total Bilirubin 0.70, AST 11 L, ALT 15, Alkaline Phosphatase 94, Total Protein 6.6, Albumin 3.1 L, Globulin 3.5, Albumin/Globulin Ratio 0.9 03/05/20 06:30: POC Glucose 329 H 03/05/20 11:15: POC Glucose 406 H Current Medications Acetaminophen (Acetaminophen 325 Mg Tablet) 650 mg PO Q6H PRN PRN PRN Reason: Pain Score 1-10/Temp > 100.7 F Last Admin: 03/05/20 03:40 Dose: 650 mg Documented by: Albuterol/Ipratropium (Ipratropium/Albuterol Sulfate 3 Ml Ampul.Neb) 3 ml INHALATION Q4HWA.RT [facility] Last Admin: 03/05/20 06:44 Dose: 3 ml Documented by: Dextrose (Dextrose 50%-Water 25 Gm/50 Ml Disp.Syrin) 0 gm IV X1 PRN; Protocol PRN Reason: Hypoglycemia Enoxaparin Sodium (Enoxaparin 40 Mg/0.4 Ml Syringe) 40 mg SC BID [facility] Last Admin: 03/05/20 08:33 Dose: 40 mg Documented by: Furosemide (Furosemide 40 Mg/4 Ml Vial) 40 mg IV BID@1000,1800 [facility] Last Admin: 03/05/20 08:33 Dose: 40 mg Documented by: Gabapentin (Gabapentin 300 Mg Capsule) 300 mg PO 4X/DAYCM [facility] Last Admin: 03/05/20 13:10 Dose: Not Given Documented by: Glucagon (Glucagon 1 Mg/Ml Syringe) 1 mg IM .X1 PRN PRN Reason: Hypoglycemia Hydralazine HCl (Hydralazine 20 Mg/Ml Vial) 10 mg IV Q4H PRN PRN PRN Reason: BLOOD PRESSURE Last Admin: 03/05/20 07:00 Dose: 10 mg Documented by: Azithromycin 500 mg/ Dextrose 255 mls @ 250 mls/hr IV Q24 [facility] Last Infusion: 03/05/20 10:15 Dose: Infused Documented by: Insulin Human Lispro (Insulin Lispro 100 Unit/Ml Insuln.Pen) 0 unit SC ACHS [facility]; Protocol Last Admin: 03/05/20 11:17 Dose: 4 units Documented by: Methylprednisolone (Methylprednisolone 40 Mg/Ml Vial) 40 mg IV Q8 [facility] Last Admin: 03/05/20 14:10 Dose: 40 mg Documented by: Metoprolol Tartrate (Metoprolol Tartrate 100 Mg Tablet) 100 mg PO BID [facility] Last Admin: 03/05/20 08:33 Dose: 100 mg Documented by: Nicotine Polacrilex (Nicotine Polacrilex 4 Mg Gum) 4 mg PO Q2H PRN PRN PRN Reason: Nicotine Craving Oxycodone HCl (Oxycodone 5 Mg Tablet) 5 mg PO TID PRN PRN PRN Reason: Pain >5/10 Last Admin: 03/05/20 06:33 Dose: 5 mg Documented by: Pramipexole Dihydrochloride (Pramipexole Di-Hcl 1 Mg Tablet) 2 mg PO BID [facility] Last Admin: 03/05/20 08:51 Dose: 2 mg Documented by: Psyllium Hydrophilic Mucilloid (Psyllium 1 Packet) 1 packet PO DAILY PRN PRN PRN Reason: Constipation Ramipril (Ramipril 10 Mg Capsule) 10 mg PO DAILY [facility] Last Admin: 03/05/20 08:51 Dose: 10 mg Documented by: Sodium Chloride (0.9% Saline Lock 10 Ml Syringe) 10 - 40 ml IV UD PRN PRN Reason: SALINE FLUSH Last Admin: 03/05/20 14:10 Dose: 10 ml Documented by: STROKE Vital Signs/Narrative: Vital Signs Temp Pulse Resp BP Pulse Ox 03/05/20 12:30 36.8 C 72 18 128/66 H 90 Medical Necessity - Tobacco Use Smoking Status: Current every day smoker Tobacco Use: Cigarettes Assessment/Plan All Active Problems Acute on chronic diastolic CHF (congestive heart failure) (Acute) Obstructive sleep apnea (Acute) Right heart failure (Acute) Cellulitis of right leg (Resolved) Cellulitis of left leg (Resolved) Blister of left leg (Acute) 1. Acute HFpEF * EF 65% from 09/29/2019 * complicated by moderate pulm HTN * continue furosemide 2. Pleural effusion * suspect transudative * no thoracentesis at this time * follow CXR in 4-6 weeks as outtp. 3. COPD * I don't feel she is in exacerbation * DC steroids and monitor 4. DM2 * uncontrolled * exacerbated by steroids * on SSI * metformin held given contrast 5. pulm HTn * likely group 2 or 3 * has known JACK, but, according to patient, has need a new CPAP for past year * complicates overall tmt of CHF 6. VTE prophylaxis: LMWH Inpatient E&M: 55643 Subs Hosp L2
--- NOTE | 2020-03-05 16:09 | CASEMGMT ---
RN CM NOTE: Attempted to meet with pt for initial RN CM assessment. Pt sitting up in recliner chair, groggy/drowsy. Pt arousable and able to answer a few questions appropriately but then made some confused statements when responding to other questions. Falls back to sleep quickly. RN, Evie, and charge account authorizer, Emmett, made aware of above. Unable to complete assessment at this time. Diana CONTRERASN RN CM
[2020-03-05 16:21] LABS: Bedside Glucose 369 mg/dL (70-110)
--- NOTE | 2020-03-05 17:39 | CPS ---
Dr. Connors and RN was notified of critical gas.
--- NOTE | 2020-03-05 18:29 | NURSING ---
Patient refusing to wear bipap. Educated patient on importance of bipap therapy to reduce her Co2 levels. Patient verbalized understanding and still refuses to wear it.
[2020-03-05 22:31] LABS: Bedside Glucose 371 mg/dL (70-110)
--- NOTE | 2020-03-05 23:17 | CPS ---
Pt refusing PAP therapy at this time. Pt made aware of danger of refusing therapy by RN and ELECTRIC BATH ATTENDANT. Pt states to understand fully. Physician notified of situation.
[2020-03-06] VITALS (16 sets, daily range): BP systolic 138–155; BP diastolic 59–76; PULSE 69–88; RESP 16–22; TEMP 36.8–37.2; O2SAT 86–96
[2020-03-06] MEDS: Acetaminophen 325 MG Tablet 650 MG PO (03:40)
[2020-03-06] MEDS: 0.9% Saline Lock 10 ML Syringe IV ×4 (06:22→15:10)
[2020-03-06] MEDS: Insulin Lispro 100 UNIT/ML INSULN.PEN SC ×4 (06:31→21:04)
[2020-03-06 06:45] LABS: Bedside Glucose 444 mg/dL (70-110)
[2020-03-06] MEDS: Ipratropium/Albuterol Sulfate 3 ML AMPUL.NEB INHALATION ×3 (07:15→18:58)
--- NOTE | 2020-03-06 07:32 | CPS ---
PT DECREASED TO 4 LPM....92%. PT'S NURSE AWARE OF CHANGE
[2020-03-06 09:01] LABS: Absolute Lymphocyte Count 1.15 X10^3/uL (0.83-4.51); Basophil# 0.11 X10^3/uL; Basophil% 0.6 % (0-1); Eosinophil# 0.01 X10^3/uL; Eosinophils% 0.1 % (0-5); Hematocrit 52.4 % (37-47); Hemoglobin 16.2 g/dL (12.0-15.0); Lymphocyte # 1.15 X10^3/ul (4.0); Lymphocyte % 6.2 % (19-41); Mean Corp Hgb Conc 30.9 g/dL (32-36); Mean Corpuscular Hgb 30.6 pg (27.0-32.0); Mean Corpuscular Volume 99.1 fL (81-99); Monocyte# 1.18 X10^3/uL; Monocyte% 6.4 % (0-10); NRBC Flagged by Analyzer 0 % (0-5); Neutrophil # 15.96 X10^3/uL (2.7-7.7); Neutrophil % 85.9 % (47-70); Platelet Count 184 K/mm3 (150-450); RBC Distribution Width CV 15.1 % (11.6-14.6); Red Blood Count 5.29 M/mm3 (4.2-5.4); White Blood Count 18.6 K/mm3 (4.4-11.0)
[2020-03-06 09:18] LABS: Anion Gap 6 (5-15); BUN 17 mg/dL (7-18); BUN/Creat Ratio 21.8 RATIO (10-20); Calcium,Total 9.5 mg/dL (8.5-10.1); Chloride 94 mmol/L (98-107); Creatinine, Serum 0.78 mg/dL (0.55-1.02); EST Glomerular Filtration Rate 78 mL/min (>60); Est Glom Filt Rate - Afr Amer 95 mL/min (>60); Estimated Creatinine Clearance 47.14 ml/min; Glucose 332 mg/dL (74-106); Potassium 4.8 mmol/L (3.5-5.1); Sodium Level 135 mmol/L (136-145)
[2020-03-06] MEDS: Ramipril 10 MG Capsule PO (10:18)
[2020-03-06] MEDS: Pramipexole Di-HCl 1 MG Tablet 2 MG PO ×2 (10:18→21:05)
[2020-03-06] MEDS: Metoprolol Tartrate 100 MG Tablet PO ×2 (10:18→21:05)
[2020-03-06] MEDS: Enoxaparin 40 MG/0.4 ML Syringe SC ×2 (10:19→21:05)
[2020-03-06] MEDS: Furosemide 40 MG/4 ML Vial IV ×3 (10:21→21:05)
[2020-03-06 11:41] LABS: Bedside Glucose 402 mg/dL (70-110)
[2020-03-06 11:55] LABS: Allen Test POS; Blood Gas Specimen Type ART; O2 Delivery Device Nasal Can; SITE L RADIAL; Time Given 1645; pH 7.25 (7.35-7.45)
[2020-03-06 11:56] LABS: pCO2 110.1 mmHg (35-45)
[2020-03-06 12:28] LABS: Base Excess 21 mmol/L (-2 to +2); PO2 60 mmHG (75-100); SO2 83 % (95-99); Total Carbon Dioxide > 50 mmol/L
--- NOTE | 2020-03-06 14:41 | PCM.PN.HOSP ---
Patient Problems: Active and Suspected Problems Acute on chronic diastolic CHF (congestive heart failure) (Acute) Obstructive sleep apnea (Acute) Lymphedema (Suspected) Reason for Visit: CHF Subjective: Somnolent yesterday, though patient refutes this. pCO2 110. BiPAP attempted, but pt declined. Today, patient is anxious to go home. Vitals/I&O's: Vital Signs Temp Pulse Resp BP Pulse Ox 37.2 C 78 20 H 155/67 H 87 03/06/20 10:05 03/06/20 11:26 03/06/20 11:26 03/06/20 10:18 03/06/20 10:05 Oxygen Flow Rate (L/min) 4 Oxygen Delivery Method Nasal Cannula Weight: 128 kg Body Mass Index (BMI) 49.0 Finger Stick Blood Glucose 319 Intake and Output for Last 24 Hours 03/04/20 03/05/20 03/06/20 23:59 23:59 23:59 Intake Total 985 / 985 240 / 240 Output Total 2400 / 2400 1000 / 1000 Balance -1415 / -1415 -760 / -760 General: Alert, No apparent distress HEENT: Atraumatic, Normocephalic Oral: Moist Mucosa, No Gingival or Mucosal Lesions/ Ulcerations Neck: No Nodes, Thyroid Normal Size and Texture Lungs: - - bilateral crackles. Psych/Mental Status: Normal Affect, Appropriate Microbiology Past 72 Hours 03/04/20 19:00 Mucosa - Nose Respiratory Panel (PCR) - Final 03/04/20 17:00 Mucosa - Nose SARS-CoV-2 Antigen (Rapid) - Final Laboratory Results 03/05/20 16:09: POC Glucose 369 H 03/05/20 16:45: Specimen Type ART, Sample Site L RADIAL, pH 7.25 L, Bicarbonate Actual 48.0 H, Total CO2 > 50, Base Excess 21 H, O2 Saturation 83 L, ABG pCO2 110.1 H*, ABG pO2 60 L, Michele Test POS, O2 Delivery Device Nasal Can, Liter Flow 6.0, Blood Gas Notified Whom HOSP , Blood Gas Notified Time 5848 03/05/20 21:53: POC Glucose 371 H 03/06/20 06:30: POC Glucose 444 H 03/06/20 08:40: WBC 18.6 H, RBC 5.29, Hgb 16.2 H, Hct 52.4 H, MCV 99.1 H, MCH 30.6, MCHC 30.9 L, RDW Std Deviation 55.0 H, RDW Coeff of Bautista 15.1 H, Plt Count 184, MPV 12.0, Immature Gran % (Auto) 0.800, Neut % (Auto) 85.9 H, Lymph % (Auto) 6.2 L, Adams % (Auto) 6.4, Eos % (Auto) 0.1, Baso % (Auto) 0.6, Absolute Neuts (auto) 16.0 H, Absolute Lymphs (auto) 1.15, Nucleated RBC % 0 03/06/20 08:40: Sodium 135 L, Potassium 4.8, Chloride 94 L, Carbon Dioxide 35.0 H, Anion Gap 6, BUN 17, Creatinine 0.78, Estim Creat Clear Calc 47.14, Est GFR (MDRD) Af Amer 95, Est GFR (MDRD) Non-Af 78, BUN/Creatinine Ratio 21.8 H, Glucose 332 H, Calcium 9.5 03/06/20 11:32: POC Glucose 402 H Current Medications Acetaminophen (Acetaminophen 325 Mg Tablet) 650 mg PO Q6H PRN PRN PRN Reason: Pain Score 1-10/Temp > 100.7 F Last Admin: 03/06/20 03:40 Dose: 650 mg Documented by: Albuterol/Ipratropium (Ipratropium/Albuterol Sulfate 3 Ml Ampul.Neb) 3 ml INHALATION Q4HWA.RT [facility] Last Admin: 03/06/20 11:07 Dose: 3 ml Documented by: Dextrose (Dextrose 50%-Water 25 Gm/50 Ml Disp.Syrin) 0 gm IV X1 PRN; Protocol PRN Reason: Hypoglycemia Enoxaparin Sodium (Enoxaparin 40 Mg/0.4 Ml Syringe) 40 mg SC BID [facility] Last Admin: 03/06/20 10:19 Dose: 40 mg Documented by: Furosemide (Furosemide 40 Mg/4 Ml Vial) 40 mg IV BID@1000,1800 [facility] Last Admin: 03/06/20 10:21 Dose: 40 mg Documented by: Glucagon (Glucagon 1 Mg/Ml Syringe) 1 mg IM .X1 PRN PRN Reason: Hypoglycemia Hydralazine HCl (Hydralazine 20 Mg/Ml Vial) 10 mg IV Q4H PRN PRN PRN Reason: BLOOD PRESSURE Last Admin: 03/05/20 07:00 Dose: 10 mg Documented by: Insulin Human Lispro (Insulin Lispro 100 Unit/Ml Insuln.Pen) 0 unit SC [facility]; Protocol Last Admin: 03/06/20 11:33 Dose: 4 units Documented by: Methylprednisolone (Methylprednisolone 40 Mg/Ml Vial) 40 mg IV Q8 [facility] Last Admin: 03/06/20 06:22 Dose: 40 mg Documented by: Metoprolol Tartrate (Metoprolol Tartrate 100 Mg Tablet) 100 mg PO BID [facility] Last Admin: 03/06/20 10:18 Dose: 100 mg Documented by: Nicotine Polacrilex (Nicotine Polacrilex 4 Mg Gum) 4 mg PO Q2H PRN PRN PRN Reason: Nicotine Craving Nystatin (Nystatin Ointment) 1 applic TOPICAL BID [facility]; Protocol Last Admin: 03/06/20 11:35 Dose: Not Given Documented by: Pramipexole Dihydrochloride (Pramipexole Di-Hcl 1 Mg Tablet) 2 mg PO BID [facility] Last Admin: 03/06/20 10:18 Dose: 2 mg Documented by: Psyllium Hydrophilic Mucilloid (Psyllium 1 Packet) 1 packet PO DAILY PRN PRN PRN Reason: Constipation Ramipril (Ramipril 10 Mg Capsule) 10 mg PO DAILY [facility] Last Admin: 03/06/20 10:18 Dose: 10 mg Documented by: Sodium Chloride (0.9% Saline Lock 10 Ml Syringe) 10 - 40 ml IV UD PRN PRN Reason: SALINE FLUSH Last Admin: 03/06/20 10:21 Dose: 10 ml Documented by: STROKE Vital Signs/Narrative: Vital Signs Pulse Resp 03/06/20 11:26 78 20 H 03/06/20 11:00 72 Medical Necessity - Tobacco Use Smoking Status: Current every day smoker Tobacco Use: Cigarettes Assessment/Plan All Active Problems Acute on chronic diastolic CHF (congestive heart failure) (Acute) Obstructive sleep apnea (Acute) Right heart failure (Acute) Cellulitis of right leg (Resolved) Cellulitis of left leg (Resolved) Blister of left leg (Acute) 1. Acute HFpEF EF 65% from 09/29/2019 complicated by moderate pulm HTN continue furosemide 2. Pleural effusion suspect transudative no thoracentesis at this time follow CXR in 4-6 weeks as outtp. 3. COPD likely not in exacerbation change methylpred to prednisone 4. DM2 uncontrolled exacerbated by steroids on SSI metformin held given contrast start basal insulin a1c 10.3 on 09/29/2019 5. pulm HTn likely group 2 or 3 has known JACK, but, according to patient, has need a new CPAP for past year complicates overall tmt of CHF 6. acute hypoxic and hypercapnic respiratory failure 2/2 CHF, pleural effuion, pulm HTN, untreated JACK chronically elevated pCO2 does not tolerate BiPAP rapid COVID negative. 7. VTE prophylaxis: LMWH Inpatient E&M: 95597 Subs Hosp L2
--- NOTE | 2020-03-06 15:47 | CASEMGMT ---
Face to Face with patient for initial transition planning/care coordination assessment. RN DANGELO introduced self and role at [facility], voices understanding. Care providers, pharmacy, and demographics verified. Pt alert and oriented x3 but answers were noted to be inconsistent. When asked the patient who would be the best alternate contact, pt states Sr Néstor. her . Noted the patient's is . Phone call placed to pt's son Jr Néstor for further clarifications. PCP: Esme Specialists: Sonal (pulmonology), Christy (pain) Preferred Pharmacy: [facility] Insurance: MCR A/B, [employer] Prescription Benefit: Yes Living Will/HPOA: No. Pt was not interested in completing these at this time. LNOK: Son Jr Néstor. Living Arrangements: Lives with son. Son states he works casino shift manager but is in the home during the day and available to assist his mother as needed. States she has been independent with ADLs including bathing, dressing, and meal prep. Pt's son states their home is a multilevel home with 7 steps to the floor where the living room, pt's bedroom and pt's bathroom are located. Both report pt has difficulty with these steps due to back pain and increased SOB. Transportation: Pt's son Néstor drives pt as needed but states pt does not routinely leave the home although they visit her sister once a week. He occasionally lets her drive but not routinely. DME: shower chair, raised toilet seat, grab bars, hand held shower, walker, rollator, w/c, medical alert. O2 from [facility]. Pt reports 3L/min. Pt's son states they had increased this to 4l/min recently. Pt's CPAP was noted previously to not be working. Pt has not followed up to obtain a new one. Pt also has a nebulizer machine which both the pt and the son state is not very good. Pt's son states that it does not pump a lot out. Pt also has glucometer and checks her sugars. Pt states she does this 2-3 times a week and then states 2-3 times a day. Pt's son states she checks her glucose when she remembers. Pt states she has a scale and that she weighs herself daily. SNF/HH: Pt denies any previous SNF or HHC. Pt would be agreeable to HHC if needed. Pt's son also agreeable but states his mom is be primary decision maker. Plan: Home with HHC pending ability to ambulate up steps. Pt's son is obtaining additional O2 tanks and will bring in upon discharge. Yuval Mckay RN CM
--- NOTE | 2020-03-06 16:00 | CASEMGMT ---
JOHNNY PIERSON NOTE: Call placed to [facility] and spoke w/Theresa. She states their current order for O2 is @ 3 L/M continuous. PT/OT leigh reviewed--additional therapy recommended. JOHNNY PIERSON to pt's room. Pt declines SNF, stating she wants to go home and will not go to a SNF. Pt is now stating she is not sure if she wants HHC, stating I do not want to make that decision right now. I will think about it. JOHNNY PIERSON to follow. Diana CONTRERASN JOHNNY PIERSON
[2020-03-06 18:05] LABS: Bedside Glucose 459 mg/dL (70-110)
--- NOTE | 2020-03-06 20:17 | CPS ---
pt does not want to wear bipap
[2020-03-06] MEDS: Nystatin Ointment 1 APPLIC TOPICAL (21:06)
[2020-03-06 21:20] LABS: Bedside Glucose 444 mg/dL (70-110)
--- NOTE | 2020-03-06 21:47 | CPS ---
tried to put pt on bipap -got mask on face and pt states can't breath-pt placed back on 6 l/m via nc-nurse aware
[2020-03-07] VITALS (14 sets, daily range): BP systolic 152–154; BP diastolic 59–64; PULSE 60–77; RESP 16–24; TEMP 36.2–37.1; O2SAT 87–96
--- NOTE | 2020-03-07 01:25 | PCS.PANDOC ---
PANDEMIC DOCUMENTATION INITIATED: Date: 03/04 Time: 2199
[2020-03-07 05:06] LABS: Bedside Glucose 270 mg/dL (70-110)
[2020-03-07 05:49] LABS: Absolute Lymphocyte Count 1.32 X10^3/uL (0.83-4.51); Absolute Neutrophil Count 10.9 X10^3/uL (2.0-7.7); Basophil# 0.02 X10^3/uL; Basophil% 0.2 % (0-1); Eosinophil# 0.01 X10^3/uL; Eosinophils% 0.1 % (0-5); Hematocrit 51.4 % (37-47); Hemoglobin 15.4 g/dL (12.0-15.0); Lymphocyte # 1.32 X10^3/ul (4.0); Lymphocyte % 10.1 % (19-41); Mean Corpuscular Hgb 29.4 pg (27.0-32.0); Mean Corpuscular Volume 98.1 fL (81-99); Mean Platelet Vol. 10.7 fl (6.2-12.0); Monocyte% 5.4 % (0-10); NRBC Flagged by Analyzer 0 % (0-5); Neutrophil # 10.91 X10^3/uL (2.7-7.7); Neutrophil % 83.7 % (47-70); Platelet Count 209 K/mm3 (150-450); RBC Distribution Width CV 14.7 % (11.6-14.6); RBC Distribution Width SD 53.1 fl (35.1-43.9); Red Blood Count 5.24 M/mm3 (4.2-5.4)
[2020-03-07 06:07] LABS: Anion Gap 2 (5-15); BUN 32 mg/dL (7-18); BUN/Creat Ratio 37.9 RATIO (10-20); Calcium,Total 9.1 mg/dL (8.5-10.1); Chloride 89 mmol/L (98-107); Creatinine, Serum 0.84 mg/dL (0.55-1.02); EST Glomerular Filtration Rate 72 mL/min (>60); Est Glom Filt Rate - Afr Amer 87 mL/min (>60); Estimated Creatinine Clearance 56.12 ml/min; Glucose 286 mg/dL (74-106); Potassium 3.8 mmol/L (3.5-5.1); Sodium Level 135 mmol/L (136-145)
[2020-03-07] MEDS: Ipratropium/Albuterol Sulfate 3 ML AMPUL.NEB INHALATION ×4 (06:51→20:19)
[2020-03-07] MEDS: Furosemide 40 MG/4 ML Vial IV ×3 (06:58→21:30)
[2020-03-07] MEDS: Insulin Lispro 100 UNIT/ML INSULN.PEN SC ×4 (06:58→21:29)
[2020-03-07] MEDS: 0.9% Saline Lock 10 ML Syringe IV ×3 (06:58→21:33)
[2020-03-07 07:11] LABS: Bedside Glucose 281 mg/dL (70-110)
[2020-03-07] MEDS: Metoprolol Tartrate 100 MG Tablet PO ×2 (09:40→21:31)
[2020-03-07] MEDS: Pramipexole Di-HCl 1 MG Tablet 2 MG PO ×2 (09:40→21:30)
[2020-03-07] MEDS: predniSONE 20 MG Tablet 40 MG PO (09:40)
[2020-03-07] MEDS: Ramipril 10 MG Capsule PO (09:40)
[2020-03-07] MEDS: Enoxaparin 40 MG/0.4 ML Syringe SC ×2 (09:40→21:30)
[2020-03-07] MEDS: Acetaminophen 325 MG Tablet 650 MG PO (09:41)
[2020-03-07] MEDS: Nystatin Ointment 1 APPLIC TOPICAL ×2 (09:42→21:31)
[2020-03-07 11:31] LABS: Bedside Glucose 311 mg/dL (70-110)
--- NOTE | 2020-03-07 12:22 | PCM.PN.HOSP ---
<Imer Healy PA - Last Filed: 03/07/20 12:32> Patient Problems: Active and Suspected Problems Acute on chronic diastolic CHF (congestive heart failure) (Acute) Obstructive sleep apnea (Acute) Lymphedema (Suspected) Reason for Visit: SOB Subjective: Pt sleeping in chair with chin to chest and feet down. On waking she says her breathing is much better and her legs are less swollen. Her breathing however is not significantly better as she is 92% on 5lpm and her legs are markedly edematous. She states she does not have edema. She has said multiple times that she would try bipap but when she does she removes it quickly due to feeling that it takes my air away. She denies fever/ chills. She states she has had copious amounts of mucus coming up when she coughs. Vitals/I&O's: Vital Signs Temp Pulse Resp BP Pulse Ox 98.5 F 71 18 152/59 H 92 03/07/20 09:00 03/07/20 09:40 03/07/20 09:00 03/07/20 09:00 03/07/20 09:00 Oxygen Flow Rate (L/min) 5 Oxygen Delivery Method Nasal Cannula Weight: 273 lb 5.971 oz Body Mass Index (BMI) 49.0 Finger Stick Blood Glucose 319 Intake and Output for Last 24 Hours 03/05/20 03/06/20 03/07/20 23:59 23:59 23:59 Intake Total 985 / 985 480 / 720 660 / 660 Output Total 2400 / 2400 2150 / 4100 3900 / 3900 Balance -1415 / -1415 -1670 / -3380 -3240 / -3240 General: Alert, Oriented x3, Cooperative HEENT: Atraumatic, PERRLA, EOMI, Normocephalic Neck: Supple, No JVD, Negative Carotid Bruits Lungs: Diminished Cardiovascular: Regular rate, No murmurs Abdomen: Bowel Sounds Present, Soft, Non Tender Extremities: No edema, Capillary Refill Less than 3 Seconds Skin: No rashes, No breakdown Musculoskeletal: No Tenderness to Palpation of Joints or Extremities Neurological: Cranial nerves II-XII grossly intact Psych/Mental Status: Normal Affect, Appropriate, Alert and oriented to time, place, person, mood and affect Microbiology Past 72 Hours 03/04/20 19:00 Mucosa - Nose Respiratory Panel (PCR) - Final 03/04/20 17:00 Mucosa - Nose SARS-CoV-2 Antigen (Rapid) - Final Laboratory Results 03/05/20 16:45: Specimen Type ART, Sample Site L RADIAL, pH 7.25 L, Bicarbonate Actual 48.0 H, Total CO2 > 50, Base Excess 21 H, O2 Saturation 83 L, ABG pCO2 110.1 H*, ABG pO2 60 L, Michele Test POS, O2 Delivery Device Nasal Can, Liter Flow 6.0, Blood Gas Notified Whom HERRERA CRAWFORD, Blood Gas Notified Time 5512 03/06/20 18:00: POC Glucose 459 H* 03/06/20 21:03: POC Glucose 444 H 03/07/20 05:00: POC Glucose 270 H 03/07/20 05:40: WBC 13.0 H, RBC 5.24, Hgb 15.4 H, Hct 51.4 H, MCV 98.1, MCH 29.4, MCHC 30.0 L, RDW Std Deviation 53.1 H, RDW Coeff of Bautista 14.7 H, Plt Count 209, MPV 10.7, Immature Gran % (Auto) 0.500, Neut % (Auto) 83.7 H, Lymph % (Auto) 10.1 L, Nolan % (Auto) 5.4, Eos % (Auto) 0.1, Baso % (Auto) 0.2, Absolute Neuts (auto) 10.9 H, Absolute Lymphs (auto) 1.32, Nucleated RBC % 0 03/07/20 05:40: Sodium 135 L, Potassium 3.8, Chloride 89 L, Carbon Dioxide 44.0 H, Anion Gap 2 L, BUN 32 H, Creatinine 0.84, Estim Creat Clear Calc 56.12, Est GFR (MDRD) Af Amer 87, Est GFR (MDRD) Non-Af 72, BUN/Creatinine Ratio 37.9 H, Glucose 286 H, Calcium 9.1 03/07/20 06:57: POC Glucose 281 H 03/07/20 11:25: POC Glucose 311 H Current Medications Acetaminophen (Acetaminophen 325 Mg Tablet) 650 mg PO Q6H PRN PRN PRN Reason: Pain Score 1-10/Temp > 100.7 F Last Admin: 03/07/20 09:41 Dose: 650 mg Documented by: Albuterol/Ipratropium (Ipratropium/Albuterol Sulfate 3 Ml Ampul.Neb) 3 ml INHALATION Q4HWA.RT [facility] Last Admin: 03/07/20 11:04 Dose: 3 ml Documented by: Dextrose (Dextrose 50%-Water 25 Gm/50 Ml Disp.Syrin) 0 gm IV X1 PRN; Protocol PRN Reason: Hypoglycemia Enoxaparin Sodium (Enoxaparin 40 Mg/0.4 Ml Syringe) 40 mg SC BID [facility] Last Admin: 03/07/20 09:40 Dose: 40 mg Documented by: Furosemide (Furosemide 40 Mg/4 Ml Vial) 40 mg IV Q8 [facility] Last Admin: 03/07/20 06:58 Dose: 40 mg Documented by: Glucagon (Glucagon 1 Mg/Ml Syringe) 1 mg IM .X1 PRN PRN Reason: Hypoglycemia Hydralazine HCl (Hydralazine 20 Mg/Ml Vial) 10 mg IV Q4H PRN PRN PRN Reason: BLOOD PRESSURE Last Admin: 03/05/20 07:00 Dose: 10 mg Documented by: Insulin Glargine (Insulin Glargine 100 Units/Ml Pen) 30 units SC QHS [facility] Last Admin: 03/06/20 21:05 Dose: 30 units Documented by: Insulin Human Lispro (Insulin Lispro 100 Unit/Ml Insuln.Pen) 0 unit SC ACHS [facility]; Protocol Last Admin: 03/07/20 11:26 Dose: 3 units Documented by: Metoprolol Tartrate (Metoprolol Tartrate 100 Mg Tablet) 100 mg PO BID [facility] Last Admin: 03/07/20 09:40 Dose: 100 mg Documented by: Nicotine Polacrilex (Nicotine Polacrilex 4 Mg Gum) 4 mg PO Q2H PRN PRN PRN Reason: Nicotine Craving Nystatin (Nystatin Ointment) 1 applic TOPICAL BID [facility]; Protocol Last Admin: 03/07/20 09:42 Dose: 1 applicatio Documented by: Pramipexole Dihydrochloride (Pramipexole Di-Hcl 1 Mg Tablet) 2 mg PO BID [facility] Last Admin: 03/07/20 09:40 Dose: 2 mg Documented by: Prednisone (Prednisone 20 Mg Tablet) 40 mg PO DAILY@0800 [facility] Last Admin: 03/07/20 09:40 Dose: 40 mg Documented by: Psyllium Hydrophilic Mucilloid (Psyllium 1 Packet) 1 packet PO DAILY PRN PRN PRN Reason: Constipation Ramipril (Ramipril 10 Mg Capsule) 10 mg PO DAILY [facility] Last Admin: 03/07/20 09:40 Dose: 10 mg Documented by: Sodium Chloride (0.9% Saline Lock 10 Ml Syringe) 10 - 40 ml IV UD PRN PRN Reason: SALINE FLUSH Last Admin: 03/07/20 06:58 Dose: 10 ml Documented by: STROKE Vital Signs/Narrative: Vital Signs Temp Pulse Resp BP Pulse Ox 03/07/20 09:40 71 03/07/20 09:00 98.5 F 71 18 152/59 H 92 Medical Necessity - Tobacco Use Smoking Status: Current every day smoker Tobacco Use: Cigarettes Assessment/Plan All Active Problems Acute on chronic diastolic CHF (congestive heart failure) (Acute) Obstructive sleep apnea (Acute) Right heart failure (Acute) Cellulitis of right leg (Resolved) Cellulitis of left leg (Resolved) Blister of left leg (Acute) 1. Acute mixed respiratory failure, Acute on chronic diastolic CHF, with pleural effusion, pulmonary HTN - EF 65%. Continue lasix with caution due to fluctuant CO2. Legs are severely edematous. BUN increased, but creatinine ok. -ideally pt would benefit from BiPAP, however she has not been able to tolerate this despite adjusting pressure settings and multiple attempts. -resp panel neg, covid neg. 2. COPD - no exacerbation - has been on solumedrol, transitioned to prednisone. continue duonebs, spirometer, PEP therapy. 3. DMt2 with poor control, hyperglycemia, morbid obesity - maximize sliding scale, titrate up lantus. worse 2/2 steroids. A1C 10.3. Off metformin 2/2 receiving contrast. 4. JACK - not compliant with CPAP, not tolerating bipap here. 5. HTN - overall improved. continue current therapy. 6. Nicotine abuse - continue patch DVT ppx: lovenox DC planning: PTOT, plans to go home at id. already has home o2. has cpap but does not use it. This patient was seen by Imer Healy PA-C under the supervision of Doctor Dory. <Don Connors - Last Filed: 03/07/20 14:25> Vitals/I&O's: Vital Signs Temp Pulse Resp BP Pulse Ox 36.9 C 63 20 H 152/59 H 92 03/07/20 09:00 03/07/20 11:04 03/07/20 11:04 03/07/20 09:00 03/07/20 09:00 Oxygen Flow Rate (L/min) 5 Oxygen Delivery Method Nasal Cannula Weight: 124 kg Body Mass Index (BMI) 49.0 Finger Stick Blood Glucose 319 Intake and Output for Last 24 Hours 03/05/20 03/06/20 03/07/20 23:59 23:59 23:59 Intake Total 985 / 985 480 / 720 660 / 660 Output Total 2400 / 2400 2150 / 4100 3900 / 3900 Balance -1415 / -1415 -1670 / -3380 -3240 / -3240 General: Alert, Cooperative HEENT: Atraumatic, Normocephalic Neck: Supple, Negative Carotid Bruits Cardiovascular: Regular rate, No murmurs Abdomen: Bowel Sounds Present, Soft, Non Tender Extremities: No Calf Tenderness, Edema Psych/Mental Status: Normal Affect, Appropriate Microbiology Past 72 Hours 03/04/20 19:00 Mucosa - Nose Respiratory Panel (PCR) - Final 03/04/20 17:00 Mucosa - Nose SARS-CoV-2 Antigen (Rapid) - Final Laboratory Results 03/06/20 18:00: POC Glucose 459 H* 03/06/20 21:03: POC Glucose 444 H 03/07/20 05:00: POC Glucose 270 H 03/07/20 05:40: WBC 13.0 H, RBC 5.24, Hgb 15.4 H, Hct 51.4 H, MCV 98.1, MCH 29.4, MCHC 30.0 L, RDW Std Deviation 53.1 H, RDW Coeff of Bautista 14.7 H, Plt Count 209, MPV 10.7, Immature Gran % (Auto) 0.500, Neut % (Auto) 83.7 H, Lymph % (Auto) 10.1 L, Nolan % (Auto) 5.4, Eos % (Auto) 0.1, Baso % (Auto) 0.2, Absolute Neuts (auto) 10.9 H, Absolute Lymphs (auto) 1.32, Nucleated RBC % 0 03/07/20 05:40: Sodium 135 L, Potassium 3.8, Chloride 89 L, Carbon Dioxide 44.0 H, Anion Gap 2 L, BUN 32 H, Creatinine 0.84, Estim Creat Clear Calc 56.12, Est GFR (MDRD) Af Amer 87, Est GFR (MDRD) Non-Af 72, BUN/Creatinine Ratio 37.9 H, Glucose 286 H, Calcium 9.1 03/07/20 06:57: POC Glucose 281 H 03/07/20 11:25: POC Glucose 311 H Current Medications Acetaminophen (Acetaminophen 325 Mg Tablet) 650 mg PO Q6H PRN PRN PRN Reason: Pain Score 1-10/Temp > 100.7 F Last Admin: 03/07/20 09:41 Dose: 650 mg Documented by: Albuterol/Ipratropium (Ipratropium/Albuterol Sulfate 3 Ml Ampul.Neb) 3 ml INHALATION Q4HWA.RT [facility] Last Admin: 03/07/20 11:04 Dose: 3 ml Documented by: Dextrose (Dextrose 50%-Water 25 Gm/50 Ml Disp.Syrin) 0 gm IV X1 PRN; Protocol PRN Reason: Hypoglycemia Enoxaparin Sodium (Enoxaparin 40 Mg/0.4 Ml Syringe) 40 mg SC BID [facility] Last Admin: 03/07/20 09:40 Dose: 40 mg Documented by: Furosemide (Furosemide 40 Mg/4 Ml Vial) 40 mg IV Q8 [facility] Last Admin: 03/07/20 13:57 Dose: 40 mg Documented by: Glucagon (Glucagon 1 Mg/Ml Syringe) 1 mg IM .X1 PRN PRN Reason: Hypoglycemia Guaifenesin (Guaifenesin 1,200 Mg Tablet) 1,200 mg PO BID [facility] Hydralazine HCl (Hydralazine 20 Mg/Ml Vial) 10 mg IV Q4H PRN PRN PRN Reason: BLOOD PRESSURE Last Admin: 03/05/20 07:00 Dose: 10 mg Documented by: Insulin Glargine (Insulin Glargine 100 Units/Ml Pen) 34 units SC QHS [facility] Insulin Human Lispro (Insulin Lispro 100 Unit/Ml Insuln.Pen) 0 unit SC ACHS [facility]; Protocol Last Admin: 03/07/20 11:26 Dose: 3 units Documented by: Metoprolol Tartrate (Metoprolol Tartrate 100 Mg Tablet) 100 mg PO BID [facility] Last Admin: 03/07/20 09:40 Dose: 100 mg Documented by: Nicotine Polacrilex (Nicotine Polacrilex 4 Mg Gum) 4 mg PO Q2H PRN PRN PRN Reason: Nicotine Craving Nystatin (Nystatin Ointment) 1 applic TOPICAL BID [facility]; Protocol Last Admin: 03/07/20 09:42 Dose: 1 applicatio Documented by: Pramipexole Dihydrochloride (Pramipexole Di-Hcl 1 Mg Tablet) 2 mg PO BID [facility] Last Admin: 03/07/20 09:40 Dose: 2 mg Documented by: Prednisone (Prednisone 20 Mg Tablet) 40 mg PO DAILY@0800 [facility] Last Admin: 03/07/20 09:40 Dose: 40 mg Documented by: Psyllium Hydrophilic Mucilloid (Psyllium 1 Packet) 1 packet PO DAILY PRN PRN PRN Reason: Constipation Ramipril (Ramipril 10 Mg Capsule) 10 mg PO DAILY [facility] Last Admin: 03/07/20 09:40 Dose: 10 mg Documented by: Sodium Chloride (0.9% Saline Lock 10 Ml Syringe) 10 - 40 ml IV UD PRN PRN Reason: SALINE FLUSH Last Admin: 03/07/20 13:57 Dose: 10 ml Documented by: STROKE Vital Signs/Narrative: Vital Signs Pulse Resp 03/07/20 11:04 63 20 H Assessment/Plan Patient seen and examined independently. Data reviewed. I agree with the above note by the physician bilingual legal assistant. 1. Acute HFpEF EF 65% from 09/29/2019 complicated by moderate pulm HTN continue furosemide still volume overloaded, continue diuresis 2. Pleural effusion suspect transudative no thoracentesis at this time follow CXR in 4-6 weeks as outtp. 3. COPD likely not in exacerbation change methylpred to prednisone 4. DM2 uncontrolled exacerbated by steroids on SSI metformin held given contrast start basal insulin a1c 10.3 on 09/29/2019 5. pulm HTn likely group 2 or 3 has known JACK, but, according to patient, has need a new CPAP for past year complicates overall tmt of CHF 6. acute hypoxic and hypercapnic respiratory failure 2/2 CHF, pleural effuion, pulm HTN, untreated JACK chronically elevated pCO2 does not tolerate BiPAP rapid COVID negative. 7. VTE prophylaxis: LMWH 8. Disposition: TBD. Inpatient E&M: 13445 Subs Hosp L2
[2020-03-07 17:01] LABS: Bedside Glucose 265 mg/dL (70-110)
[2020-03-07] MEDS: guaiFENesin 1,200 MG Tablet 1200 MG PO (21:30)
[2020-03-07 21:40] LABS: Bedside Glucose 314 mg/dL (70-110)
[2020-03-08] VITALS (21 sets, daily range): BP systolic 111–177; BP diastolic 48–97; PULSE 64–108; RESP 12–30; TEMP 36.3–40.1; O2SAT 89–99
[2020-03-08 01:01] LABS: Bedside Glucose 141 mg/dL (70-110)
[2020-03-08] MEDS: Haloperidol Lactate 5 MG/ML Vial 2 MG IV ×2 (01:08→03:25)
[2020-03-08] MEDS: 0.9% Saline Lock 10 ML Syringe IV ×5 (01:09→22:12)
[2020-03-08 02:04] LABS: Anion Gap 8 (5-15); BUN 32 mg/dL (7-18); Chloride 89 mmol/L (98-107); EST Glomerular Filtration Rate 59 mL/min (>60); Est Glom Filt Rate - Afr Amer 71 mL/min (>60); Estimated Creatinine Clearance 47.14 ml/min; Potassium 4.3 mmol/L (3.5-5.1); Sodium Level 137 mmol/L (136-145)
--- NOTE | 2020-03-08 02:12 | RAD_ITS ---
STUDY: X-RAY CHEST REASON FOR EXAM: Female, 65 years old. fever -- best image possible, patient uncooperative TECHNIQUE: AP COMPARISON: 03/04/2020 FINDINGS: There is stable enlargement of the cardiac silhouette. Persistent patchy and worsening right lung base opacities. There is no demonstrated abnormality of the visualized soft tissue structures of the upper abdomen. RAD/Chest 1 View (Portable) IMPRESSION: Persistent patchy lung base opacities concerning for underlying pneumonia. Electronically Signed: Kamran Bird, at 3:33 EST Tel , Service support ,
--- NOTE | 2020-03-08 02:14 | PCM.PN.BLA ---
Progress Note Patient agitated. Impression delirium: Haldol given. BMP and urinalysis with reflex culture ordered. CBC ordered. However patient did not have enough test for CBC to be run. Nurse reports of a fever of 102.5F. Get chest x-ray. Get blood cultures x2. Check Covid PCR. Of note on presentation rapid Covid antigen and respiratory pathogen panel was negative. Rectal Tylenol as needed ordered. STROKE Vital Signs/Narrative: Vital Signs Temp Pulse Resp BP Pulse Ox 03/08/20 02:05 102.5 F H 82 19 H 177/77 H 94 03/08/20 01:20 89 29 H 93 03/08/20 01:00 98.6 F 108 H 26 H 147/97 H 99 03/07/20 23:00 60
[2020-03-08] MEDS: Acetaminophen 650 MG Suppository RECTAL (02:26)
[2020-03-08 02:46] LABS: Bacteria 0 SEEN /hpf (None Seen); Mucous, Urine 0 SEEN /hpf (<or=2+); Red Blood Cells-Urine 0 SEEN /hpf (0-5); Squamous Epithelial Cells - UA 0 SEEN /hpf (5-10); White Blood Cells 0 SEEN /hpf (0-5)
[2020-03-08 02:47] LABS: Color, Urine Yellow (Yellow); Glucose, Dipstick Normal (Normal); Ketone-Dipstick Negative (Negative); Leukocyte Esterase-Dipstick Negative /ul (Negative); Nitrite-Dipstick Negative (Negative); Occult Blood-Urine Negative /ul (Negative); Protein-Dipstick 100 mg/dl (Negative); Specific Gravity, Urine 1.015 (1.002-1.030); Urine Bilirubin Dipstick Negative (Negative); Urine Clarity Clear (Clear); Urine Urobilinogen Normal (Normal)
[2020-03-08 02:53] LABS: Transitional Epithelial - Ur 0-5 SEEN /hpf (0-5)
--- NOTE | 2020-03-08 03:02 | NURSING ---
Around 0100, SPINNING [employer]AME [employer]ER called this RN to room. Pt was up to BSC and was shaking. Pt was very confused and not making sense of her words. IV had come out as well. VS stable, blood sugar 141. Oriented only to self, pt thought she was at [facility] and it was December. Dr. Rolle paged and came to room. New IV inserted. ordered haldol IV, also CBC, BMP, UA, and urine culture. Haldol given, RT called to put pt on BIPAP. Urine obtained by straight cath. Temp rechecked d/t pt feeling warm, axillary was 102.5, rectal 104.2. Tylenol changed to rectal, and given. Pt resting in bed w/ BIPAP on. JOHNNY Caban.
[2020-03-08 03:46] LABS: Absolute Lymphocyte Count 1.59 X10^3/uL (0.83-4.51); Absolute Neutrophil Count 16.4 X10^3/uL (2.0-7.7); Basophil# 0.06 X10^3/uL; Basophil% 0.3 % (0-1); Eosinophil# 0.04 X10^3/uL; Eosinophils% 0.2 % (0-5); Hematocrit 53.8 % (37-47); Hemoglobin 16.9 g/dL (12.0-15.0); Lymphocyte # 1.59 X10^3/ul (4.0); Lymphocyte % 7.8 % (19-41); Mean Corp Hgb Conc 31.4 g/dL (32-36); Mean Corpuscular Hgb 30.7 pg (27.0-32.0); Mean Corpuscular Volume 97.8 fL (81-99); Mean Platelet Vol. 10.2 fl (6.2-12.0); Monocyte# 2.33 X10^3/uL; Monocyte% 11.4 % (0-10); NRBC Flagged by Analyzer 0 % (0-5); Neutrophil # 16.37 X10^3/uL (2.7-7.7); Neutrophil % 79.7 % (47-70); POSITIVE DIFFERENTIAL YES; Platelet Count 209 K/mm3 (150-450); RBC Distribution Width CV 14.3 % (11.6-14.6); RBC Distribution Width SD 51.9 fl (35.1-43.9); White Blood Count 20.5 K/mm3 (4.4-11.0)
[2020-03-08 03:51] LABS: Differential Indicated SCAN CRITERIA MET
[2020-03-08 04:05] LABS: Probe Check PASS; Specimen Processing Control PASS
[2020-03-08 04:07] LABS: ALB/GLOB Ratio 0.8 RATIO (0.9-2.4); AST(SGOT) 11 U/L (15-37); Alanine Aminotransfer ALT/SGPT 19 U/L (13-56); Alkaline Phosphatase 80 U/L (45-117); BUN 32 mg/dL (7-18); BUN/Creat Ratio 36.4 RATIO (10-20); Calcium,Total 9.4 mg/dL (8.5-10.1); Carbon Dioxide > 45.0 mmol/L (21.0-32.0); Chloride 86 mmol/L (98-107); Creatinine, Serum 0.88 mg/dL (0.55-1.02); EST Glomerular Filtration Rate 68 mL/min (>60); Est Glom Filt Rate - Afr Amer 82 mL/min (>60); Estimated Creatinine Clearance 53.57 ml/min; Globulin 3.6 g/dL (2.2-4.2); Glucose 89 mg/dL (74-106); Potassium 3.3 mmol/L (3.5-5.1); Protein, Total 6.6 g/dL (6.4-8.2); Sodium Level 134 mmol/L (136-145)
--- NOTE | 2020-03-08 04:33 | PCM.PN.BLA ---
Progress Note Patient with persistent fever. Patient with tachypnea. Chest x-ray persistent opacity. Cannot rule out pneumonia. Will start patient on broad-spectrum antibiotic vancomycin and Zosyn. We will get MRSA nasal screen. Lactic acid ordered. Of note it has been difficult to obtain blood from patient. Repeat Covid test is negative. Of note patient is being treated with Lasix for her Acute mixed respiratory failure, Acute on chronic diastolic CHF, with pleural effusion, pulmonary HTN - EF 65%. Impression sepsis secondary to likely pneumonia. STROKE Vital Signs/Narrative: Vital Signs Temp Pulse Resp BP Pulse Ox 03/08/20 04:02 83 30 H 94 03/08/20 02:25 104.2 F H 84 27 H 130/54 H 94 03/08/20 02:05 102.5 F H 82 19 H 177/77 H 94 03/08/20 01:20 89 29 H 93 03/08/20 01:00 98.6 F 108 H 26 H 147/97 H 99
--- NOTE | 2020-03-08 05:01 | PCM.RX.CS ---
Consult Pharmacy has been consulted to manage selected antiobiotic: Vancomycin Type of Consult: New start Suspected Infection: Pneumonia Prior Doses of Antibiotics Received/Current Regimen: Medications Vancomycin HCl 2,000 mg/ (Sodium Chloride) 540 mls @ 250 mls/hr IV X1 ONE 03/08/20 0900 Vancomycin HCl 1,750 mg/ (Sodium Chloride) 535 mls @ 250 mls/hr IV Q12H EPIFANIO to start 03/08/20 2100 Labs: Sodium 134 mmol/L (136-145) L 03/08/20 03:30 Potassium 3.3 mmol/L (3.5-5.1) L 03/08/20 03:30 Chloride 86 mmol/L (98-107) L 03/08/20 03:30 Carbon Dioxide > 45.0 mmol/L (21.0-32.0) H* 03/08/20 03:30 Anion Gap TNP 03/08/20 03:30 BUN 32 mg/dL (7-18) H 03/08/20 03:30 Creatinine 0.88 mg/dL (0.55-1.02) 03/08/20 03:30 Est GFR (MDRD) Af Amer 82 mL/min (>60) 03/08/20 03:30 Est GFR (MDRD) Non-Af 68 mL/min (>60) 03/08/20 03:30 BUN/Creatinine Ratio 36.4 RATIO (10-20) H 03/08/20 03:30 Glucose 89 mg/dL (74-106) 03/08/20 03:30 Microbiology: Microbiology 03/04/20 19:00 Mucosa - Nose Respiratory Panel (PCR) - Final 03/04/20 17:00 Mucosa - Nose SARS-CoV-2 Antigen (Rapid) - Final Weight used for dosin kg Estimated Creatinine Clearance: 80ml/min Goal Trough: 15-20 mcg/mL Pharmacy Plan for Drug Dosing: Pharmacy Service will continue to monitor and adjust dosing as required. Follow-Up Labs: Trough Vancomycin - draw 30 minutes before 4th dose due Labs to be done on [date and time ordered]: 03/09/20 8735
[2020-03-08 05:37] LABS: Lactic Acid 0.8 mmol/L (0.4-1.9)
[2020-03-08] MEDS: Furosemide 40 MG/4 ML Vial IV ×3 (06:09→22:13)
[2020-03-08] MEDS: Dextrose 50%-Water 25 GM/50 ML DISP.SYRIN IV (06:16)
[2020-03-08 06:18] LABS: M R Staph aureus DNA By PCR Negative (Negative); Probe Check PASS; Specimen Processing Control PASS
[2020-03-08 06:50] LABS: Bedside Glucose 65 mg/dL (70-110)
[2020-03-08 06:50] LABS: Bedside Glucose 113 mg/dL (70-110)
[2020-03-08] MEDS: Ipratropium/Albuterol Sulfate 3 ML AMPUL.NEB INHALATION ×4 (07:01→19:48)
[2020-03-08] MEDS: Ramipril 10 MG Capsule PO (09:13)
[2020-03-08] MEDS: Metoprolol Tartrate 100 MG Tablet PO ×2 (09:13→22:14)
[2020-03-08] MEDS: predniSONE 20 MG Tablet 40 MG PO (09:13)
[2020-03-08] MEDS: Pramipexole Di-HCl 1 MG Tablet 2 MG PO ×2 (09:13→22:12)
[2020-03-08] MEDS: Enoxaparin 40 MG/0.4 ML Syringe SC ×2 (09:13→22:13)
[2020-03-08] MEDS: Nystatin Ointment 1 APPLIC TOPICAL ×2 (09:14→22:14)
[2020-03-08] MEDS: guaiFENesin 1,200 MG Tablet 1200 MG PO ×2 (09:14→22:13)
--- NOTE | 2020-03-08 09:38 | PN_ITS ---
Patient Problems: Active and Suspected Problems Acute on chronic diastolic CHF (congestive heart failure) (Acute) Obstructive sleep apnea (Acute) Lymphedema (Suspected) Reason for Visit: respiratory failure Subjective: Agitated overnight. Placed on BiPAP. Currently confused any unable to provide any history. Vitals/I&O's: Vital Signs Temp Pulse Resp BP Pulse Ox 36.3 C L 65 20 H 128/57 H 93 03/08/20 09:10 03/08/20 09:13 03/08/20 09:10 03/08/20 09:10 03/08/20 09:10 Oxygen Flow Rate (L/min) 4 Oxygen Delivery Method Bi-pap Weight: 118.2 kg Body Mass Index (BMI) 49.0 Finger Stick Blood Glucose 319 Intake and Output for Last 24 Hours 03/06/20 03/07/20 03/08/20 23:59 23:59 23:59 Intake Total 480 / 720 1220 / 1520 400 / 400 Output Total 2150 / 4100 4900 / 6800 2800 / 2800 Balance -1670 / -3380 -3680 / -5280 -2400 / -2400 General: No apparent distress, Confused, - - on BiPAP HEENT: Atraumatic, Normocephalic Oral: Moist Mucosa, No Gingival or Mucosal Lesions/ Ulcerations Neck: No Nodes, Thyroid Normal Size and Texture Lungs: Clear to auscultation, Normal air movement, No rhonchi, No wheeze, No rales Cardiovascular: Regular rate, Regular Rhythm, Normal S1, Normal S2, No murmurs Abdomen: Bowel Sounds Present, Soft, Non Tender, Non-Distended Extremities: No Calf Tenderness, Edema Skin: No rashes, No breakdown Laboratory Results 03/07/20 11:25: POC Glucose 311 H 03/07/20 16:52: POC Glucose 265 H 03/07/20 21:26: POC Glucose 314 H 03/08/20 00:53: POC Glucose 141 H 03/08/20 01:35: Sodium 137, Potassium 4.3, Chloride 89 L, Carbon Dioxide 40.0 H, Anion Gap 8, BUN 32 H, Creatinine 1.00, Estim Creat Clear Calc 47.14, Est GFR (MDRD) Af Amer 71, Est GFR (MDRD) Non-Af 59 L, BUN/Creatinine Ratio 32.0 H, Glucose TNP, Calcium TNP 03/08/20 01:54: Urine Color Yellow, Urine Clarity Clear, Urine pH 8.0, Ur Specific [place] 1.015, Urine Protein 100 H, Urine Glucose (UA) Normal, Urine Ketones Negative, Urine Occult Blood Negative, Urine Nitrite Negative, Urine Bilirubin Negative, Urine Urobilinogen Normal, Ur Leukocyte Esterase Negative, Urine RBC 0 SEEN, Urine WBC 0 SEEN, Ur Squamous Epith Cells 0 SEEN, Ur Transition Epith Cell 0-5 SEEN, Urine Bacteria 0 SEEN, Urine Mucus 0 SEEN 03/08/20 02:55: COVID-19 (FELIPE) Negative 03/08/20 03:30: Sodium 134 L, Potassium 3.3 L, Chloride 86 L, Carbon Dioxide > 45.0 H*, Anion Gap TNP, BUN 32 H, Creatinine 0.88, Estim Creat Clear Calc 53.57, Est GFR (MDRD) Af Amer 82, Est GFR (MDRD) Non-Af 68, BUN/Creatinine Ratio 36.4 H , Glucose 89, Calcium 9.4, Total Bilirubin 0.90, AST 11 L, ALT 19, Alkaline Phosphatase 80, Total Protein 6.6, Albumin 3.0 L, Globulin 3.6, Albumin/Globulin Ratio 0.8 L 03/08/20 03:30: WBC 20.5 H, RBC 5.50 H, Hgb 16.9 H, Hct 53.8 H, MCV 97.8, MCH 30.7, MCHC 31.4 L, RDW Std Deviation 51.9 H, RDW Coeff of Bautista 14.3, Plt Count 209, MPV 10.2, Immature Gran % (Auto) 0.600, Neut % (Auto) 79.7 H, Lymph % (Auto) 7.8 L, [place] % (Auto) 11.4 H, Eos % (Auto) 0.2, Baso % (Auto) 0.3, Absolute Neuts (auto) 16.4 H, Absolute Lymphs (auto) 1.59, Nucleated RBC % 0, Diff Path Review July03/08/20 05:00: MRSA (PCR) Negative 03/08/20 05:06: Lactic Acid 0.8 03/08/20 06:13: POC Glucose 65 L 03/08/20 06:46: POC Glucose 113 H Current Medications Acetaminophen (Acetaminophen 325 Mg Tablet) 650 mg PO Q6H PRN PRN PRN Reason: Pain Score 1-10/Temp > 100.7 F Last Admin: 03/07/20 09:41 Dose: 650 mg Documented by: Acetaminophen (Acetaminophen 650 Mg Suppository) 650 mg RECTAL Q6H PRN PRN PRN Reason: temp of 100.7F/PAIN 1-01/05 Last Admin: 03/08/20 02:26 Dose: 650 mg Documented by: Albuterol/Ipratropium (Ipratropium/Albuterol Sulfate 3 Ml Ampul.Neb) 3 ml INHALATION Q4HWA.RT [facility] Last Admin: 03/08/20 07:01 Dose: 3 ml Documented by: Dextrose (Dextrose 50%-Water 25 Gm/50 Ml Disp.Syrin) 0 gm IV X1 PRN; Protocol PRN Reason: Hypoglycemia Last Admin: 03/08/20 06:16 Dose: 12.5 gm Documented by: Enoxaparin Sodium (Enoxaparin 40 Mg/0.4 Ml Syringe) 40 mg SC BID [facility] Last Admin: 03/08/20 09:13 Dose: 40 mg Documented by: Furosemide (Furosemide 40 Mg/4 Ml Vial) 40 mg IV Q8 [facility] Last Admin: 03/08/20 06:09 Dose: 40 mg Documented by: Glucagon (Glucagon 1 Mg/Ml Syringe) 1 mg IM .X1 PRN PRN Reason: Hypoglycemia Guaifenesin (Guaifenesin 1,200 Mg Tablet) 1,200 mg PO BID [facility] Last Admin: 03/08/20 09:14 Dose: 1,200 mg Documented by: Hydralazine HCl (Hydralazine 20 Mg/Ml Vial) 10 mg IV Q4H PRN PRN PRN Reason: BLOOD PRESSURE Last Admin: 03/05/20 07:00 Dose: 10 mg Documented by: Vancomycin IV Pharmacy to Dose (1 ea/ Sodium Chloride) 500 mls @ 250 mls/hr IV X1 PRN; Protocol PRN Reason: Rx to Dose Piperacillin Sod/Tazobactam (Sod 3.375 gm/ Sodium Chloride) 50 mls @ 12.5 mls/hr IV Q8 [facility] Vancomycin HCl 2,000 mg/ (Sodium Chloride) 540 mls @ 250 mls/hr IV X1 ONE Stop: 03/08/20 11:09 Last Admin: 03/08/20 09:07 Dose: 250 mls/hr Documented by: Vancomycin HCl 1,750 mg/ (Sodium Chloride) 535 mls @ 250 mls/hr IV Q12H [facility] Insulin Glargine (Insulin Glargine 100 Units/Ml Pen) 34 units SC QHS [facility] Last Admin: 03/07/20 21:30 Dose: 34 units Documented by: Insulin Human Lispro (Insulin Lispro 100 Unit/Ml Insuln.Pen) 0 unit SC ACHS [facility]; Protocol Last Admin: 03/08/20 06:40 Dose: Not Given Documented by: Metoprolol Tartrate (Metoprolol Tartrate 100 Mg Tablet) 100 mg PO BID [facility] Last Admin: 03/08/20 09:13 Dose: 100 mg Documented by: Nicotine Polacrilex (Nicotine Polacrilex 4 Mg Gum) 4 mg PO Q2H PRN PRN PRN Reason: Nicotine Craving Nystatin (Nystatin Ointment) 1 applic TOPICAL BID [facility]; Protocol Last Admin: 03/08/20 09:14 Dose: 1 applicatio Documented by: Pramipexole Dihydrochloride (Pramipexole Di-Hcl 1 Mg Tablet) 2 mg PO BID [facility] Last Admin: 03/08/20 09:13 Dose: 2 mg Documented by: Prednisone (Prednisone 20 Mg Tablet) 40 mg PO DAILY@0800 [facility] Last Admin: 03/08/20 09:13 Dose: 40 mg Documented by: Psyllium Hydrophilic Mucilloid (Psyllium 1 Packet) 1 packet PO DAILY PRN PRN PRN Reason: Constipation Ramipril (Ramipril 10 Mg Capsule) 10 mg PO DAILY [facility] Last Admin: 03/08/20 09:13 Dose: 10 mg Documented by: Sodium Chloride (0.9% Saline Lock 10 Ml Syringe) 10 - 40 ml IV UD PRN PRN Reason: SALINE FLUSH Last Admin: 03/08/20 06:08 Dose: 20 ml Documented by: STROKE Vital Signs/Narrative: Vital Signs Temp Pulse Resp BP Pulse Ox 03/08/20 09:13 65 03/08/20 09:10 36.3 C L 65 20 H 128/57 H 93 03/08/20 08:00 69 20 H 90 03/08/20 07:01 74 16 90 03/08/20 07:00 79 Medical Necessity - Tobacco Use Smoking Status: Current every day smoker Tobacco Use: Cigarettes Assessment/Plan All Active Problems Sepsis (Acute) Acute on chronic diastolic CHF (congestive heart failure) (Acute) Obstructive sleep apnea (Acute) Right heart failure (Acute) Cellulitis of right leg (Resolved) Cellulitis of left leg (Resolved) Blister of left leg (Acute) 1. Acute HFpEF * EF 65% from 09/29/2019 * complicated by moderate pulm HTN * continue furosemide * still volume overloaded, continue diuresis * add acetazolamide 2. Pleural effusion * suspect transudative * no thoracentesis at this time * follow CXR in 4-6 weeks as outtp. 3. COPD * likely not in exacerbation * prednisone 4. DM2 * improved * exacerbated by steroids * on SSI * metformin held given contrast * start basal insulin * a1c 10.3 on 09/29/2019 5. pulm HTn * likely group 2 or 3 * has known JACK, but, according to patient, has need a new CPAP for past year * complicates overall tmt of CHF 6. acute hypoxic and hypercapnic respiratory failure * 2/2 CHF, pleural effuion, pulm HTN, untreated JACK * chronically elevated pCO2 * previously does not tolerate BiPAP, but tolerating it so far * rapid COVID negative. 7. Metabolic encephalopathy * likely 2/2 hypercapnia * continue BiPAP as able. Add acetazolamide, though I have a low suspicion for contraction alkalosis 8. VTE prophylaxis: LMWH 9. Disposition: TBD. Inpatient E&M: 90825 Subs Hosp L2
[2020-03-08] MEDS: AcetaZOLAMIDE 250 MG Tablet 125 MG PO ×2 (10:51→22:13)
[2020-03-08 11:06] LABS: Bedside Glucose 121 mg/dL (70-110)
[2020-03-08 12:42] LABS: Pathologist Review Reviewed
[2020-03-08] MEDS: Psyllium 1 PACKET PO (13:09)
--- NOTE | 2020-03-08 15:47 | CASEMGMT ---
SW met with patient, introduced self and role at [facility]. SW asked if she would like home health at discharge. SW explained a nurse and therapy could come to her home to check on her. She declined. Fiordaliza LESTER
--- NOTE | 2020-03-08 16:01 | CASEMGMT ---
Addendum entered by Carey Sutton 03/08/20 16:22: Call back from Theresa at [facility] and she states that pt was set up with a cpap thru them but was non-compliant so they no longer follow cpap at this time. She states 'Pt must have finished paying it off.' Roxanna TURNER CM Original Note: Call to [facility] to verify liter flow for home oxygen and they state pt is on 3liters continuous. At this time, they are unable to find info on pt's cpap. They do state that pt has a nebulizer. They state they will call this RN CM back when/if info obtained. Green sheet left on chart for increased home oxygen need. Pt to be tested on 3liters nc. Roxanna TURNER CM
[2020-03-08] MEDS: Insulin Lispro 100 UNIT/ML INSULN.PEN SC ×2 (16:45→22:23)
[2020-03-08 16:55] LABS: Bedside Glucose 265 mg/dL (70-110)
[2020-03-08 23:01] LABS: Bedside Glucose 322 mg/dL (70-110)
[2020-03-08] MEDS: QUEtiapine 25 MG Tablet PO (23:53)
[2020-03-09] VITALS (20 sets, daily range): BP systolic 112–146; BP diastolic 38–65; PULSE 56–83; RESP 12–24; TEMP 36.3–36.9; O2SAT 89–96
[2020-03-09] MEDS: 0.9% Saline Lock 10 ML Syringe IV ×3 (01:44→11:11)
[2020-03-09] MEDS: LORazepam 2 MG/ML Syringe 1 MG IV (01:44)
--- NOTE | 2020-03-09 03:40 | CPS ---
0315 found pt off bipap, it was on her cheek, she struggles to keep it on. RN and I both are checking her frequently as she is likely to pull mask off her face with out calling for cannula. Encouraged pt stay on bipap till 6am at least.
--- NOTE | 2020-03-09 04:36 | CPS ---
pt broke bipap mask, i replaced it with a new mask and reapplied bipap to pt, RN aware
[2020-03-09] MEDS: Furosemide 40 MG/4 ML Vial IV ×3 (05:28→21:44)
[2020-03-09 07:06] LABS: Bedside Glucose 110 mg/dL (70-110)
[2020-03-09] MEDS: Ipratropium/Albuterol Sulfate 3 ML AMPUL.NEB INHALATION ×5 (07:17→22:44)
[2020-03-09 07:37] LABS: Absolute Lymphocyte Count 3.71 X10^3/uL (0.83-4.51); Absolute Neutrophil Count 10.7 X10^3/uL (2.0-7.7); Basophil# 0.03 X10^3/uL; Basophil% 0.2 % (0-1); Eosinophil# 0.19 X10^3/uL; Eosinophils% 1.2 % (0-5); Hematocrit 53.3 % (37-47); Hemoglobin 16.4 g/dL (12.0-15.0); Lymphocyte # 3.71 X10^3/ul (4.0); Lymphocyte % 22.6 % (19-41); Mean Corp Hgb Conc 30.8 g/dL (32-36); Mean Corpuscular Hgb 30.5 pg (27.0-32.0); Mean Corpuscular Volume 99.1 fL (81-99); Mean Platelet Vol. 10.7 fl (6.2-12.0); Monocyte# 1.77 X10^3/uL; Monocyte% 10.8 % (0-10); NRBC Flagged by Analyzer 0 % (0-5); Neutrophil # 10.65 X10^3/uL (2.7-7.7); POSITIVE DIFFERENTIAL YES; Platelet Count 198 K/mm3 (150-450); RBC Distribution Width CV 14.8 % (11.6-14.6); RBC Distribution Width SD 54.1 fl (35.1-43.9); Red Blood Count 5.38 M/mm3 (4.2-5.4); White Blood Count 16.4 K/mm3 (4.4-11.0)
[2020-03-09 07:41] LABS: Differential Indicated SCAN CRITERIA MET
[2020-03-09 07:56] LABS: Anion Gap 3 (5-15); BUN 32 mg/dL (7-18); BUN/Creat Ratio 35.9 RATIO (10-20); Calcium,Total 9.4 mg/dL (8.5-10.1); Chloride 95 mmol/L (98-107); Creatinine, Serum 0.89 mg/dL (0.55-1.02); EST Glomerular Filtration Rate 67 mL/min (>60); Est Glom Filt Rate - Afr Amer 81 mL/min (>60); Estimated Creatinine Clearance 52.97 ml/min; Glucose 92 mg/dL (74-106); Potassium 3.4 mmol/L (3.5-5.1); Sodium Level 139 mmol/L (136-145)
[2020-03-09] MEDS: AcetaZOLAMIDE 250 MG Tablet 125 MG PO ×2 (09:11→21:40)
[2020-03-09] MEDS: predniSONE 20 MG Tablet 40 MG PO (09:11)
[2020-03-09] MEDS: Nystatin Ointment 1 APPLIC TOPICAL ×2 (09:11→21:45)
[2020-03-09] MEDS: Metoprolol Tartrate 100 MG Tablet PO ×2 (09:12→21:44)
[2020-03-09] MEDS: guaiFENesin 1,200 MG Tablet 1200 MG PO ×2 (09:12→21:45)
[2020-03-09] MEDS: Enoxaparin 40 MG/0.4 ML Syringe SC ×2 (09:12→21:45)
[2020-03-09] MEDS: Pramipexole Di-HCl 1 MG Tablet 2 MG PO ×2 (09:13→21:45)
[2020-03-09] MEDS: Ramipril 10 MG Capsule PO (09:13)
[2020-03-09 09:30] LABS: Differential Comment SCANNED
[2020-03-09] MEDS: Acetaminophen 325 MG Tablet 650 MG PO (11:10)
[2020-03-09] MEDS: Insulin Lispro 100 UNIT/ML INSULN.PEN SC ×3 (11:57→21:42)
[2020-03-09 12:15] LABS: Bedside Glucose 247 mg/dL (70-110)
--- NOTE | 2020-03-09 13:42 | PN_ITS ---
Patient Problems: Active and Suspected Problems Acute on chronic diastolic CHF (congestive heart failure) (Acute) Obstructive sleep apnea (Acute) Lymphedema (Suspected) Reason for Visit: CHF Subjective: Breathing well today. No further fever. Vitals/I&O's: Vital Signs Temp Pulse Resp BP Pulse Ox 36.3 C L 56 L 19 H 112/41 L 92 03/09/20 11:59 03/09/20 11:59 03/09/20 11:59 03/09/20 11:59 03/09/20 11:59 Oxygen Flow Rate (L/min) 3 Oxygen Delivery Method Nasal Cannula Weight: 114.4 kg Body Mass Index (BMI) 49.0 Finger Stick Blood Glucose 319 Intake and Output for Last 24 Hours 03/07/20 03/08/20 03/09/20 23:59 23:59 23:59 Intake Total 1220 / 1520 1940 / 2140 1770 / 1770 Output Total 4900 / 6800 6100 / 7600 5700 / 5700 Balance -3680 / -5280 -4160 / -5460 -3930 / -3930 General: Alert, No apparent distress HEENT: Atraumatic, Normocephalic Oral: Moist Mucosa, No Gingival or Mucosal Lesions/ Ulcerations Neck: No Nodes, Thyroid Normal Size and Texture Lungs: Clear to auscultation, Normal air movement, No rhonchi, No wheeze Cardiovascular: Regular rate, Regular Rhythm, Normal S1, Normal S2 Abdomen: Bowel Sounds Present, Soft, Non Tender, Non-Distended Extremities: No Calf Tenderness, Edema - decreased Skin: No rashes, No breakdown Psych/Mental Status: Appropriate, Flat Affect Microbiology Past 72 Hours 03/08/20 01:54 Urine, Catheterized Urine Culture - Preliminary Culture exhibits no growth. Laboratory Results 03/08/20 16:44: POC Glucose 265 H 03/08/20 22:21: POC Glucose 322 H 03/09/20 06:35: WBC 16.4 H, RBC 5.38, Hgb 16.4 H, Hct 53.3 H, MCV 99.1 H, MCH 30.5, MCHC 30.8 L, RDW Std Deviation 54.1 H, RDW Coeff of Bautista 14.8 H, Plt Count 198, MPV 10.7, Immature Gran % (Auto) 0.200, Neut % (Auto) 65.0, Lymph % (Auto) 22.6, [place] % (Auto) 10.8 H, Eos % (Auto) 1.2, Baso % (Auto) 0.2, Absolute Neuts (auto) 10.7 H, Absolute Lymphs (auto) 3.71, Nucleated RBC % 0, Differential Comment SCANNED, Diff Path Review July03/09/20 06:35: Sodium 139, Potassium 3.4 L, Chloride 95 L, Carbon Dioxide 41.0 H, Anion Gap 3 L, BUN 32 H, Creatinine 0.89, Estim Creat Clear Calc 52.97, Est GFR (MDRD) Af Amer 81, Est GFR (MDRD) Non-Af 67, BUN/Creatinine Ratio 35.9 H, Glucose 92, Calcium 9.4 03/09/20 06:48: POC Glucose 110 03/09/20 11:56: POC Glucose 247 H Current Medications Acetaminophen (Acetaminophen 325 Mg Tablet) 650 mg PO Q6H PRN PRN PRN Reason: Pain Score 1-10/Temp > 100.7 F Last Admin: 03/09/20 11:10 Dose: 650 mg Documented by: Acetaminophen (Acetaminophen 650 Mg Suppository) 650 mg RECTAL Q6H PRN PRN PRN Reason: temp of 100.7F/PAIN 1-01/05 Last Admin: 03/08/20 02:26 Dose: 650 mg Documented by: Acetazolamide (Acetazolamide 250 Mg Tablet) 125 mg PO BID [facility] Last Admin: 03/09/20 09:11 Dose: 125 mg Documented by: Albuterol/Ipratropium (Ipratropium/Albuterol Sulfate 3 Ml Ampul.Neb) 3 ml INHALATION Q4HWA.RT [facility] Last Admin: 03/09/20 11:10 Dose: 3 ml Documented by: Dextrose (Dextrose 50%-Water 25 Gm/50 Ml Disp.Syrin) 0 gm IV X1 PRN; Protocol PRN Reason: Hypoglycemia Last Admin: 03/08/20 06:16 Dose: 12.5 gm Documented by: Enoxaparin Sodium (Enoxaparin 40 Mg/0.4 Ml Syringe) 40 mg SC BID [facility] Last Admin: 03/09/20 09:12 Dose: 40 mg Documented by: Furosemide (Furosemide 40 Mg/4 Ml Vial) 40 mg IV Q8 [facility] Last Admin: 03/09/20 05:28 Dose: 40 mg Documented by: Glucagon (Glucagon 1 Mg/Ml Syringe) 1 mg IM .X1 PRN PRN Reason: Hypoglycemia Guaifenesin (Guaifenesin 1,200 Mg Tablet) 1,200 mg PO BID [facility] Last Admin: 03/09/20 09:12 Dose: 1,200 mg Documented by: Hydralazine HCl (Hydralazine 20 Mg/Ml Vial) 10 mg IV Q4H PRN PRN PRN Reason: BLOOD PRESSURE Last Admin: 03/05/20 07:00 Dose: 10 mg Documented by: Vancomycin IV Pharmacy to Dose (1 ea/ Sodium Chloride) 500 mls @ 250 mls/hr IV X1 PRN; Protocol PRN Reason: Rx to Dose Piperacillin Sod/Tazobactam (Sod 3.375 gm/ Sodium Chloride) 50 mls @ 12.5 mls/hr IV Q8 [facility] Last Infusion: 03/09/20 09:49 Dose: Infused Documented by: Vancomycin HCl 1,750 mg/ (Sodium Chloride) 535 mls @ 250 mls/hr IV Q12H [facility] Last Infusion: 03/09/20 10:21 Dose: Infused Documented by: Insulin Glargine (Insulin Glargine 100 Units/Ml Pen) 34 units SC QHS [facility] Last Admin: 03/08/20 22:22 Dose: 34 units Documented by: Insulin Human Lispro (Insulin Lispro 100 Unit/Ml Insuln.Pen) 0 unit SC ACHS [facility]; Protocol Last Admin: 03/09/20 11:57 Dose: 9 units Documented by: Metoprolol Tartrate (Metoprolol Tartrate 100 Mg Tablet) 100 mg PO BID [facility] Last Admin: 03/09/20 09:12 Dose: 100 mg Documented by: Nicotine Polacrilex (Nicotine Polacrilex 4 Mg Gum) 4 mg PO Q2H PRN PRN PRN Reason: Nicotine Craving Nystatin (Nystatin Ointment) 1 applic TOPICAL BID [facility]; Protocol Last Admin: 03/09/20 09:11 Dose: 1 applicatio Documented by: Pramipexole Dihydrochloride (Pramipexole Di-Hcl 1 Mg Tablet) 2 mg PO BID [facility] Last Admin: 03/09/20 09:13 Dose: 2 mg Documented by: Prednisone (Prednisone 20 Mg Tablet) 40 mg PO DAILY@0800 [facility] Last Admin: 03/09/20 09:11 Dose: 40 mg Documented by: Psyllium Hydrophilic Mucilloid (Psyllium 1 Packet) 1 packet PO DAILY PRN PRN PRN Reason: Constipation Last Admin: 03/08/20 13:09 Dose: 1 packet Documented by: Quetiapine Fumarate (Quetiapine 25 Mg Tablet) 25 mg PO QHS PRN PRN Reason: SLEEP Last Admin: 03/08/20 23:53 Dose: 25 mg Documented by: Ramipril (Ramipril 10 Mg Capsule) 10 mg PO DAILY [facility] Last Admin: 03/09/20 09:13 Dose: 10 mg Documented by: Sodium Chloride (0.9% Saline Lock 10 Ml Syringe) 10 - 40 ml IV UD PRN PRN Reason: SALINE FLUSH Last Admin: 03/09/20 11:11 Dose: 10 ml Documented by: STROKE Vital Signs/Narrative: Vital Signs Temp Pulse Resp BP Pulse Ox 03/09/20 11:59 36.3 C L 56 L 19 H 112/41 L 92 Medical Necessity - Tobacco Use Smoking Status: Current every day smoker Tobacco Use: Cigarettes Assessment/Plan All Active Problems Sepsis (Acute) Acute on chronic diastolic CHF (congestive heart failure) (Acute) Obstructive sleep apnea (Acute) Right heart failure (Acute) Cellulitis of right leg (Resolved) Cellulitis of left leg (Resolved) Blister of left leg (Acute) 1. Acute HFpEF * EF 65% from 09/29/2019 * complicated by moderate pulm HTN * continue furosemide * still volume overloaded, continue diuresis * add acetazolamide 2. Pleural effusion * suspect transudative * no thoracentesis at this time * follow CXR in 4-6 weeks as outtp. 3. COPD * likely not in exacerbation * prednisone 4. DM2 * improved * exacerbated by steroids * on SSI * metformin held given contrast * start basal insulin * a1c 10.3 on 09/29/2019 5. pulm HTn * likely group 2 or 3 * has known JACK, but, according to patient, has need a new CPAP for past year * complicates overall tmt of CHF 6. acute hypoxic and hypercapnic respiratory failure * 2/2 CHF, pleural effuion, pulm HTN, untreated JACK * chronically elevated pCO2 * previously does not tolerate BiPAP, but tolerating it so far * rapid COVID negative. 7. Metabolic encephalopathy * resolved * likely 2/2 hypercapnia * continue BiPAP as able. Add acetazolamide, though I have a low suspicion for contraction alkalosis 8. Fever * occurred on 03/08, no further fever * continue with vanc and pip/tazo * follow up cultures, thus far infectious work up has been unremarkable. 9. VTE prophylaxis: LMWH 10. Disposition: TBD. Inpatient E&M: 90028 Subs Hosp L2
[2020-03-09 16:41] LABS: Bedside Glucose 316 mg/dL (70-110)
[2020-03-09] MEDS: Psyllium 1 PACKET PO (18:15)
[2020-03-09 21:14] LABS: Vancomycin, Trough Level 23.5 ug/mL (5.0-15.0)
--- NOTE | 2020-03-09 21:55 | PCM.RX.CS ---
Consult Pharmacy has been consulted to manage selected antiobiotic: Vancomycin Type of Consult: Follow-up Suspected Infection: Pneumonia Prior Doses of Antibiotics Received/Current Regimen: Medications Vancomycin will be held until trough <20 mg/L Discontinued Medications Vancomycin HCl 1,750 mg/ (Sodium Chloride) 535 mls @ 250 mls/hr IV Q12H EPIFANIO Last Admin: 03/09/20 21:38 Dose: Not Given Documented by: Labs: Sodium 139 mmol/L (136-145) 03/09/20 06:35 Potassium 3.4 mmol/L (3.5-5.1) L 03/09/20 06:35 Chloride 95 mmol/L (98-107) L 03/09/20 06:35 Carbon Dioxide 41.0 mmol/L (21.0-32.0) H 03/09/20 06:35 Anion Gap 3 (5-15) L 03/09/20 06:35 BUN 32 mg/dL (7-18) H 03/09/20 06:35 Creatinine 0.89 mg/dL (0.55-1.02) 03/09/20 06:35 Est GFR (MDRD) Af Amer 81 mL/min (>60) 03/09/20 06:35 Est GFR (MDRD) Non-Af 67 mL/min (>60) 03/09/20 06:35 BUN/Creatinine Ratio 35.9 RATIO (10-20) H 03/09/20 06:35 Glucose 92 mg/dL (74-106) 03/09/20 06:35 Vancomycin Trough 23.5 ug/mL (5.0-15.0) H 03/09/20 20:36 Microbiology: Microbiology 03/08/20 01:54 Urine, Catheterized Urine Culture - Preliminary Culture exhibits no growth. 03/04/20 19:00 Mucosa - Nose Respiratory Panel (PCR) - Final 03/04/20 17:00 Mucosa - Nose SARS-CoV-2 Antigen (Rapid) - Final Weight used for dosin kg Estimated Creatinine Clearance: 79 Goal Trough: 15-20 mcg/mL Pharmacy Plan for Drug Dosing: Pharmacy Service will continue to monitor and adjust dosing as required. Vancomycin trough level returned at 23.5 above goal range 15-20. The 03/09/20 2100 dose had not been given and was held. A random level will be drawn 03/10/20 0600 and vancomycin will be restarted at a lower dose once trough is <20 mg/L Follow-Up Labs: Trough Vancomycin - random level Labs to be done on [date and time ordered]: 03/10/20 0600 random level to be drawn
[2020-03-09] MEDS: QUEtiapine 25 MG Tablet PO (22:07)
[2020-03-09 22:18] LABS: Bedside Glucose 317 mg/dL (70-110)
[2020-03-10] VITALS (8 sets, daily range): BP systolic 132–148; BP diastolic 57–63; PULSE 59–82; RESP 18; TEMP 37.1; O2SAT 89–97
[2020-03-10] MEDS: Ipratropium/Albuterol Sulfate 3 ML AMPUL.NEB INHALATION ×2 (03:22→07:15)
[2020-03-10] MEDS: Furosemide 40 MG/4 ML Vial IV (06:09)
[2020-03-10] MEDS: Insulin Lispro 100 UNIT/ML INSULN.PEN SC (06:10)
[2020-03-10 06:21] LABS: Bedside Glucose 164 mg/dL (70-110)
[2020-03-10 06:49] LABS: Absolute Lymphocyte Count 3.64 X10^3/uL (0.83-4.51); Absolute Neutrophil Count 9.1 X10^3/uL (2.0-7.7); Basophil# 0.09 X10^3/uL; Basophil% 0.6 % (0-1); Eosinophil# 0.28 X10^3/uL; Eosinophils% 1.9 % (0-5); Hemoglobin 16.8 g/dL (12.0-15.0); Lymphocyte # 3.64 X10^3/ul (4.0); Mean Corp Hgb Conc 29.4 g/dL (32-36); Mean Corpuscular Hgb 30.5 pg (27.0-32.0); Mean Corpuscular Volume 103.6 fL (81-99); Monocyte# 1.32 X10^3/uL; Monocyte% 9.1 % (0-10); NRBC Flagged by Analyzer 0 % (0-5); Neutrophil # 9.12 X10^3/uL (2.7-7.7); Neutrophil % 62.6 % (47-70); Platelet Count 184 K/mm3 (150-450); RBC Distribution Width CV 14.6 % (11.6-14.6); RBC Distribution Width SD 56.7 fl (35.1-43.9); Red Blood Count 5.51 M/mm3 (4.2-5.4); White Blood Count 14.6 K/mm3 (4.4-11.0)
[2020-03-10 07:20] LABS: Anion Gap 3 (5-15); BUN 35 mg/dL (7-18); BUN/Creat Ratio 31.5 RATIO (10-20); Calcium,Total 9.3 mg/dL (8.5-10.1); Chloride 93 mmol/L (98-107); Creatinine, Serum 1.11 mg/dL (0.55-1.02); EST Glomerular Filtration Rate 52 mL/min (>60); Est Glom Filt Rate - Afr Amer 63 mL/min (>60); Estimated Creatinine Clearance 42.47 ml/min; Glucose 163 mg/dL (74-106); Potassium 3.2 mmol/L (3.5-5.1); Sodium Level 138 mmol/L (136-145)
[2020-03-10 07:26] LABS: Hematocrit 57.1 % (37-47); Vancomycin, Trough Level 16.6 ug/mL (5.0-15.0)
[2020-03-10] MEDS: predniSONE 20 MG Tablet 40 MG PO (07:58)
[2020-03-10] MEDS: Ramipril 10 MG Capsule PO (07:58)
[2020-03-10] MEDS: Metoprolol Tartrate 100 MG Tablet PO (07:58)
[2020-03-10] MEDS: AcetaZOLAMIDE 250 MG Tablet 125 MG PO (07:58)
[2020-03-10] MEDS: Pramipexole Di-HCl 1 MG Tablet 2 MG PO (07:58)
[2020-03-10] MEDS: Nystatin Ointment 1 APPLIC TOPICAL (07:59)
[2020-03-10] MEDS: Enoxaparin 40 MG/0.4 ML Syringe SC (07:59)
[2020-03-10] MEDS: guaiFENesin 1,200 MG Tablet 1200 MG PO (07:59)
--- NOTE | 2020-03-10 09:56 | DCINST_ITS ---
- Discharge Diagnoses Current Active Problems: Current Active and Chronic Problems COPD with acute exacerbation (Chronic) Acute on chronic diastolic CHF (congestive heart failure) (Acute) Smoker (Chronic) Type 2 diabetes mellitus (Chronic) Hypertension (Chronic) COPD (chronic obstructive pulmonary disease) (Chronic) Obstructive sleep apnea (Acute) Pulmonary hypertension (Chronic) You will use the following diet at home:: Calorie/Carbohydrate Controlled (specify 1200, 1400, etc) - 2200 calories/day, Fluid restricted (specify 2000 mls, 1500 mls) - 1500 Discharge Activity: Return to Normal Activity Call your doctor if you observe: Fever of 101 or Higher, Shortness of breath Instructions: Taking GUADALUPE Inhibitors, Taking Medication to Control Heart Failure, What Is Heart Failure?, Heart Failure: Warning Signs of a Flare-Up, Heart Failure: Tracking Your Weight, Heart Failure: Being Active, Heart Failure: Procedures That May Help, Heart Failure: Making Changes to Your Diet Allergies/Adverse Reactions: Allergies PAPER TAPE Allergy (Uncoded 03/04/20 21:29) Rash Medications to take at Discharge Lovastatin [Mevacor] 40 mg PO QHS 09/01/18 Metoprolol Tartrate [Lopressor (beta elisa)] 100 mg PO BID 09/01/18 Multivitamin with Minerals [Multiple Vitamin] 1 each PO DAILY 09/01/18 Pramipexole Di-HCl [Mirapex] 2 mg PO BID 09/01/18 Ramipril [Altace] 10 mg PO DAILY 09/01/18 Dulaglutide [Trulicity] 0.75 mg SQ QWEEK 03/04/20 Gabapentin [Neurontin] 300 mg PO 4X/DAY 03/04/20 Metformin HCl 1,000 mg PO BID 03/04/20 Nicotine [Nicotine Patch] 1 patch TP DAILY 03/04/20 Oxycodone Myristate [Xtampza ER] 9 mg PO BID PRN PRN 03/04/20 Amox/Clavulanate Tablet [Augmentin Tablet] 875 mg PO Q12H #10 tab 03/10/20 Furosemide 40 mg PO BID #60 tab 03/10/20 Guaifenesin [Mucinex] 1,200 mg PO BID #10 tab 03/10/20 Potassium Chloride [K-Dur] 20 meq PO DAILY #30 tab 03/10/20 predniSONE tablet 2 tab PO DAILY@0800 #2 tab 12/13/20 The following prescriptions were given: Amox/Clavulanate Tablet [Augmentin Tablet] 875 mg PO Q12H #10 tab Transmission Status: Pending to [facility]/pharmacy #[id number] Furosemide 40 mg PO BID #60 tab Transmission Status: Pending to [facility]/pharmacy #[id number] Potassium Chloride [K-Dur] 20 meq PO DAILY #30 tab Transmission Status: Pending to [facility]/pharmacy #[id number] Guaifenesin [Mucinex] 1,200 mg PO BID #10 tab Transmission Status: Pending to [facility]/pharmacy #[id number] predniSONE tablet 2 tab PO DAILY@0800 #2 tab Transmission Status: Received by [facility]/pharmacy #[id number] Primary Care Physician: Bhavesh Victoria MD [Primary Care Provider] - Within 1 Week Test Results: Test results from this visit will be discussed in further detail at your follow- up appointment, if applicable. Please Follow Up With: Mauricio Pruitt MD When: 2-4 weeks Please Follow Up With: [facility] When: 1-2 months Proposed Discharge Date: 03/10/20
--- NOTE | 2020-03-10 10:00 | DS.PCM_ITS ---
Discharge Date and Diagnosis - Problem List Patient Problems: Active and Suspected Problems Acute on chronic diastolic CHF (congestive heart failure) (Acute) Obstructive sleep apnea (Acute) Lymphedema (Suspected) Date of Admission: 03/04/20 Date of Discharge: 03/10/20 - Primary Discharge Diagnosis Acute Problems: Active Problems Acute on chronic diastolic CHF (congestive heart failure) (Acute) Obstructive sleep apnea (Acute) 1. Acute HFpEF * EF 65% from 09/29/2019 * complicated by moderate pulm HTN * continue furosemide, change to PO * improving 2. Pleural effusion * suspect transudative * no thoracentesis at this time * follow CXR in 4-6 weeks as outtp. 3. COPD * likely not in exacerbation * prednisone 4. DM2 * improved * exacerbated by steroids * a1c 10.3 on 09/29/2019 5. pulm HTn * likely group 2 or 3 * has known JACK, but, according to patient, has need a new CPAP for past year * complicates overall tmt of CHF * follow up with Dr. Pruitt about repeat PSG 6. acute hypoxic and hypercapnic respiratory failure * 2/2 CHF, pleural effuion, pulm HTN, untreated JACK * chronically elevated pCO2 * previously does not tolerate BiPAP, but tolerating it so far * rapid COVID negative. 7. Metabolic encephalopathy * resolved * likely 2/2 hypercapnia 8. Fever * occurred on 03/08, no further fever * infectious work up negative. * Discharge with Augmentin Suspected Problems: Suspected Problems Lymphedema (Suspected) - Secondary Discharge Diagnosis Chronic Problems: Chronic Problems COPD with acute exacerbation (Chronic) Smoker (Chronic) Type 2 diabetes mellitus (Chronic) Hypertension (Chronic) COPD (chronic obstructive pulmonary disease) (Chronic) Pulmonary hypertension (Chronic) Ulcer of right lower extremity with fat layer exposed (Chronic) Ulcer of left lower extremity with fat layer exposed (Chronic) Hospital Course and Treatment Imaging Results: Clinical Impression(s) from Imaging Studies Chest X-Ray 03/04/20 17:30 IMPRESSION: Worsening atelectasis or infiltrate in the right lung base. Probable atelectasis or infiltrate with effusion in the left lung base. Electronically Signed: Huan Mcdaniels MD at 17:50 EST , Service support , Chest CTA 03/04/20 20:09 IMPRESSION: Technically inadequate exam for confirming or excluding pulmonary emboli as indicated above. Improper bolus and timing. Cardiomegaly. Bilateral small pleural effusions. Probable subsegmental atelectasis in both lung bases. Electronically Signed: Huan Mcdaniels MD at 20:33 EST , Service support , Chest X-Ray 03/08/20 02:12 IMPRESSION: Persistent patchy lung base opacities concerning for underlying pneumonia. Electronically Signed: Kamran Bird, at 3:33 EST Tel , Service support , Operations: None Procedures: None Summary of Care Provided: The patient is a 65 year old F with a 1 week history of shortness of breath. Patient was found to be in CHF exacerbation she also did have an effusion. Patient was started on diuresis. Patient was also started on steroids given her concomitant COPD. Patient was COVID-19 negative. Patient's course was uncomplicated but she did have an issue where she became somnolent and confused. Patient was put on a BiPAP and subsequently was doing better. Patient had extremely high PCO2 but this is been a chronic problem for her but this was higher than what she is at baseline.'s patient was diuresed and overall has improved. Weight is gone down from 129.5 kg to 114.4 kg which appears to be around her baseline. Initial weight of 113 was likely an error. Patient advised to check daily weights and advised to follow-up with pulmonology about getting reestablished with a CPAP. Patient expressed apprehension about going on a CPAP but when patient was confused she was tolerating a BiPAP well. Patient was offered home health care but she is declined. Patient will be discharged home with continuation of her chronic oxygen. [] Patient Problems: Active and Suspected Problems Acute on chronic diastolic CHF (congestive heart failure) (Acute) Obstructive sleep apnea (Acute) Lymphedema (Suspected) - Physical Exam Vitals/I&O's: Vital Signs Temp Pulse Resp BP Pulse Ox 37.1 C 62 18 132/57 H 93 03/10/20 07:56 03/10/20 07:58 03/10/20 07:56 03/10/20 07:56 03/10/20 07:56 Oxygen Flow Rate (L/min) 4 Oxygen Delivery Method Nasal Cannula Weight: 114.4 kg Body Mass Index (BMI) 49.0 Finger Stick Blood Glucose 319 Intake and Output for Last 24 Hours 03/08/20 03/09/20 03/10/20 23:59 23:59 23:59 Intake Total 1940 / 2140 2060 / 2660 850 / 850 Output Total 6100 / 7600 6050 / 6900 1750 / 1750 Balance -4160 / -5460 -3990 / -4240 -900 / -900 General: Alert, No apparent distress HEENT: Atraumatic, Normocephalic Oral: Moist Mucosa, No Gingival or Mucosal Lesions/ Ulcerations Neck: No Nodes, Thyroid Normal Size and Texture Lungs: Clear to auscultation, Normal air movement, No rhonchi, No wheeze Cardiovascular: Regular rate, Regular Rhythm, Normal S1, Normal S2, No murmurs Abdomen: Bowel Sounds Present, Soft, Non Tender, Non-Distended Extremities: No edema, No Calf Tenderness Psych/Mental Status: Normal Affect, Appropriate Microbiology Past 72 Hours 03/08/20 03:36 Blood Culture (Wb) - Left Hand Blood Culture - Preliminary No growth in 48 hours. 03/08/20 03:30 Blood Culture (Wb) - Right Hand Blood Culture - Preliminary No growth in 48 hours. 03/08/20 01:54 Urine, Catheterized Urine Culture - Preliminary Culture exhibits no growth. Laboratory Results 03/09/20 11:56: POC Glucose 247 H 03/09/20 16:28: POC Glucose 316 H 03/09/20 20:36: Vancomycin Trough 23.5 H 03/09/20 21:37: POC Glucose 317 H 03/10/20 06:07: POC Glucose 164 H 03/10/20 06:23: WBC 14.6 H, RBC 5.51 H, Hgb 16.8 H, Hct 57.1 H, MCV 103.6 H, MCH 30.5, MCHC 29.4 L, RDW Std Deviation 56.7 H, RDW Coeff of Bautista 14.6, Plt Count 184, MPV 11.0, Immature Gran % (Auto) 0.800, Neut % (Auto) 62.6, Lymph % (Auto) 25.0, Murray % (Auto) 9.1, Eos % (Auto) 1.9, Baso % (Auto) 0.6, Absolute Neuts (auto) 9.1 H, Absolute Lymphs (auto) 3.64, Nucleated RBC % 0 03/10/20 06:23: Sodium 138, Potassium 3.2 L, Chloride 93 L, Carbon Dioxide 42.0 H, Anion Gap 3 L, BUN 35 H, Creatinine 1.11 H, Estim Creat Clear Calc 42.47, Est GFR (MDRD) Af Amer 63, Est GFR (MDRD) Non-Af 52 L, BUN/Creatinine Ratio 31.5 H, Glucose 163 H, Calcium 9.3 03/10/20 06:23: Vancomycin Trough 16.6 H Current Medications Acetaminophen (Acetaminophen 325 Mg Tablet) 650 mg PO Q6H PRN PRN PRN Reason: Pain Score 1-10/Temp > 100.7 F Last Admin: 03/09/20 11:10 Dose: 650 mg Documented by: Acetaminophen (Acetaminophen 650 Mg Suppository) 650 mg RECTAL Q6H PRN PRN PRN Reason: temp of 100.7F/PAIN 1-01/05 Last Admin: 03/08/20 02:26 Dose: 650 mg Documented by: Acetazolamide (Acetazolamide 250 Mg Tablet) 125 mg PO BID [facility] Last Admin: 03/10/20 07:58 Dose: 125 mg Documented by: Albuterol/Ipratropium (Ipratropium/Albuterol Sulfate 3 Ml Ampul.Neb) 3 ml INHALATION Q4HWA.RT [facility] Last Admin: 03/10/20 07:15 Dose: 3 ml Documented by: Dextrose (Dextrose 50%-Water 25 Gm/50 Ml Disp.Syrin) 0 gm IV X1 PRN; Protocol PRN Reason: Hypoglycemia Last Admin: 03/08/20 06:16 Dose: 12.5 gm Documented by: Enoxaparin Sodium (Enoxaparin 40 Mg/0.4 Ml Syringe) 40 mg SC BID [facility] Last Admin: 03/10/20 07:59 Dose: 40 mg Documented by: Furosemide (Furosemide 40 Mg/4 Ml Vial) 40 mg IV Q8 [facility] Last Admin: 03/10/20 06:09 Dose: 40 mg Documented by: Glucagon (Glucagon 1 Mg/Ml Syringe) 1 mg IM .X1 PRN PRN Reason: Hypoglycemia Guaifenesin (Guaifenesin 1,200 Mg Tablet) 1,200 mg PO BID [facility] Last Admin: 03/10/20 07:59 Dose: 1,200 mg Documented by: Hydralazine HCl (Hydralazine 20 Mg/Ml Vial) 10 mg IV Q4H PRN PRN PRN Reason: BLOOD PRESSURE Last Admin: 03/05/20 07:00 Dose: 10 mg Documented by: Vancomycin IV Pharmacy to Dose (1 ea/ Sodium Chloride) 500 mls @ 250 mls/hr IV X1 PRN; Protocol PRN Reason: Rx to Dose Piperacillin Sod/Tazobactam (Sod 3.375 gm/ Sodium Chloride) 50 mls @ 12.5 mls/hr IV Q8 [facility] Last Admin: 03/10/20 06:10 Dose: 12.5 mls/hr Documented by: Insulin Glargine (Insulin Glargine 100 Units/Ml Pen) 34 units SC QHS [facility] Last Admin: 03/09/20 21:43 Dose: 34 units Documented by: Insulin Human Lispro (Insulin Lispro 100 Unit/Ml Insuln.Pen) [facility]; Protocol Last Admin: 03/10/20 06:10 Dose: 3 units Documented by: Metoprolol Tartrate (Metoprolol Tartrate 100 Mg Tablet) 100 mg PO BID [facility] Last Admin: 03/10/20 07:58 Dose: 100 mg Documented by: Nicotine Polacrilex (Nicotine Polacrilex 4 Mg Gum) 4 mg PO Q2H PRN PRN PRN Reason: Nicotine Craving Nystatin (Nystatin Ointment) 1 applic TOPICAL BID [facility]; Protocol Last Admin: 03/10/20 07:59 Dose: 1 applicatio Documented by: Potassium Chloride (Potassium Chloride 20 Meq Tablet) 40 meq PO X1 ONE Stop: 03/10/20 10:01 Pramipexole Dihydrochloride (Pramipexole Di-Hcl 1 Mg Tablet) 2 mg PO BID [facility] Last Admin: 03/10/20 07:58 Dose: 2 mg Documented by: Prednisone (Prednisone 20 Mg Tablet) 40 mg PO DAILY@0800 [facility] Stop: 03/11/20 23:59 Last Admin: 03/10/20 07:58 Dose: 40 mg Documented by: Psyllium Hydrophilic Mucilloid (Psyllium 1 Packet) 1 packet PO DAILY PRN PRN PRN Reason: Constipation Last Admin: 03/09/20 18:15 Dose: 1 packet Documented by: Quetiapine Fumarate (Quetiapine 25 Mg Tablet) 25 mg PO QHS PRN PRN Reason: SLEEP Last Admin: 03/09/20 22:07 Dose: 25 mg Documented by: Ramipril (Ramipril 10 Mg Capsule) 10 mg PO DAILY [facility] Last Admin: 03/10/20 07:58 Dose: 10 mg Documented by: Sodium Chloride (0.9% Saline Lock 10 Ml Syringe) 10 - 40 ml IV UD PRN PRN Reason: SALINE FLUSH Last Admin: 03/09/20 11:11 Dose: 10 ml Documented by: Discharge Activity: Return to Normal Activity Call your doctor if you observe: Fever of 101 or Higher, Shortness of breath Home Medications: Medications to take at Discharge Lovastatin [Mevacor] 40 mg PO QHS 09/01/18 Metoprolol Tartrate [Lopressor (beta elisa)] 100 mg PO BID 09/01/18 Multivitamin with Minerals [Multiple Vitamin] 1 each PO DAILY 09/01/18 Pramipexole Di-HCl [Mirapex] 2 mg PO BID 09/01/18 Ramipril [Altace] 10 mg PO DAILY 09/01/18 Dulaglutide [Trulicity] 0.75 mg SQ QWEEK 03/04/20 Gabapentin [Neurontin] 300 mg PO 4X/DAY 03/04/20 Metformin HCl 1,000 mg PO BID 03/04/20 Nicotine [Nicotine Patch] 1 patch TP DAILY 03/04/20 Oxycodone Myristate [Xtampza ER] 9 mg PO BID PRN PRN 03/04/20 Amox/Clavulanate Tablet [Augmentin Tablet] 875 mg PO Q12H #10 tab 03/10/20 Furosemide 40 mg PO BID #60 tab 03/10/20 Guaifenesin [Mucinex] 1,200 mg PO BID #10 tab 03/10/20 Potassium Chloride [K-Dur] 20 meq PO DAILY #30 tab 03/10/20 predniSONE tablet 2 tab PO DAILY@0800 #2 tab 03/10/20 Following Prescriptions Were Given to Patient: Amox/Clavulanate Tablet [Augmentin Tablet] 875 mg PO Q12H #10 tab Transmission Status: Pending to [facility]/pharmacy #[id number] Furosemide 40 mg PO BID #60 tab Transmission Status: Pending to [facility]/pharmacy #[id number] Potassium Chloride [K-Dur] 20 meq PO DAILY #30 tab Transmission Status: Pending to [facility]/pharmacy #[id number] Guaifenesin [Mucinex] 1,200 mg PO BID #10 tab Transmission Status: Pending to [facility]/pharmacy #[id number] predniSONE tablet 2 tab PO DAILY@0800 #2 tab Transmission Status: Received by [facility]/pharmacy #[id number] Primary Care Physician: Bhavesh Victoria MD [Primary Care Provider] - Within 1 Week Please Follow Up With: Mauricio Pruitt MD When: 2-4 weeks Please Follow Up With: [facility] When: 1-2 months Patient Instructions: Taking GUADALUPE Inhibitors, Taking Medication to Control Heart Failure, What Is Heart Failure?, Heart Failure: Warning Signs of a Flare-Up, Heart Failure: Tracking Your Weight, Heart Failure: Being Active, Heart Failure: Procedures That May Help, Heart Failure: Making Changes to Your Diet Disposition: Home Minutes spent on discharge:: 40 Patient Condition:: Fair Medical Necessity - Tobacco Use Smoking Status: Current every day smoker Tobacco Use: Cigarettes Meaningful Use Info Meaningful Use Diagnoses (Choose all that apply): CHF - CHF GUADALUPE/ARB ordered at discharge?: Yes Documented LVEF (%): 65 Inpatient E&M: 27945 Disch Hosp
[2020-03-11 13:22] LABS: Pathologist Review Reviewed
--- NOTE | 2020-03-11 13:54 | CASEMGMT ---
JOHNNY CM DISCHARGE PHONE CALL DC DATE: 03/10/2020 DC DISPOSITION: Home with oxygen DC DIAGNOSIS: CHF Intro role of CM to patient via phone. Pt states she is doing well. Has not filled prescriptions yet as she states she gets paid on wednesday. Reviewed patient's medications with her. She has prednisone @ home. JOHNNY PIERSON asked if she could ask family for assistance in getting her medications filled. Patient stated no one has any money for this. Number given for [facility] [employer] [facility] [employer]. Patient has used them before and will call them. Marta PAL RN ACM
== END 2020-03-10 10:45 | disposition home or self-care (01) | DRG 291 ==
LOC: ED 17:21 → PCU 21:55
PROVIDERS: Hospitalist; Physician Assistant; Admitting Provider Internal Medicine; Emergency Provider Emergency Medicine; PCP Family Medicine
DX: I11.0 Hypertensive heart disease with heart failure (principal); J96.02 Acute respiratory failure with hypercapnia; J96.01 Acute respiratory failure with hypoxia; J44.0 Chronic obstructive pulmonary disease with (acute) lower respiratory infection; J98.11 Atelectasis; Z68.42 Body mass index [BMI] 45.0-49.9, adult; J90 Pleural effusion, not elsewhere classified; R50.9 Fever, unspecified; I50.82 Biventricular heart failure; I50.33 Acute on chronic diastolic (congestive) heart failure; I89.0 Lymphedema, not elsewhere classified; I27.20 Pulmonary hypertension, unspecified; E11.65 Type 2 diabetes mellitus with hyperglycemia; E11.69 Type 2 diabetes mellitus with other specified complication; E66.01 Morbid (severe) obesity due to excess calories; G47.33 Obstructive sleep apnea (adult) (pediatric); E78.00 Pure hypercholesterolemia, unspecified; Z79.4 Long term (current) use of insulin; Z99.81 Dependence on supplemental oxygen; F17.210 Nicotine dependence, cigarettes, uncomplicated; Z91.14 Patient's other noncompliance with medication regimen; Z79.899 Other long term (current) drug therapy
CPT/HCPCS: 36415; 36600; 71045; 71275; 80048; 80053; 80202; 81001; 82140; 82803; 82962; 83605; 83880; 84484; 85025; 85379; 87040; 87086; 87426; 87633; 87635; 87641; 93005; 94002; 94003; 94640; 94667; 94668; 97110; 97162; 97165; 97530; 97535; 97803; 99251; 99285; 99406; G0008; J7040; Q9967; 90686; A4216; G0463; J1940; U0002

== ENCOUNTER 2020-07-29 10:56 | Inpatient (IN) | payer MEDICARE, OTHER, SELFPAY ==
[2020-03-04 21:25] VITALS: BMI 49.0
[2020-07-29] VITALS (16 sets, daily range): BP systolic 148–184; BP diastolic 58–104; PULSE 73–104; RESP 10–24; TEMP 36.2–37; O2SAT 85–97; BMI 49.4; BMI 49.6
--- NOTE | 2020-07-29 11:14 | RAD_ITS ---
STUDY: X-RAY CHEST REASON FOR EXAM: Female, 65 years old. Sob TECHNIQUE: Single AP portable view of the chest. COMPARISON: Comparison is made with prior study dated 03/08/2020. FINDINGS: EKG electrodes are seen. Right lower lobe infiltrate. There is no demonstrated pleural abnormality. There is moderate cardiac enlargement. Normal mediastinum and gerri. Normal visualized pulmonary arteries. Normal visualized aortic arch and descending thoracic aorta. There are diffuse degenerative changes of the visualized thoracic spine. Normal visualized ribs, clavicles, and shoulders. There is no demonstrated abnormality of the visualized soft tissue structures of the upper abdomen. RAD/Chest 1 View (Portable) IMPRESSION: Right lower lobe infiltrate. Cardiomegaly. Electronically Signed: Abdifatah Echeverria MD at 11:58 EDT , Service support ,
--- NOTE | 2020-07-29 11:14 | EKG12_ITS ---
Test Reason : SOB Blood Pressure : / mmHG Vent. Rate : 100 BPM Atrial Rate : 100 BPM P-R Int : 170 ms QRS Dur : 086 ms QT Int : 336 ms P-R-T Axes : 058 199 049 degrees QTc Int : 433 ms Normal sinus rhythm Anteroseptal PR, age undetermined Confirmed by WAI CRAWFORD, ANASTASIYA ([id number]), photograph editor MOON DUMONT ([id number]) on 07/31/2020 8:55:16 AM Referred By: JIN Confirmed By:ANASTASIYA CARRENO MD
--- NOTE | 2020-07-29 11:20 | EDS_ITS ---
HPI History of Present Illness Chief Complaint: Shortness of Breath Informant: patient Onset/Context/Timing Onset: Days (7 to 10 days) Context: Gradual Onset Timing: Waxes and wanes Current Severity: Mild Maximum Severity: Moderate Narrative Narrative: Patient presents with increased shortness of breath for the last week and a half or so. She does have cough with clear sputum. She denies fever or chills. No chest pain. She does feel as if she has more swollen than her abdomen is more distended than normal more consistent with her CHF. She states she is taking Lasix but has noted decreased urine output in spite of taking this. She does have history of COPD as well. She wears 4 L of oxygen at home at baseline. She states her normal O2 sats are in the high 80s. PFSH PFSH Home Medications Lovastatin [Mevacor] 40 mg PO QHS 09/01/18 [History Last Taken 03/03/20] metoprolol tartrate 100 mg PO BID 09/01/18 [History Last Taken 03/03/20] multivitamin with minerals [Multiple Vitamin-Minerals] 1 ea PO DAILY 09/01/18 [H istory Last Taken 03/03/20] pramipexole 2 mg PO BID 09/01/18 [History Last Taken Unknown] ramipril 10 mg PO DAILY 09/01/18 [History Last Taken Unknown] dulaglutide 0.75 mg SQ QWEEK 03/04/20 [History Last Taken 03/01/20] gabapentin 300 mg PO 4X/DAY 03/04/20 [History Last Taken 03/03/20] metformin 1,000 mg PO BID 03/04/20 [History Last Taken 03/03/20] nicotine 1 patch TP DAILY 03/04/20 [History Last Taken 03/03/20] oxycodone myristate 9 mg PO BID PRN PRN 03/04/20 [History Last Taken 03/04/20] amoxicillin-pot clavulanate 875 mg PO Q12H #10 tab 03/10/20 [Rx Last Taken Unknown] furosemide 40 mg PO BID #60 tab 03/10/20 [Rx Last Taken Unknown] guaifenesin 1,200 mg PO BID #10 tab 03/10/20 [Rx Last Taken Unknown] potassium chloride 20 meq PO DAILY #30 tab 03/10/20 [Rx Last Taken Unknown] prednisone 2 tab PO DAILY@0800 #2 tab 03/10/20 [Rx Last Taken Unknown] Allergy/AdvReac Type Severity Reaction Status Date / Time PAPER TAPE Allergy Rash Uncoded 07/29/20 10:57 Social History Smoking Status: Current every day smoker ROS ROS ED Constitutional Constitutional ED: Denies chills or fever(s) Eyes Eyes: Denies change in vision ENT ENT ED: Denies sore throat Cardiovascular Cardiovascular: Denies chest pain Respiratory/Chest Respiratory/Chest: Reports cough, dyspnea and sputum Gastrointestinal Gastrointestinal: Denies abdominal pain, diarrhea, nausea or vomiting Genitourinary Genitourinary ED: Denies dysuria Musculoskeletal Musculoskeletal: Denies back pain Integumentary Denies rash Neurologic Neurologic: Denies headache(s) or weakness Psychiatric Psychiatric: Denies anxiety or depression Endocrine Endocrinology: Denies polydipsia or polyuria Allergic/Immunologic Allergic/Immunologic ED: Denies urticaria EXAM Physical Exam Const Vital Signs: 07/29/20 10:58 07/29/20 11:01 07/29/20 11:25 Temperature 97.2 F L 97.2 F L Temperature Source Temporal Temporal Pulse Rate 104 H 98 Respiratory Rate 22 H 20 H Respiratory Effort Non-Labored Short of Breath Respiratory Depth Normal Respiratory Pattern Tachypnea Blood Pressure 148/72 H 148/72 H Blood Pressure Mean 97 97 Pulse Ox 85 89 Oxygen Delivery Method Nasal Cannula Nasal Cannula Nasal Cannula Oxygen Flow Rate (L/min) 4 5 4 07/29/20 12:00 07/29/20 13:35 07/29/20 14:41 Temperature Temperature Source Pulse Rate 92 82 94 Respiratory Rate 24 H 20 H 20 H Respiratory Effort Respiratory Depth Respiratory Pattern Blood Pressure 184/104 H 152/76 H 179/95 H Blood Pressure Mean 130 101 123 Pulse Ox 88 91 89 Oxygen Delivery Method Nasal Cannula Oxygen Flow Rate (L/min) 4 07/29/20 15:16 Temperature Temperature Source Pulse Rate 86 Respiratory Rate 20 H Respiratory Effort Respiratory Depth Respiratory Pattern Blood Pressure 173/86 H Blood Pressure Mean 115 Pulse Ox 92 Oxygen Delivery Method Nasal Cannula Oxygen Flow Rate (L/min) 4 Positive well nourished and well developed General Appearance ED: well developed HEENT Reports normocephalic and head/scalp atraumatic Eyes PERRL and EOMs intact bilaterally Neck supple Chest Wall inspection of chest normal and palpation of chest normal Resp normal respiratory effort Auscultation: diminished lung sounds Cardio regular rate and regular rhythm GI Inspection: abdominal distention Auscultation: hypoactive bowel sounds Palpation: soft Extremity Extremity Narrative: Chronic lymphedema with 3-4+ bilateral lower extremity edema Neuro oriented x3 Sensorium / Orientation: alert Psych mental status grossly normal Skin no rashes or lesions noted MDM MDM MDM Narrative Medical decision making narrative: Patient is kept on 4 L nasal cannula. O2 sat is between 88 and 90% which she states is her baseline. Blood work reveals no significant leukocytosis. BNP is elevated. Lab Data Labs: Laboratory Results - last 24 hr 07/29/20 07/29/20 07/29/20 11:41 11:41 11:41 WBC 9.6 RBC 5.40 Hgb 17.0 H Hct 55.2 H MCV 102.2 H MCH 31.5 MCHC 30.8 L RDW Std Deviation 52.9 H RDW Coeff of Bautista 14.0 Plt Count 165 MPV 10.9 Immature Gran % (Auto) 0.600 Neut % (Auto) 67.4 Lymph % (Auto) 20.0 [place] % (Auto) 9.3 Eos % (Auto) 2.0 Baso % (Auto) 0.7 Absolute Neuts (auto) 6.5 Absolute Lymphs (auto) 1.92 Nucleated RBC % 0.2 Sodium Cancelled Potassium Cancelled Chloride Cancelled Carbon Dioxide Cancelled Anion Gap Cancelled BUN Cancelled Creatinine Cancelled Estim Creat Clear Calc Cancelled Est GFR (MDRD) Af Amer Cancelled Est GFR (MDRD) Non-Af Cancelled BUN/Creatinine Ratio Cancelled Glucose Cancelled Calcium Cancelled Troponin I Cancelled B-Natriuretic Peptide 432.9 H 07/29/20 12:06 WBC RBC Hgb Hct MCV MCH MCHC RDW Std Deviation RDW Coeff of Bautista Plt Count MPV Immature Gran % (Auto) Neut % (Auto) Lymph % (Auto) [place] % (Auto) Eos % (Auto) Baso % (Auto) Absolute Neuts (auto) Absolute Lymphs (auto) Nucleated RBC % Sodium 142 Potassium 4.3 Chloride 103 Carbon Dioxide 37.0 H Anion Gap 2 L BUN 22 H Creatinine 0.91 Estim Creat Clear Calc 47.45 Est GFR (MDRD) Af Amer 80 Est GFR (MDRD) Non-Af 66 BUN/Creatinine Ratio 24.3 H Glucose 259 H Calcium 8.7 Troponin I 0.017 B-Natriuretic Peptide Radiography Chest X-Ray - ED: 1 View, Read by ED Physician and Right Infiltrate Diagnostic Testing: Radiology Impression Chest X-Ray 07/29/20 11:14 IMPRESSION: Right lower lobe infiltrate. Cardiomegaly. Electronically Signed: Abdifatah Echeverria MD at 11:58 EDT , Service support , EKG Initial EKG: Interpretation: Sinus Rhythm and No Acute Injury Pattern Comments: Sinus at 100 with no acute ischemia. Treatment and Re-Evaluation Comments:: Patient is given a dose of IV Lasix as well as p.o. doxycycline. Patient is satting 88% on 4 L when sitting completely at rest. With any exertion she was dropping into the low 80s. She does have very significant lung disease I do have concern about sending her home without ensuring that she is improving. Patient is comfortable with overnight observation for further treatment. I will speak with the hospitalist. Discharge Plan Triage Chief Complaint: Shortness of Breath ED Provider: Jessica Rodriguez Dx/Rx/DC Orders Clinical Impression: Pneumonia, CHF (congestive heart failure) Prescriptions: No Action pramipexole 1 MG tablet 2 mg PO BID RF: 0 metoprolol tartrate 100 MG tablet 100 mg PO BID RF: 0 multivitamin with minerals [Multiple Vitamin-Minerals] 1 EACH tablet 1 ea PO DAILY RF: 0 ramipril 10 MG capsule 10 mg PO DAILY RF: 0 Lovastatin [Mevacor] 40 MG tablet 40 mg PO QHS RF: 0 metformin 1,000 MG tablet 1,000 mg PO BID RF: 0 nicotine 1 EACH patch 24 hour 1 patch TP DAILY RF: 0 gabapentin 300 MG capsule 300 mg PO 4X/DAY RF: 0 dulaglutide 0.75 MG/0.5 ML pen injector 0.75 mg SQ QWEEK RF: 0 oxycodone myristate 9 MG cap,sprinkl,ER12hr(DONT CRUSH) 9 mg PO BID PRN PRN (Reason: Pain 1-10 Or Fever) RF: 0 prednisone 20 MG tablet 2 tab PO DAILY@0800 Qty: 2 RF: 0 furosemide 40 MG tablet 40 mg PO BID Qty: 60 RF: 0 potassium chloride 20 MEQ tablet 20 meq PO DAILY Qty: 30 RF: 0 amoxicillin-pot clavulanate 875 MG tablet 875 mg PO Q12H Qty: 10 RF: 0 guaifenesin 1,200 MG tablet 1,200 mg PO BID Qty: 10 RF: 0 Primary Care Provider: Bhavesh Victoria Referrals: Bhavesh Victoria MD [Primary Care Provider] - Disposition Disposition: Acute Care Hospital [facility]
[2020-07-29 11:49] LABS: Absolute Lymphocyte Count 1.92 X10^3/uL (0.83-4.51); Absolute Neutrophil Count 6.5 X10^3/uL (2.0-7.7); Basophil# 0.07 X10^3/uL; Basophil% 0.7 % (0-1); Eosinophil# 0.19 X10^3/uL; Hematocrit 55.2 % (37-47); Lymphocyte # 1.92 X10^3/ul (0.83-4.51); Mean Corp Hgb Conc 30.8 g/dL (32-36); Mean Corpuscular Hgb 31.5 pg (27.0-32.0); Mean Corpuscular Volume 102.2 fL (81-99); Mean Platelet Vol. 10.9 fl (6.2-12.0); Monocyte# 0.89 X10^3/uL; Monocyte% 9.3 % (0-10); NRBC Flagged by Analyzer 0.2 % (0-5); Neutrophil # 6.48 X10^3/uL (2.7-7.7); Neutrophil % 67.4 % (47-70); Platelet Count 165 K/mm3 (150-450); RBC Distribution Width SD 52.9 fl (35.1-43.9); White Blood Count 9.6 K/mm3 (4.4-11.0)
[2020-07-29 12:12] LABS: BNP,B-Type NATRIURETIC PEPTIDE 432.9 pg/mL (0-100)
[2020-07-29] MEDS: oxyCODONE 5 MG Tablet 7.5 MG PO (12:21)
[2020-07-29 13:24] LABS: Anion Gap 2 (5-15); BUN 22 mg/dL (7-18); BUN/Creat Ratio 24.3 RATIO (10-20); Calcium,Total 8.7 mg/dL (8.5-10.1); Chloride 103 mmol/L (98-107); Creatinine, Serum 0.91 mg/dL (0.55-1.02); EST Glomerular Filtration Rate 66 mL/min (>60); Est Glom Filt Rate - Afr Amer 80 mL/min (>60); Estimated Creatinine Clearance 47.45 ml/min; Glucose 259 mg/dL (74-106); Potassium 4.3 mmol/L (3.5-5.1); Sodium Level 142 mmol/L (136-145)
[2020-07-29] MEDS: Furosemide 40 MG/4 ML Vial IV ×2 (15:41→18:13)
[2020-07-29] MEDS: Doxycycline 100 MG CAPSULE PO (15:41)
--- NOTE | 2020-07-29 16:09 | HP.PCM.HOS_ITS ---
HPI - General HPI Narrative The patient is a 65 y/o F w/ PMHx: Morbid Obesity, HTN, HLD, Diabetes mellitus type II with neuropathy, Chronic COPD w/ Chronic Hypoxic Respiratory Failure (4L NC), Chronic Diastolic CHF, Tobacco use, Chronic Lymphedema, JACK on BIPAP (usage intermittent) who presents to the [facility] ED on 07/29/20 with history of progressively worsening shortness of breath over the last 1.5 weeks with cough with only noted clear sputum with no recent fevers or chills with increased edema with decreased urine output despite ongoing normal Lasix self administration, increased weight gain as well as orthopnea prompting eventual ED presentation. Work-up in the ED included T 97.2, heart rate initially 104, BP 148/72, respiratory rate 22, 85% on patient's chronic 4 L nasal cannula eventually improved and 92% on 4 L nasal cannula, CBC with WC 9.6, hemoglobin 17, platelets 165 without any shift, BMP with carbon oxide 37, BUN/creatinine 22/0.91, glucose 259 otherwise not marked appearing, troponin 0 0.017, BNP 432.9, rapid Covid antigen negative, chest x- ray with questionable right lower lobe infiltrate with cardiomegaly, EKG with sinus tachycardia with no acute evidence of ischemia. In the ED patient ministered IV Lasix as well as oral doxycycline. In the ED following Lasix administration and rest patient does note some improvement in her dyspnea and has less evidence of respiratory distress. PFSH Medical History BiPAP (biphasic positive airway pressure) dependence COPD (chronic obstructive pulmonary disease) Diabetes Hypertension On home oxygen therapy Sleep apnea Smoker Home Medications metoprolol tartrate 100 mg PO BID 09/01/18 [History Last Taken 03/03/20] pramipexole 2 mg PO BID 09/01/18 [History Last Taken Unknown] ramipril 10 mg PO DAILY 09/01/18 [History Last Taken Unknown] gabapentin 300 mg PO 4X/DAY 03/04/20 [History Last Taken 03/03/20] metformin 1,000 mg PO BID 03/04/20 [History Last Taken 03/03/20] citalopram 40 mg PO DAILY 07/29/20 [History Last Taken 07/29/20] furosemide 40 mg PO BID 07/29/20 [History Last Taken 07/28/20] glimepiride 4 mg PO DAILY 07/29/20 [History Last Taken 07/29/20] insulin regular human [Novolin R Regular U-100 Insuln] 20 unit SUBCUT DINNER 07/29/20 [History Last Taken 07/28/20] insulin regular human [Novolin R Regular U-100 Insuln] 40 unit SUBCUT BREAKFAST 07/29/20 [History Last Taken 07/29/20] lovastatin 40 mg PO DAILY 07/29/20 [History Last Taken 07/28/20] oxycodone-acetaminophen 1 tab PO BID 07/29/20 [History Last Taken 07/29/20] Allergy/AdvReac Type Severity Reaction Status Date / Time PAPER TAPE Allergy Rash Uncoded 07/29/20 10:57 Family History Father Cancer Mother Heart disease Brother Cancer other (Patient with maternal family history of coronary artery disease, heart disease, diabetes, cancer unclear type, hypertension, hyperlipidemia as well as a paternal family history of noted lung cancer eventually metastatic.) unable to obtain (Patient with partial hysterectomy.) Social History (Updated 07/29/20 @ 16:[address] Angelica Burch MD) household members: family Smoking Status: Current every day smoker tobacco type: cigarettes Smoking packs per day: 1 Smoking cigarettes per day: 20.0 Years smoked: 56 Smoking pack-years: 56.00 quit status: considering quitting counseling given: provider counseling alcohol intake: never substance use type: does not use ROS ROS Narrative Admission Review of Systems: CONSTITUTIONAL: No weight loss, fever, chills, + weakness or fatigue. HEENT: Eyes: No visual loss, blurred vision, double vision or yellow sclerae. Ears, Nose, Throat: No hearing loss, sneezing, congestion, runny nose or sore throat. SKIN: No rash or itching, lesions, wounds. CARDIOVASCULAR: + Edema, orthopnea, weight gain. No chest pain, chest pressure or chest discomfort, palpitations, syncopal events. RESPIRATORY: + shortness of breath, cough, sputum, No wheezing, hemoptysis. GASTROINTESTINAL: No anorexia, nausea, vomiting or diarrhea, abdominal pain, melena, BRBPR. GENITOURINARY: No dysuria, frequency, urgency or retention. NEUROLOGICAL: No headache, dizziness, syncope, paralysis, ataxia, numbness or tingling in the extremities, focal weakness, change in bowel or bladder control, seizure. MUSCULOSKELETAL: + muscle, back pain, joint pain or stiffness. HEMATOLOGIC:+ anemia, bleeding or bruising. LYMPHATICS: No enlarged nodes. No history of splenectomy. PSYCHIATRIC: No history of depression or anxiety. ENDOCRINOLOGIC: No reports of sweating, cold or heat intolerance. No polyuria or polydipsia. ALLERGIES: No history of asthma, hives, eczema or rhinitis. Vital Signs Vital Signs Vital Signs: 07/29/20 10:58 07/29/20 11:01 07/29/20 11:25 Temperature 97.2 F L 97.2 F L Temperature Source Temporal Temporal Pulse Rate 104 H 98 Respiratory Rate 22 H 20 H Respiratory Effort Non-Labored Short of Breath Respiratory Depth Normal Respiratory Pattern Tachypnea Blood Pressure 148/72 H 148/72 H Blood Pressure Mean 97 97 Pulse Ox 85 89 Oxygen Delivery Method Nasal Cannula Nasal Cannula Nasal Cannula Oxygen Flow Rate (L/min) 4 5 4 07/29/20 12:00 07/29/20 13:35 07/29/20 14:41 Temperature Temperature Source Pulse Rate 92 82 94 Respiratory Rate 24 H 20 H 20 H Respiratory Effort Respiratory Depth Respiratory Pattern Blood Pressure 184/104 H 152/76 H 179/95 H Blood Pressure Mean 130 101 123 Pulse Ox 88 91 89 Oxygen Delivery Method Nasal Cannula Oxygen Flow Rate (L/min) 4 07/29/20 15:16 Temperature Temperature Source Pulse Rate 86 Respiratory Rate 20 H Respiratory Effort Respiratory Depth Respiratory Pattern Blood Pressure 173/86 H Blood Pressure Mean 115 Pulse Ox 92 Oxygen Delivery Method Nasal Cannula Oxygen Flow Rate (L/min) 4 Physical Exam Narrative Physical Examination: General: awake, alert, oriented x 3 and cooperative, seated upright in the ED bed, fatigued, still some increased work of breathing with accessory muscle usage, improved from initial ED presentation as had significant distress upon initial evaluation. Skin: normal color, turgor, no icterus, cyanosis except venostasis skin changes bilateral lower extremities. HEENT: AT/NC, EOMI, PERRLA, mildly dry MM, no carotid bruits, + JVD noted. Lungs: Diffusely diminished, greater bases, increased work of breathing and accessory muscle usage, respiratory distress is lessening, mild rales bases, no obvious rhonchi or wheezing. Heart: Mildly tachycardic with regular rhythm; no gallop, rub audible. Abdomen: soft, morbidly obese, NTTP, no obvious distention but difficult given habitus, distant normal BS, difficult to assess HSM secondary to morbidly obese habitus Extremities: no cyanosis or clubbing, significant bilateral lower extremity lymphedema, 4+ pedal to proximal morgan pitting edema Neurological: patient awake, alert, oriented as noted; cognitive function base line intact; pupils equally reactive to light and accomodation; cranial nerves II-XII grossly normal, moving all 4 extremities, no focal deficits, strength severely global decrease secondary to acute presentation. Psychiatric: affect appears fatigued, still increased work of breathing accessory muscle usage, distress is lessening, no acute evidence of depressive or anxiety feelings. Lab / Micro Data Result Diagrams: 07/29/20 11:41 07/29/20 12:06 Labs: Laboratory Results - last 24 hr 07/29/20 07/29/20 07/29/20 11:41 11:41 11:41 WBC 9.6 RBC 5.40 Hgb 17.0 H Hct 55.2 H MCV 102.2 H MCH 31.5 MCHC 30.8 L RDW Std Deviation 52.9 H RDW Coeff of Bautista 14.0 Plt Count 165 MPV 10.9 Immature Gran % (Auto) 0.600 Neut % (Auto) 67.4 Lymph % (Auto) 20.0 [place] % (Auto) 9.3 Eos % (Auto) 2.0 Baso % (Auto) 0.7 Absolute Neuts (auto) 6.5 Absolute Lymphs (auto) 1.92 Nucleated RBC % 0.2 Sodium Cancelled Potassium Cancelled Chloride Cancelled Carbon Dioxide Cancelled Anion Gap Cancelled BUN Cancelled Creatinine Cancelled Estim Creat Clear Calc Cancelled Est GFR (MDRD) Af Amer Cancelled Est GFR (MDRD) Non-Af Cancelled BUN/Creatinine Ratio Cancelled Glucose Cancelled Calcium Cancelled Troponin I Cancelled B-Natriuretic Peptide 432.9 H 07/29/20 12:06 WBC RBC Hgb Hct MCV MCH MCHC RDW Std Deviation RDW Coeff of Bautista Plt Count MPV Immature Gran % (Auto) Neut % (Auto) Lymph % (Auto) [place] % (Auto) Eos % (Auto) Baso % (Auto) Absolute Neuts (auto) Absolute Lymphs (auto) Nucleated RBC % Sodium 142 Potassium 4.3 Chloride 103 Carbon Dioxide 37.0 H Anion Gap 2 L BUN 22 H Creatinine 0.91 Estim Creat Clear Calc 47.45 Est GFR (MDRD) Af Amer 80 Est GFR (MDRD) Non-Af 66 BUN/Creatinine Ratio 24.3 H Glucose 259 H Calcium 8.7 Troponin I 0.017 B-Natriuretic Peptide Micro: Microbiology 07/29/20 11:30 SARS-CoV-2 Antigen (Rapid) - Final Mucosa - Nasopharyngeal Radiology Impression Chest X-Ray 07/29/20 11:14 IMPRESSION: Right lower lobe infiltrate. Cardiomegaly. Electronically Signed: Abdifatah Echeverria MD at 11:58 EDT , Service support , Assessment & Plan Assessment/Plan (1) Acute and chronic respiratory failure with hypoxia: Status: Chronic Code(s): J96.21 - Acute and chronic respiratory failure with hypoxia (2) CHF exacerbation: Status: Chronic Code(s): I50.9 - Heart failure, unspecified Qualifiers: Heart failure type: diastolic Qualified Code(s): I50.33 - Acute on chronic diastolic (congestive) heart failure (3) Pneumonia: Status: Acute Code(s): J18.9 - Pneumonia, unspecified organism Qualifiers: Pneumonia type: due to unspecified organism Laterality: right Lung location: lower lobe of lung Qualified Code(s): J18.9 - Pneumonia, unspecified organism (4) Type 2 diabetes mellitus: Status: Chronic Code(s): E11.9 - Type 2 diabetes mellitus without complications Qualifiers: Diabetes mellitus retirement insulin use: with retirement use Diabetes mellitus complication status: with other specified complication Qualified Code(s): E11.69 - Type 2 diabetes mellitus with other specified complication; Z79.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 (5) Obstructive sleep apnea: Status: Acute Code(s): G47.33 - Obstructive sleep apnea (adult) (pediatric) (6) Hypertension: Status: Chronic Code(s): I10 - Essential (primary) hypertension Qualifiers: Hypertension type: essential hypertension Qualified Code(s): I10 - Essential (primary) hypertension (7) Lymphedema: Status: Suspected Code(s): I89.0 - Lymphedema, not elsewhere classified (8) Smoker: Status: Chronic Code(s): F17.200 - Nicotine dependence, unspecified, uncomplicated (9) HLD (hyperlipidemia): Status: Acute Code(s): E78.5 - Hyperlipidemia, unspecified (10) History of partial hysterectomy: Status: Acute Code(s): Z90.711 - Acquired absence of uterus with remaining cervical stump Plan: The patient is a 65 y/o F w/ PMHx: Morbid Obesity, HTN, HLD, Diabetes mellitus type II with neuropathy, Chronic COPD w/ Chronic Hypoxic Respiratory Failure (4L NC), Chronic Diastolic CHF, Tobacco use, Chronic Lymphedema, JACK on BIPAP (usage intermittent) who presents to the [facility] ED on 07/29/20 with history of progressively worsening shortness of breath over the last 1.5 weeks with cough with only noted clear sputum with no recent fevers or chills with increased edema with decreased urine output despite ongoing normal Lasix self administration, increased weight gain as well as orthopnea prompting eventual ED presentation. 1. Acute on Chronic Hypoxic Respiratory Failure, Multifactorial, secondary to Acute on Chronic Decompensated Diastolic CHF and #2: Patient administered IV lasix in the ED, will admit to PCU, maintain on cardiac telemetry, obtain cardiac enzyme series, obtain serial EKGs, continue IV lasix diuresis, monitor I/Os, maintain on intake restriction, continue medical therapy, obtain TSH and magnesium level. 09/28/19 ECHO w/ moderate concentric LVH, EF 65%, stage II diastolic dysfunction, mildly dilated RV, severely enlarged LA, mildly enlarged RA, mild TVI, RVSP 53 mmHg, moderate pulmonary hypertension. PRN morphine to decrease afterload, continue oxygen supplementation, if necessary will position w/ upright position with legs off bed to decrease preload. 2. ? RLL Community Acquired Pneumonia: CXR in the ED w/ ? RLL, no marked WBC elevation or L shift, afebrile but present infiltrate, may benefit from consideration of CT chest given history. Will obtain procalcitonin given lower suspicion PNA. Will maintain on oxygen with wean as tolerated to home oxygen supplementation, continue ATC duonebs, PRN albuterol, maintained on IV Rocephin and Azithromycin pending further assessments as noted, HOB, IS parameters w/ pending sputum cultures, respiratory viral panel and urine antigens. Rapid covid negative. 3. Chronic COPD with chronic hypoxic respiratory failure complicated by #1, #2: Will maintain on oxygen with wean as tolerated to home oxygen supplementation, continue ATC duonebs, PRN albuterol, HOB, IS parameters. We will continue chronic steroid regimen. 4. Diabetes mellitus type II with neuropathy: Hold oral home regimen, will obtain hemoglobin A1c, nutrition consulted for education and teaching, ADA diet, accu checks w/ ISS. We will continue home gabapentin regimen. 5. Chronic bilateral lower extremity lymphedema: Complicated by #1, will place snug Joseph wraps, elevation, continue remains noted #1. 6. Hypertension: Continue home regimen including metoprolol, ramipril, IV Lasix as noted, PRN hydralazine. 7. Hyperlipidemia: Continue home statin regimen. AM FLP. 8. Morbid Obesity: Weight loss and lifestyle changes encouraged, nutrition consulted. 9. JACK: Will order BiPAP nightly and encouraged usage although from discussions appears intermittent. 10. Restless leg syndrome: We will continue patient home pramipexole regimen 11. DVT prophylaxis: SCD, Lovenox. 12. CODE status: Patient does not have healthcare power of machine splitter nor living will set up. Strongly encouraged her to consider discussing these items with case management/social work especially given her interested in specific parameters. Discussed CODE status at length including difference between FULL code, DNR-CCA and DNR-CC status. Following discussions about the differences in these status, requested Full Code status however does note if futile would plan transition to comfort measures but again encourage discussion with case management/social work to assist. Advanced Care Planning Face to Face Time: 16 minutes. Visit Charges Inpatient E&M: 35434 Init Hosp L3 Procedures Hospitalists Procedures: [id number] Advncd Care Plan 30 Min
--- NOTE | 2020-07-29 16:35 | NURSING ---
PCU WHITE CHF, RLL, COPD
--- NOTE | 2020-07-29 16:36 | NURSING ---
123 WHITE CHF, RLL, COPD
--- NOTE | 2020-07-29 17:19 | ECHOD_ITS ---
Reason For Study: CHF Procedure This was a 2D Doppler, Color Flow transthoracic echocardiogram. The study was technically difficult. Exam performed portable in patient room. Left Ventricle Normal LV size. Moderate concentric left ventricular hypertrophy. Left ventricular systolic function is normal. The estimated ejection fraction is 60 %. No regional wall motion abnormalities noted. Right Ventricle Mildly dilated right ventricle. Normal systolic function. Atria The left atrium is severely enlarged. The right atrium is mildly enlarged. No doppler evidence for ASD. Mitral Valve There is mild mitral annular calcification. Extension of the mitral annular calcification on the base of the posterior mitral valve leaflet. Mild (1+) mitral valve insufficiency. Tricuspid Valve Normal tricuspid valve. Mild tricuspid valve insufficiency. Right ventricular systolic pressure estimated to be 73 mmHg. Aortic Valve Trisinus/trileaflet aortic valve. Normal aortic valve. Pulmonic Valve The pulmonic valve is not well visualized. Great Vessels Normal sized aortic root. Pericardium/Pleural Trivial pericardial effusion. There are no echocardiographic indications of cardiac tamponade. Medication Unable to use Definity due to elevated PAP. MMode/2D Measurements & Calculations LVIDd: 5.2 cm IVSd: 1.5 cm Ao root diam: 3.7 cm LVIDs: 3.4 cm LVPWd: 1.5 cm RVDd: 4.4 cm FS: 33.5 % LAV(MOD-bp): 104.9 ml LVAd ap4: 26.6 cm2 SV(MOD-sp4): 47.7 ml LAV(MOD-bp) Indexed: 47.2 ml/m2 LVLd ap4: 7.1 cm LAV(MOD-sp2): 94.2 ml EDV(MOD-sp4): 79.4 ml LAV(MOD-sp4): 105.8 ml EDV(sp4-el): 84.1 ml LVAs ap4: 15.0 cm2 LVLs ap4: 6.2 cm ESV(MOD-sp4): 31.7 ml ESV(sp4-el): 30.7 ml EF(MOD-sp4): 60.1 % EF(sp4-el): 63.5 % SV(sp4-el): 53.5 ml LA A4 area: 29.8 cm2 LA dimension(2D): 5.5 cm RA A4 area: 21.8 cm2 Time Measurements MV dec time: 0.20 sec Doppler Measurements & Calculations MV E max tashi: 110.6 cm/sec Lat Peak E' Tashi: 5.9 cm/sec Med Peak E' Tashi: 2.8 cm/sec MV A max tashi: 89.1 cm/sec E/E' lat: 18.8 E/E' med: 39.9 MV E/A: 1.2 Ao V2 max: 149.9 cm/sec LV V1 max: 96.1 cm/sec PA V2 max: 79.3 cm/sec Ao max P.0 mmHg LV V1 max P.7 mmHg TR max tashi: 402.8 cm/sec TR max P.9 mmHg ECHO/Echo Complete Interpretation Summary The study was technically difficult. Left ventricular systolic function is normal. The estimated ejection fraction is 60 %. Moderate concentric left ventricular hypertrophy. Mildly dilated right ventricle. The left atrium is severely enlarged. The right atrium is mildly enlarged. There is mild mitral annular calcification. Extension of the mitral annular calcification on the base of the posterior mitr al valve leaflet. Mild (1+) mitral valve insufficiency. Mild tricuspid valve insufficiency. Trivial pericardial effusion. There are no echocardiographic indications of cardiac tamponade. Right ventricular systolic pressure estimated to be 73 mmHg c/w severe pulmonar y hypertension. Transmitral diastolic flow velocities suggest diastolic dysfunction (pseudonorm al pattern). Ordering Physician: Angelica Burch Referring Physician: OSVALDO TEE Performed By: Perla Perez, RDCS, RVT
[2020-07-29 17:22] LABS: Magnesium 2.2 mg/dL (1.6-2.6)
[2020-07-29] MEDS: Morphine 4 MG/ML Syringe IV (18:13)
[2020-07-29] MEDS: Gabapentin 300 MG Capsule PO ×2 (18:13→22:41)
[2020-07-29] MEDS: Ipratropium/Albuterol Sulfate 3 ML AMPUL.NEB INHALATION (19:13)
[2020-07-29] MEDS: Metoprolol Tartrate 100 MG Tablet PO (22:40)
[2020-07-29] MEDS: Pramipexole Di-HCl 1 MG Tablet 2 MG PO (22:40)
[2020-07-29] MEDS: Atorvastatin Calcium 20 MG Tablet PO (22:40)
[2020-07-29] MEDS: Insulin Lispro 100 UNIT/ML INSULN.PEN SC (22:41)
[2020-07-29] MEDS: guaiFENesin 1,200 MG Tablet 1200 MG PO (22:41)
[2020-07-29] MEDS: Enoxaparin 40 MG/0.4 ML Syringe SC (22:42)
[2020-07-29 22:55] LABS: Bedside Glucose 202 mg/dL (70-110)
[2020-07-30] VITALS (33 sets, daily range): BP systolic 82–166; BP diastolic 41–100; PULSE 43–93; RESP 12–27; TEMP 36.5–36.8; O2SAT 86–96
--- NOTE | 2020-07-30 06:35 | PCM.PN.HOSP ---
Subjective Subjective: Patient overnight with no acute events per self and per nursing report. She notes diuresing well and has an improvement of her bilateral lower extremity swelling and discomfort. She notes being less short of breath. She is this morning however more lethargic and fatigued. She notes she slept very well. During breakfast she is falling asleep and to the day becomes more fatigued requiring placement back on BiPAP with ABG with notable CO2 retention. Discussed with patient and PCU staff with plan transition to the ICU given current ABG. Patient denies fevers, chills, nausea, emesis, abdominal pain, chest pain. Objective Data Objective Data Vital Signs: Vital Signs Temp Pulse Resp BP Pulse Ox 97.9 F 54 L 19 H 103/41 L 91 07/30/20 04:43 07/30/20 04:45 07/30/20 04:45 07/30/20 04:43 07/30/20 04:45 Oxygen Flow Rate (L/min) 4 Oxygen Delivery Method Bi-pap Weight: 285 lb 0.923 oz Body Mass Index (BMI) 49.6 Finger Stick Blood Glucose 319 Intake & Output: Intake and Output for Last 24 Hours 07/28/20 07/29/20 07/30/20 23:59 23:59 23:59 Intake Total 240 / 360 120 / 120 Output Total 800 / 800 Balance 240 / -440 -680 / -680 Lab / Micro Data Result Diagrams: 07/30/20 06:20 07/30/20 06:20 Labs: Laboratory Results - last 24 hr 07/29/20 07/29/20 07/29/20 11:41 11:41 11:41 WBC 9.6 RBC 5.40 Hgb 17.0 H Hct 55.2 H MCV 102.2 H MCH 31.5 MCHC 30.8 L RDW Std Deviation 52.9 H RDW Coeff of Bautista 14.0 Plt Count 165 MPV 10.9 Immature Gran % (Auto) 0.600 Neut % (Auto) 67.4 Lymph % (Auto) 20.0 [place] % (Auto) 9.3 Eos % (Auto) 2.0 Baso % (Auto) 0.7 Absolute Neuts (auto) 6.5 Absolute Lymphs (auto) 1.92 Nucleated RBC % 0.2 Sodium Cancelled Potassium Cancelled Chloride Cancelled Carbon Dioxide Cancelled Anion Gap Cancelled BUN Cancelled Creatinine Cancelled Estim Creat Clear Calc Cancelled Est GFR (MDRD) Af Amer Cancelled Est GFR (MDRD) Non-Af Cancelled BUN/Creatinine Ratio Cancelled Glucose Cancelled Calcium Cancelled Magnesium Troponin I Cancelled B-Natriuretic Peptide 432.9 H POC Glucose 07/29/20 07/29/20 07/29/20 12:06 17:00 18:02 WBC RBC Hgb Hct MCV MCH MCHC RDW Std Deviation RDW Coeff of Bautista Plt Count MPV Immature Gran % (Auto) Neut % (Auto) Lymph % (Auto) [place] % (Auto) Eos % (Auto) Baso % (Auto) Absolute Neuts (auto) Absolute Lymphs (auto) Nucleated RBC % Sodium 142 Potassium 4.3 Chloride 103 Carbon Dioxide 37.0 H Anion Gap 2 L BUN 22 H Creatinine 0.91 Estim Creat Clear Calc 47.45 Est GFR (MDRD) Af Amer 80 Est GFR (MDRD) Non-Af 66 BUN/Creatinine Ratio 24.3 H Glucose 259 H Calcium 8.7 Magnesium 2.2 Troponin I 0.017 < 0.015 B-Natriuretic Peptide POC Glucose 07/29/20 07/29/20 07/29/20 20:50 22:30 23:20 WBC RBC Hgb Hct MCV MCH MCHC RDW Std Deviation RDW Coeff of Bautista Plt Count MPV Immature Gran % (Auto) Neut % (Auto) Lymph % (Auto) [place] % (Auto) Eos % (Auto) Baso % (Auto) Absolute Neuts (auto) Absolute Lymphs (auto) Nucleated RBC % Sodium Potassium Chloride Carbon Dioxide Anion Gap BUN Creatinine Estim Creat Clear Calc Est GFR (MDRD) Af Amer Est GFR (MDRD) Non-Af BUN/Creatinine Ratio Glucose Calcium Magnesium Troponin I < 0.015 < 0.015 B-Natriuretic Peptide POC Glucose 202 H Micro: Microbiology 07/29/20 20:38 Mucosa - Nasopharyngeal Respiratory Panel (PCR) - Final 07/29/20 19:43 Interface Orders Streptococcus pneumoniae Antigen (M - Final 07/29/20 19:43 Interface Orders Legionella Antigen - Final 07/29/20 11:30 Mucosa - Nasopharyngeal SARS-CoV-2 Antigen (Rapid) - Final Radiography Diagnostic Testing: Radiology Impression Chest X-Ray 07/29/20 11:14 IMPRESSION: Right lower lobe infiltrate. Cardiomegaly. Electronically Signed: Abdifatah Echeverria MD at 11:58 EDT , Service support , Physical Exam Narrative Physical Examination: General: Patient more fatigued and lethargic this morning, awakens to stimuli and when able to stay awake is more alert and can answer orientation questions appropriately but quickly falling back asleep, following some commands until she falls back asleep, seated upright in a PCU bed, no evidence of any respiratory distress. Skin: normal color, turgor, no icterus, cyanosis except venostasis skin changes bilateral lower extremities. HEENT: AT/NC, EOMI, PERRLA, mildly dry MM. Lungs: Diffusely diminished, greater bases, mild rales bases but improved, no obvious rhonchi or wheezing. Heart: Regular rate with regular rhythm; no gallop, rub audible. Abdomen: soft, morbidly obese, NTTP, no obvious distention but difficult given habitus, distant normal BS. Extremities: no cyanosis or clubbing, BL LE lymphedema, improved lesseneded pitting edema from day prior. Neurological: Patient more fatigued and lethargic this morning, awakens to stimuli and when able to stay awake is more alert and can answer orientation questions appropriately but quickly falling back asleep, following some commands until she falls back asleep, seated upright in a PCU bed, no evidence of any respiratory distress; cognitive function not baseline intact; pupils equally reactive to light and accomodation; cranial nerves, moving all 4 extremities, no focal deficits, strength severely global decrease secondary to acute presentation grossly normal but difficult exam given lethargy. Psychiatric: affect appears more lethargic, fatigued, no respiratory distress evidence but more hypoxic, no acute evidence of depressive or anxiety feelings. Assessment & Plan Assessment/Plan (1) Acute and chronic respiratory failure with hypoxia: Status: Chronic Code(s): J96.21 - Acute and chronic respiratory failure with hypoxia (2) CHF exacerbation: Status: Chronic Code(s): I50.9 - Heart failure, unspecified Qualifiers: Heart failure type: diastolic Qualified Code(s): I50.33 - Acute on chronic diastolic (congestive) heart failure (3) Pneumonia: Status: Acute Code(s): J18.9 - Pneumonia, unspecified organism Qualifiers: Laterality: right Lung location: lower lobe of lung Pneumonia type: due to unspecified organism Qualified Code(s): J18.9 - Pneumonia, unspecified organism (4) Type 2 diabetes mellitus: Status: Chronic Code(s): E11.9 - Type 2 diabetes mellitus without complications Qualifiers: Diabetes mellitus complication status: with other specified complication Diabetes mellitus technician terminal and repeater insulin use: with technician terminal and repeater use Qualified Code(s): E11.69 - Type 2 diabetes mellitus with other specified complication; Z79.4 - intermediate manager (current) use of insulin (5) Obstructive sleep apnea: Status: Acute Code(s): G47.33 - Obstructive sleep apnea (adult) (pediatric) (6) Hypertension: Status: Chronic Code(s): I10 - Essential (primary) hypertension Qualifiers: Hypertension type: essential hypertension Qualified Code(s): I10 - Essential (primary) hypertension (7) Lymphedema: Status: Suspected Code(s): I89.0 - Lymphedema, not elsewhere classified (8) Smoker: Status: Chronic Code(s): F17.200 - Nicotine dependence, unspecified, uncomplicated (9) HLD (hyperlipidemia): Status: Acute Code(s): E78.5 - Hyperlipidemia, unspecified (10) History of partial hysterectomy: Status: Acute Code(s): Z90.711 - Acquired absence of uterus with remaining cervical stump Plan: The patient is a 65 y/o F w/ PMHx: Morbid Obesity, HTN, HLD, Diabetes mellitus type II with neuropathy, Chronic COPD w/ Chronic Hypoxic Respiratory Failure (4L NC), Chronic Diastolic CHF, Tobacco use, Chronic Lymphedema, JACK on BIPAP (usage intermittent) who presents to the [facility] ED on 07/29/20 with history of progressively worsening shortness of breath over the last 1.5 weeks with cough with only noted clear sputum with no recent fevers or chills with increased edema with decreased urine output despite ongoing normal Lasix self administration, increased weight gain as well as orthopnea prompting eventual ED presentation. 1. Acute Encephalopathy secondary to Acute on Chronic Hypoxic and Hypercarbic Respiratory Failure, Multifactorial, secondary to Acute on Chronic Decompensated Diastolic CHF and #2, complicated by #3: Patient administered IV lasix in the ED. Patient admitted to the PCU initially, maintained on cardiac telemetry, unremarkable cardiac enzyme series, continued IV lasix diuresis, monitor I/Os, maintain on intake restriction, continue medical therapy, TSH 0.8 and magnesium level 2.2. 09/28/19 ECHO w/ moderate concentric LVH, EF 65%, stage II diastolic dysfunction, mildly dilated RV, severely enlarged LA, mildly enlarged RA, mild TVI, RVSP 53 mmHg, moderate pulmonary hypertension. 07/30/20 worsening respiratory status with recurrent hypoxia, ABG with retention, placing on BIPAP continuous with additional IV lasix dose, CTPA obtained urgently w/ no evidence of pulmonary embolism, bibasilar pulmonary infiltrates superimposed on interstitial scarring and/or mild edema, plan ICU transition, Dr. Palomares aware. 2. ? RLL Community Acquired Pneumonia: CXR in the ED w/ ? RLL, no marked WBC elevation or L shift, afebrile but present infiltrate, may benefit from consideration of CT chest given history. Will obtain procalcitonin given lower suspicion PNA. Will maintain on oxygen with wean as tolerated to home oxygen supplementation, continue ATC duonebs, PRN albuterol, maintained on IV Rocephin and Azithromycin pending further assessments as noted, HOB, IS parameters w/ pending sputum cultures, respiratory viral panel and urine antigens. Rapid covid negative. 3. Chronic COPD with chronic hypoxic respiratory failure complicated by #1, #2: Worsened mental status 07/30/20 am and through day, ABG with notable retention, placed on continuous BIPAP, continued ATC duonebs, PRN albuterol, HOB, IS parameters. Currently on chronic steroid regimen, may need IV transition pending response. 4. Diabetes mellitus type II with neuropathy: Hold oral home regimen, hemoglobin A1c repeat pending, last 09/2019 10.4%, nutrition consulted for education and teaching, ADA diet once clinically improved from current acute lethargy/CO2 retention as noted above, accu checks w/ ISS. We will continue home gabapentin regimen but hold for sedation. 5. Chronic bilateral lower extremity lymphedema: Complicated by #1, snug Joseph wraps, elevation. 6. Hypertension: Continue home regimen including metoprolol, ramipril, IV Lasix as noted with hold parameters, PRN hydralazine. 7. Hyperlipidemia: Continue home statin regimen. 8. Morbid Obesity: Weight loss and lifestyle changes encouraged, nutrition consulted. 9. JACK: Currently transitioned to continuous BIPAP. 10. Restless leg syndrome: We will continue patient home pramipexole regimen 11. DVT prophylaxis: SCD, Lovenox. 12. CODE status: Full Code. Visit Charges Inpatient E&M: 85287 Subs Hosp L3
[2020-07-30] MEDS: Insulin Lispro 100 UNIT/ML INSULN.PEN SC ×4 (06:41→21:40)
[2020-07-30 06:58] LABS: Absolute Lymphocyte Count 2.67 X10^3/uL (0.83-4.51); Absolute Neutrophil Count 4.9 X10^3/uL (2.0-7.7); Basophil# 0.07 X10^3/uL; Basophil% 0.8 % (0-1); Eosinophils% 3.5 % (0-5); Hematocrit 54.3 % (37-47); Hemoglobin 16.5 g/dL (12.0-15.0); Lymphocyte # 2.67 X10^3/ul (0.83-4.51); Lymphocyte % 30.9 % (19-41); Mean Corp Hgb Conc 30.4 g/dL (32-36); Mean Corpuscular Volume 105.4 fL (81-99); Mean Platelet Vol. 10.9 fl (6.2-12.0); Monocyte# 0.69 X10^3/uL; NRBC Flagged by Analyzer 0 % (0-5); Neutrophil # 4.87 X10^3/uL (2.7-7.7); Neutrophil % 56.3 % (47-70); Platelet Count 155 K/mm3 (150-450); RBC Distribution Width SD 54.9 fl (35.1-43.9); Red Blood Count 5.15 M/mm3 (4.2-5.4); White Blood Count 8.6 K/mm3 (4.4-11.0)
[2020-07-30 07:00] LABS: Bedside Glucose 180 mg/dL (70-110)
[2020-07-30 07:26] LABS: AST(SGOT) 13 U/L (15-37); Alanine Aminotransfer ALT/SGPT 19 U/L (13-56); Albumin, Serum 2.5 g/dL (3.2-5.0); Alkaline Phosphatase 74 U/L (45-117); Anion Gap 3 (5-15); BUN 24 mg/dL (7-18); BUN/Creat Ratio 27.2 RATIO (10-20); Calcium,Total 8.6 mg/dL (8.5-10.1); Chloride 100 mmol/L (98-107); Cholesterol 158 mg/dL (200); Creatinine, Serum 0.88 mg/dL (0.55-1.02); EST Glomerular Filtration Rate 68 mL/min (>60); Est Glom Filt Rate - Afr Amer 82 mL/min (>60); Estimated Creatinine Clearance 51.32 ml/min; Globulin 2.5 g/dL (2.2-4.2); Glucose 170 mg/dL (74-106); High Density Lipoprotein 47 mg/dL; Potassium 4.3 mmol/L (3.5-5.1); Sodium Level 143 mmol/L (136-145); Triglycerides 133 mg/dL; Very Low Density Lipoprotein 27 mg/dL (5-40)
[2020-07-30] MEDS: Ipratropium/Albuterol Sulfate 3 ML AMPUL.NEB INHALATION ×3 (07:31→20:09)
[2020-07-30 08:07] LABS: Procalcitonin 0.08 ng/mL (0.00-0.09)
[2020-07-30] MEDS: guaiFENesin 1,200 MG Tablet 1200 MG PO ×2 (08:42→21:36)
[2020-07-30] MEDS: Gabapentin 300 MG Capsule PO ×3 (08:43→21:36)
[2020-07-30] MEDS: Potassium Chloride Oral Tablet 20 MEQ PO (08:43)
[2020-07-30] MEDS: Aspirin 81 MG TAB.CHEW PO (08:43)
[2020-07-30] MEDS: Pramipexole Di-HCl 1 MG Tablet 2 MG PO ×2 (08:43→21:36)
[2020-07-30] MEDS: Ramipril 10 MG Capsule PO (08:43)
[2020-07-30] MEDS: Metoprolol Tartrate 100 MG Tablet PO (08:43)
[2020-07-30] MEDS: Enoxaparin 40 MG/0.4 ML Syringe SC ×2 (08:44→21:36)
[2020-07-30] MEDS: Furosemide 40 MG/4 ML Vial IV ×3 (09:36→19:42)
[2020-07-30] MEDS: Citalopram 40 MG TABLET PO (09:36)
[2020-07-30] MEDS: Ceftriaxone 1 GM/50 ML BAG IV (09:36)
--- NOTE | 2020-07-30 10:08 | CT_ITS ---
STUDY: CTA CHEST REASON FOR EXAM: Female, 65 years old. PE. Shortness of breath. RADIATION DOSAGE (If Supplied By Facility): CTDIvol = ( 20.83 ) mGy, DLP = ( 771.19 ) mGycm TECHNIQUE: The examination was performed with the intravenous administration of IV 100mL [id number]-[id number]. Post-processing of the angiographic images was performed, with multiplanar reformation and 3D reconstruction. Individualized dose optimization techniques were used for this CT. COMPARISON: Comparison is made with prior examination dated 03/04/2020. FINDINGS: Normal enhancement of the main pulmonary artery and right and left pulmonary arteries. Normal enhancement of the bilateral peripheral pulmonary arteries. There is no demonstrated pulmonary embolism. There is atherosclerotic calcification of the aortic arch with tortuosity. There is no demonstrated aortic dissection. There are calcifications of the coronary arteries. There is cardiomegaly. There are visualized mediastinal lymph nodes, which are within normal size limits, and with normal morphology. Normal hilar regions. Normal visualized trachea and bronchi. The lungs are well expanded. Bibasilar pulmonary infiltrates. This is superimposed on mild degree of increased interstitial markings. A mild degree of CHF should be ruled out. Normal pleura. Normal chest wall structures. There are degenerative changes of thoracic spine. There is a 1.5 cm hypodense nodule in the left adrenal gland most likely representing small adenoma. Calcified splenic granulomas. CT/CTA Chest W/WO Contrast IMPRESSION: No evidence of pulmonary embolism. Bibasilar pulmonary infiltrates superimposed on interstitial scarring and/or mild edema. Electronically Signed: Abdifatah Echeverria MD at 12:50 EDT , Service support ,
--- NOTE | 2020-07-30 10:37 | NURSING ---
pt off unit to CT scan.
[2020-07-30] MEDS: CLARIFY ORDER NOTE (10:38)
[2020-07-30 12:26] LABS: Bedside Glucose 269 mg/dL (70-110)
--- NOTE | 2020-07-30 13:09 | CASEMGMT ---
RN CM in to pt room twice and unable to awaken pt for assessment. Notified pt nurse Fabienne who states she is addressing this. Will complete assessment at a later time.
[2020-07-30 13:46] LABS: Allen Test Positive; Base Excess 18 mmol/L (-2 to +2); Blood Gas Specimen Type ART; FI02 60; O2 Delivery Device BiPAP; PO2 60 mmHG (75-100); RR 12; SITE R Radial; SO2 81 % (95-99); Total Carbon Dioxide 50 mmol/L; pCO2 119.2 mmHg (35-45)
--- NOTE | 2020-07-30 14:54 | CON.PCM.CC_ITS ---
Assessment & Plan Assessment/Plan (1) Acute and chronic respiratory failure with hypoxia: Status: Chronic Code(s): J96.21 - Acute and chronic respiratory failure with hypoxia (2) CHF exacerbation: Status: Chronic Code(s): I50.9 - Heart failure, unspecified Qualifiers: Heart failure type: diastolic Qualified Code(s): I50.33 - Acute on chronic diastolic (congestive) heart failure (3) Pneumonia: Status: Acute Code(s): J18.9 - Pneumonia, unspecified organism Qualifiers: Laterality: right Lung location: lower lobe of lung Pneumonia type: due to unspecified organism Qualified Code(s): J18.9 - Pneumonia, unspecified organism (4) Obstructive sleep apnea: Status: Acute Code(s): G47.33 - Obstructive sleep apnea (adult) (pediatric) Plan: RECOMMENDATIONS: 1. Transition patient from BiPAP to AVAPS. 2. Obtain arterial blood gas in 1 hour. 3. Continue diuretic therapy as tolerated by hemodynamics and renal function. 4. Continue scheduled bronchodilators and antimicrobials. 5. Discontinue sedating medications. 6. Wean FiO2 to maintain saturations 88 to 92%. IMPRESSIONS: 1. Acute on chronic combined respiratory failure Likely multifactorial in etiology with underlying obstructive lung disease, pneumonia, congestive heart failure and opiate induced respiratory depression likely contributing. The patient will be transition from continuous BiPAP to AVAPS, given suboptimal tidal volumes. We will plan to obtain a repeat arterial blood gas in approximately 1 hour. In the interim, the patient will be continued on antimicrobials and diuretic therapy. All sedating medications, including opiate pain medications, have been discontinued. I do anticipate improvement in her mentation with transition to AVAPS. 2. Encephalopathy Likely metabolic in nature and related to acute on chronic CO2 retention. Management as noted above with plans to transition her to AVAPS. All sedating medications have been discontinued. 3. History of COPD of unknown severity/tobacco dependency/obstructive sleep apnea/heart failure with preserved ejection fraction/pulmonary hypertension/obesity/medical noncompliance Complicates care, management, recovery and prognosis. Continue home medications as indicated. TIME: 38 minutes of critical care time, independent of procedures, was spent addressing the patient's acute on chronic combined respiratory failure, pneumonia, decompensated heart failure, encephalopathy, review of all data and collaboration with the care team. ([id number]) HPI Consult Data Date of Consult: 07/31/20 HPI Narrative Reason for Consultation: Acute on chronic combined respiratory failure HPI Narrative: The patient is a 65-year-old female, with a history as outlined below, who presented to the emergency department on July 29 with complaints of gradually worsening dyspnea. The patient has a history of COPD of unknown severity, chronic hypoxemic respiratory failure, chronic CO2 retention, tobacco dependency, obstructive sleep apnea and heart failure. She is noncompliant with the use of nocturnal Pap therapy and has been so for several years. She is apparently being managed from a pulmonary perspective by Dr. Pruitt at [facility]. She has a longstanding, extensive smoking history and continues to smoke approximately 1 pack of cigarettes per day. It appears that she is currently prescribed Incruse and albuterol in her home environment. However, her inhaler use is quite inconsistent. In addition, although she does have home oxygen, she reports that she only utilizes it occasionally. On presentation to the emergency department, the patient was noted to be afebrile but was tachycardic and tachypneic. Initial laboratory evaluation revealed a normal white blood cell count. Hemoglobin was elevated to 17.0. Chemistry profile was notable for a chronically elevated bicarbonate to 37. BNP was elevated to 430. Chest x-ray revealed a possible right lower lobe infiltrate and cardiomegaly. The patient was started on antimicrobials and IV diuretic therapy. She was initially admitted to the progressive care unit. Although the patient was being maintained on BiPAP therapy throughout the course of the day on July 30, she remained quite lethargic. Blood gases confirmed acute CO2 retention. Over concerns for her tenuous respiratory status, the patient was transition to the medical intensive care unit for further management. It does appear that the patient did receive some narcotic pain medications as well. On arrival to the ICU, despite an elevated CO2 level, the patient was able to interact and answer questions. She was subsequently transitioned from BiPAP to AVAPS. Sedating medications were discontinued. [facility] Medical History BiPAP (biphasic positive airway pressure) dependence COPD (chronic obstructive pulmonary disease) Diabetes Hypertension On home oxygen therapy Sleep apnea Smoker Home Medications metoprolol tartrate 100 mg PO BID 09/01/18 [History Last Taken 07/29/20] pramipexole 2 mg PO BID 09/01/18 [History Last Taken 07/29/20] ramipril 20 mg PO DAILY 09/01/18 [History Last Taken 07/29/20] gabapentin 300 mg PO 4X/DAY 03/04/20 [History Last Taken 07/29/20] metformin 1,000 mg PO BID 03/04/20 [History Last Taken 07/29/20] citalopram 40 mg PO DAILY 07/29/20 [History Last Taken 07/29/20] furosemide 40 mg PO BID 07/29/20 [History Last Taken 07/28/20] glimepiride 4 mg PO DAILY 07/29/20 [History Last Taken 07/29/20] lovastatin 40 mg PO DAILY 07/29/20 [History Last Taken 07/28/20] oxycodone-acetaminophen 1 tab PO BID 07/29/20 [History Last Taken 07/29/20] insulin NPH isoph U-100 human [Novolin N NPH U-100 Insulin] 20 unit SUBCUT DINNER 07/30/20 [History Last Taken Unknown] insulin NPH isoph U-100 human [Novolin N NPH U-100 Insulin] 40 unit SUBCUT BREAKFAST 07/30/20 [History Last Taken Unknown] Allergy/AdvReac Type Severity Reaction Status Date / Time PAPER TAPE Allergy Rash Uncoded 07/29/20 10:57 Family History Father Cancer Mother Heart disease Brother Cancer Social History (Updated 07/29/20 @ 16:[address] Angelica Burch MD) household members: family Smoking Status: Current every day smoker tobacco type: cigarettes Smoking packs per day: 1 Smoking cigarettes per day: 20.0 Years smoked: 56 Smoking pack-years: 56.00 quit status: considering quitting counseling given: provider counseling alcohol intake: never substance use type: does not use ROS Review of Systems ROS Unobtainable: due to encephalopathy Physical Exam Const alert General Appearance: cooperative and lethargic HEENT normocephalic and head/scalp atraumatic Eyes PERRL and EOMs intact bilaterally Resp Effort and Inspection: tachypneic Auscultation: wheezes and diminished lung sounds Cardio regular rate and regular rhythm GI normal to inspection, nondistended, normoactive bowel sounds Extremity General Extremity: edema bilateral lower extremity Skin General Skin Exam: venous stasis Neuro no focal motor deficits Psych Mood & Affect: flat affect Lab / Micro Data Result Diagrams: 07/31/20 04:00 07/31/20 04:00 Labs: Laboratory Results - last 24 hr 07/29/20 07/29/20 07/29/20 17:00 18:02 20:50 WBC RBC Hgb Hct MCV MCH MCHC RDW Std Deviation RDW Coeff of Bautista Plt Count MPV Immature Gran % (Auto) Neut % (Auto) Lymph % (Auto) [place] % (Auto) Eos % (Auto) Baso % (Auto) Absolute Neuts (auto) Absolute Lymphs (auto) Nucleated RBC % Sodium Potassium Chloride Carbon Dioxide Anion Gap BUN Creatinine Estim Creat Clear Calc Est GFR (MDRD) Af Amer Est GFR (MDRD) Non-Af BUN/Creatinine Ratio Glucose Calcium Magnesium 2.2 Total Bilirubin AST ALT Alkaline Phosphatase Troponin I < 0.015 < 0.015 Total Protein Albumin Globulin Albumin/Globulin Ratio Triglycerides Cholesterol LDL Cholesterol VLDL Cholesterol HDL Cholesterol Procalcitonin TSH POC Glucose 07/29/20 07/29/20 07/30/20 22:30 23:20 06:20 WBC 8.6 RBC 5.15 Hgb 16.5 H Hct 54.3 H MCV 105.4 H MCH 32.0 MCHC 30.4 L RDW Std Deviation 54.9 H RDW Coeff of Bautista 14.0 Plt Count 155 MPV 10.9 Immature Gran % (Auto) 0.500 Neut % (Auto) 56.3 Lymph % (Auto) 30.9 [place] % (Auto) 8.0 Eos % (Auto) 3.5 Baso % (Auto) 0.8 Absolute Neuts (auto) 4.9 Absolute Lymphs (auto) 2.67 Nucleated RBC % 0 Sodium Potassium Chloride Carbon Dioxide Anion Gap BUN Creatinine Estim Creat Clear Calc Est GFR (MDRD) Af Amer Est GFR (MDRD) Non-Af BUN/Creatinine Ratio Glucose Calcium Magnesium Total Bilirubin AST ALT Alkaline Phosphatase Troponin I < 0.015 Total Protein Albumin Globulin Albumin/Globulin Ratio Triglycerides Cholesterol LDL Cholesterol VLDL Cholesterol HDL Cholesterol Procalcitonin TSH POC Glucose 202 H 07/30/20 07/30/20 07/30/20 06:20 06:20 06:38 WBC RBC Hgb Hct MCV MCH MCHC RDW Std Deviation RDW Coeff of Bautista Plt Count MPV Immature Gran % (Auto) Neut % (Auto) Lymph % (Auto) [place] % (Auto) Eos % (Auto) Baso % (Auto) Absolute Neuts (auto) Absolute Lymphs (auto) Nucleated RBC % Sodium 143 Potassium 4.3 Chloride 100 Carbon Dioxide 40.0 H Anion Gap 3 L BUN 24 H Creatinine 0.88 Estim Creat Clear Calc 51.32 Est GFR (MDRD) Af Amer 82 Est GFR (MDRD) Non-Af 68 BUN/Creatinine Ratio 27.2 H Glucose 170 H Calcium 8.6 Magnesium Total Bilirubin 0.70 AST 13 L ALT 19 Alkaline Phosphatase 74 Troponin I Total Protein 5.0 L Albumin 2.5 L Globulin 2.5 Albumin/Globulin Ratio 1.0 Triglycerides 133 Cholesterol 158 LDL Cholesterol 84 VLDL Cholesterol 27 HDL Cholesterol 47 Procalcitonin 0.08 TSH 0.80 POC Glucose 180 H 07/30/20 12:05 WBC RBC Hgb Hct MCV MCH MCHC RDW Std Deviation RDW Coeff of Bautista Plt Count MPV Immature Gran % (Auto) Neut % (Auto) Lymph % (Auto) [place] % (Auto) Eos % (Auto) Baso % (Auto) Absolute Neuts (auto) Absolute Lymphs (auto) Nucleated RBC % Sodium Potassium Chloride Carbon Dioxide Anion Gap BUN Creatinine Estim Creat Clear Calc Est GFR (MDRD) Af Amer Est GFR (MDRD) Non-Af BUN/Creatinine Ratio Glucose Calcium Magnesium Total Bilirubin AST ALT Alkaline Phosphatase Troponin I Total Protein Albumin Globulin Albumin/Globulin Ratio Triglycerides Cholesterol LDL Cholesterol VLDL Cholesterol HDL Cholesterol Procalcitonin TSH POC Glucose 269 H Micro: Microbiology 07/30/20 08:50 Gram Stain - Final Sputum, Expectorated/Coughed 07/29/20 20:38 Respiratory Panel (PCR) - Final Mucosa - Nasopharyngeal 07/29/20 19:43 Streptococcus pneumoniae Antigen (M - Final Interface Orders 07/29/20 19:43 Legionella Antigen - Final Interface Orders 07/29/20 11:30 SARS-CoV-2 Antigen (Rapid) - Final Mucosa - Nasopharyngeal ABG Data ABG results: ABG 07/30/20 13:35 Specimen Type ART Sample Site R Radial pH 7.20 L Bicarbonate Actual 46.0 H Total CO2 50 Base Excess 18 H O2 Saturation 81 L O2 % 60 ABG pCO2 119.2 H* ABG pO2 60 L Michele Test Positive Respiration Rate 12 O2 Delivery Device BiPAP Crit Call To/Read Back Yes Blood Gas Notified Whom Clinical Comments Radiology Impression Echocardiogram 07/29/20 17:19 Interpretation Summary The study was technically difficult. Left ventricular systolic function is normal. The estimated ejection fraction is 60 %. Moderate concentric left ventricular hypertrophy. Mildly dilated right ventricle. The left atrium is severely enlarged. The right atrium is mildly enlarged. There is mild mitral annular calcification. Extension of the mitral annular calcification on the base of the posterior mitral valve leaflet. Mild (1+) mitral valve insufficiency. Mild tricuspid valve insufficiency. Trivial pericardial effusion. There are no echocardiographic indications of cardiac tamponade. Right ventricular systolic pressure estimated to be 73 mmHg c/w severe pulmonary hypertension. Transmitral diastolic flow velocities suggest diastolic dysfunction (pseudonormal pattern). ___ Ordering Physician: Angelica Burch Referring Physician: OSVALDO TEE Performed By: Perla Perez, RDCS, RVT Chest CTA 07/30/20 10:08 IMPRESSION: No evidence of pulmonary embolism. Bibasilar pulmonary infiltrates superimposed on interstitial scarring and/or mild edema. Electronically Signed: Abdifatah Echeverria MD at 12:50 EDT , Service support , Charges/Coding Procedures Pulmonary 9xxxx: [id number] Critical care first hour
[2020-07-30 16:06] LABS: Hemoglobin A1c 7.8 % (3.8-5.6)
--- NOTE | 2020-07-30 16:14 | CPS ---
critical values noted and Dr. Burch notified by LABORATORY CLERK Wayne Serrato
--- NOTE | 2020-07-30 16:30 | CPS ---
Critical values on ABG. Dr. Palomares was notified of values.
[2020-07-30 16:51] LABS: Bedside Glucose 157 mg/dL (70-110)
[2020-07-30] MEDS: Insulin NPH Human 100 UNITS/ML PEN 20 UNITS SC (17:13)
[2020-07-30] MEDS: Naproxen 500 MG Tablet PO (18:15)
[2020-07-30] MEDS: 0.9% Saline Lock 10 ML Syringe IV (19:42)
[2020-07-30] MEDS: Atorvastatin Calcium 10 MG Tablet PO (21:37)
[2020-07-31] VITALS (26 sets, daily range): BP systolic 101–156; BP diastolic 49–89; PULSE 50–82; RESP 14–32; TEMP 36.2–37.1; O2SAT 88–95
[2020-07-31 00:20] LABS: Bedside Glucose 176 mg/dL (70-110)
[2020-07-31 04:12] LABS: Absolute Lymphocyte Count 2.81 X10^3/uL (0.83-4.51); Basophil# 0.05 X10^3/uL; Basophil% 0.6 % (0-1); Eosinophil# 0.32 X10^3/uL; Eosinophils% 3.6 % (0-5); Hematocrit 53.8 % (37-47); Hemoglobin 16.4 g/dL (12.0-15.0); Lymphocyte # 2.81 X10^3/ul (0.83-4.51); Lymphocyte % 31.8 % (19-41); Mean Corp Hgb Conc 30.5 g/dL (32-36); Mean Corpuscular Hgb 31.6 pg (27.0-32.0); Mean Corpuscular Volume 103.7 fL (81-99); Mean Platelet Vol. 10.5 fl (6.2-12.0); Monocyte# 0.67 X10^3/uL; Monocyte% 7.6 % (0-10); NRBC Flagged by Analyzer 0 % (0-5); Neutrophil # 4.96 X10^3/uL (2.7-7.7); Neutrophil % 56.2 % (47-70); Platelet Count 165 K/mm3 (150-450); RBC Distribution Width SD 53.8 fl (35.1-43.9); Red Blood Count 5.19 M/mm3 (4.2-5.4); White Blood Count 8.8 K/mm3 (4.4-11.0)
[2020-07-31 04:25] LABS: ALB/GLOB Ratio 0.9 RATIO (0.9-2.4); AST(SGOT) 10 U/L (15-37); Alanine Aminotransfer ALT/SGPT 19 U/L (13-56); Albumin, Serum 2.7 g/dL (3.2-5.0); Alkaline Phosphatase 78 U/L (45-117); Anion Gap 1 (5-15); BUN 24 mg/dL (7-18); BUN/Creat Ratio 25.9 RATIO (10-20); Calcium,Total 8.9 mg/dL (8.5-10.1); Chloride 98 mmol/L (98-107); Creatinine, Serum 0.92 mg/dL (0.55-1.02); EST Glomerular Filtration Rate 64 mL/min (>60); Est Glom Filt Rate - Afr Amer 78 mL/min (>60); Estimated Creatinine Clearance 49.09 ml/min; Globulin 3.1 g/dL (2.2-4.2); Glucose 124 mg/dL (74-106); Potassium 4.2 mmol/L (3.5-5.1); Protein, Total 5.8 g/dL (6.4-8.2); Sodium Level 141 mmol/L (136-145)
[2020-07-31] MEDS: Albuterol 2.5 MG/3 ML VIAL.NEB. INHALATION (04:47)
[2020-07-31] MEDS: Nystatin Powder 15gm Bottle 1 APPLIC TOPICAL ×3 (05:36→22:11)
--- NOTE | 2020-07-31 06:25 | PCM.PN.HOSP ---
Subjective Subjective: With no acute events since ICU transition, eventually placed on BiPAP and AVAPS with clinical improvement and this morning up, alert, talkative. Discussed current status with ICU physician who had noted that she has been similar in the past as far as presentation and feels that she is clinically appropriate for transition back to PCU status. Patient notes she is breathing better, legs continue to be less swollen. Patient denies fevers, chills, nausea, emesis, abdominal pain, chest pain or worsening dyspnea. Objective Data Objective Data Vital Signs: Vital Signs Temp Pulse Resp BP Pulse Ox 98 F 61 21 H 138/71 H 91 07/31/20 04:00 07/31/20 06:00 07/31/20 06:00 07/31/20 06:00 07/31/20 06:00 Oxygen Flow Rate (L/min) 5 Oxygen Delivery Method Bi-pap Weight: 278 lb 10.629 oz Body Mass Index (BMI) 49.6 Finger Stick Blood Glucose 319 Intake & Output: Intake and Output for Last 24 Hours 07/29/20 07/30/20 07/31/20 23:59 23:59 23:59 Intake Total 240 / 360 1175 / 1415 360 / 360 Output Total 2900 / 3100 300 / 300 Balance 240 / -440 -1725 / -1685 60 / 60 Lab / Micro Data Result Diagrams: 07/31/20 04:00 07/31/20 04:00 Labs: Laboratory Results - last 24 hr 07/30/20 07/30/20 07/30/20 06:20 06:20 06:20 WBC 8.6 RBC 5.15 Hgb 16.5 H Hct 54.3 H MCV 105.4 H MCH 32.0 MCHC 30.4 L RDW Std Deviation 54.9 H RDW Coeff of Bautista 14.0 Plt Count 155 MPV 10.9 Immature Gran % (Auto) 0.500 Neut % (Auto) 56.3 Lymph % (Auto) 30.9 [place] % (Auto) 8.0 Eos % (Auto) 3.5 Baso % (Auto) 0.8 Absolute Neuts (auto) 4.9 Absolute Lymphs (auto) 2.67 Nucleated RBC % 0 Sodium 143 Potassium 4.3 Chloride 100 Carbon Dioxide 40.0 H Anion Gap 3 L BUN 24 H Creatinine 0.88 Estim Creat Clear Calc 51.32 Est GFR (MDRD) Af Amer 82 Est GFR (MDRD) Non-Af 68 BUN/Creatinine Ratio 27.2 H Glucose 170 H Hemoglobin A1c Calcium 8.6 Total Bilirubin 0.70 AST 13 L ALT 19 Alkaline Phosphatase 74 Total Protein 5.0 L Albumin 2.5 L Globulin 2.5 Albumin/Globulin Ratio 1.0 Triglycerides 133 Cholesterol 158 LDL Cholesterol 84 VLDL Cholesterol 27 HDL Cholesterol 47 Procalcitonin 0.08 TSH 0.80 POC Glucose 07/30/20 07/30/20 07/30/20 06:20 06:38 12:05 WBC RBC Hgb Hct MCV MCH MCHC RDW Std Deviation RDW Coeff of Bautista Plt Count MPV Immature Gran % (Auto) Neut % (Auto) Lymph % (Auto) [place] % (Auto) Eos % (Auto) Baso % (Auto) Absolute Neuts (auto) Absolute Lymphs (auto) Nucleated RBC % Sodium Potassium Chloride Carbon Dioxide Anion Gap BUN Creatinine Estim Creat Clear Calc Est GFR (MDRD) Af Amer Est GFR (MDRD) Non-Af BUN/Creatinine Ratio Glucose Hemoglobin A1c 7.8 H Calcium Total Bilirubin AST ALT Alkaline Phosphatase Total Protein Albumin Globulin Albumin/Globulin Ratio Triglycerides Cholesterol LDL Cholesterol VLDL Cholesterol HDL Cholesterol Procalcitonin TSH POC Glucose 180 H 269 H 07/30/20 07/30/20 07/31/20 16:32 21:39 04:00 WBC 8.8 RBC 5.19 Hgb 16.4 H Hct 53.8 H MCV 103.7 H MCH 31.6 MCHC 30.5 L RDW Std Deviation 53.8 H RDW Coeff of Bautista 14.0 Plt Count 165 MPV 10.5 Immature Gran % (Auto) 0.200 Neut % (Auto) 56.2 Lymph % (Auto) 31.8 [place] % (Auto) 7.6 Eos % (Auto) 3.6 Baso % (Auto) 0.6 Absolute Neuts (auto) 5.0 Absolute Lymphs (auto) 2.81 Nucleated RBC % 0 Sodium Potassium Chloride Carbon Dioxide Anion Gap BUN Creatinine Estim Creat Clear Calc Est GFR (MDRD) Af Amer Est GFR (MDRD) Non-Af BUN/Creatinine Ratio Glucose Hemoglobin A1c Calcium Total Bilirubin AST ALT Alkaline Phosphatase Total Protein Albumin Globulin Albumin/Globulin Ratio Triglycerides Cholesterol LDL Cholesterol VLDL Cholesterol HDL Cholesterol Procalcitonin TSH POC Glucose 157 H 176 H 07/31/20 04:00 WBC RBC Hgb Hct MCV MCH MCHC RDW Std Deviation RDW Coeff of Bautista Plt Count MPV Immature Gran % (Auto) Neut % (Auto) Lymph % (Auto) [place] % (Auto) Eos % (Auto) Baso % (Auto) Absolute Neuts (auto) Absolute Lymphs (auto) Nucleated RBC % Sodium 141 Potassium 4.2 Chloride 98 Carbon Dioxide 42.0 H Anion Gap 1 L BUN 24 H Creatinine 0.92 Estim Creat Clear Calc 49.09 Est GFR (MDRD) Af Amer 78 Est GFR (MDRD) Non-Af 64 BUN/Creatinine Ratio 25.9 H Glucose 124 H Hemoglobin A1c Calcium 8.9 Total Bilirubin 0.80 AST 10 L ALT 19 Alkaline Phosphatase 78 Total Protein 5.8 L Albumin 2.7 L Globulin 3.1 Albumin/Globulin Ratio 0.9 Triglycerides Cholesterol LDL Cholesterol VLDL Cholesterol HDL Cholesterol Procalcitonin TSH POC Glucose Micro: Microbiology 07/30/20 08:50 Sputum, Expectorated/Coughed Gram Stain - Final 07/29/20 20:38 Mucosa - Nasopharyngeal Respiratory Panel (PCR) - Final 07/29/20 19:43 Interface Orders Streptococcus pneumoniae Antigen (M - Final 07/29/20 19:43 Interface Orders Legionella Antigen - Final 07/29/20 11:30 Mucosa - Nasopharyngeal SARS-CoV-2 Antigen (Rapid) - Final ABG Data ABG results: ABG 07/30/20 13:35 Specimen Type ART Sample Site R Radial pH 7.20 L Bicarbonate Actual 46.0 H Total CO2 50 Base Excess 18 H O2 Saturation 81 L O2 % 60 ABG pCO2 119.2 H* ABG pO2 60 L Michele Test Positive Respiration Rate 12 O2 Delivery Device BiPAP Crit Call To/Read Back Yes Blood Gas Notified Whom Clinical Comments Radiography Diagnostic Testing: Radiology Impression Echocardiogram 07/29/20 17:19 Interpretation Summary The study was technically difficult. Left ventricular systolic function is normal. The estimated ejection fraction is 60 %. Moderate concentric left ventricular hypertrophy. Mildly dilated right ventricle. The left atrium is severely enlarged. The right atrium is mildly enlarged. There is mild mitral annular calcification. Extension of the mitral annular calcification on the base of the posterior mitral valve leaflet. Mild (1+) mitral valve insufficiency. Mild tricuspid valve insufficiency. Trivial pericardial effusion. There are no echocardiographic indications of cardiac tamponade. Right ventricular systolic pressure estimated to be 73 mmHg c/w severe pulmonary hypertension. Transmitral diastolic flow velocities suggest diastolic dysfunction (pseudonormal pattern). Ordering Physician: Angelica Burch Referring Physician: OSVALDO TEE Performed By: Perla Perez, RDCS, RVT Chest CTA 07/30/20 10:08 IMPRESSION: No evidence of pulmonary embolism. Bibasilar pulmonary infiltrates superimposed on interstitial scarring and/or mild edema. Electronically Signed: Abdifatah Echeverria MD at 12:50 EDT , Service support , Physical Exam Narrative Physical Examination: General: Patient seated upright in the ICU bed, more alert, talkative, certainly back to her baseline mental status, no acute distress, denies any current dyspnea. Skin: normal color, turgor, no icterus, cyanosis except venostasis skin changes bilateral lower extremities. HEENT: AT/NC, EOMI, PERRLA, mildly dry MM. Lungs: Diminished, greater bases, rales improved, no current rhonchi or wheezing, appropriate effort. Heart: Regular rate with regular rhythm; no gallop, rub audible. Abdomen: soft, morbidly obese, NTTP, no obvious distention but difficult given habitus, distant normal BS. Extremities: no cyanosis or clubbing, BL LE lymphedema, significantly improved bilateral lower extremity pitting edema. Neurological: Patient mental status improved, awake, alert, orientation back to baseline x3, cognitive status at baseline; pupils equally reactive to light and accomodation; cranial nerves grossly normal, moving all 4 extremities, no focal deficits, strength improved, moderately global decrease secondary to acute presentation but improving. Psychiatric: affect appears more alert, awake, good humor, no acute evidence of depressive or anxiety feelings. Assessment & Plan Assessment/Plan (1) Acute and chronic respiratory failure with hypoxia: Status: Chronic Code(s): J96.21 - Acute and chronic respiratory failure with hypoxia (2) CHF exacerbation: Status: Chronic Code(s): I50.9 - Heart failure, unspecified Qualifiers: Heart failure type: diastolic Qualified Code(s): I50.33 - Acute on chronic diastolic (congestive) heart failure Plan: The patient is a 65 y/o F w/ PMHx: Morbid Obesity, HTN, HLD, Diabetes mellitus type II with neuropathy, Chronic COPD w/ Chronic Hypoxic Respiratory Failure (4L NC), Chronic Diastolic CHF, Tobacco use, Chronic Lymphedema, JACK on BIPAP (usage intermittent) who presents to the [facility] ED on 07/29/20 with history of progressively worsening shortness of breath over the last 1.5 weeks with cough with only noted clear sputum with no recent fevers or chills with increased edema with decreased urine output despite ongoing normal Lasix self administration, increased weight gain as well as orthopnea prompting eventual ED presentation. 1. Acute Encephalopathy secondary to Acute on Chronic Hypoxic and Hypercarbic Respiratory Failure, Multifactorial, secondary to Acute on Chronic Decompensated Diastolic CHF and #2, complicated by #3: Patient administered IV lasix in the ED. Patient admitted to the PCU initially, maintained on cardiac telemetry, unremarkable cardiac enzyme series, continued IV lasix diuresis, monitor I/Os, maintain on intake restriction, continue medical therapy, TSH 0.8 and magnesium level 2.2. 09/28/19 ECHO w/ moderate concentric LVH, EF 65%, stage II diastolic dysfunction, mildly dilated RV, severely enlarged LA, mildly enlarged RA, mild TVI, RVSP 53 mmHg, moderate pulmonary hypertension. 07/30/20 worsening respiratory status with recurrent hypoxia, ABG with retention, placing on BIPAP continuous with additional IV lasix dose w/ CTPA obtained urgently w/ no evidence of pulmonary embolism, bibasilar pulmonary infiltrates superimposed on interstitial scarring and/or mild edema. Improved following AVAPs usage 07/30-07/31/20 overnight, mental status and respiratory status returned to near baseline. Plan PCU transition today, possible oral lasix transition 08/01/20 and discharge if continued improvement. Pulmonary/CC consulted and following. 2. BL Community Acquired Pneumonia: CXR in the ED w/ ? RLL, no marked WBC elevation or L shift, afebrile but present infiltrate, procalcitonin normal level however given worsened status as noted #1 transiently obtained CTPA obtained urgently w/ no evidence of pulmonary embolism, bibasilar pulmonary infiltrates superimposed on interstitial scarring and/or mild edema. Transitioned ICU->PCU status 07/31/20, off continuous BIPAP->AVAPs, maintain on oxygen with wean as tolerated to home oxygen supplementation, continue ATC duonebs, PRN albuterol, maintained on IV Rocephin and Azithromycin, HOB, IS parameters w/ pending sputum cultures. Respiratory viral panel and negative urine antigens. Rapid covid negative. 3. Chronic COPD with chronic hypoxic respiratory failure complicated by #1, #2: Worsened mental status 07/30/20 am and through day, ABG with notable retention, placed on continuous BIPAP, continued ATC duonebs, PRN albuterol, HOB, IS parameters. Currently on chronic steroid regimen, may need IV transition pending response. 4. Diabetes mellitus type II with neuropathy: Hold oral home regimen, hemoglobin A1c improved 7.8%, last 09/2019 10.4%, nutrition consulted for education and teaching, ADA diet once clinically improved from current acute lethargy/CO2 retention as noted above, accu checks w/ ISS. Continue home gabapentin regimen. 5. Chronic bilateral lower extremity lymphedema: Complicated by #1, snug jennifer wraps, elevation. 6. Hypertension: Continue home regimen including metoprolol, ramipril, IV Lasix as noted with oral transition likely 08/01/20 with hold parameters, PRN hydralazine. 7. Hyperlipidemia: Continue home statin regimen. 8. Morbid Obesity: Weight loss and lifestyle changes encouraged, nutrition consulted. 9. JACK: BIPAP q HS. 10. Restless leg syndrome: We will continue patient home pramipexole regimen 11. DVT prophylaxis: SCD, Lovenox. 12. CODE status: Full Code. Visit Charges Inpatient E&M: 40704 Subs Hosp L3
[2020-07-31] MEDS: Ipratropium/Albuterol Sulfate 3 ML AMPUL.NEB INHALATION ×3 (07:25→18:36)
--- NOTE | 2020-07-31 07:31 | PCM.PN.INT ---
Assessment & Plan Assessment/Plan (1) Acute and chronic respiratory failure with hypoxia: Status: Chronic Code(s): J96.21 - Acute and chronic respiratory failure with hypoxia Plan: RECOMMENDATIONS: 1. Continue AVAPS at a minimum with naps and nightly. 2. Continue diuretic therapy as tolerated by hemodynamics and renal function. 3. Continue scheduled bronchodilators and antimicrobials. 4. Continue to hold all sedating medications. 5. Wean FiO2 to maintain saturations 88 to 92%. 6. Encourage incentive spirometer use and mobilize patient as tolerated. IMPRESSIONS: 1. Acute on chronic combined respiratory failure Improved. Likely multifactorial in etiology with underlying obstructive lung disease, pneumonia, congestive heart failure and opiate induced respiratory depression likely contributing. The patient responded appropriately to AVAPS therapy with subsequent improvement in her CO2 retention. She has returned back to her baseline from a mentation perspective. Recommend continuing AVAPS, at a minimum, with naps and nightly. I would avoid sedating medications, including opiate pain meds, in the future. Wean oxygen to maintain saturations 88 to 92%. Continue scheduled bronchodilator therapy, antimicrobials and IV diuretic therapy as tolerated by hemodynamics and renal function. 2. Encephalopathy Resolved. Likely metabolic in nature and related to acute on chronic CO2 retention. Management as noted above with plans to continue her on AVAPS therapy as tolerated. All sedating medications have been discontinued. 3. History of COPD of unknown severity/tobacco dependency/obstructive sleep apnea/heart failure with preserved ejection fraction/pulmonary hypertension/obesity/medical noncompliance Complicates care, management, recovery and prognosis. Continue home medications as indicated. This note was generated with [employer] dictation software. It may contain incorrect words, spelling, and punctuation that were not noted in checking the note before signing. Subjective Subjective: The patient was seen and examined at the bedside this morning. Events from the last 24 hours have been reviewed. The patient is currently afebrile, hemodynamically stable and maintaining appropriate oxygen saturations on 6 L/min via nasal cannula. The patient did respond to AVAPS therapy yesterday/overnight. She is currently documented to be overall net -1.7 L for the hospital admission. Creatinine remains stable. The patient remains on scheduled bronchodilators, IV Lasix and antimicrobials. The patient is certainly more alert and appropriately interactive this morning. Objective Data Objective Data The patient's most recent lab work, culture data and imaging studies have all been personally reviewed. Surface echocardiogram revealed moderate concentric LVH with an ejection fraction of 60%. Right ventricular systolic pressure was estimated to be 73 mmHg. Rapid coronavirus antigen testing was negative. Strep and urine Legionella antigens were negative. Respiratory viral panel was negative. Sputum culture is pending. Vital Signs: Vital Signs Temp Pulse Resp BP Pulse Ox 98 F 61 21 H 138/71 H 91 07/31/20 04:00 07/31/20 06:00 07/31/20 06:00 07/31/20 06:00 07/31/20 06:00 Oxygen Flow Rate (L/min) 5 Oxygen Delivery Method Bi-pap Weight: 278 lb 10.629 oz Body Mass Index (BMI) 49.6 Finger Stick Blood Glucose 319 Intake & Output: Intake and Output for Last 24 Hours 07/29/20 07/30/20 07/31/20 23:59 23:59 23:59 Intake Total 240 / 360 1175 / 1415 360 / 360 Output Total 2900 / 3100 300 / 300 Balance 240 / -440 -1725 / -1685 60 / 60 Lab / Micro Data Result Diagrams: 08/01/20 06:30 08/01/20 06:30 Labs: Laboratory Results - last 24 hr 07/30/20 07/30/20 07/30/20 06:20 06:20 12:05 WBC RBC Hgb Hct MCV MCH MCHC RDW Std Deviation RDW Coeff of Bautista Plt Count MPV Immature Gran % (Auto) Neut % (Auto) Lymph % (Auto) [place] % (Auto) Eos % (Auto) Baso % (Auto) Absolute Neuts (auto) Absolute Lymphs (auto) Nucleated RBC % Sodium Potassium Chloride Carbon Dioxide Anion Gap BUN Creatinine Estim Creat Clear Calc Est GFR (MDRD) Af Amer Est GFR (MDRD) Non-Af BUN/Creatinine Ratio Glucose Hemoglobin A1c 7.8 H Calcium Total Bilirubin AST ALT Alkaline Phosphatase Total Protein Albumin Globulin Albumin/Globulin Ratio Procalcitonin 0.08 POC Glucose 269 H 07/30/20 07/30/20 07/31/20 16:32 21:39 04:00 WBC 8.8 RBC 5.19 Hgb 16.4 H Hct 53.8 H MCV 103.7 H MCH 31.6 MCHC 30.5 L RDW Std Deviation 53.8 H RDW Coeff of Bautista 14.0 Plt Count 165 MPV 10.5 Immature Gran % (Auto) 0.200 Neut % (Auto) 56.2 Lymph % (Auto) 31.8 [place] % (Auto) 7.6 Eos % (Auto) 3.6 Baso % (Auto) 0.6 Absolute Neuts (auto) 5.0 Absolute Lymphs (auto) 2.81 Nucleated RBC % 0 Sodium Potassium Chloride Carbon Dioxide Anion Gap BUN Creatinine Estim Creat Clear Calc Est GFR (MDRD) Af Amer Est GFR (MDRD) Non-Af BUN/Creatinine Ratio Glucose Hemoglobin A1c Calcium Total Bilirubin AST ALT Alkaline Phosphatase Total Protein Albumin Globulin Albumin/Globulin Ratio Procalcitonin POC Glucose 157 H 176 H 07/31/20 04:00 WBC RBC Hgb Hct MCV MCH MCHC RDW Std Deviation RDW Coeff of Bautista Plt Count MPV Immature Gran % (Auto) Neut % (Auto) Lymph % (Auto) [place] % (Auto) Eos % (Auto) Baso % (Auto) Absolute Neuts (auto) Absolute Lymphs (auto) Nucleated RBC % Sodium 141 Potassium 4.2 Chloride 98 Carbon Dioxide 42.0 H Anion Gap 1 L BUN 24 H Creatinine 0.92 Estim Creat Clear Calc 49.09 Est GFR (MDRD) Af Amer 78 Est GFR (MDRD) Non-Af 64 BUN/Creatinine Ratio 25.9 H Glucose 124 H Hemoglobin A1c Calcium 8.9 Total Bilirubin 0.80 AST 10 L ALT 19 Alkaline Phosphatase 78 Total Protein 5.8 L Albumin 2.7 L Globulin 3.1 Albumin/Globulin Ratio 0.9 Procalcitonin POC Glucose Micro: Microbiology 07/30/20 08:50 Sputum, Expectorated/Coughed Gram Stain - Final 07/29/20 20:38 Mucosa - Nasopharyngeal Respiratory Panel (PCR) - Final 07/29/20 19:43 Interface Orders Streptococcus pneumoniae Antigen (M - Final 07/29/20 19:43 Interface Orders Legionella Antigen - Final 07/29/20 11:30 Mucosa - Nasopharyngeal SARS-CoV-2 Antigen (Rapid) - Final ABG Data ABG results: ABG 07/30/20 13:35 Specimen Type ART Sample Site R Radial pH 7.20 L Bicarbonate Actual 46.0 H Total CO2 50 Base Excess 18 H O2 Saturation 81 L O2 % 60 ABG pCO2 119.2 H* ABG pO2 60 L Michele Test Positive Respiration Rate 12 O2 Delivery Device BiPAP Crit Call To/Read Back Yes Blood Gas Notified Whom Clinical Comments Radiography Diagnostic Testing: Radiology Impression Echocardiogram 07/29/20 17:19 Interpretation Summary The study was technically difficult. Left ventricular systolic function is normal. The estimated ejection fraction is 60 %. Moderate concentric left ventricular hypertrophy. Mildly dilated right ventricle. The left atrium is severely enlarged. The right atrium is mildly enlarged. There is mild mitral annular calcification. Extension of the mitral annular calcification on the base of the posterior mitral valve leaflet. Mild (1+) mitral valve insufficiency. Mild tricuspid valve insufficiency. Trivial pericardial effusion. There are no echocardiographic indications of cardiac tamponade. Right ventricular systolic pressure estimated to be 73 mmHg c/w severe pulmonary hypertension. Transmitral diastolic flow velocities suggest diastolic dysfunction (pseudonormal pattern). Ordering Physician: Angelica Burch Referring Physician: OSVALDO TEE Performed By: Perla Perez, JOÃOCS, RVT Chest CTA 07/30/20 10:08 IMPRESSION: No evidence of pulmonary embolism. Bibasilar pulmonary infiltrates superimposed on interstitial scarring and/or mild edema. Electronically Signed: Abdifatah Echeverria MD at 12:50 EDT , Service support , Physical Exam Const alert and no apparent distress General Appearance: cooperative HEENT normocephalic, head/scalp atraumatic and moist oral mucous membranes Eyes PERRL and EOMs intact bilaterally Resp normal respiratory effort Auscultation: diminished lung sounds; Negative for rales, rhonchi or wheezes Cardio regular rate and regular rhythm GI normal to inspection, nondistended, normoactive bowel sounds Extremity General Extremity: edema bilateral lower extremity; Negative for clubbing Skin General Skin Exam: venous stasis Neuro CN's II-XII intact bilaterally, moves all extremities and no focal motor deficits Psych cooperative and affect normal Charges/Coding Visit Charges Inpatient E&M: 04936 Subs Hosp L3
[2020-07-31 08:50] LABS: Allen Test Positive; Base Excess 21 mmol/L (-2 to +2); Bicarbonate 47.2 mmol/L (22-26); Blood Gas Specimen Type ART; FI02 40; O2 Delivery Device BiPAP; PEEP 8; PO2 61 mmHG (75-100); RR 16; SITE R Radial; SO2 85 % (95-99); Total Carbon Dioxide > 50 mmol/L; Vt 450; pCO2 96.6 mmHg (35-45)
[2020-07-31] MEDS: Insulin Lispro 100 UNIT/ML INSULN.PEN SC ×3 (08:57→22:17)
[2020-07-31] MEDS: Insulin NPH Human 100 UNITS/ML PEN 40 UNITS SC (08:58)
[2020-07-31] MEDS: Gabapentin 300 MG Capsule PO ×4 (09:01→22:11)
[2020-07-31] MEDS: Pramipexole Di-HCl 1 MG Tablet 2 MG PO ×2 (09:02→22:11)
[2020-07-31] MEDS: Enoxaparin 40 MG/0.4 ML Syringe SC ×2 (09:02→22:11)
[2020-07-31] MEDS: Metoprolol Tartrate 100 MG Tablet PO ×2 (09:02→22:11)
[2020-07-31] MEDS: Aspirin 81 MG TAB.CHEW PO (09:03)
[2020-07-31] MEDS: Furosemide 40 MG/4 ML Vial IV ×2 (09:03→17:42)
[2020-07-31] MEDS: Ramipril 10 MG Capsule PO (09:03)
[2020-07-31] MEDS: Potassium Chloride Oral Tablet 20 MEQ PO (09:03)
[2020-07-31 09:10] LABS: Bedside Glucose 202 mg/dL (70-110)
[2020-07-31] MEDS: Ceftriaxone 1 GM/50 ML BAG IV (10:23)
[2020-07-31] MEDS: guaiFENesin 1,200 MG Tablet 1200 MG PO ×2 (10:23→22:11)
[2020-07-31] MEDS: Citalopram 40 MG TABLET PO (11:03)
[2020-07-31 11:11] LABS: Bedside Glucose 235 mg/dL (70-110)
--- NOTE | 2020-07-31 14:00 | CASEMGMT ---
JOHNNY PIERSON Assessment: Face to Face with pt for initial transition planning/care coordination assessment. RN DANGELO introduced self and role at [facility], pt voices understanding and consents to assessment. Pt is O x4, although drowsy and answers all questions appropriately at this time. Pt sitting up in chair with O2 on in no distress. Care providers, pharmacy, and demographics verified/updated. Admitting Dx: a on c hypoxic resp failure, CHF PCP: Esme Specialists: Pt denies having any specialists. [facility]erred [facility] Insurance: MCR, [employer] Prescription Benefit: yes LNOK: Néstor Valdez, son; Cyndee Christian, sister Living Arrangements: Pt lives in a 2 story house with 3 steps to enter with a rail with her son. Pt reports she is I in ADL's. Denies concerns at home. Transportation: Pt states she drives self and denies concerns with transportation. DME/HHC/SNF: Pt states she has a cane, walker, shower, chair, BSC, grab bars at home. She also has O2 through [facility]. TC to [facility] and spoke with Theresa, pt script is for 3L NC cont. Pt denies previous HHC or SNF stays. Pt states no concerns with going home at time of dc. Pt denies need for HHC. Pt states no further concerns/needs. CM to follow O2 needs. Advised pt to ask CM if any further question/concerns/needs arise, voices understanding. Pt Goal: Home Plan: Home with family support, follow O2.
--- NOTE | 2020-07-31 16:42 | NURSING ---
Catheter removed by Christina Brian RN. No documentation seen of when catheter was placed.
[2020-07-31 16:50] LABS: Bedside Glucose 98 mg/dL (70-110)
[2020-07-31] MEDS: 0.9% Saline Lock 10 ML Syringe IV (17:42)
[2020-07-31] MEDS: Atorvastatin Calcium 10 MG Tablet PO (22:11)
[2020-07-31] MEDS: Naproxen 500 MG Tablet PO (22:12)
[2020-07-31 22:25] LABS: Bedside Glucose 198 mg/dL (70-110)
[2020-08-01] VITALS (11 sets, daily range): BP systolic 143–150; BP diastolic 74–96; PULSE 50–70; RESP 16–24; TEMP 36.3–37.1; O2SAT 85–94
[2020-08-01] MEDS: Nystatin Powder 15gm Bottle 1 APPLIC TOPICAL ×2 (05:31→12:44)
[2020-08-01 07:13] LABS: Absolute Lymphocyte Count 2.22 X10^3/uL (0.83-4.51); Absolute Neutrophil Count 4.6 X10^3/uL (2.0-7.7); Basophil# 0.04 X10^3/uL; Basophil% 0.5 % (0-1); Eosinophil# 0.27 X10^3/uL; Eosinophils% 3.4 % (0-5); Hematocrit 53.1 % (37-47); Hemoglobin 16.2 g/dL (12.0-15.0); Lymphocyte # 2.22 X10^3/ul (0.83-4.51); Lymphocyte % 27.8 % (19-41); Mean Corp Hgb Conc 30.5 g/dL (32-36); Mean Corpuscular Volume 101.7 fL (81-99); Mean Platelet Vol. 10.9 fl (6.2-12.0); Monocyte# 0.83 X10^3/uL; Monocyte% 10.4 % (0-10); NRBC Flagged by Analyzer 0 % (0-5); Neutrophil # 4.61 X10^3/uL (2.7-7.7); Neutrophil % 57.5 % (47-70); Platelet Count 171 K/mm3 (150-450); RBC Distribution Width CV 13.7 % (11.6-14.6); RBC Distribution Width SD 51.8 fl (35.1-43.9); Red Blood Count 5.22 M/mm3 (4.2-5.4)
[2020-08-01] MEDS: Ipratropium/Albuterol Sulfate 3 ML AMPUL.NEB INHALATION ×2 (07:20→10:39)
[2020-08-01 07:38] LABS: ALB/GLOB Ratio 0.8 RATIO (0.9-2.4); AST(SGOT) 13 U/L (15-37); Alanine Aminotransfer ALT/SGPT 17 U/L (13-56); Albumin, Serum 2.6 g/dL (3.2-5.0); Alkaline Phosphatase 68 U/L (45-117); Anion Gap 0 (5-15); BUN 23 mg/dL (7-18); BUN/Creat Ratio 31.2 RATIO (10-20); Calcium,Total 8.8 mg/dL (8.5-10.1); Chloride 97 mmol/L (98-107); Creatinine, Serum 0.74 mg/dL (0.55-1.02); EST Glomerular Filtration Rate 83 mL/min (>60); Est Glom Filt Rate - Afr Amer 101 mL/min (>60); Estimated Creatinine Clearance 45.16 ml/min; Globulin 3.1 g/dL (2.2-4.2); Glucose 116 mg/dL (74-106); Potassium 4.1 mmol/L (3.5-5.1); Protein, Total 5.7 g/dL (6.4-8.2); Sodium Level 138 mmol/L (136-145)
[2020-08-01] MEDS: Insulin Lispro 100 UNIT/ML INSULN.PEN SC (08:45)
[2020-08-01] MEDS: Insulin NPH Human 100 UNITS/ML PEN 40 UNITS SC (08:45)
[2020-08-01] MEDS: Gabapentin 300 MG Capsule PO ×2 (08:46→12:44)
[2020-08-01] MEDS: Ramipril 10 MG Capsule PO (08:46)
[2020-08-01] MEDS: Citalopram 40 MG TABLET PO (08:46)
[2020-08-01] MEDS: Potassium Chloride Oral Tablet 20 MEQ PO (08:46)
[2020-08-01] MEDS: Pramipexole Di-HCl 1 MG Tablet 2 MG PO (08:46)
[2020-08-01] MEDS: guaiFENesin 1,200 MG Tablet 1200 MG PO (08:46)
[2020-08-01] MEDS: Aspirin 81 MG TAB.CHEW PO (08:46)
[2020-08-01] MEDS: Enoxaparin 40 MG/0.4 ML Syringe SC (08:46)
[2020-08-01] MEDS: Metoprolol Tartrate 100 MG Tablet PO (08:47)
[2020-08-01] MEDS: Furosemide 40 MG Tablet PO (08:49)
[2020-08-01] MEDS: Naproxen 500 MG Tablet PO (08:50)
[2020-08-01 09:01] LABS: Bedside Glucose 191 mg/dL (70-110)
--- NOTE | 2020-08-01 09:28 | CASEMGMT ---
Addendum entered by Tammie Wooten 08/01/20 09:35: Spoke with [place] at [facility]. If pt is not seen today before dc, they will follow up once pt is home. Original Note: Pt screened with [facility] Palliative Care Screening Tool due to Strata 3, pt met criteria. Faxed referral at this time.
--- NOTE | 2020-08-01 11:04 | DCINST_ITS ---
Discharge Instructions Diet Discharge Diet: 1800 Calorie Control Diet (ADA 1800/cardiac diet/fluid restriction 2,000 ml daily) Activity Discharge Activity: - (Strongly encourage routine activity, continue lower extremity SNUG jennifer wraps from toes to knee and elevate above heart to assist with swelling. ) May resume sexual activity in: 10-14 days Weight Bearing Status: Weight bearing as tolerated Keep extremity elevated above heart level: Left Leg and Right Leg Dressing / Incision Call your doctor if you observe: Fever of 101 or Higher, Shortness of breath, Dizziness, Fainting spells, Chest pain, Uncontrolled pain and - (Call your customer experience specialist if you have weight gain > 5 lbs.) Follow Up Care Please Follow Up With: Bhavesh Victoria When: Follow-up with your PCP within 3-5 days to review admission, please have repeat basic metabolic panel at that time to reassess renal function. Test Results: Test results from this visit will be discussed in further detail at your follow-up appointment, if applicable. Discharge Plan Admission Admit Date/Time: 07/29/20 16:29 Primary Reason for Your Visit: Acute on Chronic Respiratory Failure, CHF Exacerbation, Pneumonia Attending Provider: Angelica Burch Primary Care Provider: Bhavesh Victoria Consulting Providers: Ilia Palomares ; Norah Schroeder ; Jj Lewis ; Socorro Velez ; Sylvia Webb ; Helen Arciniega CAPTAIN/CHECK AIRMAN Instructions Patient Instructions: Taking Medication to Control Heart Failure, Low-Salt Choices, Heart Failure: Tracking Your Weight, Treating Pneumonia, Lifestyle C hanges to Control Cholesterol, Care for COPD, Taking Diuretics, Understanding Type 2 Diabetes, ED Heart Failure, Congestive (CHF), ED High Blood Pressure ..., ED How to Quit Smoking Additional Instructions / Restrictions: Please continue usage of your home BIPAP however upon pulmonary follow-up we will need to set up an additional sleep study to assist with improving your BIPAP tolerance and likely settings will need altered. Please use the nebulized treatments ordered until pulmonary follow-up and possibly inhalers initiated. Discharge Orders/Prescriptions Prescriptions: New potassium chloride [Klor-Con M20] 20 mEq Tablet,Er Particles/Crystals 20 meq PO DAILYCM 30 Days Qty: 30 RF: 0 nystatin [Nyamyc] 100,000 unit/gram Powder 1 applic topical TID Qty: 30 RF: 0 albuterol sulfate 2.5 mg /3 mL (0.083 %) Solution For Nebulization 2.5 mg inhalation Q2H PRN PRN (Reason: Dyspnea, wheezing) Qty: 90 RF: 0 nicotine 21 mg/24 hr Patch 24 Hour 21 mg transdermal DAILY 30 Days Qty: 30 RF: 0 aspirin 81 mg Tablet,Chewable 81 mg PO DAILY@0800 30 Days Qty: 30 RF: 0 levofloxacin 750 mg Tablet 750 mg PO DAILY@0600 3 Days Qty: 3 RF: 0 furosemide 40 mg Tablet 40 mg PO BID@1000,1800 30 Days Qty: 60 RF: 0 ipratropium-albuterol 0.5 mg-3 mg(2.5 mg base)/3 mL Solution For Nebulization 3 ml inhalation Q8H Qty: 90 RF: 0 Continued pramipexole 1 MG tablet 2 mg PO BID RF: 0 metoprolol tartrate 100 MG tablet 100 mg PO BID RF: 0 ramipril 10 MG capsule 20 mg PO DAILY RF: 0 metformin 1,000 MG tablet 1,000 mg PO BID RF: 0 gabapentin 300 MG capsule 300 mg PO 4X/DAY RF: 0 citalopram 40 mg tablet 40 mg PO DAILY RF: 0 lovastatin 40 mg Tablet 40 mg PO DAILY RF: 0 glimepiride 4 mg Tablet 4 mg PO DAILY RF: 0 oxycodone-acetaminophen 7.5-325 mg tablet 1 tab PO BID RF: 0 Novolin N NPH U-100 Insulin 100 unit/mL suspension 40 unit SUBCUT BREAKFAST RF: 0 Novolin N NPH U-100 Insulin 100 unit/mL suspension 20 unit SUBCUT DINNER RF: 0 Discontinued furosemide 40 MG tablet 40 mg PO BID RF: 0 Referrals / Follow Up: Bhavesh Victoria MD [Primary Care Provider] - 08/06/20 11:20 am Sylvia Webb, CAPTAIN/CHECK AIRMAN-C [Nurse Practitioner] - (Please continue to follow-up with Palliative care at your discharge. This will assist in symptom control.) Nilda Gagnon NP, CAPTAIN/CHECK [employer]MAN-C [Nurse Practitioner] - (Please have follow-up in 1 week with Pulmonary CAPTAIN/CHECK [employer]MAN. Saw Dr. Palomares in patient and has also seen Dr. Min navarro.) Gurdeep Candelaria NP, CAPTAIN/CHECK [employer]MAN-C [Nurse Practitioner] - (Please have patient follow-up with Cardiology CAPTAIN/CHECK AIRMAN. Recent admission CHF exacerbation.) Disposition Disposition (needs filled in before D/C Order can be placed): Home, self care
--- NOTE | 2020-08-01 11:24 | PCM.DC.SUM ---
Providers Date of Admission: 07/29/20 Primary Care Physician: Dr. Bhavesh Victoria MD Consultations 07/30/20 14:48 Consult: Rn Disease Management / Pulmonary Medicine Routine Consulting Provider: Ilia Palomares Reason for Consult: ICU admission/transfer, resp failure, CHF admit/?PNA, COPD hx on chronic O2 EMERGENT Consult: No MD Notified: Yes Date Notified:: 07/30/20 Time Notified: 13:52 Method of Notification: Text 08/01/20 05:31 Consult: Onc/Wound/channeling machine operator Routine Comment: 08/01/20 09:13 Consult: Hospice / Palliative Care Routine Consulting Provider: [facility] Reason for Consult: Palliative ONLY consultation EMERGENT Consult: No MD Notified: Yes Date Notified:: 08/01/20 Time Notified: 09:13 Method of Notification: Verbal per casemanagement Reason For Visit: ACUTE ON CHRONIC HYPOXIC RESPPIRATORY FAILURE, CHF Diagnosis Discharge Diagnosis (1) Acute and chronic respiratory failure with hypoxia: Status: Chronic Code(s): J96.21 - Acute and chronic respiratory failure with hypoxia Plan: 1. Acute Encephalopathy secondary to Acute on Chronic Hypoxic and Hypercarbic Respiratory Failure, Multifactorial, secondary to Acute on Chronic Decompensated Diastolic CHF and #2, complicated by #3 2. BL Community Acquired Pneumonia 3. Chronic COPD with chronic hypoxic respiratory failure complicated by #1, #2 4. Diabetes mellitus type II with neuropathy 5. Chronic bilateral lower extremity lymphedema 6. Hypertension 7. Hyperlipidemia 8. Morbid Obesity 9. JACK on BIPAP q HS 10. Restless leg syndrome Medications at Discharge Home Medications metoprolol tartrate 100 mg PO BID 09/01/18 pramipexole 2 mg PO BID 09/01/18 ramipril 20 mg PO DAILY 09/01/18 gabapentin 300 mg PO 4X/DAY 03/04/20 metformin 1,000 mg PO BID 03/04/20 citalopram 40 mg PO DAILY 07/29/20 glimepiride 4 mg PO DAILY 07/29/20 lovastatin 40 mg PO DAILY 07/29/20 oxycodone-acetaminophen 1 tab PO BID 07/29/20 Novolin N NPH U-100 Insulin 20 unit SUBCUT DINNER 07/30/20 Novolin N NPH U-100 Insulin 40 unit SUBCUT BREAKFAST 07/30/20 albuterol sulfate 2.5 mg INHALATION Q2H PRN PRN #90 ml NS 08/01/20 aspirin 81 mg PO DAILY@0800 30 Days #30 tab 08/01/20 furosemide 40 mg PO BID@1000,1800 30 Days #60 tab 08/01/20 ipratropium-albuterol 3 ml INHALATION Q8H #90 ml 08/01/20 levofloxacin 750 mg PO DAILY@0600 3 Days #3 tab 08/01/20 nicotine 21 mg TRANSDERMAL DAILY 30 Days #30 ea 08/01/20 nystatin [Nyamyc] 1 applic TOPICAL TID #30 g 08/01/20 potassium chloride [Klor-Con M20] 20 meq PO DAILYCM 30 Days #30 tab 08/01/20 Hospital Course Operations None Procedures 2-D Echocardiogram and EKG Summary of Care Provided Minutes Spent on Discharge: 35 Hospital Course: The patient is a 65 y/o F w/ PMHx: Morbid Obesity, HTN, HLD, Diabetes mellitus type II with neuropathy, Chronic COPD w/ Chronic Hypoxic Respiratory Failure (4L NC), Chronic Diastolic CHF, Tobacco use, Chronic Lymphedema, JACK on BIPAP (usage intermittent) who presented to the [facility] ED on 07/29/20 with history of progressively worsening shortness of breath over the last 1.5 weeks with cough with only noted clear sputum with no recent fevers or chills with increased edema with decreased urine output despite ongoing normal Lasix self administration, increased weight gain as well as orthopnea prompting eventual ED presentation. Patient administered IV lasix in the ED. Patient admitted to the PCU initially, maintained on cardiac telemetry, unremarkable cardiac enzyme series, continued IV lasix diuresis, monitor I/Os, maintain on intake restriction, continue medical therapy, TSH 0.8 and magnesium level 2.2. 09/28/19 ECHO w/ moderate concentric LVH, EF 65%, stage II diastolic dysfunction, mildly dilated RV, severely enlarged LA, mildly enlarged RA, mild TVI, RVSP 53 mmHg, moderate pulmonary hypertension. 07/30/20 worsening respiratory status with recurrent hypoxia, ABG with retention, placing on BIPAP continuous with additional IV lasix dose w/ CTPA obtained urgently w/ no evidence of pulmonary embolism, bibasilar pulmonary infiltrates superimposed on interstitial scarring and/or mild edema. Improved following AVAPs usage 07/30-07/31/20 overnight, mental status and respiratory status returned to near baseline. 07/31/20 successful PCU transition w/ oral lasix transition 08/01/20. Patient during admission maintained on IV Rocephin and Azithromycin w/ transition to completion total 7 day course abx therapy with levaquin at discharge. Aerosols rx given at discharge. Follow-up with pulmonary arranged as patient likely needs repeat sleep study given difficulties with home BIPAP as likely not effective pressure with as noted best response with AVAPS usage. Respiratory viral panel and negative urine antigens. Rapid covid negative. Patient clinically improved, transitioned back to her home oxygen supplementation with planned discharge to home with home health, follow-up with PCP, Palliative care, Pulmonary and Cardiology follow-up. Oxygenation assessment was performed prior to discharge with supplementation arranged with aerosols/nebulizer additionally. DAY OF DISCHARGE PROGRESS NOTE: Subjective: Patient without acute event overnight per self and nursing report. She notes she slept well with resolved dyspnea complaint. Edema has continued to improve. She is herself and alert today. Patient denies fever, chills, nausea, emesis, abdominal pain, chest pain or dyspnea. Patient agreeable to discharge to . Patient will be discharged with follow-up with primary care physician within 3-5 days in addition to ongoing Palliative care, Cardiology and Pulmonary follow-up. Objective: T 98.7, heart rate 66, BP 143/96, respiratory rate 20, 92% on 6 L nasal cannula. Physical Examination: General: Patient seated upright in the PCU bed, alert, talkative, eager for discharge. Skin: normal color, turgor, no icterus, cyanosis except venostasis skin changes bilateral lower extremities. HEENT: AT/NC, EOMI, PERRLA, MMM. Lungs: Diminished, greater bases, rales resolving, appropriate effort, no current rhonchi or wheezing. Heart: Regular rate with regular rhythm; no gallop, rub audible. Abdomen: soft, morbidly obese, NTTP, no obvious distention but difficult given habitus, distant normal BS. Extremities: no cyanosis or clubbing, BL LE lymphedema, significantly improved bilateral lower extremity pitting edema. Neurological: Patient mental status improved, awake, alert, orientation back to baseline x3, cognitive status at baseline; pupils equally reactive to light and accomodation; cranial nerves grossly normal, moving all 4 extremities, no focal deficits, strength improved, moderately global decrease secondary to acute presentation but improving. Psychiatric: affect appears normal, no acute evidence of depressive or anxiety feelings. Assessment and Plan: Please see hospital summary above. ABG / Lab / Microbiology Data Result Diagrams: 08/01/20 06:30 08/01/20 06:30 Laboratory: Laboratory Results - last 24 hr 07/31/20 07/31/20 08/01/20 16:31 22:16 06:30 WBC 8.0 RBC 5.22 Hgb 16.2 H Hct 53.1 H MCV 101.7 H MCH 31.0 MCHC 30.5 L RDW Std Deviation 51.8 H RDW Coeff of Bautista 13.7 Plt Count 171 MPV 10.9 Immature Gran % (Auto) 0.400 Neut % (Auto) 57.5 Lymph % (Auto) 27.8 Kimball % (Auto) 10.4 H Eos % (Auto) 3.4 Baso % (Auto) 0.5 Absolute Neuts (auto) 4.6 Absolute Lymphs (auto) 2.22 Nucleated RBC % 0 Sodium Potassium Chloride Carbon Dioxide Anion Gap BUN Creatinine Estim Creat Clear Calc Est GFR (MDRD) Af Amer Est GFR (MDRD) Non-Af BUN/Creatinine Ratio Glucose Calcium Total Bilirubin AST ALT Alkaline Phosphatase Total Protein Albumin Globulin Albumin/Globulin Ratio POC Glucose 98 198 H 08/01/20 08/01/20 06:30 08:38 WBC RBC Hgb Hct MCV MCH MCHC RDW Std Deviation RDW Coeff of Bautista Plt Count MPV Immature Gran % (Auto) Neut % (Auto) Lymph % (Auto) Kimball % (Auto) Eos % (Auto) Baso % (Auto) Absolute Neuts (auto) Absolute Lymphs (auto) Nucleated RBC % Sodium 138 Potassium 4.1 Chloride 97 L Carbon Dioxide 41.0 H Anion Gap 0 L BUN 23 H Creatinine 0.74 Estim Creat Clear Calc 45.16 Est GFR (MDRD) Af Amer 101 Est GFR (MDRD) Non-Af 83 BUN/Creatinine Ratio 31.2 H Glucose 116 H Calcium 8.8 Total Bilirubin 0.50 AST 13 L ALT 17 Alkaline Phosphatase 68 Total Protein 5.7 L Albumin 2.6 L Globulin 3.1 Albumin/Globulin Ratio 0.8 L POC Glucose 191 H Microbiology: Microbiology 07/30/20 08:50 Gram Stain - Final Sputum, Expectorated/Coughed Respiratory Culture - Preliminary Presumptive C albicans Alpha hemolytic organism Microbiology 07/30/20 08:50 Sputum, Expectorated/Coughed Gram Stain - Final 07/30/20 08:50 Sputum, Expectorated/Coughed Respiratory Culture - Preliminary Presumptive C albicans Alpha hemolytic organism 07/29/20 20:38 Mucosa - Nasopharyngeal Respiratory Panel (PCR) - Final 07/29/20 19:43 Interface Orders Streptococcus pneumoniae Antigen (M - Final 07/29/20 19:43 Interface Orders Legionella Antigen - Final 07/29/20 11:30 Mucosa - Nasopharyngeal SARS-CoV-2 Antigen (Rapid) - Final D/C Instructions Discharge Diet: 1800 Calorie Control Diet (ADA 1800/cardiac diet/fluid restriction 2,000 ml daily) Discharge Activity: - (Strongly encourage routine activity, continue lower extremity SNUG guadalupe wraps from toes to knee and elevate above heart to assist with swelling. ) May resume sexual activity in: 10-14 days Weight Bearing Status: Weight bearing as tolerated Keep extremity elevated above heart level: Left Leg and Right Leg Call your doctor if you observe: Fever of 101 or Higher, Shortness of breath, Dizziness, Fainting spells, Chest pain, Uncontrolled pain and - (Call your electrolytic de scaler if you have weight gain > 5 lbs.) Please Follow Up With: Bhavesh Victoria When: Follow-up with your PCP within 3-5 days to review admission, please have repeat basic metabolic panel at that time to reassess renal function. Meaningful Use Info Meaningful Use Diagnoses (Choose all that apply): CHF CHF GUADALUPE/ARB ordered at discharge?: Yes Documented LVEF (%): 65 Discharge Plan Admission Admit Date/Time: 07/29/20 16:29 Primary Reason for Your Visit: Acute on Chronic Respiratory Failure, CHF Exacerbation, Pneumonia Attending Provider: Angelica Burch Primary Care Provider: Bhavesh Victoria Consulting Providers: Ilia Palomares ; Norah Schroeder ; Jj Lewis ; Socorro Velez ; Sylvia Webb ; Helen Arciniega [employer]PER [employer] OPERATOR [employer]ATIC Instructions Patient Instructions: Taking Medication to Control Heart Failure, Low-Salt Choices, Heart Failure: Tracking Your Weight, Treating Pneumonia, Lifestyle Changes to Control Cholesterol, Care for COPD, Taking Diuretics, Understanding Type 2 Diabetes, ED Heart Failure, Congestive (CHF), ED High Blood Pressure ..., ED How to Quit Smoking Additional Instructions / Restrictions: Please continue usage of your home BIPAP however upon pulmonary follow-up we will need to set up an additional sleep study to assist with improving your BIPAP tolerance and likely settings will need altered. Please use the nebulized treatments ordered until pulmonary follow-up and possibly inhalers initiated. Discharge Orders/Prescriptions Prescriptions: New potassium chloride [Klor-Con M20] 20 mEq Tablet,Er Particles/Crystals 20 meq PO DAILYCM 30 Days Qty: 30 RF: 0 nystatin [Nyamyc] 100,000 unit/gram Powder 1 applic topical TID Qty: 30 RF: 0 albuterol sulfate 2.5 mg /3 mL (0.083 %) Solution For Nebulization 2.5 mg inhalation Q2H PRN PRN (Reason: Dyspnea, wheezing) Qty: 90 RF: 0 nicotine 21 mg/24 hr Patch 24 Hour 21 mg transdermal DAILY 30 Days Qty: 30 RF: 0 aspirin 81 mg Tablet,Chewable 81 mg PO DAILY@0800 30 Days Qty: 30 RF: 0 levofloxacin 750 mg Tablet 750 mg PO DAILY@0600 3 Days Qty: 3 RF: 0 furosemide 40 mg Tablet 40 mg PO BID@1000,1800 30 Days Qty: 60 RF: 0 ipratropium-albuterol 0.5 mg-3 mg(2.5 mg base)/3 mL Solution For Nebulization 3 ml inhalation Q8H Qty: 90 RF: 0 Continued pramipexole 1 MG tablet 2 mg PO BID RF: 0 metoprolol tartrate 100 MG tablet 100 mg PO BID RF: 0 ramipril 10 MG capsule 20 mg PO DAILY RF: 0 metformin 1,000 MG tablet 1,000 mg PO BID RF: 0 gabapentin 300 MG capsule 300 mg PO 4X/DAY RF: 0 citalopram 40 mg tablet 40 mg PO DAILY RF: 0 lovastatin 40 mg Tablet 40 mg PO DAILY RF: 0 glimepiride 4 mg Tablet 4 mg PO DAILY RF: 0 oxycodone-acetaminophen 7.5-325 mg tablet 1 tab PO BID RF: 0 Novolin N NPH U-100 Insulin 100 unit/mL suspension 40 unit SUBCUT BREAKFAST RF: 0 Novolin N NPH U-100 Insulin 100 unit/mL suspension 20 unit SUBCUT DINNER RF: 0 Discontinued furosemide 40 MG tablet 40 mg PO BID RF: 0 Referrals / Follow Up: Bhavesh Victoria MD [Primary Care Provider] - 08/06/20 11:20 am Sylvia Webb NP-C [Nurse Practitioner] - (Please continue to follow-up with Palliative care at your discharge. This will assist in symptom control.) Nilda Gagnon NP, [employer]-C [Nurse Practitioner] - () Gurdeep Candelaria NP, [employer]-C [Nurse Practitioner] - () Disposition Disposition (needs filled in before D/C Order can be placed): Home, self care Visit Charges Inpatient E&M: 16072 Disch Hosp
--- NOTE | 2020-08-01 11:46 | NURSING ---
wound photo: right lower leg
--- NOTE | 2020-08-01 11:46 | NURSING ---
wound photo: right lower leg
--- NOTE | 2020-08-01 11:47 | NURSING ---
wound photo: left lower leg
--- NOTE | 2020-08-01 11:51 | CON.PCM_ITS ---
Assessment & Plan Assessment/Plan (1) GOMEZ (dyspnea on exertion): (2) Weakness: (3) Acute and chronic respiratory failure with hypoxia: (4) Acute on chronic diastolic CHF (congestive heart failure): (5) Encounter for palliative care: (6) Cellulitis of left leg: (7) Cellulitis of right leg: (8) Lymphedema: (9) Smoker: (10) Pneumonia: (11) Peripheral vascular disease: (12) Ulcer of left lower extremity with fat layer exposed: (13) Ulcer of right lower extremity with fat layer exposed: (14) Pulmonary hypertension: (15) Obstructive sleep apnea: (16) HLD (hyperlipidemia): (17) COPD (chronic obstructive pulmonary disease): (18) Hypertension: QUALIFIERS: Hypertension type: essential hypertension Qualified Code(s): I10 - Essential (primary) hypertension (19) Type 2 diabetes mellitus: QUALIFIERS: Diabetes mellitus rodent exterminator insulin use: with senior care use Diabetes mellitus complication status: with other specified complication Qualified Code(s): E11.69 - Type 2 diabetes mellitus with other specified complication; Z79.4 - computer terminal operator (current) use of insulin PLAN: 65-year-old obese female, history of chronic respiratory failure with hypoxia and hypercapnia, diastolic CHF, community-acquired pneumonia this admit, seen today for initial palliative care consultation for symptom management of shortness of breath and weakness. ?Discussed palliative services at length, patient is interested in the outpatient setting. She is discharging today home with her son. -Patient has significant GOMEZ in the setting of CHF and hypoxic and hypercapnic respiratory failure. She will be getting a repeat PSG, hopefully soon. At that point, would consider Roxanol or oxycodone to assist with shortness of breath. We would do opioid assessment risk and evaluate for this as outpatient. In the meantime, follow-up with [facility] and will correlate care with them. She will be discharged on home O2, oxygen trial 6 L at rest and 8 L with activity, Dr. Palomares notified by hospitalistBernardino Gutierrez to d/c w/ follow up. Thank you for the opportunity to participate in this patient's care, please do not hesitate to contact [facility] with any further questions or concerns. Palliative direct line is [phone]. We will have RN follow up approximately 3 days after discharge to home and will discuss palliative services further at that time. Greater than 50% of F2F visit dedicated to education and counseling of palliative care services, medications, comorbid conditions and potential assistance with management, and plan of care moving forward. Start time: 1158 End time: 1300 HPI Consult Data Date of Consult: 08/01/20 HPI Narrative HPI Narrative: THERESA VIVEROS, is a 65 F who presented to [facility] 07/29/2020 with complaints of progressive shortness of breath over the course of 1-1/2 weeks. Also endorses cough, clear sputum production, no fever or chills. She had some increased edema and decreased urine output, with a weight gain and orthopnea. Stay was complicated by worsening respiratory status with hypoxia, CO2 retention, required BiPAP continuously and diuresed with IV Lasix. CTA revealed no evidence of PE, there were bibasilar pulmonary infiltrates superimposed on interstitial scarring. She improved following AVAPS 07/30-07/31 overnight. She was treated with antibiotics and will discharged today home on Levaquin. Patient does follow with Dr. Pruitt from [facility], however has been lost to follow-up. It has been arranged for her to transition to [facility]. She does have an appointment with their VICE PRESIDENT [employer]ETING [employer] DEVELOPMENT, Nilda Gagnon. It is recommended that she has a repeat polysomnogram to reevaluate her pressures at home with her current machine. Echo showed EF 60%, moderate concentric LVH, severely enlarged left atrium and mildly enlarged right atrium, RVSP estimated at 73 mmHg consistent with severe pulmonary hypertension, and transmitral diastolic flow velocity suggestive of diastolic dysfunction. Patient was seen today for initial palliative care consultation secondary shortness of breath related to her COPD and chronic respiratory failure. Patient lives in a two-story house with 3 steps to enter, lives with son. She reports she is independent in all ADLs. Still drives. DME in the home includ ing cane, walker, shower chair, BSC, and grab bars. Her oxygen is obtained through [employer]. She uses [facility] [place] for prescriptions. Her son, Néstor Viveros is her HCPOA. She also has a sister, Cyndee Christian who assists. She will have home health. Given prescriptions for nebulizer. Renate reports she has been declining in her overall health. She has some lower extremity wounds. Denies any shortness of breath at rest, however with any exertion she becomes moderately to severe dyspneic. Patient states she has a scale and weighs herself periodically at home. She does not do this consisten tly however. Currently 92% on 6 L of oxygen. Her respirations are even and nonlabored. Lungs are severely diminished with very poor airflow, no rhonchi, wheezing, rales. Alert and oriented x3. Discussed palliative services and goals of care, which includes but not limited to symptom control, increase quality of care, and avoid hospitalizations. PFSH Medical History BiPAP (biphasic positive airway pressure) dependence COPD (chronic obstructive pulmonary disease) Diabetes Hypertension On home oxygen therapy Sleep apnea Smoker Home Medications metoprolol tartrate 100 mg PO BID 09/01/18 [History Last Taken 07/29/20] pramipexole 2 mg PO BID 09/01/18 [History Last Taken 07/29/20] ramipril 20 mg PO DAILY 09/01/18 [History Last Taken 07/29/20] gabapentin 300 mg PO 4X/DAY 03/04/20 [History Last Taken 07/29/20] metformin 1,000 mg PO BID 03/04/20 [History Last Taken 07/29/20] citalopram 40 mg PO DAILY 07/29/20 [History Last Taken 07/29/20] glimepiride 4 mg PO DAILY 07/29/20 [History Last Taken 07/29/20] lovastatin 40 mg PO DAILY 07/29/20 [History Last Taken 07/28/20] oxycodone-acetaminophen 1 tab PO BID 07/29/20 [History Last Taken 07/29/20] Novolin N NPH U-100 Insulin 20 unit SUBCUT DINNER 07/30/20 [History Last Taken Unknown] Novolin N NPH U-100 Insulin 40 unit SUBCUT BREAKFAST 07/30/20 [History Last Taken Unknown] albuterol sulfate 2.5 mg INHALATION Q2H PRN PRN #90 ml NS 08/01/20 [Rx Last Taken Unknown] aspirin 81 mg PO DAILY@0800 30 Days #30 tab 08/01/20 [Rx Last Taken Unknown] furosemide 40 mg PO BID@1000,1800 30 Days #60 tab 08/01/20 [Rx Last Taken Unknown] ipratropium-albuterol 3 ml INHALATION Q8H #90 ml 08/01/20 [Rx Last Taken Unknown] levofloxacin 750 mg PO DAILY@0600 3 Days #3 tab 08/01/20 [Rx Last Taken Unknown] nicotine 21 mg TRANSDERMAL DAILY 30 Days #30 ea 08/01/20 [Rx Last Taken Unknown] nystatin [Nyamyc] 1 applic TOPICAL TID #30 g 08/01/20 [Rx Last Taken Unknown] potassium chloride [Klor-Con M20] 20 meq PO DAILYCM 30 Days #30 tab 08/01/20 [Rx Last Taken Unknown] Allergy/AdvReac Type Severity Reaction Status Date / Time PAPER TAPE Allergy Rash Uncoded 07/29/20 10:57 Family History Father Cancer Mother Heart disease Brother Cancer Social History (Updated 07/29/20 @ 16:[address] Angelica Burch MD) household members: family Smoking Status: Current every day smoker tobacco type: cigarettes Smoking packs per day: 1 Smoking cigarettes per day: 20.0 Years smoked: 56 Smoking pack-years: 56.00 quit status: considering quitting counseling given: provider counseling alcohol intake: never substance use type: does not use ROS Constitutional Constitutional: Reports fatigue and weakness; Denies chills or fever(s) Eyes Eyes: Denies change in vision ENT HEENT: Denies nasal congestion or sore throat Cardiovascular Cardiovascular: Reports edema and orthopnea; Denies chest pain, palpitations or syncope Respiratory/Chest Respiratory/Chest: Reports cough and shortness of breath with exertion; Denies shortness of breath at rest Gastrointestinal Gastrointestinal: Denies abdominal pain, constipation, nausea or vomiting Genitourinary Genitourinary: Denies dysuria Musculoskeletal Musculoskeletal: Reports back pain, joint pain, joint stiffness and muscle weakness Integumentary Integumentary: Reports wounds Neurologic Neurologic: Reports numbness and tingling; Denies dizziness, focal weakness or tremor(s) Psychiatric Psychiatric: Reports anxiety; Denies depression Hematologic/Lymphatic Hematologic/Lymphatic: Denies anemia Physical Exam Const alert, oriented x3 and no apparent distress HEENT normocephalic and head/scalp atraumatic Neck supple General: trachea midline Resp Resp Narrative: Mild conversational dyspnea Auscultation: diminished lung sounds diffuse; Negative for rales, rhonchi or wheezes Cardio regular rate, S1 normal heart sound and S2 normal heart sound Cardio Narrative: Frequent ectopy GI normal to inspection, nondistended, normoactive bowel sounds and non-tender GI Narrative: Obese Extremity General Extremity: edema bilateral lower extremity Skin Skin Narrative: Bilateral lower extremities, covered with dressings at this time so did not observe. Reviewed pictures in medical record Wounds: wounds noted Neuro CN's II-XII intact bilaterally Psych affect normal Appearance: appropriate Lab / Micro Data Result Diagrams: 08/01/20 06:30 08/01/20 06:30 Labs: Laboratory Results - last 24 hr 07/31/20 07/31/20 08/01/20 16:31 22:16 06:30 WBC 8.0 RBC 5.22 Hgb 16.2 H Hct 53.1 H MCV 101.7 H MCH 31.0 MCHC 30.5 L RDW Std Deviation 51.8 H RDW Coeff of Bautista 13.7 Plt Count 171 MPV 10.9 Immature Gran % (Auto) 0.400 Neut % (Auto) 57.5 Lymph % (Auto) 27.8 Howell % (Auto) 10.4 H Eos % (Auto) 3.4 Baso % (Auto) 0.5 Absolute Neuts (auto) 4.6 Absolute Lymphs (auto) 2.22 Nucleated RBC % 0 Sodium Potassium Chloride Carbon Dioxide Anion Gap BUN Creatinine Estim Creat Clear Calc Est GFR (MDRD) Af Amer Est GFR (MDRD) Non-Af BUN/Creatinine Ratio Glucose Calcium Total Bilirubin AST ALT Alkaline Phosphatase Total Protein Albumin Globulin Albumin/Globulin Ratio POC Glucose 98 198 H 08/01/20 08/01/20 06:30 08:38 WBC RBC Hgb Hct MCV MCH MCHC RDW Std Deviation RDW Coeff of Bautista Plt Count MPV Immature Gran % (Auto) Neut % (Auto) Lymph % (Auto) Howell % (Auto) Eos % (Auto) Baso % (Auto) Absolute Neuts (auto) Absolute Lymphs (auto) Nucleated RBC % Sodium 138 Potassium 4.1 Chloride 97 L Carbon Dioxide 41.0 H Anion Gap 0 L BUN 23 H Creatinine 0.74 Estim Creat Clear Calc 45.16 Est GFR (MDRD) Af Amer 101 Est GFR (MDRD) Non-Af 83 BUN/Creatinine Ratio 31.2 H Glucose 116 H Calcium 8.8 Total Bilirubin 0.50 AST 13 L ALT 17 Alkaline Phosphatase 68 Total Protein 5.7 L Albumin 2.6 L Globulin 3.1 Albumin/Globulin Ratio 0.8 L POC Glucose 191 H Micro: Microbiology 07/30/20 08:50 Gram Stain - Final Sputum, Expectorated/Coughed Respiratory Culture - Preliminary Presumptive C albicans Alpha hemolytic organism
[2020-08-01 12:25] LABS: Bedside Glucose 102 mg/dL (70-110)
[2020-08-01] MEDS: levoFLOXacin 750 MG Tablet PO (12:33)
--- NOTE | 2020-08-01 12:41 | CASEMGMT ---
JOHNNY PIERSON notified that pt O2 script has changed. Pt also ordered a nebulizer. JHONNY PIERSON in to pt room. Pt prefers to have her meds for nebulizer through [facility] instead of [facility]. She states she has portable O2 to go home on. Her son will bring when he picks her up. Faxed referral to [facility] and called Theresa to confirm receipt. She states they will deliver the nebulizer to pt home. She is aware that the meds will be through [facility]. Pt again denied need for [facility]HC SN. Pt denied further needs.
--- NOTE | 2020-08-01 13:52 | NURSING ---
Patient left on elevator while I was printing discharge paper work. Patient was know where to be found. I also, had all new appointments on discharge for patient. I called and left her a voicemail and also her son.
--- NOTE | 2020-08-02 09:09 | CASEMGMT ---
Addendum entered by Julia Juárez 08/02/20 09:39: Correction: Pt was made aware of appt already scheduled w/PCP on 08/06. Original Note: JOHNNY PIERSON Discharge Follow-Up Phone Call. Lace: 12 Strata: 3 Discharge Date: 08/01/20 Adm Dx: Acute on Chronic Resp failure w/hypoxia, CHF JOHNNY PIERSON received a msg that pt had called in inquiring about needing a new nebulizer. Per JOHNNY PIERSON documentation ON 08/01, Kay to deliver nebulizer to pt's home. Call placed to [facility] Villanue[facility]. She states a nebulizer is scheduled to be delivered to pt's home later this afternoon. She states she spoke w/Thao this AM and had informed her of this. JOHNNY PIERSON placed call to pt at this time. She confirms she has spoken w/Kay this AM and she is aware delivery of nebulizer is scheduled this afternoon. She states she does not need it earlier than that, as she has an old nebulizer that works well enough to give her a treatment, stating that it is 4 years old and turns off on its own sometimes and that is why she needed a new one. JOHNNY PIERSON inquired how she has been doing since returning home from the hospital. She states, I'm a little tired, but not too bad. She states she did tack picker all the new rx's @ [facility], except for the Nicotine patch d/t she did not want it as she has tried them in the past and they do not work. She denies having any questions about the discharge instructions or medications. Pt did inquire if the CHF is something I can get rid of? JOHNNY PIERSON educated pt that CHF is a chronic/life-long diagnoses that needs to be managed. Reviewed w/pt f/u appts that need scheduled, questions answered, and pt voices understanding. She is aware of Palliative appt needed, and pt inquired what Palliative care is. Pt educated they can assist w/symptom mgmt for the CHF and other chronic conditions. She states she will call this morning to schedule appts w/Palliative and the other 3 appts needed (PCP, pulmonology, and cardiology). She denies further needs/questions/concersn. Diana CONTRERASN JOHNNY PIERSON
== END 2020-08-01 14:02 | disposition home or self-care (01) | DRG 291 ==
LOC: ED 15:36 → PCU 16:42 → ICU 07-30 15:11 → PCU 07-31 09:48
PROVIDERS: Admitting Provider Family Medicine; Emergency Provider Emergency Medicine; PCP Family Medicine; Visit Provider Family Medicine
DX: I11.0 Hypertensive heart disease with heart failure (principal); J18.9 Pneumonia, unspecified organism; J96.21 Acute and chronic respiratory failure with hypoxia; J96.22 Acute and chronic respiratory failure with hypercapnia; G93.41 Metabolic encephalopathy; J44.0 Chronic obstructive pulmonary disease with (acute) lower respiratory infection; Z68.42 Body mass index [BMI] 45.0-49.9, adult; L03.116 Cellulitis of left lower limb; L03.115 Cellulitis of right lower limb; L97.912 Non-pressure chronic ulcer of unspecified part of right lower leg with fat layer exposed; L97.922 Non-pressure chronic ulcer of unspecified part of left lower leg with fat layer exposed; I50.33 Acute on chronic diastolic (congestive) heart failure; I27.20 Pulmonary hypertension, unspecified; G47.33 Obstructive sleep apnea (adult) (pediatric); F17.210 Nicotine dependence, cigarettes, uncomplicated; E66.01 Morbid (severe) obesity due to excess calories; E78.5 Hyperlipidemia, unspecified; E11.40 Type 2 diabetes mellitus with diabetic neuropathy, unspecified; E11.51 Type 2 diabetes mellitus with diabetic peripheral angiopathy without gangrene; G25.81 Restless legs syndrome; Z99.81 Dependence on supplemental oxygen; Z79.899 Other long term (current) drug therapy; Z79.4 Long term (current) use of insulin; Z91.19 Patient's noncompliance with other medical treatment and regimen; Z90.711 Acquired absence of uterus with remaining cervical stump; E11.69 Type 2 diabetes mellitus with other specified complication
CPT/HCPCS: 36415; 36600; 71045; 71275; 80048; 80053; 80061; 82803; 82962; 83036; 83735; 83880; 84145; 84443; 84484; 85025; 87070; 87205; 87426; 87449; 87633; 93005; 93306; 94002; 94003; 94640; 97162; 97166; 99251; 99285; J7030; J7040; Q9957; Q9967; A4216; G0463; J1940

== ENCOUNTER 2020-09-24 12:01 | Emergency (ER) | payer MEDICARE, OTHER, SELFPAY ==
[2020-09-19 10:14] VITALS: BMI 49.6
[2020-09-24] VITALS (10 sets, daily range): BP systolic 150–182; BP diastolic 73–100; PULSE 60–69; RESP 15–27; TEMP 36.1–36.6; O2SAT 8–99; BMI 43.2
--- NOTE | 2020-09-24 12:40 | EKG12_ITS ---
Test Reason : SOB Blood Pressure : / mmHG Vent. Rate : 067 BPM Atrial Rate : 067 BPM P-R Int : 182 ms QRS Dur : 094 ms QT Int : 410 ms P-R-T Axes : 054 131 037 degrees QTc Int : 433 ms Normal sinus rhythm with sinus arrhythmia Right axis deviation Abnormal ECG Confirmed by NICK CRAWFORD, MARYAN ([id number]), photographic editor MOON DUMONT ([id number]) on 09/25/2020 10:40:48 AM Referred By: MR Confirmed By:MARYAN ROMERO MD
[2020-09-24 12:51] LABS: Absolute Lymphocyte Count 2.33 X10^3/uL (0.83-4.51); Absolute Neutrophil Count 6.3 X10^3/uL (2.0-7.7); Basophil# 0.06 X10^3/uL; Basophil% 0.6 % (0-1); Eosinophil# 0.21 X10^3/uL; Eosinophils% 2.2 % (0-5); Hematocrit 48.8 % (37-47); Hemoglobin 15.8 g/dL (12.0-15.0); Lymphocyte # 2.33 X10^3/ul (0.83-4.51); Lymphocyte % 23.9 % (19-41); Mean Corp Hgb Conc 32.4 g/dL (32-36); Mean Corpuscular Hgb 31.2 pg (27.0-32.0); Mean Corpuscular Volume 96.3 fL (81-99); Monocyte# 0.78 X10^3/uL; NRBC Flagged by Analyzer 0 % (0-5); Neutrophil % 64.7 % (47-70); Platelet Count 170 K/mm3 (150-450); RBC Distribution Width CV 12.8 % (11.6-14.6); RBC Distribution Width SD 45.4 fl (35.1-43.9); Red Blood Count 5.07 M/mm3 (4.2-5.4); White Blood Count 9.7 K/mm3 (4.4-11.0)
[2020-09-24] MEDS: Albuterol 2.5 MG/3 ML VIAL.NEB. INHALATION (13:07)
[2020-09-24] MEDS: Ipratropium/Albuterol Sulfate 3 ML AMPUL.NEB INHALATION (13:07)
[2020-09-24 13:09] LABS: Anion Gap 3 (5-15); BUN 15 mg/dL (7-18); BUN/Creat Ratio 19.7 RATIO (10-20); Calcium,Total 9.1 mg/dL (8.5-10.1); Chloride 100 mmol/L (98-107); Creatinine, Serum 0.76 mg/dL (0.55-1.02); EST Glomerular Filtration Rate 81 mL/min (>60); Est Glom Filt Rate - Afr Amer 97 mL/min (>60); Estimated Creatinine Clearance 47.14 ml/min; Glucose 159 mg/dL (74-106); Potassium 4.2 mmol/L (3.5-5.1); Sodium Level 139 mmol/L (136-145); Troponin-I HS 10.8 pg/mL (3.0-53.7)
[2020-09-24 13:11] LABS: BNP,B-Type NATRIURETIC PEPTIDE 175.9 pg/mL (0-100)
--- NOTE | 2020-09-24 14:10 | RAD_ITS ---
STUDY: X-RAY CHEST REASON FOR EXAM: Female, 65 years old. SOB TECHNIQUE: AP and lateral views of the chest. COMPARISON: Comparison is made with prior study of 07/29/2020. FINDINGS: EKG electrodes are seen. There is evidence of vascular congestion and CHF. There is no demonstrated pleural abnormality. There is moderate cardiac enlargement. Normal mediastinum and gerri. Normal visualized pulmonary arteries. There is atherosclerotic calcification of the aortic arch with tortuosity. Normal visualized thoracic spine. There is degenerative osteoarthritis of the bilateral shoulders. Small hiatal hernia. RAD/Chest PA and Lateral IMPRESSION: Cardiomegaly and CHF. Electronically Signed: Abdifatah Echeverria MD at 14:49 EDT , Service support ,
--- NOTE | 2020-09-24 15:29 | EDS_ITS ---
HPI History of Present Illness Chief Complaint: Shortness of Breath Narrative Narrative: Patient presenting for evaluation secondary to shortness of breath. Patient has an underlying history of chronic respiratory failure, COPD, and congestive heart failure. Patient was admitted to the hospital around a month ago secondary to respiratory failure. She was sent home at that time. Patient states since yesterday she has been dealing with increasing shortness of breath.'s been associated with a mild minimally productive cough. Patient does state that she has chronic lower extremity edema but this really. She denies any significant orthopnea. She denies any chest pain. No fevers associated with this. No nausea or vomiting. Patient states that she has been taking her medications as prescribed. Review of systems otherwise negative. PFSH PFSH Medical History BiPAP (biphasic positive airway pressure) dependence COPD (chronic obstructive pulmonary disease) Diabetes Hypertension On home oxygen therapy Sleep apnea Smoker Home Medications metoprolol tartrate 100 mg PO BID 09/01/18 [History Last Taken 07/29/20] pramipexole 2 mg PO BID 09/01/18 [History Last Taken 07/29/20] ramipril 20 mg PO DAILY 09/01/18 [History Last Taken 07/29/20] gabapentin 300 mg PO 4X/DAY 03/04/20 [History Last Taken 07/29/20] metformin 1,000 mg PO BID 03/04/20 [History Last Taken 07/29/20] citalopram 40 mg PO DAILY 07/29/20 [History Last Taken 07/29/20] glimepiride 4 mg PO DAILY 07/29/20 [History Last Taken 07/29/20] lovastatin 40 mg PO DAILY 07/29/20 [History Last Taken 07/28/20] oxycodone-acetaminophen 1 tab PO BID 07/29/20 [History Last Taken 07/29/20] Novolin N NPH U-100 Insulin 20 unit SUBCUT DINNER 07/30/20 [History Last Taken Unknown] Novolin N NPH U-100 Insulin 40 unit SUBCUT BREAKFAST 07/30/20 [History Last Taken Unknown] albuterol sulfate 2.5 mg INHALATION Q2H PRN PRN #90 ml NS 08/01/20 [Rx Last Taken Unknown] aspirin 81 mg PO DAILY@0800 30 Days #30 tab 08/01/20 [Rx Last Taken Unknown] furosemide 40 mg PO BID@1000,1800 30 Days #60 tab 08/01/20 [Rx Last Taken Unknown] ipratropium-albuterol 3 ml INHALATION Q8H #90 ml 08/01/20 [Rx Last Taken Unknown] levofloxacin 750 mg PO DAILY@0600 3 Days #3 tab 08/01/20 [Rx Last Taken Unknown] nicotine 21 mg TRANSDERMAL DAILY 30 Days #30 ea 08/01/20 [Rx Last Taken Unknown] nystatin [Nyamyc] 1 applic TOPICAL TID #30 g 08/01/20 [Rx Last Taken Unknown] potassium chloride [Klor-Con M20] 20 meq PO DAILYCM 30 Days #30 tab 08/01/20 [Rx Last Taken Unknown] budesonide 1 mg/2 mL suspension for nebulization 1 mg INHALATION BID #60 ml 09/19/20 [Rx Last Taken Unknown] guaifenesin 1,200 mg tablet, extended release 12 hr 1,200 mg PO Q12H #60 tab 09/19/20 [Rx Last Taken Unknown] prednisone 50 mg PO DAILY #5 tab 09/24/20 [Rx Last Taken Unknown] Allergy/AdvReac Type Severity Reaction Status Date / Time PAPER TAPE Allergy Rash Uncoded 09/24/20 12:05 Family History Father Cancer Mother Heart disease Brother Cancer Social History household members: family Smoking Status: Current every day smoker tobacco type: cigarettes quit status: considering quitting counseling given: provider counseling alcohol intake: never substance use type: does not use ROS ROS ED Constitutional Constitutional ED: Denies chills or fever(s) ENT ENT ED: Denies rhinorrhea Cardiovascular Cardiovascular: Denies chest pain Respiratory/Chest Respiratory/Chest: Reports cough and dyspnea Gastrointestinal Gastrointestinal: Denies abdominal pain, diarrhea, nausea or vomiting Genitourinary Genitourinary ED: Denies dysuria or hematuria Musculoskeletal Musculoskeletal: Denies back pain Integumentary Denies rash Neurologic Neurologic: Denies paresthesias or weakness Psychiatric Psychiatric: Denies depression Endocrine Endocrinology: Denies fatigue Allergic/Immunologic Allergic/Immunologic ED: Denies urticaria EXAM Physical Exam Const Vital Signs: 09/24/20 12:02 09/24/20 12:36 09/24/20 12:39 Temperature 97.9 F 97.9 F Temperature Source Temporal Temporal Pulse Rate 64 68 66 Respiratory Rate 18 20 H 26 H Respiratory Effort Short of Breath Labored Respiratory Pattern Tachypnea Blood Pressure 160/73 H 160/73 H Blood Pressure Mean 102 102 Pulse Ox 86 99 99 Oxygen Delivery Method Nasal Cannula Nasal Cannula Nasal Cannula Oxygen Flow Rate (L/min) 6 6 6 09/24/20 13:08 09/24/20 13:35 09/24/20 13:38 Temperature 97.6 F L Temperature Source Temporal Pulse Rate 65 63 63 Respiratory Rate 24 H 25 H 25 H Respiratory Effort Respiratory Pattern Tachypnea Blood Pressure 182/95 H Blood Pressure Mean 124 Pulse Ox 97 97 Oxygen Delivery Method Nasal Cannula Oxygen Flow Rate (L/min) 6 09/24/20 14:00 09/24/20 15:16 Temperature 988 F H 97 F L Temperature Source Temporal Temporal Pulse Rate 67 60 Respiratory Rate 17 15 Respiratory Effort Respiratory Pattern Blood Pressure 174/100 H 182/97 H Blood Pressure Mean 124 125 Pulse Ox 97 8 Oxygen Delivery Method Nasal Cannula Nasal Cannula Oxygen Flow Rate (L/min) 6 4 Positive well nourished, well developed and obese General Appearance ED: well developed and NAD Nutritional Appearance: obese HEENT Reports moist mucous membranes Negative for trauma or tenderness Eyes EOMs intact bilaterally Neck no lymphadenopathy, supple and no JVD Chest Wall inspection of chest normal Resp Resp Narrative: Minimal tachypnea with very poor air movement throughout the lung blum Cardio regular rate, regular rhythm, no murmurs and peripheral pulses 2+ throughout GI normal to inspection, nondistended, normoactive bowel sounds, non-tender and no masses Palpation: soft Back/Spine normal to inspection Extremity normal to inspection Extremity Narrative: 3+ lower extremity edema noted General Extremety ED: Yes edema; Negative for tenderness General Extremity: edema Neuro oriented x3 and no sensory deficits noted Sensorium / Orientation: alert Motor Exam: strength 5/5 throughout Psych mental status grossly normal Skin no rashes or lesions noted Skin Narrative: Chronic skin changes noted of the lower extremities MDM MDM MDM Narrative Medical decision making narrative: Patient presented with respiratory complaints. EKG was found to be unremarkable. CBC shows no leukocytosis, chemistry shows normal renal function and troponin was found to be negative BNP was only modestly elevated 175. Patient was given a breathing treatment in the emergency department, repeat evaluation shows the patient to be at her baseline oxygen, 6 L, to be at 98% and resting comfortably. My review of the chest x-ray feels the there is no signs of infiltrate and it only has chronic changes. At this point I do feel that the patient is stable and appropriate for discharge. She will be sent home on a course of prednisone. Patient will follow up with primary care. Lab Data Labs: Laboratory Results - last 24 hr 09/24/20 09/24/20 09/24/20 12:30 12:30 12:30 WBC 9.7 RBC 5.07 Hgb 15.8 H Hct 48.8 H MCV 96.3 MCH 31.2 MCHC 32.4 RDW Std Deviation 45.4 H RDW Coeff of Bautista 12.8 Plt Count 170 MPV 11.0 Immature Gran % (Auto) 0.600 Neut % (Auto) 64.7 Lymph % (Auto) 23.9 [place] % (Auto) 8.0 Eos % (Auto) 2.2 Baso % (Auto) 0.6 Absolute Neuts (auto) 6.3 Absolute Lymphs (auto) 2.33 Nucleated RBC % 0 Sodium 139 Potassium 4.2 Chloride 100 Carbon Dioxide 36.0 H Anion Gap 3 L BUN 15 Creatinine 0.76 Estim Creat Clear Calc 47.14 Est GFR (MDRD) Af Amer 97 Est GFR (MDRD) Non-Af 81 BUN/Creatinine Ratio 19.7 Glucose 159 H Calcium 9.1 Troponin I High Sens 10.8 B-Natriuretic Peptide 175.9 H Radiography Chest X-Ray - ED: 2 View EKG Initial EKG: Attestation: I personally reviewed and interpreted this EKG as follows: (Sinus rhythm of 67 with right axis deviation noted, no evidence of acute ST segment changes or T wave changes. No gross changes from prior EKG in July of this year.) Discharge Plan Triage Chief Complaint: Shortness of Breath ED Provider: Bogdan Cano Dx/Rx/DC Orders Clinical Impression: COPD with acute exacerbation Instructions: ED COPD Flare Prescriptions: New prednisone 50 mg tablet 50 mg PO DAILY Qty: 5 RF: 0 No Action budesonide 1 mg/2 mL suspension for nebulization 1 mg inhalation BID Qty: 60 RF: 6 guaifenesin 1,200 mg tablet extended release 12hr 1,200 mg PO Q12H Qty: 60 RF: 6 pramipexole 1 MG tablet 2 mg PO BID RF: 0 metoprolol tartrate 100 MG tablet 100 mg PO BID RF: 0 ramipril 10 MG capsule 20 mg PO DAILY RF: 0 metformin 1,000 MG tablet 1,000 mg PO BID RF: 0 gabapentin 300 MG capsule 300 mg PO 4X/DAY RF: 0 citalopram 40 mg tablet 40 mg PO DAILY RF: 0 lovastatin 40 mg Tablet 40 mg PO DAILY RF: 0 glimepiride 4 mg Tablet 4 mg PO DAILY RF: 0 oxycodone-acetaminophen 7.5-325 mg tablet 1 tab PO BID RF: 0 Novolin N NPH U-100 Insulin 100 unit/mL suspension 40 unit SUBCUT BREAKFAST RF: 0 Novolin N NPH U-100 Insulin 100 unit/mL suspension 20 unit SUBCUT DINNER RF: 0 potassium chloride [Klor-Con M20] 20 mEq Tablet,Er Particles/Crystals 20 meq PO DAILYCM 30 Days Qty: 30 RF: 0 nystatin [Nyamyc] 100,000 unit/gram Powder 1 applic topical TID Qty: 30 RF: 0 albuterol sulfate 2.5 mg /3 mL (0.083 %) Solution For Nebulization 2.5 mg inhalation Q2H PRN PRN (Reason: Dyspnea, wheezing) Qty: 90 RF: 0 nicotine 21 mg/24 hr Patch 24 Hour 21 mg transdermal DAILY 30 Days Qty: 30 RF: 0 aspirin 81 mg Tablet,Chewable 81 mg PO DAILY@0800 30 Days Qty: 30 RF: 0 levofloxacin 750 mg Tablet 750 mg PO DAILY@0600 3 Days Qty: 3 RF: 0 furosemide 40 mg Tablet 40 mg PO BID@1000,1800 30 Days Qty: 60 RF: 0 ipratropium-albuterol 0.5 mg-3 mg(2.5 mg base)/3 mL Solution For Nebulization 3 ml inhalation Q8H Qty: 90 RF: 0 Primary Care Provider: Bhavesh Victoria Referrals: Bhavesh Victoria MD [Primary Care Provider] - 3-5 Days Disposition Disposition: Home, Self Care
--- NOTE | 2020-09-24 17:26 | ED.RN ---
Radiology was called for chest x-ray results. They were printed and brought down to us. Results posted on chart and given to Dr. Mcdonough.
== END 2020-09-24 18:21 | disposition home or self-care (01) ==
PROVIDERS: Emergency Medicine; Emergency Provider Student in an Organized Health Care Education/Training Program; PCP Family Medicine
DX: J44.1 Chronic obstructive pulmonary disease with (acute) exacerbation (principal); J96.10 Chronic respiratory failure, unspecified whether with hypoxia or hypercapnia; E66.9 Obesity, unspecified; Z68.41 Body mass index [BMI] 40.0-44.9, adult; E11.9 Type 2 diabetes mellitus without complications; I11.0 Hypertensive heart disease with heart failure; I50.9 Heart failure, unspecified; G47.30 Sleep apnea, unspecified; Z79.4 Long term (current) use of insulin; Z99.81 Dependence on supplemental oxygen; Z79.82 Long term (current) use of aspirin; Z79.899 Other long term (current) drug therapy; F17.210 Nicotine dependence, cigarettes, uncomplicated
CPT/HCPCS: 71046; 80048; 83880; 84484; 85025; 87426; 93005; 94640; 99284; A4216

== ENCOUNTER → 2020-12-24 11:33 | Outpatient (CLI) | payer MEDICARE, OTHER, SELFPAY ==
[2020-12-24 13:12] LABS: Amphetamine Urine VISTA NEGATIVE (<1000 ng/mL); Barbiturate Urine VISTA NEGATIVE (< 200 ng/mL); Benzodiazepine Urine VISTA NEGATIVE (< 200 ng/mL); Cocaine Urine VISTA NEGATIVE (< 300 ng/mL); Ecstacy Urine VISTA NEGATIVE (< 500 ng/mL); Methadone Urine VISTA NEGATIVE (< 300 ng/mL); PCP Urine VISTA NEGATIVE (< 25 ng/mL); THC Urine VISTA NEGATIVE (< 50 ng/mL); Vista UDS pH Range 5
== END ==
PROVIDERS: PCP Family Medicine; Referring Provider Anesthesiology Pain Medicine; Visit Provider Anesthesiology Pain Medicine
DX: F11.20 Opioid dependence, uncomplicated (principal)
CPT/HCPCS: 80307

== ENCOUNTER 2021-01-26 10:08 | Emergency (ER) | payer MEDICARE, OTHER, SELFPAY ==
[2021-01-26] VITALS (20 sets, daily range): BP systolic 51–245; BP diastolic 14–112; PULSE 73–122; RESP 12–25; TEMP 36.2–37.3; O2SAT 31–98; BMI 55.8
--- NOTE | 2021-01-26 10:10 | CPS ---
Patient was intubated by [facility]. Placement was verified by bilateral breath sounds, positive color change on ez cap and x-ray.
--- NOTE | 2021-01-26 10:13 | EKG12_ITS ---
Test Reason : RESP ARREST Blood Pressure : / mmHG Vent. Rate : 123 BPM Atrial Rate : 123 BPM P-R Int : 170 ms QRS Dur : 142 ms QT Int : 318 ms P-R-T Axes : 000 133 -14 degrees QTc Int : 455 ms Somatic/Motion Artifact Sinus tachycardia Non-specific intra-ventricular conduction block Nonspecific T wave abnormality Poor R wave progression Cannot exclude limb lead misplacement Consider repeat ECG Abnormal ECG Confirmed by WAI CRAWFORD, ANASTASIYA ([id number]), science editor MOON DUMONT ([id number]) on 01/28/2021 9:46:10 AM Referred By: WERNER Confirmed By:ANASTASIYA CARRENO MD
[2021-01-26] MEDS: Propofol 10MG/Ml 1,000 MG/100 ML Bottle 7.7 MG CONT INF (10:22)
--- NOTE | 2021-01-26 10:25 | RAD_ITS ---
STUDY: X-RAY CHEST REASON FOR EXAM: Female, 66 years old. intubation TECHNIQUE: Single AP portable view of the chest. COMPARISON: 09/24/2020 FINDINGS: Interval placement of endotracheal tube with the tip in the proximal right mainstem bronchus. This should be retracted. Interval placement of nasogastric tube with the tip below the diaphragm. Alveolar opacities throughout both lungs consistent with bilateral pneumonia, pulmonary edema, or ARDS. There is no demonstrated pleural abnormality. There is moderate cardiac enlargement. Normal mediastinum and gerri. Normal visualized pulmonary arteries. Normal visualized aortic arch and descending thoracic aorta. Normal visualized thoracic spine. Normal visualized ribs, clavicles, and shoulders. There is no demonstrated abnormality of the visualized soft tissue structures of the upper abdomen. RAD/Chest 1 View (Portable) IMPRESSION: 1. Interval placement of endotracheal tube with the tip in the proximal right mainstem bronchus. This should be retracted. 2. Interval placement of nasogastric tube with the tip below the diaphragm. 3. #bilateral pneumonia, pulmonary edema, or ARDS. N.B. : The above Results were Read Back by Harjeet Parra MD to Tyson Mcdonough DO, and understanding confirmed on 01/26/2021 10:44:26 (ET). Electronically Signed: Harjeet Parra MD at 10:45 EDT Tel , Service support ,
--- NOTE | 2021-01-26 10:25 | RAD_ITS ---
STUDY: X-RAY - ABDOMEN/PELVIS REASON FOR EXAM: Female, 66 years old. OG PLACEMENT TECHNIQUE: Single AP view of the abdomen / pelvis. COMPARISON: None. FINDINGS: Nasogastric tube with the tip in the left upper quadrant likely in the body the stomach. There is an unremarkable bowel gas pattern. The visualized liver, spleen and kidneys are grossly normal in size and morphology. Normal soft tissue structures. Normal visualized osseous structures. RAD/Abdomen Single View (Portable) IMPRESSION: Nasogastric tube in the with the tip in the left upper quadrant likely in the body the stomach. Electronically Signed: Harjeet Parra MD at 10:46 EDT Tel , Service support ,
[2021-01-26 10:26] LABS: Absolute Lymphocyte Count 4.27 X10^3/uL (0.83-4.51); Absolute Neutrophil Count 4.7 X10^3/uL (2.0-7.7); Basophil# 0.08 X10^3/uL; Basophil% 0.8 % (0-1); Eosinophil# 0.02 X10^3/uL; Eosinophils% 0.2 % (0-5); Hematocrit 53.5 % (37-47); Hemoglobin 15.9 g/dL (12.0-15.0); Lymphocyte # 4.27 X10^3/ul (0.83-4.51); Lymphocyte % 41.9 % (19-41); Mean Corp Hgb Conc 29.7 g/dL (32-36); Mean Corpuscular Hgb 30.9 pg (27.0-32.0); Mean Corpuscular Volume 103.9 fL (81-99); Mean Platelet Vol. 11.2 fl (6.2-12.0); Monocyte# 0.94 X10^3/uL; Monocyte% 9.2 % (0-10); NRBC Flagged by Analyzer 0 % (0-5); Neutrophil # 4.67 X10^3/uL (2.7-7.7); Neutrophil % 45.7 % (47-70); Platelet Count 123 K/mm3 (150-450); RBC Distribution Width SD 50.6 fl (35.1-43.9); Red Blood Count 5.15 M/mm3 (4.2-5.4); White Blood Count 10.2 K/mm3 (4.4-11.0)
--- NOTE | 2021-01-26 10:30 | EX.ED.CRITCA ---
HPI History of Present Illness Chief Complaint: CPR Narrative Narrative: 66-year-old female presenting via EMS for cardiopulmonary arrest. Per her son she was feeling short of breath last night which is a chronic issue however it is worse left evening. He states that he was supposed to bring her to the hospital this morning and when he was trying to get her down the stairs she became very dyspneic When EMS arrived and he called EMS. she had loss of vital signs. It is reported that she had PEA. She was given ACLS was started and ROSC was achieved prior to arrival to the ER. Patient was intubated prior to arrival. PFSH PFSH Medical History BiPAP (biphasic positive airway pressure) dependence COPD (chronic obstructive pulmonary disease) Diabetes Hypertension On home oxygen therapy Sleep apnea Smoker Home Medications metoprolol tartrate 100 mg PO BID 09/01/18 [History Last Taken 07/29/20] pramipexole 2 mg PO BID 09/01/18 [History Last Taken 07/29/20] ramipril 20 mg PO DAILY 09/01/18 [History Last Taken 07/29/20] gabapentin 300 mg PO 4X/DAY 03/04/20 [History Last Taken 07/29/20] metformin 1,000 mg PO BID 03/04/20 [History Last Taken 07/29/20] citalopram 40 mg PO DAILY 07/29/20 [History Last Taken 07/29/20] glimepiride 4 mg PO DAILY 07/29/20 [History Last Taken 07/29/20] lovastatin 40 mg PO DAILY 07/29/20 [History Last Taken 07/28/20] Novolin N NPH U-100 Insulin 20 unit SUBCUT DINNER 07/30/20 [History Last Taken Unknown] Novolin N NPH U-100 Insulin 40 unit SUBCUT BREAKFAST 07/30/20 [History Last Taken Unknown] albuterol sulfate 2.5 mg INHALATION Q2H PRN PRN #90 ml NS 08/01/20 [Rx Last Taken Unknown] aspirin 81 mg PO DAILY@0800 30 Days #30 tab 08/01/20 [Rx Last Taken Unknown] furosemide 40 mg PO BID@1000,1800 30 Days #60 tab 08/01/20 [Rx Last Taken Unknown] ipratropium-albuterol 3 ml INHALATION Q8H #90 ml 08/01/20 [Rx Last Taken Unknown] levofloxacin 750 mg PO DAILY@0600 3 Days #3 tab 08/01/20 [Rx Last Taken Unknown] nicotine 21 mg TRANSDERMAL DAILY 30 Days #30 ea 08/01/20 [Rx Last Taken Unknown] nystatin [Nyamyc] 1 applic TOPICAL TID #30 g 08/01/20 [Rx Last Taken Unknown] potassium chloride [Klor-Con M20] 20 meq PO DAILYCM 30 Days #30 tab 08/01/20 [Rx Last Taken Unknown] budesonide 1 mg/2 mL suspension for nebulization 1 mg INHALATION BID #60 ml 09/19/20 [Rx Last Taken Unknown] guaifenesin 1,200 mg tablet, extended release 12 hr 1,200 mg PO Q12H #60 tab 09/19/20 [Rx Last Taken Unknown] prednisone 50 mg PO DAILY #5 tab 09/24/20 [Rx Last Taken Unknown] Allergy/AdvReac Type Severity Reaction Status Date / Time PAPER TAPE Allergy Rash Uncoded 09/24/20 12:05 Family History Father Cancer Mother Heart disease Brother Cancer Social History household members: family Smoking Status: Current every day smoker tobacco type: cigarettes quit status: considering quitting counseling given: provider counseling alcohol intake: never substance use type: does not use ROS ROS ED Review of Systems ROS Unobtainable: due to encephalopathy, due to endotracheal tube and other EXAM Physical Exam Const Vital Signs: 01/26/21 10:09 01/26/21 10:15 01/26/21 10:16 Temperature 97.1 F L Temperature Source Temporal Pulse Rate 120 H 122 H 120 H Respiratory Rate 25 H 17 14 Respiratory Effort Mechanically Ventilated Respiratory Depth Normal Respiratory Pattern Normal Normal Blood Pressure 245/112 H 245/112 H Blood Pressure Mean 156 156 Pulse Ox 98 98 97 Oxygen Delivery Method Mechanical Ventilator Mechanical Ventilator Fraction of Inspired Oxygen (FIO2) 100 65 01/26/21 10:27 01/26/21 10:33 01/26/21 10:34 Temperature Temperature Source Pulse Rate 115 H 115 H Respiratory Rate 15 20 H Respiratory Effort Respiratory Depth Respiratory Pattern Blood Pressure 143/67 H 85/45 L Blood Pressure Mean 92 58 Pulse Ox 98 87 98 Oxygen Delivery Method Mechanical Ventilator Mechanical Ventilator Fraction of Inspired Oxygen (FIO2) 01/26/21 10:35 01/26/21 10:36 01/26/21 10:38 Temperature Temperature Source Pulse Rate 114 H 107 H Respiratory Rate 22 H Respiratory Effort Mechanically Ventilated Respiratory Depth Normal Respiratory Pattern Normal Blood Pressure 71/42 L 93/51 L Blood Pressure Mean 51 65 Pulse Ox 89 91 Oxygen Delivery Method Mechanical Ventilator Mechanical Ventilator Mechanical Ventilator Fraction of Inspired Oxygen (FIO2) 01/26/21 10:43 01/26/21 10:45 01/26/21 10:50 Temperature Temperature Source Pulse Rate 96 92 86 Respiratory Rate 15 12 Respiratory Effort Respiratory Depth Respiratory Pattern Blood Pressure 94/66 51/25 L 76/19 L Blood Pressure Mean 75 33 38 Pulse Ox 92 91 90 Oxygen Delivery Method Mechanical Ventilator Mechanical Ventilator Fraction of Inspired Oxygen (FIO2) 01/26/21 10:55 01/26/21 10:59 01/26/21 11:00 Temperature 99.2 F H 99.2 F H Temperature Source Core Core Pulse Rate 86 73 Respiratory Rate 16 14 Respiratory Effort Respiratory Depth Respiratory Pattern Blood Pressure 67/14 L 79/19 L Blood Pressure Mean 31 39 Pulse Ox 94 94 Oxygen Delivery Method Bi-pap Mechanical Ventilator Fraction of Inspired Oxygen (FIO2) 100 01/26/21 11:13 01/26/21 12:00 Temperature 98.2 F 97.3 F L Temperature Source Core Core Pulse Rate 84 Respiratory Rate 14 Respiratory Effort Respiratory Depth Respiratory Pattern Blood Pressure 96/30 L Blood Pressure Mean 52 Pulse Ox 95 Oxygen Delivery Method Mechanical Ventilator Fraction of Inspired Oxygen (FIO2) 100 Positive obese General Appearance ED: other Intubated with 7.5 ET tube Nutritional Appearance: obese HEENT normocephalic and atraumatic Cardio Rate: tachycardic Peripheral Pulses: pulses 2+ throughout MDM MDM MDM Narrative Medical decision making narrative: Patient presenting post cardiopulmonary arrest with ET tube in place. Apparently she had PEA prior to arrival with ROSC achieved. Patient illicitly hypertensive and was placed on a propofol drip for which she became hypotensive. This was stopped and she remained hypotensive. Her CBC showed a white blood cell count of 10.2, hemoglobin 50.9, hematocrit 33.5, platelets 123. INR was normal. Creatinine is 1.20 and electrolytes are normal. LFTs are normal with exception of an elevated alkaline phosphatase and AST of 70. Troponin is 25. Lactic acid is 8.0. Urinalysis was negative for infection. Patient was initially given some IV fluids to get her blood pressure up however her chest x-ray on my interpretation shows pulmonary edema which looks like arts. This could also be infiltrates given that her Covid test was positive today. Her son did arrive and did tell me that he was trying to get out of the house when all this started and she had been short of breath chronically but it was worse over the last 24 hours. She did not have any reported fevers. I had discussion with the son about how to proceed given her low blood pressure. He stated that she would not want to live in a vegetative state and after description of putting a central line and and starting pressors he did not want this done. Although she is intubated he also states that if she were to decompensate he would not want us to do CPR. I had multiple discussions with him about this over the course of a couple of hours. I explained to him that likely his mother would not get well given her low blood pressures and that she was requiring a ventilator. In addition to this her baseline is requiring 6 L of oxygen via nasal cannula as well as multiple comorbidities. Patient was given breathing treatments during the interim and her pulse ox readings have been normal. Her lowest blood pressure reading was 51/25 but is now 96/30. Fluids were stopped. Given the patient most likely will need an ICU bed I did talk to Dr. Palomares about the patient. I then spoke with the hospitalist for admission. Although the patient does not want to continue to resuscitate his mother any further he did request that we try to wait for his sister. He placed multiple phone calls to her islam and her as well as had the police go look for her. Eventually she did respond and stated that she did not want to come to the hospital to see her. This was relayed to the hospitalist. The hospitalist will take over care from here. I think the patient will most likely not do well in the short-term. Hospitalist did agree. Impression: 1. Cardiopulmonary arrest 2. Hypoxic respiratory failure 3. COVID-19 pneumonitis 4. Hypotension 5. Lactic acidosis Lab Data Labs: Laboratory Results - last 24 hr 01/26/21 01/26/21 01/26/21 10:13 10:13 10:13 WBC 10.2 RBC 5.15 Hgb 15.9 H Hct 53.5 H MCV 103.9 H MCH 30.9 MCHC 29.7 L RDW Std Deviation 50.6 H RDW Coeff of Bautista 13.0 Plt Count 123 L MPV 11.2 Immature Gran % (Auto) 2.200 H Neut % (Auto) 45.7 L Lymph % (Auto) 41.9 H [place] % (Auto) 9.2 Eos % (Auto) 0.2 Baso % (Auto) 0.8 Absolute Neuts (auto) 4.7 Absolute Lymphs (auto) 4.27 Nucleated RBC % 0 PT 13.0 INR 1.0 APTT 39.1 H Sodium 140 Potassium 3.9 Chloride 101 Carbon Dioxide 29.0 Anion Gap 10 BUN 21 H Creatinine 1.20 H Estim Creat Clear Calc 32.23 Est GFR (MDRD) Af Amer 57 L Est GFR (MDRD) Non-Af 48 L BUN/Creatinine Ratio 17.5 Glucose 262 H Lactic Acid Calcium 8.6 Total Bilirubin 0.50 AST 70 H ALT 33 Alkaline Phosphatase 145 H Troponin I High Sens Total Protein 6.7 Albumin 2.6 L Globulin 4.1 Albumin/Globulin Ratio 0.6 L Urine Color Urine Clarity Urine pH Ur Specific [place] Urine Protein Urine Glucose (UA) Urine Ketones Urine Occult Blood Urine Nitrite Urine Bilirubin Urine Urobilinogen Ur Leukocyte Esterase Urine RBC Urine WBC Ur Squamous Epith Cells Urine Bacteria Coarse Granular Casts Urine Mucus 01/26/21 01/26/21 01/26/21 10:13 10:13 10:23 WBC RBC Hgb Hct MCV MCH MCHC RDW Std Deviation RDW Coeff of Bautista Plt Count MPV Immature Gran % (Auto) Neut % (Auto) Lymph % (Auto) [place] % (Auto) Eos % (Auto) Baso % (Auto) Absolute Neuts (auto) Absolute Lymphs (auto) Nucleated RBC % PT INR APTT Sodium Potassium Chloride Carbon Dioxide Anion Gap BUN Creatinine Estim Creat Clear Calc Est GFR (MDRD) Af Amer Est GFR (MDRD) Non-Af BUN/Creatinine Ratio Glucose Lactic Acid 8.0 H* Calcium Total Bilirubin AST ALT Alkaline Phosphatase Troponin I High Sens 25 Total Protein Albumin Globulin Albumin/Globulin Ratio Urine Color Yellow Urine Clarity Cloudy Urine pH 6.0 Ur Specific [place] 1.015 Urine Protein 500 H Urine Glucose (UA) 50 H Urine Ketones 50 H Urine Occult Blood 50 H Urine Nitrite Negative Urine Bilirubin Negative Urine Urobilinogen Normal Ur Leukocyte Esterase Negative Urine RBC 5-10 SEEN Urine WBC 0-5 SEEN Ur Squamous Epith Cells 5-10 SEEN Urine Bacteria 1+ Coarse Granular Casts 0-5 SEEN Urine Mucus 0 SEEN Radiography Diagnostic Testing: Clinical Impression(s) from Imaging Studies Chest X-Ray 01/26/21 10:25 IMPRESSION: 1. Interval placement of endotracheal tube with the tip in the proximal right mainstem bronchus. This should be retracted. 2. Interval placement of nasogastric tube with the tip below the diaphragm. 3. #bilateral pneumonia, pulmonary edema, or ARDS. N.B. : The above Results were Read Back by Harjeet Parra MD to Tyson Mcdonough DO, and understanding confirmed on 01/26/2021 10:44:26 (ET). Electronically Signed: Harjeet Parra MD at 10:45 EDT Tel , Service support , ADDENDUM: 01/26/21 1052 IMPRESSION: 1. Interval placement of endotracheal tube with the tip in the proximal right mainstem bronchus. This should be retracted. 2. Interval placement of nasogastric tube with the tip below the diaphragm. 3. #bilateral pneumonia, pulmonary edema, or ARDS. N.B. : The above Results were Read Back by Harjeet Parra MD to Tyson Mcdonough DO, and understanding confirmed on 01/26/2021 10:44:26 (ET). Electronically Signed: Harjeet Parra MD at 10:45 EDT Tel , Service support , KUB X-Ray 01/26/21 10:25 IMPRESSION: Nasogastric tube in the with the tip in the left upper quadrant likely in the body the stomach. Electronically Signed: Harjeet Parra MD at 10:46 EDT Tel , Service support , Discharge Plan Triage Chief Complaint: CPR ED Provider: Tyson Mcdonough Dx/Rx/DC Orders Prescriptions: No Action budesonide 1 mg/2 mL suspension for nebulization 1 mg inhalation BID Qty: 60 RF: 6 guaifenesin 1,200 mg tablet extended release 12hr 1,200 mg PO Q12H Qty: 60 RF: 6 pramipexole 1 MG tablet 2 mg PO BID RF: 0 metoprolol tartrate 100 MG tablet 100 mg PO BID RF: 0 ramipril 10 MG capsule 20 mg PO DAILY RF: 0 metformin 1,000 MG tablet 1,000 mg PO BID RF: 0 gabapentin 300 MG capsule 300 mg PO 4X/DAY RF: 0 citalopram 40 mg tablet 40 mg PO DAILY RF: 0 lovastatin 40 mg Tablet 40 mg PO DAILY RF: 0 glimepiride 4 mg Tablet 4 mg PO DAILY RF: 0 Novolin N NPH U-100 Insulin 100 unit/mL suspension 40 unit SUBCUT BREAKFAST RF: 0 Novolin N NPH U-100 Insulin 100 unit/mL suspension 20 unit SUBCUT DINNER RF: 0 potassium chloride [Klor-Con M20] 20 mEq Tablet,Er Particles/Crystals 20 meq PO DAILYCM 30 Days Qty: 30 RF: 0 nystatin [Nyamyc] 100,000 unit/gram Powder 1 applic topical TID Qty: 30 RF: 0 albuterol sulfate 2.5 mg /3 mL (0.083 %) Solution For Nebulization 2.5 mg inhalation Q2H PRN PRN (Reason: Dyspnea, wheezing) Qty: 90 RF: 0 nicotine 21 mg/24 hr Patch 24 Hour 21 mg transdermal DAILY 30 Days Qty: 30 RF: 0 aspirin 81 mg Tablet,Chewable 81 mg PO DAILY@0800 30 Days Qty: 30 RF: 0 levofloxacin 750 mg Tablet 750 mg PO DAILY@0600 3 Days Qty: 3 RF: 0 furosemide 40 mg Tablet 40 mg PO BID@1000,1800 30 Days Qty: 60 RF: 0 ipratropium-albuterol 0.5 mg-3 mg(2.5 mg base)/3 mL Solution For Nebulization 3 ml inhalation Q8H Qty: 90 RF: 0 prednisone 50 mg tablet 50 mg PO DAILY Qty: 5 RF: 0 Primary Care Provider: Bhavesh Victoria
[2021-01-26 10:32] LABS: Mucous, Urine 0 SEEN /hpf (<or=2+)
[2021-01-26 10:34] LABS: Partial Thromboplast Time 39.1 Seconds (24.1-36.2)
[2021-01-26] MEDS: Ipratropium/Albuterol Sulfate 3 ML AMPUL.NEB INHALATION (10:35)
[2021-01-26 10:40] LABS: ALB/GLOB Ratio 0.6 RATIO (0.9-2.4); AST(SGOT) 70 U/L (15-37); Alanine Aminotransfer ALT/SGPT 33 U/L (13-56); Albumin, Serum 2.6 g/dL (3.2-5.0); Alkaline Phosphatase 145 U/L (45-117); Anion Gap 10 (5-15); BUN 21 mg/dL (7-18); BUN/Creat Ratio 17.5 RATIO (10-20); Calcium,Total 8.6 mg/dL (8.5-10.1); Chloride 101 mmol/L (98-107); EST Glomerular Filtration Rate 48 mL/min (>60); Est Glom Filt Rate - Afr Amer 57 mL/min (>60); Estimated Creatinine Clearance 32.23 ml/min; Globulin 4.1 g/dL (2.2-4.2); Glucose 262 mg/dL (74-106); Potassium 3.9 mmol/L (3.5-5.1); Protein, Total 6.7 g/dL (6.4-8.2); Sodium Level 140 mmol/L (136-145)
--- NOTE | 2021-01-26 10:41 | ED.RN ---
son at bedside, speaking with physician regarding condition.
[2021-01-26 10:43] LABS: Color, Urine Yellow (Yellow); Glucose, Dipstick 50 mg/dl (Normal); Ketone-Dipstick 50 mg/dl (Negative); Leukocyte Esterase-Dipstick Negative /ul (Negative); Nitrite-Dipstick Negative (Negative); Occult Blood-Urine 50 /ul (Negative); Protein-Dipstick 500 mg/dl (Negative); Specific Gravity, Urine 1.015 (1.002-1.030); Urine Bilirubin Dipstick Negative (Negative); Urine Clarity Cloudy (Clear); Urine Urobilinogen Normal (Normal)
[2021-01-26 10:51] LABS: Red Blood Cells-Urine 5-10 SEEN /hpf (0-5); Squamous Epithelial Cells - UA 5-10 SEEN /hpf (5-10); White Blood Cells 0-5 SEEN /hpf (0-5)
--- NOTE | 2021-01-26 10:51 | ED.RN ---
left message for daughter, evelyn
[2021-01-26 10:52] LABS: Bacteria 1+ /hpf (None Seen); Coarse Granular Cast 0-5 SEEN /lpf (0-5 /lpf)
[2021-01-26] MEDS: 0.9% Normal Saline 1,000 ML 999 ML IV ×2 (10:53)
[2021-01-26] MEDS: Albuterol 2.5 MG/3 ML VIAL.NEB. INHALATION (10:55)
--- NOTE | 2021-01-26 10:58 | ED.RN ---
son at bedside
--- NOTE | 2021-01-26 11:00 | ED.RN ---
left another message for daughter
--- NOTE | 2021-01-26 11:04 | NURSING ---
DR BANSAL FOR DR CALDERA
[2021-01-26 11:27] LABS: Troponin-I HS 25 pg/mL (3.0-54.0)
[2021-01-26] MEDS: Ceftriaxone 1 GM/50 ML BAG IV (11:34)
--- NOTE | 2021-01-26 11:38 | ED.RN ---
left another message for daughter
--- NOTE | 2021-01-26 11:46 | ED.RN ---
THIS NURSE CONTACTED [facility] [place] [facility]PATCH TO HELP LOCATE THE DAUGHTER IN [place]
--- NOTE | 2021-01-26 11:47 | ED.RN ---
THIS NURSE ATTEMPTED TO CONTACT DAUGHTER AGAIN. LEFT A MESSAGE. PER DISPATCH, HOME ADDRESS FOR DAUGHTER LOCATED. SENDING YOSVANY RED TO THE RESIDENCE
--- NOTE | 2021-01-26 12:02 | ED.RN ---
ATTEMPTING TO REACH DAUGHTER AT [facility] BELIEVED SHE MAY ATTEND. NO GARCÍASWER
--- NOTE | 2021-01-26 12:09 | ED.RN ---
LEFT MESSAGE FOR DAUGHTER ON VOICEMAIL
--- NOTE | 2021-01-26 12:27 | ED.RN ---
[facility]
--- NOTE | 2021-01-26 12:42 | ED.RN ---
THIS NURSE ATTEPTED AN ADDITIONAL POSSIBLE PHONE NUMBER FOR DAUGHTER. LEFT A MESSAGE
--- NOTE | 2021-01-26 12:51 | ED.RN ---
DR BANSAL TEXTED TO CALL DR CALDERA
--- NOTE | 2021-01-26 12:54 | ED.RN ---
YOSVANY RED WENT TO [facility]IDENCE. UNABLE TO LOCATE ANY ONE AT THE HOME
--- NOTE | 2021-01-26 14:05 | ED.RN ---
patient siblings at bedside, along with patient son. Family notified of physician coming to speak directly with them. Patient restless on ventilator, fentanyl drip ordered and started. Patient suctioned orally and also inline multiple times with moderate amounts of blood tinged secretions from oropharynx, clear secretions through ETT.
[2021-01-26] MEDS: fentaNYL 100 MCG/2 ML Ampul 50 MCG IV (14:09)
--- NOTE | 2021-01-26 14:10 | ED.RN ---
Dr. Wen at bedside speaking with family regarding withdrawal of care and making patient comfortable for end of life. Family in agreeance with this and all questions answered by
[2021-01-26 14:18] LABS: Reflex Lactate? Y
[2021-01-26] MEDS: Morphine 4 MG/ML Syringe IV ×2 (14:19→15:07)
[2021-01-26] MEDS: LORazepam 2 MG/ML Syringe 1 MG IV ×2 (14:19→15:44)
--- NOTE | 2021-01-26 14:24 | CPS ---
Patient extubated to 6lpm Nasal Cannula per Dr. Wen's orders at 1424.
--- NOTE | 2021-01-26 14:31 | ED.RN ---
Patient was extubated at 1420. Family at bedside following, questions answered.
--- NOTE | 2021-01-26 14:43 | PCM.HP.STD ---
HPI - General HPI Narrative THERESA VIVEROS, is a 66 F who presents from home by EMS after she had a respiratory arrest in the home and then while in the ambulance had a cardiac arrest. She did present to the ER with return of circulation however was intubated and sedated by the time I was consulted. The history is obtained from her son and chart review, she he states that she was feeling short of breath last night which is a chronic issue but this morning he was in to bring her into the hospital for the continued worsening shortness of breath when she became very dyspneic and unresponsive. When EMS arrived she was in PEA and started with CPR. Unfortunately there is no ambulance note to see how long CPR was performed she did have return of spontaneous circulation on arrival. After intubation in the ER the son stated that he did not want any aggressive interventions and he did not want a central line or any type of blood pressure medication started. Therefore since her arrival in the ER her mean arterial pressures have been below 65. He states that he is waiting for family to come from [place] and then would likely like to withdraw care. PFSH Medical History BiPAP (biphasic positive airway pressure) dependence COPD (chronic obstructive pulmonary disease) Diabetes Hypertension On home oxygen therapy Sleep apnea Smoker Home Medications metoprolol tartrate 100 mg PO BID 09/01/18 [History Last Taken 07/29/20] pramipexole 2 mg PO BID 09/01/18 [History Last Taken 07/29/20] ramipril 20 mg PO DAILY 09/01/18 [History Last Taken 07/29/20] gabapentin 300 mg PO 4X/DAY 03/04/20 [History Last Taken 07/29/20] metformin 1,000 mg PO BID 03/04/20 [History Last Taken 07/29/20] citalopram 40 mg PO DAILY 07/29/20 [History Last Taken 07/29/20] glimepiride 4 mg PO DAILY 07/29/20 [History Last Taken 07/29/20] lovastatin 40 mg PO DAILY 07/29/20 [History Last Taken 07/28/20] Novolin N NPH U-100 Insulin 20 unit SUBCUT DINNER 07/30/20 [History Last Taken Unknown] Novolin N NPH U-100 Insulin 40 unit SUBCUT BREAKFAST 07/30/20 [History Last Taken Unknown] albuterol sulfate 2.5 mg INHALATION Q2H PRN PRN #90 ml NS 08/01/20 [Rx Last Taken Unknown] aspirin 81 mg PO DAILY@0800 30 Days #30 tab 08/01/20 [Rx Last Taken Unknown] furosemide 40 mg PO BID@1000,1800 30 Days #60 tab 08/01/20 [Rx Last Taken Unknown] ipratropium-albuterol 3 ml INHALATION Q8H #90 ml 08/01/20 [Rx Last Taken Unknown] levofloxacin 750 mg PO DAILY@0600 3 Days #3 tab 08/01/20 [Rx Last Taken Unknown] nicotine 21 mg TRANSDERMAL DAILY 30 Days #30 ea 08/01/20 [Rx Last Taken Unknown] nystatin [Nyamyc] 1 applic TOPICAL TID #30 g 08/01/20 [Rx Last Taken Unknown] potassium chloride [Klor-Con M20] 20 meq PO DAILYCM 30 Days #30 tab 08/01/20 [Rx Last Taken Unknown] budesonide 1 mg/2 mL suspension for nebulization 1 mg INHALATION BID #60 ml 09/19/20 [Rx Last Taken Unknown] guaifenesin 1,200 mg tablet, extended release 12 hr 1,200 mg PO Q12H #60 tab 09/19/20 [Rx Last Taken Unknown] prednisone 50 mg PO DAILY #5 tab 09/24/20 [Rx Last Taken Unknown] Allergy/AdvReac Type Severity Reaction Status Date / Time PAPER TAPE Allergy Rash Uncoded 09/24/20 12:05 Family History Father Cancer Mother Heart disease Brother Cancer Social History household members: family Smoking Status: Current every day smoker tobacco type: cigarettes quit status: considering quitting counseling given: provider counseling alcohol intake: never substance use type: does not use ROS Review of Systems ROS Unobtainable: due to endotracheal tube Vital Signs Vital Signs Vital Signs: 01/26/21 10:09 01/26/21 10:15 01/26/21 10:16 Temperature 97.1 F L Temperature Source Temporal Pulse Rate 120 H 122 H 120 H Respiratory Rate 25 H 17 14 Respiratory Effort Mechanically Ventilated Respiratory Depth Normal Respiratory Pattern Normal Normal Blood Pressure 245/112 H 245/112 H Blood Pressure Mean 156 156 Pulse Ox 98 98 97 Oxygen Delivery Method Mechanical Ventilator Mechanical Ventilator Fraction of Inspired Oxygen (FIO2) 100 65 01/26/21 10:27 01/26/21 10:33 01/26/21 10:34 Temperature Temperature Source Pulse Rate 115 H 115 H Respiratory Rate 15 20 H Respiratory Effort Respiratory Depth Respiratory Pattern Blood Pressure 143/67 H 85/45 L Blood Pressure Mean 92 58 Pulse Ox 98 87 98 Oxygen Delivery Method Mechanical Ventilator Mechanical Ventilator Fraction of Inspired Oxygen (FIO2) 01/26/21 10:35 01/26/21 10:36 01/26/21 10:38 Temperature Temperature Source Pulse Rate 114 H 107 H Respiratory Rate 22 H Respiratory Effort Mechanically Ventilated Respiratory Depth Normal Respiratory Pattern Normal Blood Pressure 71/42 L 93/51 L Blood Pressure Mean 51 65 Pulse Ox 89 91 Oxygen Delivery Method Mechanical Ventilator Mechanical Ventilator Mechanical Ventilator Fraction of Inspired Oxygen (FIO2) 01/26/21 10:43 01/26/21 10:45 01/26/21 10:50 Temperature Temperature Source Pulse Rate 96 92 86 Respiratory Rate 15 12 Respiratory Effort Respiratory Depth Respiratory Pattern Blood Pressure 94/66 51/25 L 76/19 L Blood Pressure Mean 75 33 38 Pulse Ox 92 91 90 Oxygen Delivery Method Mechanical Ventilator Mechanical Ventilator Fraction of Inspired Oxygen (FIO2) 01/26/21 10:55 01/26/21 10:59 01/26/21 11:00 Temperature 99.2 F H 99.2 F H Temperature Source Core Core Pulse Rate 86 73 Respiratory Rate 16 14 Respiratory Effort Respiratory Depth Respiratory Pattern Blood Pressure 67/14 L 79/19 L Blood Pressure Mean 31 39 Pulse Ox 94 94 Oxygen Delivery Method Bi-pap Mechanical Ventilator Fraction of Inspired Oxygen (FIO2) 100 01/26/21 11:13 01/26/21 12:00 01/26/21 13:00 Temperature 98.2 F 97.3 F L 97.2 F L Temperature Source Core Core Core Pulse Rate 84 107 H Respiratory Rate 14 Respiratory Effort Respiratory Depth Respiratory Pattern Blood Pressure 96/30 L 109/38 L Blood Pressure Mean 52 61 Pulse Ox 95 94 Oxygen Delivery Method Mechanical Ventilator Mechanical Ventilator Fraction of Inspired Oxygen (FIO2) 100 01/26/21 14:00 01/26/21 14:03 Temperature 97.3 F L 97.3 F L Temperature Source Core Core Pulse Rate 100 Respiratory Rate 18 Respiratory Effort Respiratory Depth Respiratory Pattern Blood Pressure 130/70 H Blood Pressure Mean 90 Pulse Ox 96 Oxygen Delivery Method Mechanical Ventilator Fraction of Inspired Oxygen (FIO2) Weight Weight: 286 lb 2.56 oz Body Mass Index (BMI) 55.8 Physical Exam Const General Appearance: intubated and patient mechanically ventilated HEENT normocephalic Eyes Eyes Narrative: Pupils are fixed Neck supple and no JVD Resp Auscultation: rhonchi; Negative for crackles, rales or wheezes Cardio regular rhythm, S1 normal heart sound, S2 normal heart sound and no murmurs Rate: tachycardic GI soft to palpation and non-distended; Negative for hepatosplenomegaly Extremity no clubbing, cyanosis or edema Skin no rashes or lesions noted Neuro Sensorium / Orientation: sedated on vent Psych Appearance: intubated Results Lab / Micro Data Result Diagrams: 01/26/21 10:13 01/26/21 10:13 Labs: Laboratory Results - last 24 hr 01/26/21 10:13: WBC 10.2, RBC 5.15, Hgb 15.9 H, Hct 53.5 H, MCV 103.9 H, MCH 30.9, MCHC 29.7 L, RDW Std Deviation 50.6 H, RDW Coeff of Bautista 13.0, Plt Count 123 L, MPV 11.2, Immature Gran % (Auto) 2.200 H, Neut % (Auto) 45.7 L, Lymph % (Auto) 41.9 H, [place] % (Auto) 9.2, Eos % (Auto) 0.2, Baso % (Auto) 0.8, Absolute Neuts (auto) 4.7, Absolute Lymphs (auto) 4.27, Nucleated RBC % 0 01/26/21 10:13: PT 13.0, INR 1.0, APTT 39.1 H 01/26/21 10:13: Sodium 140, Potassium 3.9, Chloride 101, Carbon Dioxide 29.0, Anion Gap 10, BUN 21 H, Creatinine 1.20 H, Estim Creat Clear Calc 32.23, Est GFR (MDRD) Af Amer 57 L, Est GFR (MDRD) Non-Af 48 L, BUN/Creatinine Ratio 17.5, Glucose 262 H, Calcium 8.6, Total Bilirubin 0.50, AST 70 H, ALT 33, Alkaline Phosphatase 145 H, Total Protein 6.7, Albumin 2.6 L, Globulin 4.1, Albumin/Globulin Ratio 0.6 L 01/26/21 10:13: Lactic Acid 8.0 H* 01/26/21 10:13: Troponin I High Sens 25 01/26/21 10:23: Urine Color Yellow, Urine Clarity Cloudy, Urine pH 6.0, Ur Specific [place] 1.015, Urine Protein 500 H, Urine Glucose (UA) 50 H, Urine Ketones 50 H, Urine Occult Blood 50 H, Urine Nitrite Negative, Urine Bilirubin Negative, Urine Urobilinogen Normal, Ur Leukocyte Esterase Negative, Urine RBC 5-10 SEEN, Urine WBC 0-5 SEEN, Ur Squamous Epith Cells 5-10 SEEN, Urine Bacteria 1+, Coarse Granular Casts 0-5 SEEN, Urine Mucus 0 SEEN Micro: Microbiology 01/26/21 10:38 Nasal Secretion SARS-CoV-2 Antigen (Rapid) - Final SARS-CoV-2 (COVID 19) Radiology Impression Chest X-Ray 01/26/21 10:25 IMPRESSION: 1. Interval placement of endotracheal tube with the tip in the proximal right mainstem bronchus. This should be retracted. 2. Interval placement of nasogastric tube with the tip below the diaphragm. 3. #bilateral pneumonia, pulmonary edema, or ARDS. N.B. : The above Results were Read Back by Harjeet Parra MD to Tyson Mcdonough DO, and understanding confirmed on 01/26/2021 10:44:26 (ET). Electronically Signed: Harjeet Parra MD at 10:45 EDT Tel , Service support , ADDENDUM: 01/26/21 1052 IMPRESSION: 1. Interval placement of endotracheal tube with the tip in the proximal right mainstem bronchus. This should be retracted. 2. Interval placement of nasogastric tube with the tip below the diaphragm. 3. #bilateral pneumonia, pulmonary edema, or ARDS. N.B. : The above Results were Read Back by Harjeet Parra MD to Tyson Mcdonough DO, and understanding confirmed on 01/26/2021 10:44:26 (ET). Electronically Signed: Harjeet Parra MD at 10:45 EDT Tel , Service support , KUB X-Ray 01/26/21 10:25 IMPRESSION: Nasogastric tube in the with the tip in the left upper quadrant likely in the body the stomach. Electronically Signed: Harjeet Parra MD at 10:46 EDT Tel , Service support , Assessment & Plan Assessment/Plan (1) Acute and chronic respiratory failure with hypoxia: (2) Pneumonia due to COVID-19 virus: PLAN: 1. Acute on chronic hypoxic respiratory failure secondary to COVID-19 pneumonia -Had a 45-minute discussion on advance care planning with the family they do not want any further aggressive treatments done. The family would like to terminally extubate her once everyone has arrived -Currently intubated and sedated with propofol and fentanyl drip, when ready can extubate after giving her a doses of Ativan and morphine to make her comfortable. -At that time will allow family at bedside and if necessary can move to the inpatient side for further hospice care 2. COPD, diabetes, hypertension, severe pulmonary hypertension all chronic medical conditions but these were not addressed given her transition to hospice Charges/Coding Procedures Hospitalists Procedures: 31341 Advncd Care Plan 30 Min Multi Select Codes Visit Charges Office Visit/Consults: 21525 ED Visit; High/Urgent Severity
--- NOTE | 2021-01-26 15:04 | ED.RN ---
PT HAVING RESPIRATORY DISTRESS. DR BANSAL AWARE. ADDITIONAL ORDER FOR MORPHINE 4MG IV OBTAINED FOR PATIENT COMFORT
--- NOTE | 2021-01-26 16:10 | ED.RN ---
DR BANSAL IN THE ROOM. TOD 7648. FAMILY AT THE BEDSIDE.
--- NOTE | 2021-01-26 16:13 | ED.RN ---
pt's son requested pt's jewelry be taken off and given to him prior to him leaving. pt's sister and niece were in the room when the son asked. rings, watch, dentures, and pulse ox given to son.
--- NOTE | 2021-01-26 16:14 | PCM.DEATH ---
Preliminary Cause of Preliminary Cause of Preliminary Cause of : Acute on chronic hypoxic respiratory failure secondary to COVID-19 pneumonia resulting in a respiratory arrest followed by cardiac arrest Principle Diagnosis Problem List: Active and Suspected Problems (Updated 01/26/21 @ 14:[address] Jak Wen MD) Pneumonia due to COVID-19 virus (Acute) Hospital Course Mrs. Valdez is a 66-year-old female with a history of diabetes, severe pulmonary hypertension, hypertension, hyperlipidemia, COPD requiring chronic oxygen who presented to the hospital initially for a respiratory arrest followed by cardiac arrest. Prior to arrival to the ED she did have ROSC and therefore was emergently intubated by the ER physician. Upon the arrival of her son, he stated that they did not want any further aggressive treatments with the placement of a central line for pressor support. At this point I was consulted for admission. Her blood pressure was tenuous at best with maps in the 30s to 50s the majority the time she was here. I had a 45-minute discussion with the son and the family on arrival about advanced care planning. They did make the request that we do no aggressive treatments and that once all family is here we could terminally extubate. Once family arrived she was extubated and transition to hospice care. This was managed with a milligram of Ativan every 2 hours and 4 mg of morphine every 2 hours as well with breakthrough orders given as needed. After extubation she was placed on nasal cannula and family is at bedside for comfort. She on 01/26/2021 at 1555.
== END 2021-01-26 15:55 ==
PROVIDERS: Emergency Provider Student in an Organized Health Care Education/Training Program; PCP Family Medicine
DX: U07.1 COVID-19 (principal); J96.21 Acute and chronic respiratory failure with hypoxia; J44.0 Chronic obstructive pulmonary disease with (acute) lower respiratory infection; J12.82 Pneumonia due to coronavirus disease 2019; I46.9 Cardiac arrest, cause unspecified; I95.9 Hypotension, unspecified; I27.20 Pulmonary hypertension, unspecified; I10 Essential (primary) hypertension; E11.9 Type 2 diabetes mellitus without complications; E78.5 Hyperlipidemia, unspecified; G47.30 Sleep apnea, unspecified; Z79.4 Long term (current) use of insulin; Z79.82 Long term (current) use of aspirin; Z79.899 Other long term (current) drug therapy; F17.210 Nicotine dependence, cigarettes, uncomplicated
CPT/HCPCS: 31500; 31720; 71045; 74018; 80053; 81001; 83605; 84484; 85025; 85610; 85730; 87040; 87086; 87426; 93005; 94002; 96361; 96365; 96367; 96368; 96375; 96376; 99251; 99285; J7030; J7050; A4216; G0463; J3010